=== PATIENT | female | born 1990 | race Caucasian/White ===

== ENCOUNTER → 2017-11-10 10:33 | Outpatient (CLI) | payer OTHER, SELFPAY | PROVIDERS: PCP Family Medicine; Visit Provider Obstetrics & Gynecology | DX: N92.5 Other specified irregular menstruation (principal) | CPT/HCPCS: 36415; 84702 ==

== ENCOUNTER 2017-11-12 09:08 | Emergency (ER) | payer OTHER, SELFPAY ==
[2017-11-12 09:15] VITALS: BP 113/78; PULSE 94; RESP 16; TEMP 36.8; O2SAT 98; BMI 37.9
[2017-11-12 10:15] LABS: Urine Pregnancy, HCG Qual. Positive (Negative)
--- NOTE | 2017-11-12 10:16 | US_ITS ---
US OB transvaginal HISTORY: First trimester bleeding ITS.REASON: cramping, spotting ORDERING PHYSICIAN: Richard Thompson MD PATIENT AGE: 27 years COMPARISON: None FINDINGS: An intrauterine gestational sac is present with a pole with a crown-rump length of 0.51cm correlating to gestational age of 6 weeks 2 days. heart tones are present with an FHR of 139 bpm's. Yolk sac is noted. Adnexa: 2 cm right corpus luteum noted. IMPRESSION: Live intrauterine gestation at 6 weeks 2 days days as described above. Estimated due date by ultrasound is 07/07/2018
--- NOTE | 2017-11-12 10:19 | HMH.EDGENADL ---
ED Disposition Clinical Impression: Threatened miscarriage Disposition: Home, Self-Care Condition on Discharge: Good Instructions: DI for Threatened Additional Instructions: Call your dowel inserting machine operator if bleeding increases or pain worsens. Rest for 2 days, no strenuous physical activity and no sexual intercourse for 2 days. Referrals: Ayesha Mejia APRN [Primary Care Provider] - - Critical Care Critical Care Time: No Attestation: On 11/12/17, the high probability of a clinically significant, sudden or life threatening deterioration of the following system(s) required my full and direct attention, intervention and personal management. The time I documented below is in addition to time spent performing reported procedures but includes the following listed in this critical care notation. Medical Decision Making Vital Signs: 11/12/17 09:15 Temperature 98.2 F Temperature Source Oral Pulse Rate [Left Radial] 94 H Respiratory Rate 16 Blood Pressure [Right Arm] 113/78 Blood Pressure Mean [Right Arm] 89 Blood Pressure Source [Right Arm] Automatic Cuff Blood Pressure Position [Right Arm] Sitting 02 Sat by Pulse Oximetry 98 Oxygen Delivery Method Room Air - Lab Data Lab Results 11/12/17 09:58: Serum HCG, Qual Positive, Urine HCG, Qual Positive 11/12/17 10:43: WBC 11.8 H, RBC 4.59, Hgb 13.6, Hct 41.9, MCV 91.3, MCH 29.6, MCHC 32.4, RDW 14.3, Plt Count 301, MPV 7.7, Neut % (Auto) 62.7, Lymph % (Auto) 31.0, [place] % (Auto) 4.9, Eos % (Auto) 1.0, Baso % (Auto) 0.5, Neut # (Auto) 7.4, Lymph # (Auto) 3.7, [place] # (Auto) 0.6, Eos # (Auto) 0.1, Baso # (Auto) 0.1 Result diagrams: 11/12/17 10:43 Orders (Tests/Meds): ED MEDICATIONS Discontinued Medications Generic Name Dose Route Start Last Admin Trade Name Freq PRN Reason Stop Dose Admin Rho Immune Globulin 50 unit 11/12/17 11:31 Rhogam Ultra-Filtered Plus IM 11/12/17 11:32 ONCE ONE ORDERS Category Date Time Status ABO/RH Type Stat BBK 11/12/17 11:44 Received US OB transvaginal Stat Ultrasound 11/12/17 10:16 Taken - US Data US Images: Pelvis Findings Narrative: As per [facility] procedure, ultrasound report received from termite control technician: 6 week, 1 day fetus, viable, with heart tones. Cervix closed. - Darian Inquiry Pt receiving controlled substance: No Medical Decision Making Narrative: The patient is Rh-. RhoGam ordered. General Adult HPI - General Chief complaint: OB/Uterine Contractions Stated complaint: approx 7 weeks ,spotting Mode of Arrival: Ambulatory Limitations: No Limitations Description of Symptoms (Recalled from ER Triage Doc. by RN): intermittent lower abd/pelvic cramping. Woke up dizzy this morning, brownish-blood noted on toilet tissue. Approx 7 weeks . - History of Present Illness HPI narrative: The patient states that she is and has pelvic cramping and spotting that started yesterday. Her last normal menstrual period is unknown. She thinks maybe 3 months ago. She says that she was on control and stopped it late August or early September 2017 and has not had a regular period since then. She is now 4. She had a quantitative beta hCG done at this facility 2 days ago, ordered by her dowel inserting machine operator in [place]. She says that they called her and told her she was 51 days gestation. - Related Data Home Medications Medication Instructions Recorded Confirmed No Known Home Medications [No 11/12/17 11/12/17 Known Home Medications] Allergies Allergy/AdvReac Type Severity Reaction Status Date / Time penicillin V [PENICILLIN V] Allergy Unknown Unverified 09/28/17 14:56 Penicillins [PENICILLINS] Allergy Unknown Unverified 09/28/17 14:56 sulfamethoxazole Allergy Unknown Unverified 09/28/17 14:56 [SULFAMETHOXAZOLE] trimethoprim [TRIMETHOPRIM] Allergy Unknown Unverified 09/28/17 14:56 [facility] History I have reviewed the p
[2017-11-12 10:26] LABS: HCG Qualitative, Serum Positive (Negative)
[2017-11-12 10:53] LABS: Basophils # 0.1 K/mm3 (0-0.2); Basophils % 0.5 % (0.1-2.0); Eosinophils # 0.1 K/mm3 (0.0-0.4); Hematocrit 41.9 % (37.0-47.0); Hemoglobin 13.6 g/dL (12.2-16.2); Lymphocytes # 3.7 K/mm3 (0.7-4.5); Mean Corpuscular HGB Conc 32.4 g/dL (31.8-35.4); Mean Corpuscular Hemoglobin 29.6 pg (27.0-31.2); Mean Corpuscular Volume 91.3 fl (81-99); Mean Platelet Volume 7.7 fl (7.4-10.4); Monocytes # 0.6 K/mm3 (0.1-1.0); Monocytes % 4.9 % (1.7-9.3); Neutrophils # 7.4 K/mm3 (1.8-7.8); Neutrophils % 62.7 % (37.0-80.0); Platelet Count 301 K/mm3 (142-424); Red Blood Count 4.59 M/mm3 (4.20-5.40); Red Cell Distribution Width 14.3 % (11.5-17.5); White Blood Count 11.8 K/mm3 (4.8-10.8)
[2017-11-12 12:53] VITALS: BP 111/68; PULSE 95; RESP 16; TEMP 37; O2SAT 99
== END 2017-11-12 12:55 | disposition home or self-care (01) ==
PROVIDERS: Emergency Provider Emergency Medicine; Family Provider Family Medicine; PCP Obstetrics & Gynecology
DX: O20.0 Threatened abortion (principal); Z3A.00 Weeks of gestation of pregnancy not specified
CPT/HCPCS: 76830; 81025; 84703; 85025; 96372; 99283; J2790

== ENCOUNTER 2017-11-19 01:42 | Emergency (ER) | payer OTHER, SELFPAY ==
[2017-11-19 02:10] VITALS: BP 131/70; PULSE 89; RESP 20; TEMP 36.7; O2SAT 100; BMI 37.8
--- NOTE | 2017-11-19 02:23 | HMH.EDNVD ---
ED Disposition Clinical Impression: Exposure to communicable disease, Influenza Fever Qualifiers: Fever type: unspecified Qualified Code(s): R50.9 - Fever, unspecified Disposition: Home, Self-Care Condition on Discharge: Good Instructions: DI for Influenza -- Adult Additional Instructions: Please take Tylenol every 4 hours as needed for fever and body aches, increase her fluid intake, follow-up with OB doctor if not better in 3-5 days. Prescriptions: Oseltamivir Phosphate [Tamiflu 75mg Capsule] 75 mg PO BID #10 cap Referrals: Ayesha Mejia APRN [Primary Care Provider] - Time of Disposition: 03:46 - Critical Care Critical Care Time: No Attestation: On 11/19/17, the high probability of a clinically significant, sudden or life threatening deterioration of the following system(s) required my full and direct attention, intervention and personal management. The time I documented below is in addition to time spent performing reported procedures but includes the following listed in this critical care notation. Medical Decision Making - Medical Records Medical records reviewed: Yes: I reviewed the patient's medical records. Vital Signs: 11/19/17 02:10 11/19/17 04:05 Temperature 98.1 F 98 F Temperature Source Oral Oral Pulse Rate 87 Pulse Rate [Right Brachial] 89 Respiratory Rate 20 18 Blood Pressure 94/62 Blood Pressure [Right Arm] 131/70 Blood Pressure Mean [Right Arm] 90 Blood Pressure Source Automatic Cuff Blood Pressure Source [Right Arm] Automatic Cuff Blood Pressure Position Sitting Blood Pressure Position [Right Arm] Sitting 02 Sat by Pulse Oximetry 100 Oxygen Delivery Method Room Air Room Air - Lab Data Lab results reviewed: Yes: I reviewed the patient's lab results. Lab Results 11/19/17 02:25: Influenza Type A Ag Negative, Influenza Type B Ag Negative, Group A Strep Rapid Negative - Darian Inquiry Pt receiving controlled substance: No - Reevaluation(s) Time: 03:30 Reevaluation #1: Patient will be discharged on Tamiflu, given the symptoms and the + exposure. Nausea/Vomiting/Diarrhea HPI - General Chief complaint: Nausea/Vomiting/Diarrhea Stated complaint: fever,nausea,7 wks Mode of Arrival: Family Vehicle Limitations: No Limitations Description of Symptoms (Recalled from ER Triage Doc. by RN): C/O FEELING HOT AND NAUSEOUS - History of Present Illness HPI Narrative: Was exposed to child with influenza, documented by positive test. Patient feeling feverish and nauseated. MD complaint: nausea Onset (ago): day(s) (1) Description of Vomiting: other (no vomiting) Associated Abdominal Pain: No - Related Data Home Medications Medication Instructions Recorded Confirmed Blp362/FA/Omega3/Dha/Fish Oil 1 each PO DAILY 11/19/17 11/19/17 [ Gummies] Previous Rx's Medication Instructions Recorded Oseltamivir Phosphate [Tamiflu 75 mg PO BID #10 cap 11/19/17 75mg Capsule] Allergies Allergy/AdvReac Type Severity Reaction Status Date / Time penicillin V [PENICILLIN V] Allergy Unknown Verified 11/12/17 12:46 Penicillins [PENICILLINS] Allergy Unknown Verified 11/12/17 12:46 sulfamethoxazole Allergy Unknown Verified 11/12/17 12:46 [SULFAMETHOXAZOLE] trimethoprim [TRIMETHOPRIM] Allergy Unknown Verified 11/12/17 12:46 [facility] History I have reviewed the patient's past medical history: Yes Medical History: Denies:: Cancer, Diabetes Mellitus Type 1, Diabetes Mellitus Type 2, MRSA Amputation: No Fractures: No - *Social History Smoking Status: Former smoker Tobacco Type: cigarettes Alcohol Intake: never - Psychiatric History Expresses thoughts of harming self/others: None Suicide Plan Description: No Plan Para: 1 ROS Obtained: Yes All systems reviewed & no additional complaints - Constitutional Constitutional: Reports chills, Reports fatigue, Reports fever(s) (subjective) - Gastrointestinal Gastrointestingal: Repor
[2017-11-19 03:27] LABS: Strep Scrn Group A (Rapid) Negative (Negative)
[2017-11-19 04:05] VITALS: BP 94/62; PULSE 87; RESP 18; TEMP 36.6; O2SAT 96
== END 2017-11-19 04:07 | disposition home or self-care (01) ==
PROVIDERS: Emergency Provider Emergency Medicine; Family Provider Family Medicine; PCP Obstetrics & Gynecology
DX: R50.9 Fever, unspecified (principal); Z20.828 Contact with and (suspected) exposure to other viral communicable diseases; Z33.1 Pregnant state, incidental
CPT/HCPCS: 87275; 87276; 87430; 99282

== ENCOUNTER → 2018-02-03 09:17 | Outpatient (CLI) | payer OTHER, SELFPAY ==
[2018-02-03 11:24] LABS: Glucose,Fasting 84 mg/dL (60-105)
== END ==
PROVIDERS: Visit Provider Obstetrics & Gynecology
DX: E74.8 Other specified disorders of carbohydrate metabolism (principal); Z34.82 Encounter for supervision of other normal pregnancy, second trimester
CPT/HCPCS: 36415; 82947

== ENCOUNTER 2018-03-06 10:16 | Outpatient (CLI) | payer OTHER, SELFPAY ==
[2018-03-06 10:47] VITALS: BP 114/74; PULSE 102; RESP 18; TEMP 36.5; O2SAT 98; BMI 38.0
== END 2018-03-06 11:40 | disposition home or self-care (01) ==
LOC: OBOUT 10:19 → OB 10:19
PROVIDERS: PCP Family Medicine; Visit Provider Obstetrics & Gynecology
DX: O36.8120 Decreased fetal movements, second trimester, not applicable or unspecified (principal); Z3A.22 22 weeks gestation of pregnancy

== ENCOUNTER → 2018-07-28 14:55 | Outpatient (CLI) | payer OTHER, SELFPAY | PROVIDERS: PCP Nurse Practitioner Family; Visit Provider Nurse Practitioner Family | DX: F41.9 Anxiety disorder, unspecified (principal); R53.83 Other fatigue; F32.9 Major depressive disorder, single episode, unspecified; E66.9 Obesity, unspecified ==

== ENCOUNTER → 2021-10-10 11:59 | Outpatient (CLI) | payer OTHER, SELFPAY | PROVIDERS: Visit Provider Nurse Practitioner Family | DX: U07.1 COVID-19 (principal) | CPT/HCPCS: C9803; U0003; U0005 ==

== ENCOUNTER → 2021-11-25 14:05 | Outpatient (CLI) | payer BC, SELFPAY ==
--- NOTE | 2021-11-25 14:05 | CT_ITS ---
FINAL REPORT TECHNIQUE: Axial CT images were performed through the neck. Coronal and sagittal reformats were submitted. This study was performed with techniques to keep radiation doses as low as reasonably achievable (ALARA). Individualized dose reduction techniques using automated exposure control or adjustment of mA and/or kV according to the patient's size were employed. CLINICAL HISTORY: knot lower posterior right neck, bb placed on area of interest FINDINGS: A skin marker was placed at the right lateral neck. The nasopharynx, hypopharynx and oropharynx are unremarkable. The thyroid gland is unremarkable. There are enlarged submandibular lymph nodes measuring 18 mm on the right and 13 mm on the left. Beneath the skin marker is a 7 mm nodule that is likely a lymph node. Limited images of the lung apices are unremarkable. IMPRESSION: 7 mm nodule at the area of interest likely representing a lymph node. Enlarged bilateral submandibular lymph nodes. Reviewed, Interpreted and Dictated by Estiven Gloria III, MD Transcribed by Chon Arechiag Authenticated by Estiven Gloria III, MD on 11/25/2021 03:43:00 PM [facility]
== END ==
PROVIDERS: PCP Physician Assistant; Visit Provider Physician Assistant
DX: R22.1 Localized swelling, mass and lump, neck (principal)
CPT/HCPCS: 70490

== ENCOUNTER → 2021-12-01 13:54 | Outpatient (CLI) | payer BC, SELFPAY ==
[2021-12-01 13:54] VITALS: BMI 37.7
== END ==
PROVIDERS: PCP Physician Assistant; Visit Provider Physician Assistant
DX: Z71.3 Dietary counseling and surveillance (principal); E11.9 Type 2 diabetes mellitus without complications
CPT/HCPCS: 97802

== ENCOUNTER → 2022-02-12 14:14 | Outpatient (CLI) | payer BC, SELFPAY ==
--- NOTE | 2022-02-12 14:15 | US_ITS ---
PROCEDURE INFORMATION: Exam: US Left Breast, Complete US Right Breast, Complete MG Bilateral Diagnostic Breast Tomosynthesis Exam date and time: 02/12/2022 2:10 PM Age: 31 years old Clinical indication: Right breast pain; Left; Additional info: Breast pain RT TECHNIQUE: Imaging protocol: Complete ultrasound of all four quadrants of the Left breast and the retroareolar regions, including ultrasound of the axilla when performed. Complete ultrasound of all four quadrants of the Right breast and the retroareolar regions, including ultrasound of the axilla when performed. Bilateral Diagnostic tomosynthesis and 2D mammography including computer-aided detection (CAD) when performed. Unilateral or bilateral exam. COMPARISON: No relevant prior studies available. FINDINGS: MAMMOGRAPHY: The breast tissue is composed of scattered areas of fibroglandular density. There is no stellate mass, architectural distortion or suspicious microcalcifications in either breast to suggest malignancy. No skin thickening or axillary adenopathy. ULTRASOUND: Sonographic images of both breasts including the retroareolar regions, all 4 quadrants and the axilla do not demonstrate any solid masses. Minimal subcentimeter cystic change is present in the right 2 o'clock axis. No architectural distortion or acoustical shadowing. No skin thickening or axillary adenopathy. IMPRESSION: No mammographic or sonographic evidence of malignancy. Annual bilateral mammographic screening is recommended unless otherwise clinically indicated. ASSESSMENT: BI-RADS Category 2: Benign
== END ==
PROVIDERS: PCP Physician Assistant; Visit Provider Physician Assistant
DX: N64.4 Mastodynia (principal); Z80.3 Family history of malignant neoplasm of breast
CPT/HCPCS: 76641; 77062; 77066; G0279

== ENCOUNTER → 2022-04-02 11:10 | Outpatient (CLI) | payer BC, SELFPAY ==
--- NOTE | 2022-04-02 11:14 | XR_ITS ---
FINAL REPORT CLINICAL HISTORY: back pain FINDINGS: SCOLIOSIS EVALUATION Two views of the thoracolumbar spine were obtained. There is 7 degrees of leftward curvature centered at T6. There is 6 degree of rightward curvature centered at L2. There are no vertebral anomalies. IMPRESSION: Thoracolumbar curvature as above. Reviewed, Interpreted and Dictated by Estiven Gloria III, MD Transcribed by Ambika Glover Authenticated and [facility]
--- NOTE | 2022-04-02 11:14 | XR_ITS ---
FINAL REPORT CLINICAL HISTORY: back pain FINDINGS: LUMBOSACRAL SPINE 5 views of the lumbar spine were obtained. There is no evidence of fracture or dislocation. The vertebral alignment is normal. Disc spaces are preserved. No paraspinous soft tissue abnormalities identified. IMPRESSION: No acute bony abnormality. Reviewed, Interpreted and Dictated by Estiven Gloria III, MD Transcribed by Ambika Glover Authenticated and [facility]
== END ==
PROVIDERS: PCP Physician Assistant; Visit Provider Physician Assistant
DX: M54.9 Dorsalgia, unspecified (principal); M54.50 Low back pain, unspecified
CPT/HCPCS: 72081; 72110

== ENCOUNTER 2022-06-02 16:30 | Outpatient (RCR) | payer BC, SELFPAY ==
--- NOTE | 2022-05-13 18:12 | HMH.RHREAS ---
Rehab Reassessment Rehab OP Re-assessment Start: 05/13/22 18:00 Freq: Status: Active Protocol: Document 05/13/22 18:00 MANOJ (Rec: 05/13/22 18:11 MANOJ [id number]) Electronically Signed By Jc Escobar, PT 05/13/22 18:00 Rehab Re-assessment Subjective Subjective Patient reports 60% improvement since start of care. Objective Objective Notes AROM: WNL MMT: WNL Pain: 0/10 today; 7/10 at worst Special tests negative Neuro: WNL no reports of radicular symptoms. Assessment Progress Assessment Progressing as Expected Assessment Notes Patient has not been seen since initial evaluation secondary to multiple exposures to COVID-19. Improvements noted with introduction of HEP. Objective improvements as noted above. Patient would benefit from continue with skilled PT services in order to address functional limitations with prolonged walking, standing, bending and lifting activities . Patient goals met STG 2, LTG 2 Goals Not Met All others Revised Goals NA Plan Plan Continue with current POC. Frequency of Therapy 2x/week Duration of therapy 4 weeks Time and Billing Re-Eval Time 15 Re-Eval Billing Units 1 PHYSICIAN CERTIFICATION: I certify the specified therapy services for Merle Lyle are required, authorized, and reviewed every 30 days.
== END 2022-06-02 17:30 | disposition home or self-care (01) ==
LOC: PT 16:30
PROVIDERS: PCP Physician Assistant; Visit Provider Family Medicine
DX: M54.50 Low back pain, unspecified (principal); M54.9 Dorsalgia, unspecified
CPT/HCPCS: 97010; 97014; 97110; 97163; 97164; G0283

== ENCOUNTER 2022-07-09 12:10 | Emergency (ER) | payer BC, SELFPAY ==
[2022-07-09 12:44] VITALS: BP 107/63; PULSE 70; RESP 17; TEMP 36.6; O2SAT 98; BMI 37.4
--- NOTE | 2022-07-09 13:09 | EXP.UTC ---
Discharge Plan Disposition Patient Disposition: Home, Self-Care Condition: Good Prescriptions Prescriptions: New ondansetron 4 mg Tablet,Disintegrating 4 mg PO Q8H PRN (Reason: Nausea) Qty: 20 0RF No Action azelastine 137 mcg (0.1 %) aerosol,spray 1 spray INTRANASAL BID Qty: 30 6RF Rx Instructions: administer into each nostril albuterol sulfate [ProAir HFA] 90 mcg/actuation HFA aerosol inhaler 2 puff INHALATION Q4-6H PRN (Reason: shortness of breath or wheezing) Qty: 6.7 3RF Rx Instructions: administer with spacer Advair HFA 115-21 mcg/actuation HFA aerosol inhaler 2 puff INHALATION BID Qty: 12 2RF omeprazole 20 mg capsule,delayed release(DR/EC) 20 mg PO DAILY Qty: 90 0RF vilazodone [Viibryd] 10 mg tablet 10 mg PO DAILY Qty: 30 2RF Rx Instructions: must administer with a meal/food spironolactone [Aldactone] 25 mg tablet 25 mg PO DAILY Qty: 30 2RF ondansetron 4 mg tablet,disintegrating 4 mg PO Q8H PRN (Reason: nausea and vomiting) Qty: 30 0RF Referrals Follow up/Referrals: Ina Gill PA [Primary Care Provider] - See instructions Activity Restrictions/Add. Instructions Additional Instructions/Restrictions: Drink plenty of fluids. Take tylenol or ibuprofen for pain or fever. Take the medications as directed. Follow up with your regular doctor. GO TO THE ER FOR ANY WORSENING SYMPTOMS Clinical Impressions Clinical Impression: Gastroenteritis Stand Alone Forms Stand Alone Forms: Work/School Release Instructions Patient Instructions: DI for Viral Gastroenteritis -- Adult Discharge ED Provider: Andrea Vinson [facility] HPI General Stated complaint: abd pain, diarrhea Mode of Arrival: Ambulatory Source of Information: Patient Limitations: No Limitations Time Seen by Provider: 07/09/22 13:07 Description of Symptoms (Recalled from Triage Doc. by RN): DIARRHEA, STOMACH ACHE HEENT Symptoms (Recalled from RN notes): No Resp Symptoms (Recalled from RN notes): No Skin Symptoms (Recalled from RN notes): No MS Symptoms (Recalled from RN notes): No Functional Status (Recalled from RN notes): NA History of Present Illness Provider Complaint: She states that for the past 2 days she has had an upset stomach, diarrhea and nausea. Related Data Previous Rx's Medication Instructions Recorded albuterol sulfate 90 mcg/actuation 2 puff inhalation Q4-6H PRN 12/19/21 aerosol inhaler (ProAir HFA) shortness of breath or wheezing #6.7 grams fluticasone propionate 115 2 puff inhalation BID #12 grams 12/19/21 mcg-salmeterol 21 mcg/actuation HFA inhaler (Advair HFA) azelastine 137 mcg (0.1 %) nasal 1 spray intranasal BID #30 mL 12/30/21 spray aerosol omeprazole 20 mg capsule,delayed 20 mg PO DAILY #90 caps 03/31/22 release spironolactone 25 mg tablet 25 mg PO DAILY #30 tabs 04/22/22 (Aldactone) vilazodone 10 mg tablet (Viibryd) 10 mg PO DAILY #30 tabs 04/22/22 ondansetron 4 mg disintegrating 4 mg PO Q8H PRN nausea and 05/27/22 tablet vomiting #30 tabs ondansetron 4 mg disintegrating 4 mg PO Q8H PRN Nausea #20 tabs 07/09/22 tablet Allergies Allergy/AdvReac Type Severity Reaction Status Date / Time penicillin V [PENICILLIN V] Allergy Unknown Verified 05/27/22 13:57 Penicillins [PENICILLINS] Allergy Unknown Verified 05/27/22 13:57 sulfamethoxazole Allergy Unknown Verified 05/27/22 13:57 [SULFAMETHOXAZOLE] trimethoprim [TRIMETHOPRIM] Allergy Unknown Verified 05/27/22 13:57 metformin AdvReac Intermediate GI upset Verified 05/27/22 13:57 Worker's Comp Is this a Worker's Comp case?: No PFSH PFSH Medical History Anxiety and depression Depression Gastroesophageal reflux disease Hirsutism PCOS (polycystic ovarian syndrome) Persistent dyspnea after COVID-19 PMDD (premenstrual dysphoric disorder) Pre-diabetes PTSD (post-traumatic stress disorder) Varicose vein of leg
[2022-07-09 13:26] LABS: UTC Strep Screen (Rapid) Negative (Negative)
[2022-07-09 13:31] VITALS: BP 107/63; PULSE 70; RESP 17; TEMP 36.6; O2SAT 98
== END 2022-07-09 13:33 | disposition home or self-care (01) ==
PROVIDERS: Emergency Provider Nurse Practitioner Family; PCP Physician Assistant
DX: K52.9 Noninfective gastroenteritis and colitis, unspecified (principal)
CPT/HCPCS: 87880; 99212; G0463

== ENCOUNTER → 2022-07-15 11:38 | Outpatient (CLI) | payer BC, SELFPAY ==
[2022-07-15 13:55] LABS: Basophils # 0.1 K/mm3 (0-0.2); Basophils % 1.3 % (0.1-2.0); Eosinophils # 0.1 K/mm3 (0.0-0.4); Eosinophils % 1.2 % (0.1-12.0); Hematocrit 43.6 % (37.0-47.0); Hemoglobin 14.1 g/dL (12.2-16.2); Lymphocytes # 3.8 K/mm3 (0.7-4.5); Lymphocytes % 42.3 % (10-50); Mean Corpuscular HGB Conc 32.4 g/dL (31.8-35.4); Mean Corpuscular Hemoglobin 28.8 pg (27.0-31.2); Mean Platelet Volume 8.5 fl (7.4-10.4); Monocytes # 0.4 K/mm3 (0.1-1.0); Monocytes % 4.5 % (1.7-9.3); Neutrophils # 4.5 K/mm3 (1.8-7.8); Neutrophils % 50.6 % (37.0-80.0); Platelet Count 384 K/mm3 (142-424); Red Cell Distribution Width 17.5 % (11.5-17.5)
[2022-07-15 14:12] LABS: Alanine Aminotransferase 34 U/L (12-78); Albumin Level 4.8 g/dl (3.5-5.0); Albumin/Globulin Ratio 1.5 (1.1-1.8); Alkaline Phosphatase 100 U/L (38-126); Anion Gap 16.5 mEq/L (5-15); Aspartate Amino Transferase 34 U/L (14-36); Blood Urea Nitrogen 9 mg/dl (7-17); Calcium 9.9 mg/dl (8.4-10.2); Carbon Dioxide 29 mmol/L (22.0-30.0); Chloride 101 mmol/L (98-107); Chol/HDL Ratio 3.3 (1-3.5); Cholesterol 154 mg/dl (140-200); Estimated Glomerular Filt Rate 98 ml/min (>60); GFR (African American) 119 ML/MIN (>60); Globulin 3.2 g/dL (1.3-3.2); Glucose 77 mg/dl (74-100); HDL Cholesterol 46 mg/dl (40-60); Potassium 4.5 mmoL/L (3.5-5.1); Sodium 142 mmol/L (136-145); Triglycerides 122 mg/dl (30-150); VLDL Cholesterol 24 mg/dL (0-40)
[2022-07-15 14:18] LABS: Bilirubin,Total 0.1 mg/dl (0.2-1.3)
[2022-07-15 14:22] LABS: Direct LDL Cholesterol 83.02 mg/dL (100-129)
[2022-07-15 14:28] LABS: 25-OH Vitamin D, Total 81.4 ng/mL (30-100)
[2022-07-15 14:29] LABS: T4 (Thyroxine) 7.5 ug/dl (5.53-11.0)
[2022-07-15 14:42] LABS: Thyroid Stimulating Hormone 0.69 uIU/mL (0.465-4.68)
[2022-07-15 15:20] LABS: Hemoglobin A1C 5.3 % (4.0-6.0)
[2022-07-17 08:16] LABS: Prolactin 5.2 ng/mL (4.8-23.3)
[2022-07-17 11:20] LABS: C-Peptide 4.2 ng/mL (1.1-4.4)
[2022-07-23 12:20] LABS: Anti Mullerian Hormone (AMH) 8.11 ng/mL (.)
[2022-08-06 12:40] LABS: Hep A Ab, IgM NEGATIVE; Hepatitis B Core Antibody IgM NEGATIVE; Hepatitis B Surface Antigen NEGATIVE; Hepatitis C Antibody <0.1
== END ==
PROVIDERS: PCP Physician Assistant; Visit Provider Physician Assistant
DX: E28.2 Polycystic ovarian syndrome (principal); R53.83 Other fatigue; E80.7 Disorder of bilirubin metabolism, unspecified
CPT/HCPCS: 80053; 80061; 80074; 82306; 82397; 82626; 83036; 84146; 84436; 84443; 84681; 85025

== ENCOUNTER → 2022-07-23 14:47 | Outpatient (CLI) | payer BC, SELFPAY ==
--- NOTE | 2022-07-23 14:48 | US_ITS ---
FINAL REPORT CLINICAL HISTORY: PCOS FINDINGS: Transvaginal sonographic images of the pelvis were obtained. The uterus is retroverted and measures 9.5 x 5.6 x 4.6 cm. 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 The endometrium measures 1.1 cm, which is within normal limits. No uterine mass is identified. The right ovary measures 3.4 cm in length and left ovary measures 3.2 cm in length. Normal blood flow seen to the ovaries. Multiple cysts or follicles are present bilaterally. No dominant mass is seen. There is no evidence of free fluid. 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 Multiple cysts or follicles are present on both ovaries. Reviewed, Interpreted and Dictated by Kimo Marlow MD Transcribed by Ambika Glover Authenticated and [facility]
== END ==
PROVIDERS: PCP Physician Assistant; Visit Provider Physician Assistant
DX: E28.2 Polycystic ovarian syndrome (principal)
CPT/HCPCS: 76830

== ENCOUNTER 2022-07-26 10:22 | Emergency (ER) | payer BC, SELFPAY ==
[2022-07-26 10:35] VITALS: BP 110/72; PULSE 101; RESP 18; TEMP 36.7; O2SAT 97; BMI 36.6
--- NOTE | 2022-07-26 10:49 | EXP.UTC ---
Discharge Plan Disposition Patient Disposition: Home, Self-Care Condition: Good Prescriptions Prescriptions: New azithromycin [Zithromax Z-Hansel] 250 mg tablet See Rx Instructions .ROUTE .COMPLEX 5 Days Qty: 6 0RF Rx Instructions: For 250 mg dose pack: take 500 mg today (day 1), then 250 mg for 4 days (days 2-5) fluticasone propionate [Flonase Allergy Relief] 50 mcg/actuation spray,suspension 1 spray intranasal DAILY Qty: 16 0RF Rx Instructions: administer into each nostril No Action omeprazole 20 mg capsule,delayed release(DR/EC) 20 mg PO DAILY vilazodone [Viibryd] 10 mg tablet 10 mg PO DAILY Rx Instructions: must administer with a meal/food Ozempic 1 mg/dose (4 mg/3 mL) pen injector 0.5 mg SQ WEEKLY Referrals Follow up/Referrals: Ina Gill PA [Primary Care Provider] - See instructions Activity Restrictions/Add. Instructions Additional Instructions/Restrictions: *Monitor Temp, Over the counter Motrin or Tylenol as directed/as needed Tylenol every 4 hours and Motrin every 6 hours (as long as your family doctor has told you that you can take it) for fever or pain. and straight to ER if unable to lower temp less than 101.0 after medication given *Warm salt water gargles may help to soothe the throat *Throat Lozenges? *Warm fluids like tea with honey may help to soothe the throat? *Sleep elevated *Humidifier/Vaporizer *If you did not take Penicillin shot or was unable to, start taking antibiotic immediately and make sure that you take it for the FULL length of time although you should start to feel better in 24-48 hours *change toothbrush and toothpaste 24-48 hours after starting to take antibiotics so you do not reinfect yourself Monitor Temp. Tylenol and/or Ibuprofen as needed. ER if fever is no less than 101 despite alternating Tylenol and Ibuprofen * Encourage fluids, water, Gatorade, powerade, pedialyte if /toddler/or child *Cold fluids, popsicles and ice cream may feel good on his throat Follow up IMMEDIATELY for new or worsening symptoms or no Noticeable improvement over the next 48-72 hours. 911 for difficulty breathing or swallowing Clinical Impressions Clinical Impression: Strep throat Stand Alone Forms Stand Alone Forms: Work/School Release Instructions Patient Instructions: Strep Throat, DI for Strep Throat Discharge ED Provider: Cornelia Darby [facility] General Stated complaint: BA, MCCLAIN, Fever, Nausea, Sore throat Mode of Arrival: Ambulatory Source of Information: Patient Limitations: No Limitations Time Seen by Provider: 07/26/22 10:49 Description of Symptoms (Recalled from Triage Doc. by RN): PATIENT C/O BODY ACHES, BACK PAIN, SORE THROAT, FEVER, DIZZINESS AND HEADACHE SINCE YESTERDAY HEENT Symptoms (Recalled from RN notes): Yes Resp Symptoms (Recalled from RN notes): Yes Skin Symptoms (Recalled from RN notes): No MS Symptoms (Recalled from RN notes): No Functional Status (Recalled from RN notes): WNL History of Present Illness Provider Complaint: Patient states that she started feeling bad yesterday States that she has been having body aches, headache pressure in her ears dizziness on and off and sore throat State that her throat hurts to talk and swallow States that today she wasnt feeling any better so she came in to get checked out Related Data Home Medications Medication Instructions Recorded Confirmed omeprazole 20 mg capsule,delayed 20 mg PO DAILY GERD 07/26/22 07/26/22 release semaglutide 1 mg/dose (4 mg/3 mL) 0.5 mg SQ WEEKLY Diabetes 07/26/22 07/26/22 subcutaneous pen injector (Ozempic) vilazodone 10 mg tablet (Viibryd) 10 mg PO DAILY MOOD STABILIZER 07/26/22 07/26/22 Previous Rx's Medication Instructions Recorded azithromycin 250 mg tablet See Rx Instructions PO .COMPLEX 5 07/26/22 (Zithromax Z-Hansel) days #6 tabs fluticasone propionate 50 1 spray intranasal DAILY #16 grams 07/11
[2022-07-26 10:52] LABS: UTC Influenza A Antigen Negative (Negative); UTC Strep Screen (Rapid) Positive (Negative)
[2022-07-26 10:53] LABS: UTC Influenza B Antigen Negative (Negative)
[2022-07-26 11:00] VITALS: BP 110/72; PULSE 101; RESP 18; TEMP 36.7; O2SAT 97
== END 2022-07-26 11:04 | disposition home or self-care (01) ==
PROVIDERS: Emergency Provider Nurse Practitioner; PCP Physician Assistant
DX: J02.0 Streptococcal pharyngitis (principal); B95.0 Streptococcus, group A, as the cause of diseases classified elsewhere; H93.8X3 Other specified disorders of ear, bilateral; R42 Dizziness and giddiness; R11.0 Nausea; M79.10 Myalgia, unspecified site; I83.90 Asymptomatic varicose veins of unspecified lower extremity; K21.9 Gastro-esophageal reflux disease without esophagitis; E28.2 Polycystic ovarian syndrome; G40.834 Dravet syndrome, intractable, without status epilepticus; L68.0 Hirsutism; F43.10 Post-traumatic stress disorder, unspecified; F41.9 Anxiety disorder, unspecified; Z79.51 Long term (current) use of inhaled steroids; Z79.52 Long term (current) use of systemic steroids; Z79.899 Other long term (current) drug therapy; Z88.0 Allergy status to penicillin; Z88.1 Allergy status to other antibiotic agents; Z88.2 Allergy status to sulfonamides; Z88.8 Allergy status to other drugs, medicaments and biological substances
CPT/HCPCS: 87804; 87880; 99213; G0463

== ENCOUNTER → 2022-09-15 10:52 | Outpatient (CLI) | payer BC, SELFPAY ==
[2022-09-15 12:48] LABS: HCG,Quantitative 3226 mIU/ml (0-5.42)
== END ==
PROVIDERS: PCP Physician Assistant; Visit Provider Nurse Practitioner Obstetrics & Gynecology
DX: N92.6 Irregular menstruation, unspecified (principal); Z32.00 Encounter for pregnancy test, result unknown
CPT/HCPCS: 36415; 84702

== ENCOUNTER 2022-10-07 12:25 | Emergency (ER) | payer BC, SELFPAY ==
[2022-10-07 13:52] VITALS: BP 145/91; PULSE 100; RESP 18; TEMP 36.7; O2SAT 99; BMI 37.4
[2022-10-07 14:01] LABS: Microscopic, Urine URINE MICROSCOPIC (MICROSCOPIC)
[2022-10-07 14:03] LABS: Appearance,Urine CLEAR (Clear); Bilirubin,Urine Negative (Negative); Blood, Urine Negative (Negative); Color,Urine YELLOW (Yellow); Glucose,Urine (UA) 2+ (Negative); Ketones,Urine Negative (Negative); Leukocyte Esterase,Urine Negative (Negative); Nitrate,Urine Negative (Negative); Protein,Urine Negative (Negative); Specific Gravity, Urine 1.015 (1.005-1.030); Urobilinogen,Urine 0.2 EU/dl (0.2)
--- NOTE | 2022-10-07 14:04 | PC.NURSE ---
DR. ARTEAGA AT BEDSIDE
--- NOTE | 2022-10-07 14:18 | US_ITS ---
FINAL REPORT CLINICAL HISTORY: LMP aug 08, abdominal cramping FINDINGS: Sonographic trans vaginal images of the pelvis were obtained. Gestational sac is seen in the uterus. [place]-rump length measures 19 mm corresponding to 8 week 3 day gestation. Heartbeat is detected at 181 beats per minute. The right ovary measures 3.7 x 2.5 x 2.6 cm. The left ovary is not visualized. IMPRESSION: Single intrauterine corresponding to 8 week 3 day gestation. Reviewed, Interpreted and Dictated by Estiven Gloria III, MD Transcribed by Kinjal Hammond Authenticated and . [facility]
[2022-10-07 14:27] LABS: Bacteria,Urine Trace /lpf
[2022-10-07 14:29] VITALS: BP 122/79; PULSE 100; RESP 18; O2SAT 99
--- NOTE | 2022-10-07 14:35 | HMH.EDGENADL ---
Discharge Plan Disposition Patient Disposition: Home, Self-Care Condition: Good Chief Complaint: Abdominal Pain Prescriptions Prescriptions: No Action drospirenone-ethinyl estradiol [MISHA (28)] 3-0.02 mg tablet 1 tab PO DAILY Qty: 28 3RF oseltamivir [Tamiflu] 75 mg capsule 75 mg PO BID 5 Days Qty: 10 0RF zkvajahglfxirhf-iurhxawnh-II [Bromfed DM] 2-30-10 mg/5 mL syrup 5 ml PO Q6H PRN (Reason: cold symptoms) Qty: 180 0RF vilazodone 10 mg tablet See Rx Instructions .ROUTE .COMPLEX Qty: 30 0RF Dose Instruction: Take 1 tablet by mouth once daily with food Rx Instructions: Take 1 tablet by mouth once daily with food azithromycin [Zithromax Z-Hansel] 250 mg tablet See Rx Instructions PO .COMPLEX Qty: 6 0RF Rx Instructions: For 250 mg dose pack: take 500 mg today (day 1), then 250 mg for 4 days (days 2-5) PO prednisone 20 mg tablet 20 mg PO BID Qty: 10 0RF Rx Instructions: administer with food or milk omeprazole 20 mg capsule,delayed release(DR/EC) 20 mg PO DAILY Ozempic 1 mg/dose (4 mg/3 mL) pen injector 0.5 mg SQ WEEKLY fluticasone propionate [Flonase Allergy Relief] 50 mcg/actuation spray,suspension 1 spray intranasal DAILY Qty: 16 0RF Rx Instructions: administer into each nostril Referrals Follow up/Referrals: Ina Gill PA [Primary Care Provider] - See instructions Clinical Impressions Clinical Impression: Abdominal pain affecting Instructions Patient Instructions: DI for Acute Abdominal Pain Discharge ED Provider: Jai Green General Adult HPI General Chief complaint: Abdominal Pain Stated complaint: 8 Wks , back pain, dizzy Time Seen by Provider: 10/07/22 14:00 Mode of Arrival: Ambulatory Limitations: No Limitations Description of Symptoms (Recalled from ER Triage Doc. by RN): PT REPORTS SHE IS 8 WEEKS , REPORTS LOWER ABDOMINAL CRAMPING FOR 3 DAYS AFER INTERCOURSE. DENIES VAGINAL BLEEDING. REPORTS LOW BACK PAIN AND DIZZINESS THAT STARTED YESTERDAY History of Present Illness HPI narrative: This is a 32-year-old female with history of prediabetes, obesity, PCOS presenting with abdominal cramping. Patient states that has been going on approximately 3 days. Her last menstrual period was August 08 and she believes that she is about 8 weeks . Has had intermittent spotting, but denies saturating even a pad per day. Denies fevers, chills, nausea, vomiting, fluid gushing, abnormal vaginal discharge otherwise, dysuria, hematuria, change in bowel movements. Cramping is 8 out of 10 at worst, does not radiate, not associated with nausea or vomiting, or any other concerning symptoms. Related Data Home Medications Medication Instructions Recorded Confirmed omeprazole 20 mg capsule,delayed 20 mg PO DAILY GERD 07/26/22 08/26/22 release semaglutide 1 mg/dose (4 mg/3 mL) 0.5 mg SQ WEEKLY Diabetes 07/26/22 08/26/22 subcutaneous pen injector (Ozempic) Previous Rx's Medication Instructions Recorded fluticasone propionate 50 1 spray intranasal DAILY #16 grams 07/26/22 mcg/actuation nasal spray,suspension (Flonase Allergy Relief) drospirenone 3 mg-ethinyl 1 tab PO DAILY #28 tabs 08/06/22 estradiol 0.02 mg tablet (MISHA (28)) vilazodone 10 mg tablet See Rx Instructions .Route 08/13/22 .COMPLEX #30 tabs kwpwxskmjabbydy-mkoxikqpqvzrdmm-NT 5 ml PO Q6H PRN cold symptoms #180 08/26/22 2 mg-30 mg-10 mg/5 mL oral syrup mL (Bromfed DM) oseltamivir 75 mg capsule (Tamiflu) 75 mg PO BID 5 days #10 caps 08/26/22 azithromycin 250 mg tablet See Rx Instructions PO .COMPLEX #6 09/01/22 (Zithromax Z-Hansel) tabs prednisone 20 mg tablet 20 mg PO BID #10 tabs 09/01/22 Allergies Allergy/AdvReac Type Severity Reaction Status Date / Time penicillin V [PENICILLIN V] Allergy Unknown Verified 08/26/22 10:51 Penicillins [PENICILLINS] Allergy Unknown Verified 08/26/22 10:51 sulfamethoxazole Allergy
[2022-10-07 14:38] LABS: Urine Pregnancy, HCG Qual. Positive (Negative)
--- NOTE | 2022-10-07 14:45 | PC.NURSE ---
1445 PT TO US
--- NOTE | 2022-10-07 15:17 | PC.NURSE ---
PT RETURNED FROM US
--- NOTE | 2022-10-07 15:26 | PC.NURSE ---
LAB AT BEDSIDE
[2022-10-07 15:30] VITALS: BP 121/76; PULSE 95; O2SAT 99
[2022-10-07 15:46] LABS: Chloride 104 mmol/L (98-107); Potassium 3.8 mmoL/L (3.5-5.1); Sodium 138 mmol/L (136-145)
[2022-10-07 15:49] LABS: Alanine Aminotransferase 23 U/L (12-78); Albumin/Globulin Ratio 1.4 (1.1-1.8); Alkaline Phosphatase 58 U/L (38-126); Anion Gap 11.8 mEq/L (5-15); Aspartate Amino Transferase 28 U/L (14-36); Bilirubin,Total 0.4 mg/dl (0.2-1.3); Blood Urea Nitrogen 11 mg/dl (7-17); Calcium 8.5 mg/dl (8.4-10.2); Carbon Dioxide 26 mmol/L (22.0-30.0); Creatinine Clearance Estimated 221 mL/min (50-200); Estimated Glomerular Filt Rate 117 ml/min (>60); GFR (African American) 142 ML/MIN (>60); Globulin 2.9 g/dL (1.3-3.2); Glucose 88 mg/dl (74-100); Lipase 70 U/L (23-300); Total Protein,Serum 6.9 g/dl (6.3-8.2)
[2022-10-07 15:50] LABS: Lactic Acid 0.9 mmol/L (0.7-2.1)
[2022-10-07 15:54] LABS: Basophils # 0.1 K/mm3 (0-0.2); Basophils % 0.7 % (0.1-2.0); Eosinophils # 0.1 K/mm3 (0.0-0.4); Eosinophils % 0.8 % (0.1-12.0); Hematocrit 37.8 % (37.0-47.0); Hemoglobin 12.3 g/dL (12.2-16.2); Lymphocytes % 32.6 % (10-50); Mean Corpuscular HGB Conc 32.5 g/dL (31.8-35.4); Mean Corpuscular Hemoglobin 29.8 pg (27.0-31.2); Mean Corpuscular Volume 91.7 fl (81-99); Mean Platelet Volume 8.3 fl (7.4-10.4); Monocytes # 0.8 K/mm3 (0.1-1.0); Monocytes % 6.5 % (1.7-9.3); Neutrophils # 7.2 K/mm3 (1.8-7.8); Neutrophils % 59.5 % (37.0-80.0); Platelet Count 299 K/mm3 (142-424); Red Blood Count 4.13 M/mm3 (4.20-5.40); Red Cell Distribution Width 17.4 % (11.5-17.5); White Blood Count 12.2 K/mm3 (4.8-10.8)
[2022-10-07 16:01] VITALS: BP 111/60; PULSE 91; O2SAT 98
[2022-10-07 16:30] VITALS: BP 103/50; PULSE 87; O2SAT 99
[2022-10-07 17:00] VITALS: BP 116/69; PULSE 85; PULSE 86; RESP 17; TEMP 36.8; O2SAT 99
== END 2022-10-07 17:00 | disposition home or self-care (01) ==
PROVIDERS: Emergency Provider Emergency Medicine; PCP Physician Assistant
DX: Z3A.08 8 weeks gestation of pregnancy (principal); R42 Dizziness and giddiness; O26.891 Other specified pregnancy related conditions, first trimester; M54.50 Low back pain, unspecified
CPT/HCPCS: 36415; 76817; 80053; 81001; 81025; 83605; 83690; 85025; 86850; 87086; 99285

== ENCOUNTER 2022-11-10 16:08 | Emergency (ER) | payer BC, SELFPAY ==
[2022-11-10 16:09] VITALS: BP 133/95; PULSE 97; RESP 18; TEMP 36.5; O2SAT 98; BMI 39.9
--- NOTE | 2022-11-10 16:52 | PC.NURSE ---
SOTERO GARDNER at
--- NOTE | 2022-11-10 16:56 | HMH.EDGENADL ---
Discharge Plan Disposition Patient Disposition: Home, Self-Care Condition: Good Prescriptions Prescriptions: New metoclopramide HCl [Reglan] 5 mg tablet 5 mg PO TIDP PRN (Reason: nausea and vomiting) Qty: 10 0RF No Action drospirenone-ethinyl estradiol [MISHA (28)] 3-0.02 mg tablet 1 tab PO DAILY Qty: 28 3RF oseltamivir [Tamiflu] 75 mg capsule 75 mg PO BID 5 Days Qty: 10 0RF jbziaarmaxfbjir-qxoysuvvf-PB [Bromfed DM] 2-30-10 mg/5 mL syrup 5 ml PO Q6H PRN (Reason: cold symptoms) Qty: 180 0RF vilazodone 10 mg tablet See Rx Instructions .ROUTE .COMPLEX Qty: 30 0RF Dose Instruction: Take 1 tablet by mouth once daily with food Rx Instructions: Take 1 tablet by mouth once daily with food azithromycin [Zithromax Z-Hansel] 250 mg tablet See Rx Instructions PO .COMPLEX Qty: 6 0RF Rx Instructions: For 250 mg dose pack: take 500 mg today (day 1), then 250 mg for 4 days (days 2-5) PO prednisone 20 mg tablet 20 mg PO BID Qty: 10 0RF Rx Instructions: administer with food or milk omeprazole 20 mg capsule,delayed release(DR/EC) 20 mg PO DAILY Ozempic 1 mg/dose (4 mg/3 mL) pen injector 0.5 mg SQ WEEKLY fluticasone propionate [Flonase Allergy Relief] 50 mcg/actuation spray,suspension 1 spray intranasal DAILY Qty: 16 0RF Rx Instructions: administer into each nostril Referrals Follow up/Referrals: Ina Gill PA [Primary Care Provider] - See instructions Activity Restrictions/Add. Instructions Additional Instructions/Restrictions: Reglan as needed for nausea and vomiting. Follow-up with your [employer], call for appointment. Return emergency department if symptoms worsen. Clinical Impressions Clinical Impression: Gastroenteritis Instructions Patient Instructions: DI for Viral Gastroenteritis -- Adult Discharge ED Provider: Richard Thompson General Adult HPI General Chief complaint: Abdominal Pain Stated complaint: 14 wk preg, V&D weakness Time Seen by Provider: 11/10/22 16:45 History of Present Illness HPI narrative: The patient is a 5, para 2, 14 weeks gestation and complains of a 3 to 4-day history of vomiting, diarrhea, and weakness. No fever documented. No recent exposures or travel. She called her [employer] nurse practitioner who was concerned about dehydration and also wanted her to be tested for flu and COVID. The patient has taken leftover Zofran for her symptoms without improvement. However, states that she has been able to hold fluids down better today than the past 3 days. No vaginal bleeding. Mild diffuse abdominal pain from vomiting. Previous section x2. No other prior surgeries. She is not on any other prescription medications at this time except for taking the leftover Zofran. Related Data Home Medications Medication Instructions Recorded Confirmed omeprazole 20 mg capsule,delayed 20 mg PO DAILY GERD 07/26/22 08/26/22 release semaglutide 1 mg/dose (4 mg/3 mL) 0.5 mg SQ WEEKLY Diabetes 07/26/22 08/26/22 subcutaneous pen injector (Ozempic) Previous Rx's Medication Instructions Recorded fluticasone propionate 50 1 spray intranasal DAILY #16 grams 07/26/22 mcg/actuation nasal spray,suspension (Flonase Allergy Relief) drospirenone 3 mg-ethinyl 1 tab PO DAILY #28 tabs 08/06/22 estradiol 0.02 mg tablet (MISHA (28)) vilazodone 10 mg tablet See Rx Instructions .Route 08/13/22 .COMPLEX #30 tabs gzqrtenidwnaubj-jdwwbkwvhtqgvjr-OZ 5 ml PO Q6H PRN cold symptoms #180 08/26/22 2 mg-30 mg-10 mg/5 mL oral syrup mL (Bromfed DM) oseltamivir 75 mg capsule (Tamiflu) 75 mg PO BID 5 days #10 caps 08/26/22 azithromycin 250 mg tablet See Rx Instructions PO .COMPLEX #6 09/01/22 (Zithromax Z-Hansel) tabs prednisone 20 mg tablet 20 mg PO BID #10 tabs 09/01/22 metoclopramide HCl 5 mg tablet 5 mg PO TIDP PRN nausea and 11/10/22 (Reglan) vomiting #10 tabs Allergies Allergy/AdvReac T
[2022-11-10 17:02] LABS: Basophils # 0.3 K/mm3 (0-0.2); Basophils % 4.2 % (0.1-2.0); Eosinophils # 0.1 K/mm3 (0.0-0.4); Eosinophils % 1.5 % (0.1-12.0); Hemoglobin 13.9 g/dL (12.2-16.2); Lymphocytes # 2.8 K/mm3 (0.7-4.5); Mean Corpuscular HGB Conc 32.3 g/dL (31.8-35.4); Mean Corpuscular Hemoglobin 29.9 pg (27.0-31.2); Mean Corpuscular Volume 92.7 fl (81-99); Mean Platelet Volume 8.3 fl (7.4-10.4); Monocytes # 0.7 K/mm3 (0.1-1.0); Monocytes % 8.3 % (1.7-9.3); Neutrophils # 4.4 K/mm3 (1.8-7.8); Neutrophils % 55.1 % (37.0-80.0); Platelet Count 307 K/mm3 (142-424); Red Blood Count 4.64 M/mm3 (4.20-5.40); Red Cell Distribution Width 16.9 % (11.5-17.5); White Blood Count 7.9 K/mm3 (4.8-10.8)
[2022-11-10 17:04] LABS: Appearance,Urine CLEAR (Clear); Bilirubin,Urine Negative (Negative); Blood, Urine Negative (Negative); Color,Urine YELLOW (Yellow); Glucose,Urine (UA) Negative (Negative); Ketones,Urine Negative (Negative); Leukocyte Esterase,Urine Negative (Negative); Microscopic, Urine URINE MICROSCOPIC (MICROSCOPIC); Nitrate,Urine Negative (Negative); Protein,Urine Negative (Negative); Specific Gravity, Urine <= 1.005 (1.005-1.030); Urobilinogen,Urine 0.2 EU/dl (0.2)
[2022-11-10 17:07] LABS: Alanine Aminotransferase 43 U/L (12-78); Albumin Level 4.2 g/dl (3.5-5.0); Albumin/Globulin Ratio 1.4 (1.1-1.8); Alkaline Phosphatase 64 U/L (38-126); Anion Gap 9.5 mEq/L (5-15); Aspartate Amino Transferase 54 U/L (14-36); Bilirubin,Total 0.2 mg/dl (0.2-1.3); Blood Urea Nitrogen 8 mg/dl (7-17); Calcium 8.6 mg/dl (8.4-10.2); Carbon Dioxide 25 mmol/L (22.0-30.0); Chloride 106 mmol/L (98-107); Creatinine Clearance Estimated 283 mL/min (50-200); Estimated Glomerular Filt Rate 145 ml/min (>60); GFR (African American) 175 ML/MIN (>60); Globulin 3.1 g/dL (1.3-3.2); Glucose 93 mg/dl (74-100); Potassium 3.5 mmoL/L (3.5-5.1); Sodium 137 mmol/L (136-145); Total Protein,Serum 7.3 g/dl (6.3-8.2)
--- NOTE | 2022-11-10 17:18 | PC.NURSE ---
heart tone 162
[2022-11-10 17:29] LABS: RBC,Urine Occasional #/hpf (0-3)
[2022-11-10 17:30] LABS: Bacteria,Urine Trace /lpf; Squamous Epithelial Cell,Urine 50-100 #/hpf (0-5)
[2022-11-10 17:55] LABS: Coronavirus 19, PCR Not Detected (NotDetected); Influenza A, PCR Not Detected (NotDetected); Influenza B, PCR Not Detected (NotDetected)
[2022-11-10 18:50] VITALS: BP 111/80; PULSE 87; RESP 19; TEMP 36.7; O2SAT 100
== END 2022-11-10 18:54 | disposition home or self-care (01) ==
PROVIDERS: Emergency Provider Emergency Medicine; PCP Physician Assistant
DX: O99.891 Other specified diseases and conditions complicating pregnancy (principal); K52.9 Noninfective gastroenteritis and colitis, unspecified; Z3A.14 14 weeks gestation of pregnancy; Z20.822 Contact with and (suspected) exposure to COVID-19
CPT/HCPCS: 80053; 81001; 85025; 96361; 96374; 99285; C9803; U0003; U0005

== ENCOUNTER 2022-12-21 10:13 | Emergency (ER) | payer BC, SELFPAY ==
[2022-12-21 10:45] VITALS: BP 102/73; PULSE 97; RESP 22; TEMP 36.6; O2SAT 100; BMI 40.1
[2022-12-21 11:14] VITALS: BP 102/73; PULSE 97; RESP 22; TEMP 36.6; O2SAT 100
[2022-12-21 11:14] LABS: UTC Strep Screen (Rapid) Negative (Negative)
--- NOTE | 2022-12-21 11:36 | EXP.UTC ---
Discharge Plan Disposition Patient Disposition: Home, Self-Care Condition: Good Prescriptions Prescriptions: New azithromycin [Zithromax Z-Hansel] 250 mg tablet See Rx Instructions .ROUTE .COMPLEX 5 Days Qty: 6 0RF Rx Instructions: For 250 mg dose pack: take 500 mg today (day 1), then 250 mg for 4 days (days 2-5) prednisone [prednisone] 20 mg tablet 20 mg PO BID 5 Days Qty: 10 0RF No Action drospirenone-ethinyl estradiol [MISHA (28)] 3-0.02 mg tablet 1 tab PO DAILY Qty: 28 3RF oseltamivir [Tamiflu] 75 mg capsule 75 mg PO BID 5 Days Qty: 10 0RF jazfdjzfcsnutul-dhteelfba-NB [Bromfed DM] 2-30-10 mg/5 mL syrup 5 ml PO Q6H PRN (Reason: cold symptoms) Qty: 180 0RF vilazodone 10 mg tablet See Rx Instructions .ROUTE .COMPLEX Qty: 30 0RF Dose Instruction: Take 1 tablet by mouth once daily with food Rx Instructions: Take 1 tablet by mouth once daily with food azithromycin [Zithromax Z-Hansel] 250 mg tablet See Rx Instructions PO .COMPLEX Qty: 6 0RF Rx Instructions: For 250 mg dose pack: take 500 mg today (day 1), then 250 mg for 4 days (days 2-5) PO prednisone 20 mg tablet 20 mg PO BID Qty: 10 0RF Rx Instructions: administer with food or milk omeprazole 20 mg capsule,delayed release(DR/EC) 20 mg PO DAILY Ozempic 1 mg/dose (4 mg/3 mL) pen injector 0.5 mg SQ WEEKLY fluticasone propionate [Flonase Allergy Relief] 50 mcg/actuation spray,suspension 1 spray intranasal DAILY Qty: 16 0RF Rx Instructions: administer into each nostril metoclopramide HCl [Reglan] 5 mg tablet 5 mg PO TIDP PRN (Reason: nausea and vomiting) Qty: 10 0RF Referrals Follow up/Referrals: Ina Gill PA [Primary Care Provider] - See instructions Activity Restrictions/Add. Instructions Additional Instructions/Restrictions: *Monitor Temp, Over the counter Motrin or Tylenol as directed/as needed Tylenol every 4 hours and Motrin every 6 hours (as long as your family doctor has told you that you can take it) for fever or pain. and straight to ER if unable to lower temp less than 101.0 after medication given *Warm salt water gargles may help to soothe the throat *Throat Lozenges? *Warm fluids like tea with honey may help to soothe the throat? *Sleep elevated *Humidifier/Vaporizer Your throat swab was sent for culture. Those results are typically sent to your primary care. Be sure to follow up in 2-3 days with your family doctor/primary care physician if no improvement so they can review those result and treat if necessary. If you don?t have a primary care doctor, I recommend you get one but in the mean time, you will have to return to a walk in clinic Follow up IMMEDIATELY for new or worsening symptoms or no Noticeable improvement over the next 48-72 hours. 911 for difficulty breathing or swallowing Clinical Impressions Clinical Impression: Otitis media Instructions Patient Instructions: Sore Throat, Middle Ear Infection Discharge ED Provider: Cornelia Darby [facility] HPI General Stated complaint: Sore throat, bodyaches, chest congestion Mode of Arrival: Ambulatory Source of Information: Patient Limitations: No Limitations Time Seen by Provider: 12/21/22 11:36 Description of Symptoms (Recalled from Triage Doc. by RN): PATIENT C/O SORE THROAT, CHEST TIGHTNESS, COUGH AND CONGESTION X 2-3 DAYS HEENT Symptoms (Recalled from RN notes): Yes Resp Symptoms (Recalled from RN notes): Yes Skin Symptoms (Recalled from RN notes): No MS Symptoms (Recalled from RN notes): No Functional Status (Recalled from RN notes): WNL History of Present Illness Provider Complaint: Patient states that she has been having sore throat, sinus congestion, drainage in back of throat, and feels like it is trying to move into her chest area States that she isnt coughing anything up but feels congested States that today her ear was hurting worse so she came in Relat
== END 2022-12-21 11:59 | disposition home or self-care (01) ==
PROVIDERS: Emergency Provider Nurse Practitioner; PCP Physician Assistant
DX: R07.9 Chest pain, unspecified (principal); H66.91 Otitis media, unspecified, right ear; R05.1 Acute cough; R07.0 Pain in throat
CPT/HCPCS: 87880; 99212; 99214; G0463

== ENCOUNTER → 2023-01-14 18:15 | Outpatient (CLI) | payer BC, SELFPAY ==
[2023-01-14 18:34] LABS: Adenovirus,PCR Not Detected (NotDetected); Bordetella Pertussis Not Detected (NotDetected); Chlamydophila Pneumoniae, PCR Not Detected (NotDetected); Coronavirus 19, PCR Not Detected (NotDetected); Coronavirus 229E Not Detected (NotDetected); Coronavirus NL63 Not Detected (NotDetected); Coronavirus OC43 Not Detected (NotDetected); Coronovirus HKU1,PCR Not Detected (NotDetected); Human Metapneumovirus Not Detected (NotDetected); Influenza A, PCR Not Detected (NotDetected); Influenza AH1, 2009 Not Detected (NotDetected); Influenza AH1, PCR Not Detected (NotDetected); Influenza AH3,PCR Not Detected (NotDetected); Influenza B, PCR Not Detected (NotDetected); Mycoplasma Pneumoniae, PCR Not Detected (NotDetected); Parainfluenza 1, PCR Not Detected (NotDetected); Parainfluenza 2, PCR Not Detected (NotDetected); Parainfluenza 3, PCR Not Detected (NotDetected); Parainfluenza 4, PCR Not Detected (NotDetected); Respiratory Syncytial Virus Not Detected (NotDetected); Rhinovirus/Enterovirus Not Detected (NotDetected)
== END ==
PROVIDERS: PCP Nurse Practitioner Family; Visit Provider Nurse Practitioner Family
DX: Z20.828 Contact with and (suspected) exposure to other viral communicable diseases (principal)
CPT/HCPCS: 87581; 87632; 87798; C9803; U0003; U0005

== ENCOUNTER 2023-02-13 21:03 | Outpatient (CLI) | payer BC, SELFPAY ==
[2023-02-13 21:22] VITALS: BP 120/69; PULSE 113; RESP 19; TEMP 36.5; O2SAT 97; BMI 42.4
[2023-02-13 21:36] LABS: Microscopic, Urine URINE MICROSCOPIC (MICROSCOPIC)
[2023-02-13 21:38] LABS: Appearance,Urine CLEAR (Clear); Bilirubin,Urine Negative (Negative); Blood, Urine Negative (Negative); Color,Urine YELLOW (Yellow); Glucose,Urine (UA) Negative (Negative); Ketones,Urine Negative (Negative); Leukocyte Esterase,Urine Negative (Negative); Nitrate,Urine Negative (Negative); Protein,Urine Negative (Negative); Urobilinogen,Urine 0.2 EU/dl (0.2)
[2023-02-13 21:56] LABS: Amphetamine/Metha Screen,Urine Negative ng/ml (<1000); Bacteria,Urine 1+ /lpf
[2023-02-13 21:57] LABS: Barbiturates Screen,Urine Negative ng/ml (<200); Benzodiazepines Screen,Urine Negative ng/ml (<200)
[2023-02-13 21:58] LABS: Cannabinoid Screen,Urine Negative ng/ml (<50)
[2023-02-13 21:59] LABS: Cocaine Screen,Urine Negative ng/ml (<300); Methadone Screen,Urine Negative ng/ml (<300)
[2023-02-13 22:00] LABS: Opiate Screen,Urine Negative ng/ml (<300); Phencyclidine Screen,Urine Negative ng/ml (<25)
[2023-02-13 23:09] LABS: Basophils % 0.3 % (0.1-2.0); Eosinophils # 0.1 K/mm3 (0.0-0.4); Eosinophils % 0.7 % (0.1-12.0); Hematocrit 35.3 % (37.0-47.0); Hemoglobin 11.4 g/dL (12.2-16.2); Lymphocytes # 3.7 K/mm3 (0.7-4.5); Lymphocytes % 27.7 % (10-50); Mean Corpuscular HGB Conc 32.2 g/dL (31.8-35.4); Mean Corpuscular Hemoglobin 29.3 pg (27.0-31.2); Mean Corpuscular Volume 90.8 fl (81-99); Mean Platelet Volume 8.2 fl (7.4-10.4); Monocytes # 0.7 K/mm3 (0.1-1.0); Monocytes % 5.1 % (1.7-9.3); Neutrophils # 8.8 K/mm3 (1.8-7.8); Neutrophils % 66.2 % (37.0-80.0); Platelet Count 277 K/mm3 (142-424); Red Blood Count 3.88 M/mm3 (4.20-5.40); Red Cell Distribution Width 17.5 % (11.5-17.5); White Blood Count 13.3 K/mm3 (4.8-10.8)
== END 2023-02-14 01:42 | disposition home or self-care (01) ==
LOC: OBOUT 21:05 → OB 21:05
PROVIDERS: PCP Physician Assistant; Visit Provider Obstetrics & Gynecology
DX: O26.892 Other specified pregnancy related conditions, second trimester (principal); Z3A.27 27 weeks gestation of pregnancy; R10.9 Unspecified abdominal pain; W19.XXXA Unspecified fall, initial encounter
CPT/HCPCS: 59025; 80305; 81001; 85025; 96365; 96372; G0463; J2790

== ENCOUNTER → 2023-03-01 08:27 | Outpatient (CLI) | payer BC, SELFPAY ==
[2023-03-01 12:08] LABS: Glucose,Fasting 90 mg/dl (74-100)
== END ==
PROVIDERS: PCP Physician Assistant; Visit Provider Obstetrics & Gynecology
DX: O99.810 Abnormal glucose complicating pregnancy (principal); R23.9 Unspecified skin changes; Z34.82 Encounter for supervision of other normal pregnancy, second trimester
CPT/HCPCS: 36415; 82947

== ENCOUNTER 2023-04-09 02:04 | Outpatient (CLI) | payer BC, SELFPAY ==
[2023-04-09 02:17] VITALS: BMI 42.9
[2023-04-09 02:26] LABS: Microscopic, Urine URINE MICROSCOPIC (MICROSCOPIC)
[2023-04-09 02:28] LABS: Appearance,Urine Slightly Cloudy (Clear); Bilirubin,Urine Negative (Negative); Blood, Urine Negative (Negative); Color,Urine YELLOW (Yellow); Glucose,Urine (UA) TRACE (Negative); Ketones,Urine Negative (Negative); Leukocyte Esterase,Urine Negative (Negative); Nitrate,Urine Negative (Negative); Protein,Urine Negative (Negative); Specific Gravity, Urine 1.015 (1.005-1.030); Urobilinogen,Urine 0.2 EU/dl (0.2)
[2023-04-09 02:37] VITALS: BP 140/91; PULSE 83; RESP 19; TEMP 36.5; O2SAT 98; BMI 42.9
[2023-04-09 02:38] LABS: Barbiturates Screen,Urine Negative ng/ml (<200)
[2023-04-09 02:39] LABS: Benzodiazepines Screen,Urine Negative ng/ml (<200)
[2023-04-09 02:40] LABS: Amphetamine/Metha Screen,Urine Negative ng/ml (<1000); Cannabinoid Screen,Urine Negative ng/ml (<50)
[2023-04-09 02:41] LABS: Cocaine Screen,Urine Negative ng/ml (<300)
[2023-04-09 02:42] LABS: Amorphous Sediment,Urine 1+ /lpf; Bacteria,Urine 1+ /lpf; Methadone Screen,Urine Negative ng/ml (<300); Opiate Screen,Urine Negative ng/ml (<300); WBC,Urine Occasional #/hpf (0-3)
[2023-04-09 02:43] LABS: Phencyclidine Screen,Urine Negative ng/ml (<25)
== END 2023-04-09 04:00 | disposition home or self-care (01) ==
LOC: OBOUT 02:07 → OB 02:07
PROVIDERS: PCP Physician Assistant; Visit Provider Obstetrics & Gynecology
DX: O26.893 Other specified pregnancy related conditions, third trimester (principal); Z3A.35 35 weeks gestation of pregnancy; R51.9 Headache, unspecified; R42 Dizziness and giddiness; I10 Essential (primary) hypertension
CPT/HCPCS: 80305; 81001

== ENCOUNTER 2023-05-01 17:07 | Emergency (ER) | payer BC, SELFPAY ==
[2023-05-01] VITALS (25 sets, daily range): BP systolic 126–169; BP diastolic 65–121; PULSE 82–108; RESP 20; TEMP 36.8; O2SAT 94–100; BMI 28.0
--- NOTE | 2023-05-01 17:47 | ECG_ITS ---
APPROVED REPORT Exam: Resting ECG HR:92 bpm ECG Measurements Heart Rate 92 AXES [place] 145 P 8 QRSd 87 QRS 4 QT 339 T 21 QTc 389 Conclusion SINUS RHYTHM NORMAL ECG UNCONFIRMED REPORT Electronically signed by : Julio Rondon MD 05/02/2023 08:43:13
--- NOTE | 2023-05-01 18:02 | HMH.EDGENADL ---
Discharge Plan Disposition Patient Disposition: Home, Self-Care Condition: Fair Chief Complaint: Recheck/Abnormal Lab/Rx Prescriptions Prescriptions: New labetalol 200 mg tablet 200 mg PO BID Qty: 10 0RF No Action PNV 11-iron fum-folic acid-om3 28 mg iron-1 mg -200 mg capsule 1 cap PO azithromycin 250 mg tablet See Rx Instructions PO .COMPLEX Qty: 6 0RF Rx Instructions: For 250 mg dose pack: take 500 mg today (day 1), then 250 mg for 4 days (days 2-5) PO Referrals Follow up/Referrals: nIa Gill PA [Primary Care Provider] - See instructions Activity Restrictions/Add. Instructions Additional Instructions/Restrictions: At this time was felt you are safe to be discharged home. New or worsening symptoms please do not hesitate to return the emergency department. Please follow-up on Wednesday with obstetrics as discussed. Please take your medications as prescribed. Clinical Impressions Clinical Impression: Pre-eclampsia, Hypomagnesemia Discharge ED Provider: Chano Delgado General Adult HPI General Chief complaint: Recheck/Abnormal Lab/Rx Stated complaint: elavated B/P Time Seen by Provider: 05/01/23 17:15 Mode of Arrival: Ambulatory Source of Information: Patient Limitations: No Limitations Description of Symptoms (Recalled from ER Triage Doc. by RN): pt to ed c/o preeclampsia. pt reports delivering via wednesday and receiving mag post- for hypertension. pt reports being discharged home yesterday. pt states today she was having episodes of dizziness and heart palpitations. History of Present Illness HPI narrative: Patient is a 33-year-old female with past medical history of G3, P3 with recent at 38 weeks, preeclampsia with recent who presents emergency department for evaluation of weakness and palpitations. Patient was discharged yesterday, systolic reportedly in the 120s status post magnesium. At home patient's blood pressure has climbed into the 140s she has had resultant heart palpitations and feet swelling and presents here for continued evaluation. She has had 3 pads with clots without significant increased bleeding over the last 24 hours since discharge. Denies abdominal pain, chest pain, other acute complaints at this time. Related Data Home Medications Medication Instructions Recorded Confirmed [id number] fum 28 mg 1 cap PO 03/26/23 03/26/23 iron-folic acid 1 mg-omg3 200 mg capsule Previous Rx's Medication Instructions Recorded azithromycin 250 mg tablet See Rx Instructions PO .COMPLEX #6 03/26/23 tabs labetalol 200 mg tablet 200 mg PO BID #10 tabs 05/01/23 Allergies Allergy/AdvReac Type Severity Reaction Status Date / Time penicillin V [PENICILLIN V] Allergy Unknown Verified 03/26/23 13:40 Penicillins [PENICILLINS] Allergy Unknown Verified 03/26/23 13:40 sulfamethoxazole Allergy Unknown Verified 03/26/23 13:40 [SULFAMETHOXAZOLE] trimethoprim [TRIMETHOPRIM] Allergy Unknown Verified 03/26/23 13:40 metformin AdvReac Intermediate GI upset Verified 03/26/23 13:40 PFS PFS Disclaimer: The information contained in this section may have been updated after the patient was seen, as this information can be updated by other users. Medical History (Updated 05/01/23 @ 20:47 by Chano Delgado MD) Anxiety and depression Cough Depression Gastroenteritis Gastroesophageal reflux disease Headache Hirsutism PCOS (polycystic ovarian syndrome) Persistent dyspnea after COVID-19 PMDD (premenstrual dysphoric disorder) Pre-diabetes PTSD (post-traumatic stress disorder) Varicose vein of leg Surgical History History of section Social History Smoking Status: Never smoker second hand exposure: Yes alcohol intake: former substance use type: denies use, former substance user and painkil
[2023-05-01 18:05] LABS: Microscopic, Urine URINE MICROSCOPIC (MICROSCOPIC)
--- NOTE | 2023-05-01 18:06 | PC.NURSE ---
placed call to [facility] for discharge summary from recent visit.
[2023-05-01 18:09] LABS: Appearance,Urine CLEAR (Clear); Bilirubin,Urine Negative (Negative); Blood, Urine 3+ (Negative); Color,Urine YELLOW (Yellow); Glucose,Urine (UA) Negative (Negative); Ketones,Urine Negative (Negative); Leukocyte Esterase,Urine TRACE (Negative); Nitrate,Urine Negative (Negative); Protein,Urine Negative (Negative); Specific Gravity, Urine <= 1.005 (1.005-1.030); Urobilinogen,Urine 0.2 EU/dl (0.2)
[2023-05-01 18:29] LABS: Basophils % 0.4 % (0.1-2.0); Eosinophils # 0.3 K/mm3 (0.0-0.4); Eosinophils % 2.8 % (0.1-12.0); Hematocrit 35.4 % (37.0-47.0); Hemoglobin 10.9 g/dL (12.2-16.2); Lymphocytes # 2.3 K/mm3 (0.7-4.5); Lymphocytes % 23.5 % (10-50); Mean Corpuscular HGB Conc 30.8 g/dL (31.8-35.4); Mean Corpuscular Hemoglobin 29.2 pg (27.0-31.2); Mean Corpuscular Volume 94.8 fl (81-99); Mean Platelet Volume 8.7 fl (7.4-10.4); Monocytes # 0.6 K/mm3 (0.1-1.0); Monocytes % 5.9 % (1.7-9.3); Neutrophils # 6.7 K/mm3 (1.8-7.8); Neutrophils % 67.3 % (37.0-80.0); Platelet Count 218 K/mm3 (142-424); Red Blood Count 3.74 M/mm3 (4.20-5.40); Red Cell Distribution Width 18.5 % (11.5-17.5); White Blood Count 9.9 K/mm3 (4.8-10.8)
[2023-05-01 18:31] LABS: WBC,Urine Occasional #/hpf (0-3)
[2023-05-01 18:33] LABS: Chloride 103 mmol/L (98-107); Potassium 3.9 mmoL/L (3.5-5.1); Sodium 139 mmol/L (136-145)
[2023-05-01 18:36] LABS: Alanine Aminotransferase 87 U/L (12-78); Alkaline Phosphatase 128 U/L (38-126); Anion Gap 12.9 mEq/L (5-15); Aspartate Amino Transferase 116 U/L (14-36); Bilirubin,Total 0.4 mg/dl (0.2-1.3); Blood Urea Nitrogen 9 mg/dl (7-17); Calcium 8.9 mg/dl (8.4-10.2); Carbon Dioxide 27 mmol/L (22.0-30.0); Creatinine Clearance Estimated 169 mL/min (50-200); Estimated Glomerular Filt Rate 117 ml/min (>60); GFR (African American) 141 ML/MIN (>60); Glucose 89 mg/dl (74-100)
[2023-05-01 18:37] LABS: Albumin Level 3.4 g/dl (3.5-5.0); Albumin/Globulin Ratio 1.1 (1.1-1.8); Globulin 3.1 g/dL (1.3-3.2); Magnesium 1.4 mg/dl (1.6-2.3); Total Protein,Serum 6.5 g/dl (6.3-8.2)
== END 2023-05-01 20:58 | disposition home or self-care (01) ==
PROVIDERS: Emergency Provider Emergency Medicine; PCP Physician Assistant
DX: O14.95 Unspecified pre-eclampsia, complicating the puerperium (principal); O99.285 Endocrine, nutritional and metabolic diseases complicating the puerperium; E83.42 Hypomagnesemia
CPT/HCPCS: 80053; 81001; 83735; 85025; 93005; 96361; 96374; 96376; 99285; J3475

== ENCOUNTER 2023-05-10 02:32 | Emergency (ER) | payer BC, SELFPAY ==
[2023-05-10 02:44] VITALS: BP 143/92; PULSE 86; RESP 19; TEMP 36.5; O2SAT 98; BMI 41.1
[2023-05-10 03:07] LABS: Basophils # 0.1 K/mm3 (0-0.2); Eosinophils # 0.2 K/mm3 (0.0-0.4); Eosinophils % 2.2 % (0.1-12.0); Hematocrit 39.3 % (37.0-47.0); Hemoglobin 12.5 g/dL (12.2-16.2); Lymphocytes # 4.4 K/mm3 (0.7-4.5); Lymphocytes % 43.6 % (10-50); Mean Corpuscular HGB Conc 31.9 g/dL (31.8-35.4); Mean Corpuscular Hemoglobin 29.8 pg (27.0-31.2); Mean Corpuscular Volume 93.3 fl (81-99); Mean Platelet Volume 7.9 fl (7.4-10.4); Monocytes # 0.5 K/mm3 (0.1-1.0); Monocytes % 4.5 % (1.7-9.3); Neutrophils # 4.9 K/mm3 (1.8-7.8); Neutrophils % 48.7 % (37.0-80.0); Platelet Count 394 K/mm3 (142-424); Red Blood Count 4.21 M/mm3 (4.20-5.40); Red Cell Distribution Width 17.2 % (11.5-17.5); White Blood Count 10.2 K/mm3 (4.8-10.8)
--- NOTE | 2023-05-10 03:08 | HMH.EDGENADL ---
Discharge Plan Disposition Patient Disposition: Home, Self-Care Condition: Good Prescriptions Prescriptions: No Action PNV 11-iron fum-folic acid-om3 28 mg iron-1 mg -200 mg capsule 1 cap PO azithromycin 250 mg tablet See Rx Instructions PO .COMPLEX Qty: 6 0RF Rx Instructions: For 250 mg dose pack: take 500 mg today (day 1), then 250 mg for 4 days (days 2-5) PO labetalol 200 mg tablet 200 mg PO BID Qty: 10 0RF Referrals Follow up/Referrals: Yohan Gill [Primary Care Provider] - See instructions Activity Restrictions/Add. Instructions Additional Instructions/Restrictions: Your blood work looked good. No evidence of significant bleeding or bleeding disorder. Please follow-up with your primary care provider and your [employer]. Please return to the emergency department if you develop any new or worsening symptoms or become concerned for your health. Clinical Impressions Clinical Impression: Vaginal bleeding, bleeding Discharge ED Provider: Skyler Cevallos Adult HPI General Chief complaint: Vaginal Bleeding Stated complaint: 04/28/23 now bleeding alot Time Seen by Provider: 05/10/23 02:45 Mode of Arrival: Family Vehicle Source of Information: Patient Limitations: No Limitations Description of Symptoms (Recalled from ER Triage Doc. by RN): 19 days post 3rd c/s 33 yo female presents with CC of gushing blood and blood clots intermittently and has been since her surgery. According to her, she had her 3rd c/s at [facility]. No syncope. No n/v/d. Reports she did mushroom picker her 5 yr old daughter earlier today and could've strained herself. History of Present Illness HPI narrative: 33-year-old female, G3, P3 presents approximately 19 days after third . Patient reports that she has had persistent vaginal bleeding and clots since that time and presents for evaluation of this. She reports she is on no blood thinners, has no history of coagulopathy. She reports that she is using multiple pads per day, more than her normal menstrual period. She has been seen by her [employer] [employer] approxi-1 week ago for these complaints and reports that she feels she was not taken seriously. She reports no purulent drainage or foul odor. Related Data Home Medications Medication Instructions Recorded Confirmed [id number] fum 28 mg 1 cap PO 03/26/23 03/26/23 iron-folic acid 1 mg-omg3 200 mg capsule Previous Rx's Medication Instructions Recorded azithromycin 250 mg tablet See Rx Instructions PO .COMPLEX #6 03/26/23 tabs labetalol 200 mg tablet 200 mg PO BID #10 tabs 05/01/23 Allergies Allergy/AdvReac Type Severity Reaction Status Date / Time penicillin V [PENICILLIN V] Allergy Unknown Verified 03/26/23 13:40 Penicillins [PENICILLINS] Allergy Unknown Verified 03/26/23 13:40 sulfamethoxazole Allergy Unknown Verified 03/26/23 13:40 [SULFAMETHOXAZOLE] trimethoprim [TRIMETHOPRIM] Allergy Unknown Verified 03/26/23 13:40 metformin AdvReac Intermediate GI upset Verified 03/26/23 13:40 PFSH PFS Disclaimer: The information contained in this section may have been updated after the patient was seen, as this information can be updated by other users. Medical History (Updated 05/10/23 @ 03:27 by Skyler Cevallos MD) Anxiety and depression Cough Depression Gastroenteritis Gastroesophageal reflux disease Headache Hirsutism PCOS (polycystic ovarian syndrome) Persistent dyspnea after COVID-19 PMDD (premenstrual dysphoric disorder) Pre-diabetes PTSD (post-traumatic stress disorder) Varicose vein of leg Surgical History History of section Social History Smoking Status: Unknown if ever smoked second hand exposure: Yes alcohol intake: former substance use type: denies use, former substance user and painkillers current occupational status: unemployed T
[2023-05-10 03:11] LABS: Chloride 106 mmol/L (98-107); Potassium 3.9 mmoL/L (3.5-5.1); Sodium 139 mmol/L (136-145)
[2023-05-10 03:13] VITALS: BP 123/74; PULSE 82; O2SAT 98
[2023-05-10 03:13] LABS: Alanine Aminotransferase 44 U/L (12-78); Blood Urea Nitrogen 21 mg/dl (7-17); Creatinine Clearance Estimated 113 mL/min (50-200); Estimated Glomerular Filt Rate 98 ml/min (>60); GFR (African American) 118 ML/MIN (>60)
[2023-05-10 03:14] LABS: Albumin Level 4.1 g/dl (3.5-5.0); Albumin/Globulin Ratio 1.2 (1.1-1.8); Alkaline Phosphatase 119 U/L (38-126); Anion Gap 10.9 mEq/L (5-15); Aspartate Amino Transferase 48 U/L (14-36); Bilirubin,Total 0.5 mg/dl (0.2-1.3); Calcium 9.8 mg/dl (8.4-10.2); Carbon Dioxide 26 mmol/L (22.0-30.0); Globulin 3.5 g/dL (1.3-3.2); Glucose 100 mg/dl (74-100); Total Protein,Serum 7.6 g/dl (6.3-8.2)
[2023-05-10 03:15] LABS: INR 0.98 (0.9-1.1); Prothrombin Time 10.6 seconds (10.1-12.5)
[2023-05-10 03:23] VITALS: BP 123/74; PULSE 83; RESP 20; TEMP 36.3; O2SAT 97
== END 2023-05-10 03:55 | disposition home or self-care (01) ==
PROVIDERS: Emergency Provider Emergency Medicine; PCP Internal Medicine
DX: O72.2 Delayed and secondary postpartum hemorrhage (principal); O99.345 Other mental disorders complicating the puerperium; O99.285 Endocrine, nutritional and metabolic diseases complicating the puerperium; F41.9 Anxiety disorder, unspecified; F32.A Depression, unspecified; F43.10 Post-traumatic stress disorder, unspecified; E28.2 Polycystic ovarian syndrome
CPT/HCPCS: 80053; 85025; 85610; 99284

== ENCOUNTER → 2023-09-24 23:56 | Outpatient (CLI) | payer BC, SELFPAY | PROVIDERS: PCP Physician Assistant; Visit Provider Student in an Organized Health Care Education/Training Program | DX: J02.9 Acute pharyngitis, unspecified (principal) | CPT/HCPCS: 87070 ==

== ENCOUNTER 2023-11-23 19:48 | Outpatient (CLI) | payer BC, SELFPAY ==
[2023-11-23 18:03] LABS: Basophils # 0.1 K/mm3 (0-0.2); Basophils % 0.6 % (0.1-2.0); Eosinophils # 0.1 K/mm3 (0.0-0.4); Eosinophils % 0.8 % (0.1-12.0); Hematocrit 42.8 % (37.0-47.0); Hemoglobin 14.8 g/dL (12.2-16.2); Lymphocytes # 4.1 K/mm3 (0.7-4.5); Lymphocytes % 36.5 % (10-50); Mean Corpuscular HGB Conc 34.6 g/dL (31.8-35.4); Mean Corpuscular Volume 89.7 fl (81-99); Mean Platelet Volume 9.9 fl (7.4-10.4); Monocytes # 0.4 K/mm3 (0.1-1.0); Monocytes % 3.8 % (1.7-9.3); Neutrophils # 6.6 K/mm3 (1.8-7.8); Neutrophils % 58.4 % (37.0-80.0); Platelet Count 345 K/mm3 (142-424); Red Blood Count 4.77 M/mm3 (4.20-5.40); Red Cell Distribution Width 14.2 % (11.5-17.5); White Blood Count 11.3 K/mm3 (4.8-10.8)
[2023-11-23 18:09] LABS: Alanine Aminotransferase 33 U/L (12-78); Albumin Level 4.7 g/dl (3.5-5.0); Albumin/Globulin Ratio 1.6 (1.1-1.8); Alkaline Phosphatase 107 U/L (38-126); Anion Gap 14.7 mEq/L (5-15); Aspartate Amino Transferase 33 U/L (14-36); Bilirubin,Total 0.6 mg/dl (0.2-1.3); Blood Urea Nitrogen 15 mg/dl (7-17); Calcium 9.8 mg/dl (8.4-10.2); Carbon Dioxide 26 mmol/L (22.0-30.0); Chloride 107 mmol/L (98-107); Chol/HDL Ratio 3.7 (1-3.5); Cholesterol 149 mg/dl (140-200); Estimated Glomerular Filt Rate 98 ml/min (>60); GFR (African American) 118 ML/MIN (>60); Globulin 2.9 g/dL (1.3-3.2); Glucose 87 mg/dl (74-100); HDL Cholesterol 40 mg/dl (40-60); Potassium 4.7 mmoL/L (3.5-5.1); Sodium 143 mmol/L (136-145); Total Protein,Serum 7.6 g/dl (6.3-8.2); Triglycerides 71 mg/dl (30-150); VLDL Cholesterol 14 mg/dL (0-40)
[2023-11-23 18:14] LABS: Hemoglobin A1C 5.7 % (4.0-6.0)
[2023-11-23 19:06] LABS: Direct LDL Cholesterol 78.07 mg/dL (100-129)
[2023-11-23 19:16] LABS: Thyroid Stimulating Hormone 0.69 uIU/mL (0.465-4.68)
[2023-11-23 19:19] LABS: 25-OH Vitamin D, Total 39.5 ng/mL (30-100)
== END 2023-11-23 23:59 ==
LOC: LAB.DROPOF 19:48
PROVIDERS: PCP Student in an Organized Health Care Education/Training Program; Visit Provider Student in an Organized Health Care Education/Training Program
DX: E66.9 Obesity, unspecified (principal); O14.90 Unspecified pre-eclampsia, unspecified trimester; R73.03 Prediabetes; Z79.899 Other long term (current) drug therapy
CPT/HCPCS: 80053; 80061; 82306; 83036; 84443; 85025

== ENCOUNTER 2024-03-01 11:11 | Outpatient (CLI) | payer BC, SELFPAY ==
[2024-03-01 19:10] LABS: Basophils # 0.1 K/mm3 (0-0.2); Basophils % 0.7 % (0.1-2.0); Eosinophils # 0.1 K/mm3 (0.0-0.4); Hematocrit 44.1 % (37.0-47.0); Hemoglobin 14.1 g/dL (12.2-16.2); Lymphocytes # 3.9 K/mm3 (0.7-4.5); Lymphocytes % 39.6 % (10-50); Mean Corpuscular HGB Conc 31.9 g/dL (31.8-35.4); Mean Corpuscular Hemoglobin 30.2 pg (27.0-31.2); Mean Corpuscular Volume 94.8 fl (81-99); Mean Platelet Volume 9.6 fl (7.4-10.4); Monocytes # 0.4 K/mm3 (0.1-1.0); Monocytes % 4.5 % (1.7-9.3); Neutrophils # 5.3 K/mm3 (1.8-7.8); Neutrophils % 54.2 % (37.0-80.0); Platelet Count 309 K/mm3 (142-424); Red Blood Count 4.66 M/mm3 (4.20-5.40); Red Cell Distribution Width 14.8 % (11.5-17.5); White Blood Count 9.9 K/mm3 (4.8-10.8)
[2024-03-01 19:36] LABS: Alanine Aminotransferase 39 U/L (12-78); Albumin Level 4.5 g/dl (3.5-5.0); Albumin/Globulin Ratio 1.6 (1.1-1.8); Alkaline Phosphatase 91 U/L (38-126); Anion Gap 15.6 mEq/L (5-15); Aspartate Amino Transferase 35 U/L (14-36); Bilirubin,Total 0.9 mg/dl (0.2-1.3); Blood Urea Nitrogen 18 mg/dl (7-17); Calcium 9.7 mg/dl (8.4-10.2); Carbon Dioxide 26 mmol/L (22.0-30.0); Chloride 105 mmol/L (98-107); Chol/HDL Ratio 2.8 (1-3.5); Cholesterol 154 mg/dl (140-200); Estimated Glomerular Filt Rate 83 ml/min (>60); GFR (African American) 101 ML/MIN (>60); Globulin 2.8 g/dL (1.3-3.2); Glucose 93 mg/dl (74-100); HDL Cholesterol 56 mg/dl (40-60); Iron 84 ug/dL (37-170); Potassium 4.6 mmoL/L (3.5-5.1); Sodium 142 mmol/L (136-145); Total Protein,Serum 7.3 g/dl (6.3-8.2); Triglycerides 86 mg/dl (30-150); VLDL Cholesterol 17 mg/dL (0-40)
[2024-03-01 19:50] LABS: Direct LDL Cholesterol 83.09 mg/dL (100-129); Total Iron Binding Capacity 323 ug/dL (265-497)
[2024-03-01 19:54] LABS: 25-OH Vitamin D, Total 35.7 ng/mL (30-100)
[2024-03-01 20:23] LABS: Thyroid Stimulating Hormone 1.04 uIU/mL (0.465-4.68)
[2024-03-01 20:27] LABS: Ferritin 15.1 ng/ml (6.24-137)
[2024-03-01 20:59] LABS: Vitamin B12 448 pg/mL (239-931)
[2024-03-01 21:01] LABS: Hemoglobin A1C 5.9 % (4.0-6.0)
[2024-03-01 21:02] LABS: Folate > 20.00 ng/mL
== END 2024-03-01 23:59 | disposition home or self-care (01) ==
LOC: LAB.DROPOF 03-02 11:12
PROVIDERS: PCP Physician Assistant; Visit Provider Physician Assistant
DX: N39.0 Urinary tract infection, site not specified (principal); Z83.3 Family history of diabetes mellitus; R32 Unspecified urinary incontinence; E66.9 Obesity, unspecified; Z68.38 Body mass index [BMI] 38.0-38.9, adult; L29.9 Pruritus, unspecified; L21.0 Seborrhea capitis; Z79.899 Other long term (current) drug therapy
CPT/HCPCS: 80053; 80061; 82306; 82607; 82728; 82746; 83036; 83540; 83550; 84443; 85025; 87086

== ENCOUNTER 2024-04-12 11:05 | Outpatient (CLI) | payer BC, SELFPAY ==
[2024-04-12 19:04] LABS: Basophils # 0.1 K/mm3 (0-0.2); Eosinophils # 0.1 K/mm3 (0.0-0.4); Eosinophils % 0.5 % (0.1-12.0); Hematocrit 41.2 % (37.0-47.0); Hemoglobin 13.8 g/dL (12.2-16.2); Lymphocytes % 37.4 % (10-50); Mean Corpuscular HGB Conc 33.5 g/dL (31.8-35.4); Mean Corpuscular Hemoglobin 30.7 pg (27.0-31.2); Mean Corpuscular Volume 91.7 fl (81-99); Mean Platelet Volume 8.9 fl (7.4-10.4); Monocytes # 0.5 K/mm3 (0.1-1.0); Monocytes % 4.2 % (1.7-9.3); Neutrophils # 6.1 K/mm3 (1.8-7.8); Neutrophils % 56.8 % (37.0-80.0); Platelet Count 290 K/mm3 (142-424); Red Cell Distribution Width 14.4 % (11.5-17.5); White Blood Count 10.7 K/mm3 (4.8-10.8)
[2024-04-12 19:30] LABS: Alanine Aminotransferase 39 U/L (12-78); Albumin Level 4.7 g/dl (3.5-5.0); Albumin/Globulin Ratio 1.7 (1.1-1.8); Alkaline Phosphatase 88 U/L (38-126); Anion Gap 17.2 mEq/L (5-15); Aspartate Amino Transferase 36 U/L (14-36); Bilirubin,Total 0.4 mg/dl (0.2-1.3); Blood Urea Nitrogen 17 mg/dl (7-17); Calcium 9.9 mg/dl (8.4-10.2); Carbon Dioxide 27 mmol/L (22.0-30.0); Chloride 101 mmol/L (98-107); Chol/HDL Ratio 3.1 (1-3.5); Cholesterol 141 mg/dl (140-200); Estimated Glomerular Filt Rate 83 ml/min (>60); GFR (African American) 101 ML/MIN (>60); Globulin 2.7 g/dL (1.3-3.2); Glucose 82 mg/dl (74-100); HDL Cholesterol 46 mg/dl (40-60); Potassium 4.2 mmoL/L (3.5-5.1); Sodium 141 mmol/L (136-145); Total Protein,Serum 7.4 g/dl (6.3-8.2); Triglycerides 125 mg/dl (30-150); VLDL Cholesterol 25 mg/dL (0-40)
[2024-04-12 19:41] LABS: Direct LDL Cholesterol 69.48 mg/dL (100-129)
[2024-04-12 19:42] LABS: 25-OH Vitamin D, Total 55.4 ng/mL (30-100)
[2024-04-12 19:48] LABS: Hemoglobin A1C 5.9 % (4.0-6.0)
[2024-04-12 19:58] LABS: Thyroid Stimulating Hormone 1.06 uIU/mL (0.465-4.68)
== END 2024-04-12 23:59 | disposition home or self-care (01) ==
LOC: LAB.DROPOF 04-13 11:05
PROVIDERS: PCP Physician Assistant; Visit Provider Physician Assistant
DX: R73.03 Prediabetes (principal); E66.9 Obesity, unspecified; N39.0 Urinary tract infection, site not specified
CPT/HCPCS: 80050; 80053; 80061; 82306; 83036; 84443; 85025; 87086

== ENCOUNTER 2024-04-14 13:25 | Outpatient (CLI) | payer BC, SELFPAY ==
--- NOTE | 2024-04-14 13:26 | MR_ITS ---
FINAL REPORT CLINICAL HISTORY: bilateral leg tingling right sided lbp COMPARISON: None FINDINGS: Multiplanar MR imaging of the lumbar spine was performed without contrast. On the sagittal T2-weighted images, no significant disc degeneration is seen. The vertebral alignment is normal. There is no evidence of fracture. No bony mass is identified. The conus has an unremarkable appearance. No significant canal stenosis is identified. L1-2: No significant central canal stenosis or neuroforaminal narrowing. L2-3: No significant central canal stenosis or neuroforaminal narrowing. L3-4: No significant central canal stenosis or neuroforaminal narrowing. L4-5: No significant central canal stenosis or neuroforaminal narrowing. L5-S1: Mild facet arthropathy is present. No significant central canal stenosis or neuroforaminal narrowing. IMPRESSION: Mild facet arthropathy at the L5-S1 level, otherwise unremarkable MRI of the lumbar spine. Reviewed, Interpreted and Dictated by Estiven Gloria III, MD Transcribed by Luz Elena Bartholomew Authenticated and [facility]
== END 2024-04-14 23:59 | disposition home or self-care (01) ==
LOC: RAD 13:26
PROVIDERS: PCP Physician Assistant; Visit Provider Physician Assistant
DX: M47.816 Spondylosis without myelopathy or radiculopathy, lumbar region (principal); R32 Unspecified urinary incontinence
CPT/HCPCS: 72148

== ENCOUNTER 2024-04-19 03:17 | Emergency (ER) | payer BC, SELFPAY ==
[2024-04-19] VITALS (9 sets, daily range): BP systolic 105–149; BP diastolic 56–107; PULSE 65–98; RESP 11–20; TEMP 36.6; O2SAT 95–97; BMI 40.3
--- NOTE | 2024-04-19 03:16 | ECG_ITS ---
APPROVED REPORT Exam: Resting ECG HR:99 bpm ECG Measurements Heart Rate 99 AXES [place] 148 P 11 QRSd 98 QRS 25 QT 358 T 17 QTc 414 Conclusion SINUS RHYTHM NORMAL ECG Electronically signed by : PELON WADDELL, 04/19/2024 07:54:06
--- NOTE | 2024-04-19 03:36 | CT_ITS ---
PROCEDURE INFORMATION: Exam: CTA Neck With Contrast Exam date and time: 04/19/2024 4:31 AM Age: 34 years old Clinical indication: Dizziness and giddiness TECHNIQUE: Imaging protocol: Computed tomographic angiography of the neck with contrast. Exam focused on the cervical segments of the vasculature. 3D rendering (Not supervised by radiologist): MIP and/or 3D reconstructed images were created by the technologist. Radiation optimization: All CT scans at this facility use at least one of these dose optimization techniques: automated exposure control; mA and/or kV adjustment per patient size (includes targeted exams where dose is matched to clinical indication); or iterative reconstruction. Contrast material: ISOVUE; Contrast volume: 90 ml; Contrast route: INTRAVENOUS (IV); COMPARISON: CT ANGIO NECK 04/19/2024 4:31 AM FINDINGS: Right common carotid artery: No stenosis. No dissection or occlusion. Right internal carotid artery: No stenosis of the extracranial segment. No dissection or occlusion. Right external carotid artery: No occlusion or stenosis of the origin. Left common carotid artery: No stenosis. No dissection or occlusion. Left internal carotid artery: No stenosis of the extracranial segment. No dissection or occlusion. Left external carotid artery: No occlusion or stenosis of the origin. Right vertebral artery: No stenosis. No dissection or occlusion. Left vertebral artery: No stenosis. No dissection or occlusion. Soft tissues: Normal. No significant soft tissue swelling. Bones/joints: No acute fracture. IMPRESSION: No stenosis or occlusion. REFERENCES: NASCET CRITERIA. The degree of stenosis in the cervical segment of the internal carotid artery is based on NASCET criteria. Normal is no stenosis. Mild is less than 50% stenosis. Moderate is 50-69% stenosis. Severe is 70% to 99% stenosis. Total occlusion is no detectable patent lumen.
--- NOTE | 2024-04-19 03:36 | CT_ITS ---
PROCEDURE INFORMATION: Exam: CT Head Without Contrast Exam date and time: 04/19/2024 4:29 AM Age: 34 years old Clinical indication: Dizziness TECHNIQUE: Imaging protocol: Computed tomography of the head without contrast. Radiation optimization: All CT scans at this facility use at least one of these dose optimization techniques: automated exposure control; mA and/or kV adjustment per patient size (includes targeted exams where dose is matched to clinical indication); or iterative reconstruction. COMPARISON: CT SOFT TISSUE NECK WO CON 11/25/2021 2:10 PM FINDINGS: Brain: Normal. No hemorrhage. Unremarkable white matter. No mass effect. Cerebral ventricles: No ventriculomegaly. Paranasal sinuses: Visualized sinuses are unremarkable. No fluid levels. Mastoid air cells: Visualized mastoid air cells are well aerated. Bones: Unremarkable. No acute fracture. Soft tissues: Unremarkable. IMPRESSION: No acute intracranial abnormality.
--- NOTE | 2024-04-19 03:36 | CT_ITS ---
PROCEDURE INFORMATION: Exam: CTA Chest With Contrast Exam date and time: 04/19/2024 4:35 AM Age: 34 years old Clinical indication: Pain; Chest pressure; Additional info: Chest pressure SOA TECHNIQUE: Imaging protocol: Computed tomographic angiography of the chest with contrast. Exam focused on the arteries. 3D rendering (Not supervised by radiologist): MIP and/or 3D reconstructed images were created by the technologist. Radiation optimization: All CT scans at this facility use at least one of these dose optimization techniques: automated exposure control; mA and/or kV adjustment per patient size (includes targeted exams where dose is matched to clinical indication); or iterative reconstruction. Contrast material: ISOVUE; Contrast volume: 90 ml; Contrast route: INTRAVENOUS (IV); COMPARISON: CT ANGIO NECK 04/19/2024 4:31 AM FINDINGS: Pulmonary arteries: Normal. No pulmonary emboli. Aorta: Unremarkable. No aortic aneurysm. No aortic dissection. Veins: Incidental note of a left-sided superior vena cava as well as a right-sided superior vena cava. The left SVC continues to the coronary sinus. Lungs: Unremarkable. No consolidation. No masses. Pleural spaces: Unremarkable. No pneumothorax. No pleural effusion. Heart: No coronary calcification is noted. . No cardiomegaly. No pericardial effusion. Lymph nodes: Unremarkable. No enlarged lymph nodes. Liver: The liver is low in density. Bones/joints: Unremarkable. No acute fracture. Soft tissues: Unremarkable. IMPRESSION: 1. No evidence of pulmonary embolus or other acute process. 2. 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
--- NOTE | 2024-04-19 03:36 | CT_ITS ---
PROCEDURE INFORMATION: Exam: CTA Head With Contrast, Arteriography Exam date and time: 04/19/2024 4:31 AM Age: 34 years old Clinical indication: Dizziness and giddiness TECHNIQUE: Imaging protocol: Computed tomographic angiography of the head with contrast. Exam focused on the arteries. 3D rendering (Not supervised by radiologist): MIP and/or 3D reconstructed images were created by the technologist. Radiation optimization: All CT scans at this facility use at least one of these dose optimization techniques: automated exposure control; mA and/or kV adjustment per patient size (includes targeted exams where dose is matched to clinical indication); or iterative reconstruction. Contrast material: ISOVUE; Contrast volume: 90 ml; Contrast route: INTRAVENOUS (IV); COMPARISON: CT ANGIO HEAD 04/19/2024 4:31 AM FINDINGS: ANTERIOR CIRCULATION: Right internal carotid artery: Intracranial segment is patent with no significant stenosis. No aneurysm. Right middle cerebral artery: No occlusion or significant stenosis. No aneurysm. Right anterior cerebral artery: No occlusion or significant stenosis. No aneurysm. Left internal carotid artery: Intracranial segment is patent with no significant stenosis. No aneurysm. Left middle cerebral artery: No occlusion or significant stenosis. No aneurysm. Left anterior cerebral artery: No occlusion or significant stenosis. No aneurysm. POSTERIOR CIRCULATION: Right vertebral artery: No occlusion or significant stenosis. No aneurysm. Left vertebral artery: No occlusion or significant stenosis. No aneurysm. Basilar artery: No occlusion or significant stenosis. No aneurysm. Right posterior cerebral artery: No occlusion or significant stenosis. No aneurysm. Left posterior cerebral artery: No occlusion or significant stenosis. No aneurysm. Veins: There is suboptimal contrast bolus timing resulting in significant venous contamination of the images. Brain: No definite mass, mass effect, or midline shift. Cerebral ventricles: No ventriculomegaly. Bones/joints: Unremarkable. No acute fracture. Soft tissues: Unremarkable. IMPRESSION: Somewhat limited but otherwise unremarkable CT angiogram of the head.
--- NOTE | 2024-04-19 03:45 | HMH.EDCP ---
Discharge Plan Disposition Patient Disposition: Home, Self-Care Condition: Good Prescriptions Prescriptions: New meclizine 25 mg tablet 25 mg PO BID PRN (Reason: dizziness) Qty: 14 0RF No Action nystatin 100,000 unit/gram cream 1 applic topical TID Qty: 30 1RF fluticasone propionate [Flonase Allergy Relief] 50 mcg/actuation spray,suspension 1 spray intranasal BID 30 Days Qty: 9.9 1RF Rx Instructions: administer into each nostril ketoconazole 2 % shampoo 1 applic topical .twice a week Qty: 120 1RF vilazodone [Viibryd] 20 mg tablet 20 mg PO DAILY Qty: 30 2RF Rx Instructions: must administer with a meal/food omeprazole 20 mg capsule,delayed release(DR/EC) See Rx Instructions .ROUTE .COMPLEX Qty: 90 0RF Dose Instruction: TAKE 1 CAPSULE BY MOUTH ONCE DAILY FOR GERD Rx Instructions: TAKE 1 CAPSULE BY MOUTH ONCE DAILY FOR GERD ibuprofen 800 mg tablet 800 mg PO Q8H Qty: 90 2RF metoprolol succinate [Toprol XL] 25 mg tablet extended release 24 hr 25 mg PO DAILY Qty: 30 2RF Nurtec ODT 75 mg tablet,disintegrating 75 mg PO ONCE PRN (Reason: migraine headache) Qty: 10 0RF Referrals Follow up/Referrals: Nery Epstein MD [Staff Physician] - See instructions (dizziness, hx migraines) Provider,Referral, [Referring] - See instructions Activity Restrictions/Add. Instructions Additional Instructions/Restrictions: You were evaluated in the ER. You are appropriate for discharge at this time. Take the prescribed meclizine if needed for dizziness, continue drinking plenty of water. Follow-up with your primary care physician in 2 to 3 days, also make an appointment with Dr. Epstein with neurology for outpatient follow-up and reevaluation. Return to the ER with new, worsening, or otherwise concerning symptoms. Clinical Impressions Clinical Impression: Dizziness Discharge ED Provider: Jaquelin Vidal General Chief Complaint: Chest Pain Stated Complaint: Chest pain Time Seen by Provider: 04/19/24 03:24 Mode of Arrival: Ambulatory Source of Information: Patient Limitations: No Limitations Description of Symptoms (Recalled from ER Triage Doc. by RN): Pt presents with concerns for ongoing headache, dizziness, and unsteady gait for past 2 weeks.Tonight she states she began having heart palpitations and anterior chest pain which radiates down her right arm. Pt is currently , has been seen by PCP for HTN that could be possibly causing headaches, PCP has not put her on any antihypertensives d/t . Pt recently started new medication Viibryd 4 days ago. History of Present Illness HPI narrative: 34-year-old female presents to the ER for concerns at dizziness, chest pressure radiating down the right arm. Patient states in the last 2 to 3 weeks she had severe headache and migraines. She started developing dizziness. She was eventually started on Nurtec which has completely controlled her headaches. She states she has minimal head pain at this time and is really here because of the dizziness. She noted the chest pressure tonight but is not as concerned about that as she has the dizziness. She describes the dizziness as a floating sensation. She states tonight she also had a room spinning sensation when she was lying down trying to sleep at home. Patient does states she started Viibryd 4 days ago and thinks this could be contributing to her chest pressure. Patient is breast-feeding so she is not currently taking hypertensive medications that were previously prescribed by her PCP. She does not have any nausea, vomiting, diarrhea, dysuria, hematuria, numbness, tingling, weakness, or other associated symptoms. Related Data Previous Rx's Medication Instructions Recorded fluticasone propionate 50 1 spray intranasal BID 30 days 12/06/23 mcg/actuation nasal #9.9 grams spray,suspension (Flonase Allergy Relief) nystatin 100,000 unit/gram topical 1 applic topical TID #30 grams 12/06/23 cream omeprazole 20 mg capsule,delayed See Rx Instructions .Route 01/25/24 release .COMPLEX #90 caps ketoconazole 2 % shampoo 1 applic topical .twice a week 03/01/24 #120 mL ibuprofen 800 mg tablet 800 mg PO Q8H #90 tabs 03/22/24 metoprolol succinate 25 mg 25 mg PO DAILY #30 tabs 04/14/24 tablet,extended release 24 hr (Toprol XL) rimegepant 75 mg disintegrating 75 mg PO ONCE PRN migraine 04/14/24 tablet (Nurtec ODT) headache #10 tabs vilazodone 20 mg tablet (Viibryd) 20 mg PO DAILY #30 tabs 04/14/24 meclizine 25 mg tablet 25 mg PO BID PRN dizziness #14 tabs 04/19/24 Allergies Allergy/AdvReac Type Severity Reaction Status Date / Time penicillin V [PENICILLIN V] Allergy Unknown Verified 04/12/24 14:43 Penicillins [PENICILLINS] Allergy Unknown Verified 04/12/24 14:43 sulfamethoxazole Allergy Unknown Verified 04/12/24 14:43 [SULFAMETHOXAZOLE] trimethoprim [TRIMETHOPRIM] Allergy Unknown Verified 04/12/24 14:43 metformin AdvReac Intermediate GI upset Verified 04/12/24 14:43 PFSH [facility] Disclaimer: The information contained in this section may have been updated after the patient was seen, as this information can be updated by other users. Medical History (Updated 04/19/24 @ 07:21 by Jaquelin Vidal MD) Abdominal pain affecting bleeding Vaginal bleeding Hypomagnesemia Pre-eclampsia Cough Headache Gastroenteritis Hirsutism Anxiety and depression PTSD (post-traumatic stress disorder) Depression PMDD (premenstrual dysphoric disorder) PCOS (polycystic ovarian syndrome) Pre-diabetes Gastroesophageal reflux disease Persistent dyspnea after COVID-19 Varicose vein of leg Surgical History History of section Family History Other No significant family history Social History Smoking Status: Never smoker second hand exposure: Yes alcohol intake: former substance use type: denies use, former substance user and painkillers current occupational status: unemployed Travel in the last 8 weeks: None number of children: 2 ROS Obtained: Yes All systems reviewed & no additional complaints except as documented Constitutional Constitutional: Denies chills, Denies fever(s), Reports headache(s) (improved) and Denies weakness Eyes Eyes: Denies change in vision ENT Ears, Nose, Mouth, and Throat: Reports dizziness, Reports headache(s) (improved), Denies nasal congestion and Denies sore throat Cardiovascular Cardiovascular: Reports chest pain (described as pressure), Denies dyspnea and Denies leg edema Respiratory Respiratory: Reports shortness of breath, Denies cough and Denies dyspnea Gastrointestinal Gastrointestingal: Denies abdominal pain, constipation, diarrhea, nausea or vomiting Genitourinary Female Genitourinary: Denies dysuria Musculoskeletal Musculoskeletal: Denies arthralgias, Denies myalgias, Denies numbness and Denies tingling Integumentary/Breasts Skin/Breast: Denies change in pigmentation Neurologic Neurologic: Reports dizziness, Reports headache(s) (improved), Denies numbness, Denies tingling and Denies weakness Physical Exam General General appearance: alert and in no apparent distress Head Head exam: atraumatic and normocephalic Eye Eye exam: Present PERRL and EOMI; Absent nystagmus ENT ENT exam: Present mucous membranes moist and other (Bilateral tympanic membranes demonstrate scarring, patient does not have any findings of infection though she does have a small amount of fluid behind the TM) Neck Neck exam: Present normal inspection and full ROM Chest Chest inspection: Present symmetric chest wall rise Respiratory Respiratory exam: Present normal lung sounds bilaterally; Absent respiratory distress, wheezes or stridor Cardiovascular Cardiovascular exam: Present regular rate and normal rhythm Abdominal Exam Abdominal exam: Present soft; Absent distention, tenderness, guarding or rebound Extremities Exam Extremities exam: Present full ROM; Absent tenderness, edema or calf tenderness Neurological Exam Neurological exam: Present alert, oriented X3, CN II-XII intact, normal gait and other (Normal finger-nose, [id number]); Absent motor sensory deficit Psychiatric Psychiatric exam: Present normal affect and normal mood Skin Skin exam: Present warm and dry HEART Score HEART Score HEART Score assessment performed?: Yes History (anamnesis): Slightly suspicious ECG: Non-specific disturbance Age: <45 years Risk factors: 1-2 risk factors Troponin: </= normal limit HEART Score: 2 Critical Care Critical Care Time Critical Care Time: No Medical Decision Making Darian Inquiry Pt receiving controlled substance: No Vital Signs Vital Signs: 04/19/24 03:18 04/19/24 03:30 04/19/24 04:11 Temperature 97.8 F Temperature Source Oral Pulse Rate 85 78 Pulse Rate [Right] 98 H Respiratory Rate 20 11 L 13 Blood Pressure 138/90 113/76 Blood Pressure [Right Arm] 149/107 H Blood Pressure Mean [Right Arm] 121 Blood Pressure Source [Right Arm] Automatic Cuff 02 Sat by Pulse Oximetry 96 97 96 Oxygen Delivery Method Room Air Room Air Room Air 04/19/24 04:45 04/19/24 05:00 04/19/24 05:30 Temperature Temperature Source Pulse Rate 77 76 81 Pulse Rate [Right] Respiratory Rate 14 14 16 Blood Pressure 120/85 108/76 L 105/56 L Blood Pressure [Right Arm] Blood Pressure Mean [Right Arm] Blood Pressure Source [Right Arm] 02 Sat by Pulse Oximetry 97 96 97 Oxygen Delivery Method Room Air Room Air Room Air 04/19/24 06:00 04/19/24 06:30 Temperature Temperature Source Pulse Rate 69 65 Pulse Rate [Right] Respiratory Rate 15 16 Blood Pressure 118/74 124/85 Blood Pressure [Right Arm] Blood Pressure Mean [Right Arm] Blood Pressure Source [Right Arm] 02 Sat by Pulse Oximetry 97 95 Oxygen Delivery Method Room Air Room Air Lab Data Labs: Lab Results 04/19/24 03:22: WBC 11.7 H, RBC 4.75, Hgb 14.5, Hct 43.9, MCV 92.5, MCH 30.4, MCHC 32.9, RDW 14.4, Plt Count 276, MPV 8.5, Neut % (Auto) 47.1, Lymph % (Auto) 44.3, [place] % (Auto) 6.1, Eos % (Auto) 1.2, Baso % (Auto) 1.4, Neut # (Auto) 5.5, Lymph # (Auto) 5.2 H, [place] # (Auto) 0.7, Eos # (Auto) 0.1, Baso # (Auto) 0.2, PT 10.3, INR 0.91, Sodium 143, Potassium 4.1, Chloride 107, Carbon Dioxide 28, Anion Gap 12.1, BUN 18 H, Creatinine 0.80, Estimated Creat Clear 181, Estimated GFR 83, Est GFR ( Amer) 101, Glucose 100, Calcium 9.5, Total Bilirubin 0.5, AST 40 H, ALT 43, Alkaline Phosphatase 98, Troponin I < 0.01, Total Protein 8.0, Albumin 4.8, Globulin 3.2, Albumin/Globulin Ratio 1.5, TSH 2.04, Free T4 0.92, Serum HCG, Qual Negative 04/19/24 06:20: Troponin I < 0.01 04/19/24 03:22 04/19/24 03:22 Response Orders (Tests/Meds): ED MEDICATIONS Discontinued Medications Generic Name Dose Route Start Last Admin Trade Name Freq PRN Reason Stop Dose Admin Lactated Ringer's 1,000 mls @ 999 mls/hr 04/19/24 03:37 04/19/24 03:47 Lactated Ringer's 1000 Ml Bag IV 04/19/24 04:37 999 mls/hr .Q1H1M ONE Administration Iopamidol 180 ml 04/19/24 04:44 04/19/24 04:45 Iopamidol-370 (76%);100ml Bottle IV 04/19/24 04:45 180 ml ONCE ONE Administration Meclizine HCl 25 mg 04/19/24 03:37 04/19/24 03:47 Meclizine 25mg Tablet PO 04/19/24 03:38 25 mg ONCE ONE Administration Sodium Chloride 50 ml 04/19/24 04:44 04/19/24 04:45 0.9 % Sodium Chloride 50 Ml Vial IV 04/19/24 04:45 50 ml ONCE ONE Administration Sodium Chloride 10 ml 04/19/24 04:44 04/19/24 04:45 Sodium Chloride 0.9% 10ml Syr (Rad Only) IV 04/19/24 04:45 10 ml ONCE ONE Administration ORDERS Category Date Time Status CT angio chest PE protocol Stat Cat Scan 04/19/24 03:[address] angio head Stat Cat Scan 04/19/24 03:[address] angio neck Stat Cat Scan 04/19/24 03:[address] head/brain wo con Stat Cat Scan 04/19/24 03:36 Completed CBC w/Auto Diff [Complete Blood Count Auto Diff] Stat Lab 04/19/24 03:22 Completed CMP [Comprehensive Metabolic Panel] Stat Lab 04/19/24 03:22 Completed Free T4 (Free Thyroxine) Stat Lab 04/19/24 03:22 Completed HCG Qualitative, Serum Stat Lab 04/19/24 03:22 Completed PT INR [Prothrombin Time INR] Stat Lab 04/19/24 03:22 Completed TSH [Thyroid Stimulating Hormone] Stat Lab 04/19/24 03:22 Completed Trop I [Troponin I] Stat Lab 04/19/24 03:22 Completed Troponin I Q3H Lab 04/19/24 06:20 Completed Troponin I Q3H Lab 04/19/24 09:45 Ordered MDM Narrative Medical Decision Narrative: In summary, this 34-year-old female presents to the emergency department today with concerns of chest pressure, shortness of breath, dizziness described as a floating sensation. On initial evaluation patient is hemodynamically stable, afebrile, she is mildly hypertensive but resting comfortably, no nystagmus, GCS 15, benign neuroexam, cardiopulmonary exam reassuring, no calf tenderness, no peripheral edema. Differential diagnosis includes but is not limited to ACS, PE, migraine, atypical migraine, I considered the possibility of stroke but I have very low suspicion for this and patient is well outside of the window for any intervention given onset of symptoms was over 2 weeks ago, also considered electrolyte abnormality, dehydration, thyroid abnormality, . Based on these concerns, I ordered cardiac workup, serum labs, CT imaging of the chest, head, neck. ECG personally interpreted demonstrates normal sinus rhythm, rate 99, normal axis, MA and QTc normal, no STEMI,. Patient received IV fluids, meclizine for treatment. Labs personally reviewed demonstrate mild leukocytosis with WBC 11.7, nonspecific and nonactionable at this time, hemoglobin normal at 14.5, normal platelets at 276, PT/INR normal, CMP nonactionable, test negative. Unremarkable thyroid studies. Patient expressed concern about receiving contrast for CT imaging. We discussed risks and benefits. Current recommendation from [employer] and [employer] and lead recreation assistant is that can be continued without interruption after the use of iodinated contrast due to extremely low amount of the maternal dose of contrast crossing over into breastmilk due to its highly protein bound nature and rapid clearance from internal circulation. This information was discussed with the patient. I also discussed the option of doing a one-time express and discard of breastmilk if mom so desired. Patient's is 3-year-old and eating solids so he can supplement with solid food if needed if patient is still inclined to express and discard. I recommended the contrasted exam to the patient to rule out possibility of stenosis or occlusion that could be causing her symptoms that would otherwise be missed without contrasted exam. Also discussed the PE scan to rule out clot that could be causing her chest pressure. After discussing risk, benefits, and current recommendations from radiology and [employer] societies regarding iodinated contrast, patient agreed to full contrasted exams which were performed. CT head personally interpreted demonstrates no acute intracranial abnormality, see radiology read for final interpretation. CTA chest does not demonstrate any findings of PE, see radiology read for final interpretation. CT angiography of the head, neck are also unremarkable. On reassessment patient continues to be stable, her symptoms are relatively unchanged. She has been ambulatory in the ER and is tolerating oral intake. She is appropriate for discharge at this time with outpatient follow-up with her primary care physician, I have also referred her to neurology for continued management.
--- OUTSIDE RECORDS SUMMARY | 2024-04-19 03:45 | XMS_ITS | Continuity of Care Document ---
Author Name Unknown Address [address] [place] [phone] Organization [facility] Phone Care Team Providers Care Photo Manager Name Role Phone STONE, D D Admitting STONE, D D Unavailable STONE, D D Primary Care STONE, D D Primary Attending MEDICATIONS HOME MEDICATIONS Status RXNORM NDC Medication Dose Route Frequency Dates Comments Reported By Updated By Drug Treatment Unknown DISCHARGE MEDICATIONS Status RXNORM NDC Medication Dose Route Frequency Dates Comments Physician Updated By No Discharge Medication Info rmation Available INPATIENT MEDICATIONS Status RXNORM NDC Medication Dose Route Frequency Rat e Quantity Dates Comments Physician Updated By No Inpatient Medication Info rmation Available SOCIAL HISTORY SOCIAL HISTORY SNOMED-CT Social History Element Description Effective Dates Offered Cessation Comment UpdatedBy [id number] Smoking Status Unknown If Ever Smoked SOCIAL HISTORY - Gender Sex: Female SOCIAL HISTORY - Status : status i nformation is not available Intention in Next Year: intention information is not available SOCIAL HISTORY - Sexual Behavior Sexual Orientation Gender Identity SNOMED-CT Description SNO MED -CT Description Activity Level No of Partners Partner Type UpdatedBy Information is not available HEALTH CONCERNS Problems Concern Status Health Concern problem infor mation not available. Smoking Status Status Years Used Consumed packs p er day Health Concern smoking histo ry information not available. Family History Concern Status Health Concern family histor y information not available. ENCOUNTERS ENCOUNTER INFORMATION Reason for Visit URINARY INCONTINENCE R32 Admission March 14, 2024 1:58:[address] [id number] Discharge April 10, 2024 3:59:00 AM [facility] DISC HARGED TO HOME OR SELF CARE ENCOUNTER DIAGNOSES Notes information is not betty ilable. Code System Diagnosis Onset Date Diagnosis information is not available. ABSTRACT DIAGNOSES Code System Diagnosis Updated By R32 ICD10 UNSPECIFIED URINARY INCONTIN ENCE [id number] on April 13, 2024 3:55:20 PM UTC R32 ICD10 UNSPECIFIED URINARY INCONTIN ENCE [id number] on April 13, 2024 3:55:21 PM UTC CARE TEAM Care Photo Manager Role D STONE Admitting D STONE Referring D STONE Primary Care D STONE Primary Attending CARE TEAM CARE mingler operator Role on Team Status Start Date End Date Update d By STONE D KIERSTEN BUSTILLO PCP normal March 13 9:34:16 PM UTC April 10, 2024 3:59:00 AM UTC [id number] on March 13, 2024 9:34:16 PM UTC STONE D KIERSTEN BUSTILLO Referring normal March 13 9:34:16 PM UTC April 10, 2024 3:59:00 AM UTC [id number] on March 13, 2024 9:34:16 PM UTC STONE D KIERSTEN BUSTILLO Attending normal March 13 9:34:15 PM UTC April 10, 2024 3:59:00 AM UTC [id number] on March 13, 2024 9:34:16 PM UTC STONE D KIERSTEN BUSTILLO Admitting normal March 13 9:34:15 PM UTC April 10, 2024 3:59:00 AM UTC [id number] on March 13, 2024 9:34:16 PM UTC
[2024-04-19] MEDS: MECLIZINE 25MG TABLET 25 MG PO (03:47)
[2024-04-19] MEDS: LACTATED RINGERS 1000ML 1,000 ML 999 ML IV (03:47)
[2024-04-19 03:59] LABS: Basophils # 0.2 K/mm3 (0-0.2); Basophils % 1.4 % (0.1-2.0); Eosinophils # 0.1 K/mm3 (0.0-0.4); Eosinophils % 1.2 % (0.1-12.0); Hematocrit 43.9 % (37.0-47.0); Hemoglobin 14.5 g/dL (12.2-16.2); Lymphocytes # 5.2 K/mm3 (0.7-4.5); Lymphocytes % 44.3 % (10-50); Mean Corpuscular HGB Conc 32.9 g/dL (31.8-35.4); Mean Corpuscular Hemoglobin 30.4 pg (27.0-31.2); Mean Corpuscular Volume 92.5 fl (81-99); Mean Platelet Volume 8.5 fl (7.4-10.4); Monocytes # 0.7 K/mm3 (0.1-1.0); Monocytes % 6.1 % (1.7-9.3); Neutrophils # 5.5 K/mm3 (1.8-7.8); Neutrophils % 47.1 % (37.0-80.0); Platelet Count 276 K/mm3 (142-424); Red Blood Count 4.75 M/mm3 (4.20-5.40); Red Cell Distribution Width 14.4 % (11.5-17.5); White Blood Count 11.7 K/mm3 (4.8-10.8)
[2024-04-19 04:00] LABS: Chloride 107 mmol/L (98-107); Potassium 4.1 mmoL/L (3.5-5.1); Sodium 143 mmol/L (136-145)
[2024-04-19 04:02] LABS: Alanine Aminotransferase 43 U/L (12-78); Alkaline Phosphatase 98 U/L (38-126); Aspartate Amino Transferase 40 U/L (14-36); Bilirubin,Total 0.5 mg/dl (0.2-1.3); Blood Urea Nitrogen 18 mg/dl (7-17); Creatinine Clearance Estimated 181 mL/min (50-200); Estimated Glomerular Filt Rate 83 ml/min (>60); GFR (African American) 101 ML/MIN (>60)
[2024-04-19 04:03] LABS: Albumin Level 4.8 g/dl (3.5-5.0); Albumin/Globulin Ratio 1.5 (1.1-1.8); Anion Gap 12.1 mEq/L (5-15); Calcium 9.5 mg/dl (8.4-10.2); Carbon Dioxide 28 mmol/L (22.0-30.0); Globulin 3.2 g/dL (1.3-3.2); Glucose 100 mg/dl (74-100)
[2024-04-19 04:04] LABS: INR 0.91 (0.9-1.1); Prothrombin Time 10.3 seconds (10.1-12.5)
[2024-04-19 04:06] LABS: HCG Qualitative, Serum Negative (Negative)
[2024-04-19 04:17] LABS: Troponin I < 0.01 ng/ml (0.00-0.034)
[2024-04-19] MEDS: 0.9 % SODIUM CHLORIDE 50 ML VIAL IV (04:45)
[2024-04-19] MEDS: SODIUM CHLORIDE 0.9% 10ML SYR (RAD ONLY) 10 ML IV (04:45)
[2024-04-19] MEDS: IOPAMIDOL-370 (76%);100ML BOTTLE 180 ML IV (04:45)
[2024-04-19 05:15] LABS: Free T4 (Free Thyroxine) 0.92 ng/dl (0.78-2.19)
[2024-04-19 05:29] LABS: Thyroid Stimulating Hormone 2.04 uIU/mL (0.465-4.68)
[2024-04-19 06:56] LABS: Troponin I < 0.01 ng/ml (0.00-0.034)
== END 2024-04-19 07:32 | disposition home or self-care (01) ==
PROVIDERS: Emergency Provider Emergency Medicine; PCP Physician Assistant
DX: R42 Dizziness and giddiness (principal); R51.9 Headache, unspecified
CPT/HCPCS: 70450; 70496; 70498; 71275; 80053; 84439; 84443; 84484; 84703; 85025; 85610; 93005; 96360; 99285; J7120; Q9967

== ENCOUNTER 2024-09-05 22:06 | Emergency (ER) | payer BC, SELFPAY ==
[2024-09-05 22:06] VITALS: BP 116/78; PULSE 84; RESP 16; TEMP 36.9; O2SAT 98; BMI 33.4
--- OUTSIDE RECORDS SUMMARY | 2024-09-05 22:13 | XMS_ITS | Clinical Summary ---
[facility] Address [address] [place] [address] Care Team Providers Care Training And Development Project Leader Name Role Phone Provider, No Known Primary Care Provider Unavail able Allergies Active Allergy Reactions Criticality Noted Date Comments Sulfamethoxazole-Trimethoprim Rash Low 2017 Penicillins Rash Low 03/22/2018 Medications Vit-Fe Fumarate-FA ( VITAMIN 27-0.8) 27-0.8 MG tablet tablet Take 1 tablet by mouth Daily. Active acetaminophen (TYLENOL) 325 MG tablet Take 2 tablets by mouth Every 6 (Six) Hours. 30 tablet 04/30/2023 10:16 AM EDT 04/30/2023 Active docusate sodium 100 MG capsule Take 1 capsule by mouth 2 (Two) Times a Day As Needed for Constipation . 60 capsule 04/30/2023 10:16 AM EDT 04/30/2023 Active ibuprofen (ADVIL,MOTRIN) 600 MG tablet Take 1 tablet by mouth Every 6 (Six) Hours. 60 tablet 04/30/2023 10:16 AM EDT 04/30/2023 Active Active Problems Problem Noted Date Diagnosed Date S/P repeat low transverse 04/30/2023 Severe preeclampsia, third trimester 04/28/2023 delivery, repeat June 19, 2018-fema le 06/23/2018 Glucose tolerance test abnor mal -1 hour 164/ normal follow up randoms in hospital 06/06/2018 Morbid obesity with BMI of 40.0-44.9, adult 05/11 section Aug 2014 FT P/CPD occiput transverse 8 lbs. 8 oz. 39 6/7 weeks 03/22/2018 Depression-on Viibryd prior to 018 Resolved Problems Problem Noted Date Diagnosed Date Resolved Date PROM (premature rupture of membranes) 06/19/2018 07/07/2018 Polyhydramnios in third trimester 06/03/2018 07/07/2018 Cellulitis abd wall May 2018 06/03/2018 04/30/2023 05/23/2018 06/03/2018 care in third trimester 03/22/2018 06/21/2018 Obesity 03/22/2018 07/07/2018 Immunizations Name Administration Dates Next Due Fluzone (or Fluarix & Flulav al for VFC) >6mos 06/23/2018(Deferred: Other - vaccine not available) MMR 06/21/2018 Rho (D) Immune Globulin 04/29/2023,06/20/2018 Social History Tobacco Use Types Packs/Day Years Used Date Smoking Tobacco: Former Cigarettes 1 14.8 2 008 - 08/2022 Smokeless Tobacco: Never Tobacco Cessation:Counseling Given: Not Answered Alcohol Use Standard Drinks/Week Comments No 0 (1 standard drink = 0.6 oz pur e alcohol) AUDIT-C Answer Date Recorded Q1: How often do you have a drink containing alcohol? Never 04/28/2023 Q2: How many drinks containi ng alcohol do you have on a typical day when you are drinking? Patient does not drink Q3: How often do you have si x or more drinks on one occasion? Never 04/28/2023 Overall Financial Resource Strain (CARDIA) Answe r Date Recorded How hard is it for you to pa y for the very basics like food, housing, medical care, and heating? Not very hard 04/28/2023 PHQ-2 Answer Date Recorded Retired PHQ-9: Brief Depression Severity Measure Score 0 04/28/2023 Exercise Vital Sign Answer Date Recorde d On average, how many days pe r week do you engage in moderate to strenuous exercise (like a brisk walk)? 7 days 04/28/2023 On average, how many minutes do you engage in exercise at this level? 120 min 04/28/2023 Hunger Vital Sign Answer Date Recorded Within the past 12 months, y ou worried that your food would run out before you got the money to buy more. Never true 04/28/20 23 Within the past 12 months, t he food you bought just didn't last and you didn't have money to get more. Never true 04/28/2023 PRAPARE - Transportation Answer Date Re corded In the past 12 months, has l ack of transportation kept you from medical appointments or from getting medications? No 04/10 In the past 12 months, has l ack of transportation kept you from meetings, work, or from getting things needed for daily living? No 04/28/2023 [place] Depression Scale Answer Date Recorded Retired [place] Depression Score 7 04/30/2023 Retired EPD Scale: Thought of Harming Self 04/30/2023 Abuse Screen Answer Date Recorded Unsafe at Home or Work/School Not on file Feels Threatened by Someone? Not on file Does Anyone Keep You from Co ntacting Others or Doint Things Outside the Home? Not on file 04/28/2024 Physical Sign of Abuse Present Not on file 0 04/28/2024 Housing Stability Answer Date Recorded Current Living Arrangements Not on file 04/10 Potentially Unsafe Housing Conditions Not on wolf e 04/28/2024 Family and Community Support Answer Juancarlos e Recorded Help with Day-to-Day Activities Not on file 04/28/2024 Lonely or Isolated Not on file 04/28/2024 Employment Answer Date Recorded Do you want help finding or keeping work or a rohit b? Not on file 04/28/2024 Disabilities Answer Date Recorded Concentrating, Remembering, or Making Decisions Difficulty Not on file 04/28/2024 Doing Errands Independently Difficulty Not on fi le 04/28/2024 Education Answer Date Recorded Help with school or training? Not on file Preferred Language Not on file 04/28/2024 PHQ-2 Answer Date Recorded Retired PHQ-9: Brief Depression Severity Measure Score 0 04/28/2023 Comments No Sex and Gender Information Value Date Recorded Sex Assigned at Not on file Legal Sex Female 1:44 PM EDT Gender Identity Not on file Sexual Orientation Not on file Last Filed Vital Signs Vital Sign Reading Time Taken Comments Blood Pressure 145/84 04/30/2023 11:52 AM EDT Pulse 86 04/30/2023 11:52 AM EDT Temperature 36.3 ??C (97.3 ??F) 04/30/2023 11:52 AM E DT Respiratory Rate 18 04/30/2023 11:52 AM EDT Oxygen Saturation 98% 04/30/2023 11:52 AM EDT Inhaled Oxygen Concentration - - Weight 127 kg (281 lb) 04/28/2023 1:47 AM EDT Height 167.6 cm (5' 6 ) 04/28/2023 1:47 AM EDT Body Mass Index 45.35 04/28/2023 1:47 AM EDT Plan of Treatment Health Maintenance Due Date Last Done Comments TDAP/TD VACCINES (1 - Tdap) 02/22/2011 ANNUAL PHYSICAL 03/22/2018 HEPATITIS C SCREENING 03/22/2018 Annual Gynecologic Pelvic an d Breast Exam 03/15/2019 03/14/2018 PAP SMEAR 03/14/2021 03/14/2018 INFLUENZA VACCINE 05/11/2024 COVID-19 Vaccine ( - 2023-2 5 season) 2024 Pneumococcal Vaccine 0-64 Aged Out No longer eligible based on patient's age to complete this topic Procedures Procedure Name Priority Date/Time Associated Diagnosis Comments SCANNED - PAP SMEAR 03/14/2018 from Last 3 Months or Most Recently Relevant to Health Maintenance Results * SCANNED - PAP SMEAR (03/14/2018) Kimo Farrell MD CHART REVIEW TABS Final Resul t from Last 3 Months or Most Recently Relevant to Health Maintenance Insurance MEDICAID Advance Directives * CPR (Attempt to Resuscitate) (Latest Code Status on File) Date Activated Date Inactivated Comments 04/28/2023 2:27 PM 04/30/2023 4:04 PM Question Answer Comments Code Status (Patient has no pulse and is not breathing): CPR (Attempt to Resuscitate) Medical Interventions (Patie nt has pulse or is breathing): Full Release to patient: Routine Release * CPR (Attempt to Resuscitate) Date Activated Date Inactivated Comments 04/28/2023 1:48 AM 04/28/2023 2:27 PM Question Answer Comments Code Status (Patient has no pulse and is not breathing): CPR (Attempt to Resuscitate) Medical Interventions (Patie nt has pulse or is breathing): Full Support Release to patient: Routine Release * CPR (Attempt to Resuscitate) Date Activated Date Inactivated Comments 06/20/2018 12:53 AM 06/23/2018 4:50 PM Question Answer Comments Code Status (Patient has no pulse and is not breathing): CPR (Attempt to Resuscitate) Medical Interventions (Patie nt has pulse or is breathing): Full * CPR (Attempt to Resuscitate) Date Activated Date Inactivated Comments 06/19/2018 9:07 PM 06/20/2018 12:53 AM Question Answer Comments Code Status (Patient has no pulse and is not breathing): CPR (Attempt to Resuscitate) Medical Interventions (Patie nt has pulse or is breathing): Full * CPR (Attempt to Resuscitate) Date Activated Date Inactivated Comments 06/03/2018 8:48 AM 06/04/2018 4:56 PM Question Answer Comments Code Status (Patient has no pulse and is not breathing): CPR (Attempt to Resuscitate) Medical Interventions (Patie nt has pulse or is breathing): Full Level Of Support Discussed With: Patient Care Teams Training And Development Project Leader Relationship Specialty Start Date End Date Provider, [place] [address] PCP - General 03/22/18
--- OUTSIDE RECORDS SUMMARY | 2024-09-05 22:13 | XMS_ITS | Encounter Summary ---
[facility] Address [address] [place] [address] Care Team Providers Care Ditcher Name Role Phone Provider, No Known Primary Care Provider Unavail able Reason for Visit * Auth/Cert (Routine) Specialty Diagnoses / Procedures Referred By Hector rice Referred To Contact Diagnoses Severe preeclampsia, third trimester Procedures SECTION REPEAT Referral ID Status Reason Start Date Expiration Date Visits Re quested Visits Authorized [id number] 1 1 Encounter Details Date Type Department Care Team (Late st Contact Info) Description 04/28/2023 12:07 PM EDT Anesthesia Event [facility] [address] [place] [address] Fransisco Melendez, DO [address] [place] [address] Laurita Singh, APPELLATE COURT CLERK [address] [place] [address] Anesthesia Record Procedure Summary Procedure Name Responsible Anesthesiologist Anesthesia Start Time Anesthesia Stop Time SECTION REPEAT WITH TUBAL (Bilateral: Abdomen) Fransisco Melendez DO 04/28/23 1207 04/28/23 1300 Events Date Time Event Comment 04/28/2023 0913 1050 AN Equip Check 1207 An Start The patient was reevaluated immediately before moderate or deep sedation use and before anesthesia induction. 1210 An Start Data 1218 Spinal Placed 1233 Baby Delivered 1251 an stop data 1300 Handoff to RN The following has been completed: 1. Identification of Patient, lauren family member(s) or patient surrogate 2. Identification of the responsible Practitioner (primary service) 3. Discussion of the pertinent/attainable medical history 4. Discussion of the surgical/procedure course (procedure, reason for surgery, procedure performed) 5. Intraoperative anesthetic management and issue/concerns to include things such as airway, hemodynamics, narcotic, sedation level and paralytic management and intravenous fluids/blood products and urine output during the procedure 6. Expectations/Plans for the early post-procedure period to include things such as anticipated course (anticipatory guidance), complications, need for laboratory or ECG and medication administration 7. Opportunity for questions and acknowledgment of understanding of report from the receiving PACU/ICU team 1300 An Stop Meds Name Total bupivacaine 0.75%-dextrose 8.25% (SENSOR STEPHANIE) intrathecal injection 1.5 mL oxytocin (PITOCIN) in sodium chloride 30 units/500 mL (premix) 500 mL oxytocin (PITOCIN) injection 3 Units phenylephrine 1 MG/10ML 800 mcg fentaNYL (SUBLIMAZE) injection 20 mcg morphine PF injection 0.5 mg/mL 150 mcg famotidine (PEPCID) 10 mg/mL injection 2 0 mg metoclopramide (REGLAN) injection 10 mg ondansetron (ZOFRAN) 2 mg/mL injection 4 mg midazolam (VERSED) 2 mg/2 mL injection 1 mg ePHEDrine Sulfate (Pressors) 5 MG/ML 10 mg lactated ringers infusion 0 mL * Agents Name N2O Air * Blood No blood administrations on file. Lines, Drains, and Airways Type Details Placement Removal Wound 04/28/23; 1229; transverse (lower transverse); abdomen; Incision; N 04/28/23 1229 by Ade Arias, GLENN Peripheral IV Placement Date: 04/28/23; Placement Time: 011; Catheter Size: 18 G; Orientation: Anterior, Proximal, Right; Location: Forearm; Site Prep: Chlorhexidine; Local Anes: None; Technique: Anatomical landmarks; Inserted by: Louise Puga RN; Insertion Attempts: 1; Patient Tolerance: Tolerated well; Removal Date: 04/29/23; Removal Time: 1500 04/28/23 0119 by Harrison Puga RN 04/29/23 1500 by Lashell Leal RN Urethral Catheter Placement Date: 04/28/23; Placement Time: 1222; Inserted by: Ade Arias RN; Type: Silicone; Size: 16 Fr.; Balloon Size: 10 mL; Urine Returned: Yes; Removal Date: 04/29/23; Removal Time: 639; Removal Reason: Per order 04/28/23 1222 by dAe Arias RN 04/29/23 0640 by Angela Lyle RN documented in this encounter Social History Tobacco Use Types Packs/Day Years Used Date Smoking Tobacco: Former Cigarettes 1 14.8 2 008 - 08/2022 Smokeless Tobacco: Never Alcohol Use Standard Drinks/Week Comments No 0 [...] things needed for daily living? No 04/28/2023 [place] Depression Scale Answer Date Recorded Retired [place] Depression Score 7 04/30/2023 Retired EPD Scale: Thought of Harming Self 04/30/2023 Abuse Screen Answer Date Recorded Feels Unsafe at Home or Work/School no 04/28/2023 Feels Threatened by Someone no 04/10 Does Anyone Try to Keep You From Having Contact with Others or Doing Things Outside Your Home? no 04/28/2023 Physical Signs of Abuse Present no 04/28/2023 Housing Stability Answer Date Recorded Current Living Arrangements home 04/10 Potentially Unsafe Housing Conditions none 04/28/2023 Family and Community Support Answer Juancarlos e Recorded If for any reason you need h elp with day-to-day activities such as bathing, preparing meals, shopping, managing finances, etc., do you get the help you need? I don't need any help 04/28/2023 How often do you feel lonely or isolated from those around you? Never 04/28/2023 Employment Answer Date Recorded Do you want help finding or keeping work or a job? I do not need or want help 04/28/2023 Disabilities Answer Date Recorded Difficulty Concentrating, Remembering or Making Decisions no 04/28/2023 Difficulty Managing Errands Independently no 04/28/2023 Education Answer Date Recorded Do you want help with school or training? For example, starting or completing job training or getting a high school diploma, GED or equivalent No 04/28/2023 Preferred Language Malaysian 04/28/2023 PHQ-2 Answer Date Recorded Retired PHQ-9: Brief Depression Severity Measure Score 0 04/28/2023 Comments No Sex and Gender Information Value Date Recorded Sex Assigned at Not on file Legal Sex Female 1:44 PM EDT Gender Identity Not on file Sexual Orientation Not on file documented as of this encounter OR Notes * Anesthesia Postprocedure Evaluation - Cori Bullock DO - 04/29/2023 7:43 AM EDT Patient: Merle Lyle Procedure Summary Date: 04/28/23 Room / Location: [facility] Anesthesia Start: 1207 Anesthesia Stop: 1300 Procedure: SECTION REPEAT WITH TUBAL (Bilateral: Abdomen) Diagnosis: Surgeons: Paulette Sumner MD Provider: Fransisco Melendez DO Anesthesia Type: ITN, spinal ASA Status: 3 Anesthesia Type: ITN, spinal Vitals Vitals Value Taken Time BP 132/78 04/29/23 0742 Temp 98.1 ??F (36.7 ??C) 04/29/23 0422 Pulse 80 04/29/23 0742 Resp 16 04/29/23 0614 SpO2 97 % 04/29/23 0547 Vitals shown include unvalidated device data. Post Anesthesia Care and Evaluation Patient location during evaluation: bedside Patient participation: complete - patient participated Level of consciousness: awake and awake and alert Pain score: 0 Pain management: satisfactory to patient Airway patency: patent Anesthetic complications: No anesthetic complications PONV Status: none Cardiovascular status: acceptable, hemodynamically stable and stable Respiratory status: acceptable Hydration status: stable Post Neuraxial Block status: Motor and sensory function returned to baseline and No signs or symptoms of PDPH Pt states she feels much better. * Anesthesia Postprocedure Evaluation - Laurita Singh CRNA - 04/28/2023 1:03 PM EDT Patient: Merle Lyle Procedure Summary Date: 04/28/23 Room / Location: [facility] Anesthesia Start: 1207 Anesthesia Stop: 1300 Procedure: SECTION REPEAT WITH TUBAL (Bilateral: Abdomen) Diagnosis: Surgeons: Paulette Sumner MD Provider: Fransisco Melendez DO Anesthesia Type: ITN, spinal ASA Status: 3 Anesthesia Type: ITN, spinal Vitals Vitals Value Taken Time BP 83/44 Temp 97.7 Pulse 86 04/28/23 1300 Resp 16 SpO2 96% 04/28/23 1300 Vitals shown include unvalidated device data. Post Anesthesia Care and Evaluation Patient location during evaluation: bedside Patient participation: complete - patient participated Level of consciousness: awake and alert Pain management: adequate Airway patency: patent Anesthetic complications: No anesthetic complications Cardiovascular status: acceptable Respiratory status: acceptable Hydration status: acceptable * Anesthesia Procedure Notes - Laurita Singh CRNA - 04/28/2023 12:30 PM EDTAssociated Order(s): Spinal Block Spinal Block Patient reassessed immediately prior to procedure Patient location during procedure: OR Indication:at surgeon's request Performed By KASANDRA/CAA: Laurita Singh CRNA Preanesthetic Checklist Completed: patient identified, IV checked, site marked, risks and benefits discussed, surgical consent, monitors and equipment checked, pre-op evaluation and timeout performed Spinal Block Prep: Patient Position:sitting Forensic Anthropologist:cap, gloves, mask and sterile barriers Prep:Betadine Patient Monitoring:blood pressure monitoring, continuous pulse oximetry and EKG Spinal Block Procedure Approach:midline Guidance:palpation technique Location:L3-L4 Needle Type:Rachel Needle Gauge:25 G Placement of Spinal needle event:cerebrospinal fluid aspirated Paresthesia: no Fluid Appearance:clear Post Assessment Patient Tolerance:patient tolerated the procedure well with no apparent complications Complications no * Anesthesia Preprocedure Evaluation - Laurita Singh CRNA - 04/28/2023 9:12 AM EDT Anesthesia Evaluation Patient summary reviewed and Nursing notes reviewed NPO Solid Status: > 8 hours NPO Liquid Status: > 2 hours Airway Mallampati: II TM distance: >3 FB Neck ROM: full Dental Pulmonary (+) asthma, Cardiovascular (+) hypertension Neuro/Psych (+) psychiatric history Anxiety and Depression GI/Hepatic/Renal/Endo (+) obesity, morbid obesity Musculoskeletal Abdominal Substance History ALLERGIST (+) , Preeclampsia, induced hypertension Other Anesthesia Plan ASA 3 ITN and spinal Anesthetic plan, risks, benefits, and alternatives have been provided, discussed and informed consent has been obtained with: patient. Use of blood products discussed with patient . Plan discussed with attending. CODE STATUS: Code Status (Patient has no pulse and is not breathing): CPR (Attempt to Resuscitate) Medical Interventions (Patient has pulse or is breathing): Full Support Release to patient: Routine Release documented in this encounter Plan of Treatment Not on file documented as of this encounter Procedures Procedure Name Priority Date/Time Associated Diagnosis Comments SPINAL Routine 04/28/2023 12:30 PM EDT documented in this encounter Results * HC BH AN SPINAL TRAY (04/28/2023 12:30 PM EDT) Narrative Laurita Singh CRNA - 04/28/2023 12:30 PM EDT Laurita Singh CRNA ? 04/28/2023 12:30 PM Spinal Block Patient reassessed immediately prior to procedure Patient location during procedure: OR Indication:at surgeon's request Performed By KASANDRA/CAA: Laurita Singh CRNA Preanesthetic Checklist Completed: patient identified, IV checked, site marked, risks and benefits discussed, surgical consent, monitors and equipment checked, pre-op evaluation and timeout performed Spinal Block Prep: Patient Position:sitting Forensic Anthropologist:cap, gloves, mask and sterile barriers Prep:Betadine Patient Monitoring:blood pressure monitoring, continuous pulse oximetry and EKG Spinal Block Procedure Approach:midline Guidance:palpation technique Location:L3-L4 Needle Type:Rachel Needle Gauge:25 G Placement of Spinal needle event:cerebrospinal fluid aspirated Paresthesia: no Fluid Appearance:clear Post Assessment Patient Tolerance:patient tolerated the procedure well with no apparent complications Complications no Fransisco Melendez DO ANESTHESIA ORDERABLES Final Result documented in this encounter Visit Diagnoses Not on filedocumented in this encounter Administered Medications Inactive Administered Medications - up to 3 most recent administrations Medication Order MAR Action Action Date Dose Rate Site bupivacaine in dextrose (MARCAINE SPINAL) 0.75-8.25 % injection Intrathecal, As Needed, Starting on Wed04/28/23 at 1218 Given 04/28/2023 12:18 PM EDT 1.5 mL ePHEDrine Sulfate (Pressors) 5 MG/ML injection Intravenous, As Needed, Starting on Wed04/28/23 at 1250 Given 04/28/2023 12:50 PM EDT 10 mg famotidine (PEPCID) injection Intravenous, As Needed, Starting on Wed04/28/23 at 1211 Given 04/28/2023 12:11 PM EDT 20 mg fentaNYL citrate (PF) (SUBLIMAZE) injection Intrathecal, As Needed, Starting on Wed04/28/23 at 1218 Given 04/28/2023 12:18 PM EDT 20 mcg lactated ringers infusion 75 mL/hr, Intravenous, Continuous, Starting on Wed04/28/23 at 1130 New Bag 04/28/2023 1:20 PM EDT 75 mL/hr 75 mL/hr Restarted 04/28/2023 12:07 PM EDT Rate/Dose Change 04/28/2023 11:51 AM EDT 999 mL/hr 999 mL /hr metoclopramide (REGLAN) injection Intravenous, As Needed, Starting on Wed04/28/23 at 1211 Given 04/28/2023 12:11 PM EDT 10 mg midazolam (VERSED) injection Intravenous, As Needed, Starting on Wed04/28/23 at 1210 Given 04/28/2023 12:10 PM EDT 1 mg morphine PF (DURAMORPH) injection Intrathecal, As Needed, Starting on Wed04/28/23 at 1218 Given 04/28/2023 12:18 PM EDT 150 mcg ondansetron (ZOFRAN) injection Intravenous, As Needed, Starting on Wed04/28/23 at 1211 Given 04/28/2023 12:11 PM EDT 4 mg oxytocin (PITOCIN) 30 units in 0.9% sodium chloride 500 mL (premix) Intravenous, As Needed, Starting on Wed04/28/23 at 1238 Given 04/28/2023 12:38 PM EDT 500 mL oxytocin (PITOCIN) injection Intravenous, As Needed, Starting on Wed04/28/23 at 1236 Given 04/28/2023 12:36 PM EDT 3 Units phenylephrine (RENAE-SYNEPHRINE) 1 MG/10ML injection Intravenous, As Needed, Starting on Wed04/28/23 at 1226 Given 04/28/2023 12:47 PM EDT 100 mcg Given 04/28/2023 12:45 PM EDT 100 mcg Given 04/28/2023 12:40 PM EDT 100 mcg documented in this encounter Care Teams Ditcher Relationship Specialty Start Date End Date Provider, No Known [facility] [address] PCP - General 03/22/18 documented as of this encounter
--- OUTSIDE RECORDS SUMMARY | 2024-09-05 22:13 | XMS_ITS | Encounter Summary ---
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 Name Role Phone Provider, No Known Primary Care Provider Unavail able Reason for Visit * Reason Comments Problem Complaints of palpit ations Elevated Blood Pressure Shortness of Breath Palpitations * Auth/Cert (Routine) Specialty Diagnoses / Procedures Referred By Contac t Referred To Contact Diagnoses Severe preeclampsia, third trimester Procedures SECTION REPEAT Referral ID Status Reason Start Date Expiration Date Visits Re quested Visits Authorized [id number] 1 1 Encounter Details Date Type Department Care Team (Late st Contact Info) Description 04/28/2023 12:21 AM EDT - 04/30/2023 1:58 PM EDT Hospital Encounter [facility] [address] [address] [phone] Madhuri Lei MD [address] [facility] [address] [place] [address] Henok Ibarra III, MD [address] [facility] [address] [place] [address] S/P repeat low transverse (Primary Dx); Status post repeat low transverse section Discharge Disposition: Home or Self Care Social History Tobacco Use Types Packs/Day Years [...] things needed for daily living? No 04/28/2023 [place] Depression Scale Answer Date Recorded Retired [place] Depression Score 7 04/30/2023 Retired EPD Scale: [...] GED or equivalent No 04/28/2023 Preferred Language [place] 04/28/2023 PHQ-2 Answer Date Recorded Retired PHQ-9: Brief Depression Severity Measure Score 0 04/28/2023 Comments No Sex and Gender Information Value Date Recorded Sex Assigned at Not on file Legal Sex Female 1:44 PM EDT Gender Identity Not on file Sexual Orientation Not on file documented as of this encounter Last Filed Vital Signs Vital Sign Reading [...] Mass Index 45.35 04/28/2023 1:47 AM EDT documented in this encounter Discharge Summaries * Madhuri Lei MD - 04/30/2023 8:55 AM EDT LA Garcia Discharge Summary Patient: Merle Lyle MR#:[id number] Admission Diagnosis: IUP @ 38w1d, severe GHTN, previous x 2, class 3 obesity Problems Addressed this Visit Gravid and S/P repeat low transverse - Primary Relevant Medications oxyCODONE (ROXICODONE) 5 MG immediate release tablet Other Visit Diagnoses Status post repeat low transverse section Relevant Orders Tissue Pathology Exam (Completed) Diagnoses Codes Comments S/P repeat low transverse - Primary ICD-10-CM: Z98.891 ICD-9-CM: V45.89 Status post repeat low transverse section ICD-10-CM: Z98.891 ICD-9-CM: V45.89 Discharge Diagnosis: POD#2 s/p RCS with BS at 38w2d, severe GHTN, class 3 obesity 1. S/P repeat low transverse 2. Status post repeat low transverse section Date of Admission: 04/28/2023 Date of Discharge: 04/30/2023 Procedures: , Low Transverse 04/28/2023 12:33 PM Service: Obstetrics Hospital Course: Patient presented with severe range BPs. She underwent section with bilateral salpingectomy and remained in the hospital for 2 days. Magnesium was given for seizure ppx for ~20h PP (discontinued early due to poor tolerance). BPs were normal to mild range without anti-hypertensive medication. During that time she remained afebrile and hemodynamically stable. On the day of discharge, she was eating, ambulating and voiding without difficulty. Labs Lab Results Component Value Date WBC 10.13 04/29/2023 HGB 11.1 (L) 04/29/2023 HCT 33.9 (L) 04/29/2023 MCV 92.6 04/29/2023 PLT 155 04/29/2023 URICACID 5.7 04/29/2023 AST 40 (H) 04/29/2023 ALT 21 04/29/2023 LDH 442 (H) 04/29/2023 Results from last 7 days Lab Units 04/28/23 1633 04/28/23 0134 ABO TYPING O O RH TYPING Negative Negative ANTIBODY SCREEN -- Negative Discharge Medications Discharge Medications New Medications Instructions Start Date docusate sodium 100 MG capsule 100 mg, Oral, 2 Times Daily PRN ibuprofen 600 MG tablet Commonly known as: ADVIL,MOTRIN 600 mg, Oral, Every 6 Hours oxyCODONE 5 MG immediate release tablet Commonly known as: ROXICODONE 5 mg, Oral, Every 4 Hours PRN Changes to Medications Instructions Start Date acetaminophen 325 MG tablet Commonly known as: TYLENOL What changed: when to take this reasons to take this 650 mg, Oral, Every 6 Hours Continue These Medications Instructions Start Date vitamin 27-0.8 27-0.8 MG tablet tablet 1 tablet, Oral, Daily Stop These Medications gwfluubqih-wfahrxdydbsgg-gticggth 50-325-40 MG per tablet Commonly known as: FIORICET, ESGIC calcium carbonate 500 MG chewable tablet Commonly known as: TUMS ferrous sulfate 325 (65 FE) MG tablet metoclopramide 10 MG tablet Commonly known as: REGLAN omeprazole 20 MG capsule Commonly known as: priLOSEC Discharge Disposition: To Home Discharge Condition: Stable Discharge Diet: regular Activity at Discharge: pelvic rest Follow-up Appointments 2 weeks - BP/incision check Madhuri Lei MD 04/30/23 08:55 EDT documented in this encounter Discharge Instructions * Attachments The following attachments cannot be sent through Care Everywhere. * Care After Delivery ([place]) * Hypertension ([place]) * Acetaminophen Capsules or Tablets ([place]) * Docusate Capsules ([place]) * Ibuprofen Capsules or Tablets ([place]) * Oxycodone Capsules or Tablets ([place]) documented in this encounter Medications at Time of Discharge acetaminophen (TYLENOL) 325 MG tablet Take 2 tablets by mouth Every 6 (Six) Hours. 30 tablet 04/30/2023 10:16 AM EDT 04/30/2023 docusate sodium 100 MG capsule Take 1 capsule by mouth 2 (Two) Times a Day As Needed for Constipation. 60 capsule 04/30/2023 10:16 AM EDT 04/30/2023 ibuprofen (ADVIL,MOTRIN) 600 MG tablet Take 1 tablet by mouth Every 6 (Six) Hours. 60 tablet 04/30/2023 10:16 AM EDT 04/30/2023 Vit-Fe Fumarate-FA ( VITAMIN 27-0.8) 27-0.8 MG tablet tablet Take 1 tablet by mouth Daily. oxyCODONE (ROXICODONE) 5 MG immediate release tabletIndication s:S/P repeat low transverse Take 1 tablet by mouth Every 4 (Four) Hours As Needed for Moderate Pain for up to 5 days. 12 tablet 04/30/2023 10:16 AM EDT 04/30/2023 05/05/2023 documented as of this encounter Progress Notes * Madhuri Lei MD - 04/30/2023 8:52 AM EDT 04/30/2023 Name:Merle Lyle MR#:[id number] PROGRESS NOTE: Post-Op 2 S/P Subjective 33 y.o. yo Female s/p CS at 38w2d doing well. Pain well controlled, lochia appropriate, tolerating diet. She desires discharge home today. Severe preeclampsia, third trimester Objective Vitals Temp: Temp: [97.2 ??F (36.2 ??C)-98.4 ??F (36.9 ??C)] 98.2 ??F (36.8 ??C) Temp src: Oral BP: BP: (129-135)/(66-80) 135/73 Pulse: Heart Rate: [88-101] 92 RR: Resp: [16-20] 18 General Awake, alert, no distress Abdomen Soft, non-distended, fundus firm, below umbilicus, appropriately tender Incision Intact, no erythema or exudate Extremities Calves NT bilaterally I/O last 3 completed shifts: In: 1856.7 [P.O.:1800; I.V.:56.7] Out: 4350 [Urine:4350] LABS: Lab Results Component Value Date WBC 10.13 04/29/2023 HGB 11.1 (L) 04/29/2023 HCT 33.9 (L) 04/29/2023 MCV 92.6 04/29/2023 PLT 155 04/29/2023 : male Assessment 1. POD 2 from Section with BS 2. Severe GHTN - s/p mag x ~20h (stopped early due to poor tolerance), BPs normal to mild range without anti-hypertensives Plan: Doing well. Discharge home Discharge instructions given, precautions reviewed. Madhuri Lei MD 04/30/2023 08:52 EDT * Madhuri Lei MD - 04/29/2023 8:56 AM EDT 04/29/2023 Name:Merle Lyle MR#:[id number] PROGRESS NOTE: Post-Op 1 S/P Subjective 33 y.o. yo Female s/p CS at 38w2d doing okay. Pain moderately controlled, lochia appropriate. She is tearful, requests discontinuation of magnesium as she is feeling poorly. She is currently on the toilet, planning to shower. Severe preeclampsia, third trimester Objective Vitals Temp: Temp: [96.7 ??F (35.9 ??C)-99.1 ??F (37.3 ??C)] 96.7 ??F (35.9 ??C) Temp src: Axillary BP: BP: (83-148)/(44-107) 143/81 Pulse: Heart Rate: [84-113] 92 RR: Resp: [12-20] 18 General Awake, alert, no distress Abdomen Soft, non-distended, fundus firm, below umbilicus, appropriately tender Incision Intact, no erythema or exudate Extremities Calves NT bilaterally I/O last 3 completed shifts: In: 5304 [P.O.:640; I.V.:3864; IV Piggyback:800] Out: 4637 [Urine:3960; Blood:677] LABS: Lab Results Component Value Date WBC 10.13 04/29/2023 HGB 11.1 (L) 04/29/2023 HCT 33.9 (L) 04/29/2023 MCV 92.6 04/29/2023 PLT 155 04/29/2023 : male Assessment 1. POD 1 from Section 2. Severe GHTN Plan: Doing well. Discontinue magnesium - BPs have been normal to mild range since delivery without anti-hypertensives Discontinue IV, advance diet, may shower. Continue routine post-operative/ care. Transfer to [facility] this afternoon if BPs remain stable Madhuri Lei MD 04/29/2023 08:56 EDT * Paulette Hernandez MD - 04/28/2023 10:15 AM EDT Jose Antepartum Progress Note Chief Complaint: Severe HTN Subjective Admitted ON with Severe HTN. Currently on Mag with BP well controlled. 2 prior CD. Objective Vital Signs Range for the last 24 hours Temp: [97.5 ??F (36.4 ??C)-98 ??F (36.7 ??C)] 97.5 ??F (36.4 ??C) BP: (119-187)/(70-116) 119/70 Heart Rate: [81-121] 99 Resp: [16-20] 20 SpO2: [91 %-100 %] 97 % Device (Oxygen Therapy): room air Heart Rate Assessment Method: HR Assessment Method: external Beats/min: HR (beats/min): 130 Baseline: HR Baseline: normal range Varibility: HR Variability: minimal (detectable, amplitude less than or equal to 5 bpm) Accels: HR Accelerations: greater than/equal to 15 bpm, lasting at least 15 seconds Decels: HR Decelerations: variable Tracing Category: Uterine Assessment Method: Method: palpation Frequency (min): Contraction Frequency (Minutes): 2-6 Ctx Count in 10 min: Duration: Intensity: Contraction Intensity: mild by palpation Intensity by IUPC: Resting Tone: Uterine Resting Tone: soft by palpation Resting Tone by IUPC: Intake/Output last 24 hours: Intake/Output Summary (Last 24 hours) at 04/28/2023 1015 Last data filed at 04/28/2023 0935 Gross per 24 hour Intake 904.59 ml Output 350 ml Net 554.59 ml Intake/Output this shift: I/O this shift: In: 389.6 [I.V.:389.6] Out: 100 [Urine:100] Physical Exam: General: Patient is comfortable, well appearing, and in no acute distress Heart CVS exam: normal rate, regular rhythm, normal S1, S2, no murmurs, rubs, clicks or gallops, normal rate and regular rhythm. Lungs Chest: clear to auscultation, no wheezes, rales or rhonchi, symmetric air entry. Abdomen S/G/NT Extremities 2+ edema Laboratory Results WBC Date Value Ref Range Status 04/28/2023 11.19 (H) 3.40 - 10.80 10*3/mm3 Final RBC Date Value Ref Range Status 04/28/2023 4.17 3.77 - 5.28 10*6/mm3 Final Hemoglobin Date Value Ref Range Status 04/28/2023 12.6 12.0 - 15.9 g/dL Final Hematocrit Date Value Ref Range Status 04/28/2023 38.2 34.0 - 46.6 % Final MCV Date Value Ref Range Status 04/28/2023 91.6 79.0 - 97.0 fL Final MCH Date Value Ref Range Status 04/28/2023 30.2 26.6 - 33.0 pg Final MCHC Date Value Ref Range Status 04/28/2023 33.0 31.5 - 35.7 g/dL Final RDW Date Value Ref Range Status 04/28/2023 17.5 (H) 12.3 - 15.4 % Final RDW-SD Date Value Ref Range Status 04/28/2023 58.0 (H) 37.0 - 54.0 fl Final MPV Date Value Ref Range Status 04/28/2023 11.9 6.0 - 12.0 fL Final Platelets Date Value Ref Range Status 04/28/2023 178 140 - 450 10*3/mm3 Final Neutrophils Absolute Date Value Ref Range Status 04/28/2023 6.83 1.70 - 7.00 10*3/mm3 Final Eosinophils Absolute Date Value Ref Range Status 04/28/2023 0.00 0.00 - 0.40 10*3/mm3 Final Basophils Absolute Date Value Ref Range Status 04/28/2023 0.00 0.00 - 0.20 10*3/mm3 Final CMP: Lab 04/28/23 0134 SODIUM 136 POTASSIUM 4.1 CHLORIDE 105 CO2 21.0* ANION GAP 10.0 BUN 10 CREATININE 0.64 EGFR 121.3 GLUCOSE 122* CALCIUM 9.6 TOTAL PROTEIN 6.4 ALBUMIN 3.3* GLOBULIN 3.1 ALT (SGPT) 24 AST (SGOT) 35* BILIRUBIN 0.3 ALK PHOS 170* Uric Acid:4.9 LDH: 231 Assessment/Plan IUP @ 38w2d with Severe HTN and 2 prior CD 1. Plan to proceed with RCD and BS today. 2. SHTN: stable at current. Cont Mag. BP controlled. Anti-HTN meds as needed 3. FWB reassuring. Paulette Hernandez MD 04/28/2023 10:15 EDT documented in this encounter H&P Notes * Henok Ibarra III, MD - 04/28/2023 1:16 AM EDT Images from the original note were not included. [facility] Obstetric History and Physical Chief Complaint Patient presents with Problem Complaints of palpitations Subjective Patient is a 33 y.o. female currently at 38w2d, who presents with complaints of palpitations and shortness of breath beginning yesterday. She denies headache, scotomata or epigastric pain. Onpresentation, she is noted to have severe range hypertension without any prior history of hypertension. The patient was a prior smoker and stopped 1 month prior to . She denies cough, chest pain or dyspnea on exertion. Her care is notable for maternal morbid obesity and a history of 2 prior sections. Her previous obstetric/gynecological history is notable for previous section x2. The following portions of the patients history were reviewed and updated as appropriate: current medications, allergies, past medical history, past surgical history, past family history, past social history, and problem list . Information: Maternal Labs Blood Type No results found for: ABO Rh Status No results found for: RH Antibody Screen No results found for: ABSCRN Gonnorhea No results found for: GCCX Chlamydia No results found for: CLAMYDCU RPR No results found for: RPR Syphilis Antibody No results found for: SYPHILIS Rubella No results found for: RUBELLAIGGIN Hepatitis B Surface Antigen No results found for: HEPBSAG HIV-1 Antibody No results found for: LABHIV1 Hepatitis C Antibody No results found for: HEPCAB Rapid Urin Drug Screen No results found for: AMPMETHU, BARBITSCNUR, LABBENZSCN, LABMETHSCN, LABOPIASCN, THCURSCR, COCAINEUR, AMPHETSCREEN, PROPOXSCN, BUPRENORSCNU, METAMPSCNUR, OXYCODONESCN, TRICYCLICSCN Group B Strep Culture No results found for: GBSANTIGEN External Results Outside Results - Transcribed From Office Records - See Scanned Records For Details Test Value Date Time ABO O 04/09/23 1528 Rh Negative 04/09/23 1528 Antibody Screen Positive 04/09/23 1528 Varicella IgG Rubella Hgb 11.2 g/dL 04/09/23 1528 11.5 g/dL 01/16/23 0642 Hct 34.9 % 04/09/23 1528 35.8 % 01/16/23 0642 Glucose Fasting GTT Glucose Tolerance Test 1 hour Glucose Tolerance Test 3 hour Gonorrhea (discrete) ^ negative 12/22/17 Chlamydia (discrete) ^ negative 12/22/17 RPR VDRL Syphilis Antibody HBsAg Herpes Simplex Virus PCR Herpes Simplex VIrus Culture HIV ^ negative 12/22/17 Hep C RNA Quant PCR Hep C Antibody AFP Group B Strep GBS Susceptibility to Clindamycin GBS Susceptibility to Erythromycin Fibronectin Genetic Testing, Maternal Blood Drug Screening Test Value Date Time Urine Drug Screen Amphetamine Screen Barbiturate Screen Benzodiazepine Screen Methadone Screen Phencyclidine Screen Opiates Screen THC Screen Cocaine Screen Propoxyphene Screen Buprenorphine Screen Methamphetamine Screen Oxycodone Screen Tricyclic Antidepressants Screen Legend ^: Historical Past OB History: OB History Para Term AB Living 3 2 2 0 0 2 SAB IAB Ectopic Molar Multiple Live Births 0 0 0 0 0 2 # Outcome Date GA Lbr Boyd/2nd Weight Sex Delivery Anes PTL Lv 3 Current 2 Term 06/19/18 37w3d 3944 g (8 lb 11.1 oz) F CS-LTranv Spinal N MICHELINE Name: PRAKASH LYLE Apgar1: 7 Apgar5: 9 1 Term 08/22/14 40w0d 3856 g (8 lb 8 oz) M CS-LTranv MICHELINE Complications: Failure to Progress in First Stage Name: DAMIAN IZQUIERDO Obstetric Comments 2013 - Rayumndo 2017 - Past Medical History: Past Medical History: Diagnosis Date Anemia Anxiety and depression 2007 Asthma Cellulitis 2017 Past Surgical History Past Surgical History: Procedure Laterality Date SECTION 08/22/2014 SECTION N/A 06/19/2018 Procedure: SECTION REPEAT; Surgeon: Sheng Santizo MD; Location: [facility]; Service: Obstetrics/Gynecology Family History: History reviewed. No pertinent family history. Social History: reports that she quit smoking about 8 months ago. Her smoking use included cigarettes. She started smoking about 15 years ago. She smoked an average of 1 pack per day. She has never used smokeless tobacco. reports no history of alcohol use. reports no history of drug use. Allergies: Bactrim [sulfamethoxazole-trimethoprim] and Penicillins Current Medications: No current facility-administered medications on file prior to encounter. Current Outpatient Medications on File Prior to Encounter Medication Sig Dispense Refill acetaminophen (TYLENOL) 325 MG tablet Take 2 tablets by mouth Every 6 (Six) Hours As Needed for Mild Pain. eyxpfdpqoa-eenjzqjrjozek-tyuobsdc (FIORICET, ESGIC) 50-325-40 MG per tablet Take 1 tablet by mouth Every 6 (Six) Hours As Needed for Headache for up to 12 doses. 12 tablet 0 ferrous sulfate 325 (65 FE) MG tablet Take 1 tablet by mouth Daily With Breakfast. ibuprofen (ADVIL,MOTRIN) 600 MG tablet Take 1 tablet by mouth Every 6 (Six) Hours As Needed for Moderate Pain . 40 tablet 1 metoclopramide (REGLAN) 10 MG tablet Take 1 tablet by mouth 3 (Three) Times a Day. 30 tablet 0 omeprazole (priLOSEC) 20 MG capsule Take 1 capsule by mouth Daily. Vit-Fe Fumarate-FA ( VITAMIN 27-0.8) 27-0.8 MG tablet tablet Take 1 tablet by mouth Daily. General ROS: Pertinent items are noted in HPI, all other systems reviewed and negative Objective Vital Signs Range for the last 24 hours Temperature: Temp: [97.8 ??F (36.6 ??C)] 97.8 ??F (36.6 ??C) Temp Source: Temp src: Oral BP: BP: (146-158)/(103-116) 158/116 Pulse: Heart Rate: [87-90] 90 Respirations: Resp: [18] 18 SPO2: SpO2: [98 %] 98 % O2 Amount (l/min): O2 Devices Device (Oxygen Therapy): room air Weight: Physical Examination: General appearance -morbidly obese morbidly obese l appearing, and in no distress, oriented to person, place, and time, and morbidly obese. Mental status - alert, oriented to person, place, and time, anxious Eyes - pupils equal and reactive, extraocular eye movements intact, sclera anicteric Neck - supple, no significant adenopathy, thyroid exam: thyroid is normal in size without nodules or tenderness Chest - clear to auscultation, no wheezes, rales or rhonchi, symmetric air entry Heart - normal rate, regular rhythm, normal S1, S2, no murmurs, rubs, clicks or gallops Abdomen-soft, nontender, nondistended, no masses or organomegaly Abdomen, Non-Tender Neurological - alert, oriented, normal speech, no focal findings or movement disorder noted, DTR's normal and symmetric Extremities - pedal edema 1-2+ Heart Rate Assessment Indication: Severe preeclampsia Start Time: 39 End Time: 123 NST Results: Reactive NST. heart rate baseline 130-140 bpm. Minimal to moderate variability with 15 x 15 accelerations noted. There is 1 brief variable deceleration noted during monitoring session. Laboratory Results: Lab Results Component Value Date ALKPHOS 143 (H) 04/09/2023 ALT 17 04/09/2023 AST 21 04/09/2023 CREATININE 0.59 04/09/2023 BILITOT 0.3 04/09/2023 LDH 179 04/09/2023 URICACID 4.8 04/09/2023 No results found for: WBC, RBC, HGB, HCT, MCV, MCH, MCHC, RDW, RDWSD, MPV, PLT, NEUTRORELPCT, LYMPHORELPCT, MONORELPCT, EOSRELPCT, BASORELPCT, AUTOIGPER, NEUTROABS, LYMPHSABS, MONOSABS, EOSABS, BASOSABS, AUTOIGNUM, NRBC Brief Urine Lab Results (Last result in the past 365 days) Color Clarity Blood Leuk Est Nitrite Protein CREAT Urine HCG 01/16/23 0702 Yellow Cloudy Negative Negative Negative Negative Radiology Review: No new studies Other Studies: EKG, CBC with differential, CMP, LDH, uric acid Assessment & Plan * No active hospital problems. * Assessment: Severe preeclampsia at 38 weeks 2 days gestation. History of prior section. Maternal morbid obesity. Plan: Admit. Magnesium sulfate for seizure prophylaxis. We will proceed with repeat section. Patient last ate 2 hours ago. Will need to wait untilmorning to proceed with her delivery. Total time spent today with Merle was 30-39 minutes (level 4). Of this time, > 50% was spent isvc-gs-adob time coordinating care, answering her questions and counseling regarding pathophysiology of her presenting problem along with plans for any diagnostic work-up and treatment. Henok Ibarra III, MD 04/28/2023 01:16 EDT documented in this encounter Nursing Notes * Luba Marrero RN - 04/30/2023 9:50 AM EDT Goal Outcome Evaluation: Plan of Care Reviewed With: patient, significant other Progress: improving Outcome Evaluation: Vitals WNL. Chief complaint has been generalized abdominal pain. Tylenol given as scheduled. Pt reports resolution of pain with this intervention. Skin glue to incision is clean, dry, and intact. Fundus is U/U, firm, and midline. Scant rubra present. Pt to D/C home today. * Saranya Hugo RN - 04/29/2023 11:00 AM EDT Follow-up visit in [facility]; per infant RN, mother having questions about flange size and Medela pump; mother utilizing hospital pump at time of visit; mother using 27mm flange size; switched mother to 24mm flange size; lowered pump settings; went over education on sore nipple concerns; gave tips on how to arouse for nursing; showed parents how to syringe feed with 2ml of EBM that mother pumped; encouraged skin to skin; encouraged mother to nurse every three hours and with any feeding cues shown; to pump for short/missed feeings and feed any EBM; showed parents how to wash pump parts and when to sterilize; encouraged to call PRN or had questions/concerns. * Ade Arias RN - 04/28/2023 6:50 PM EDT Problem: Adult Inpatient Plan of Care Goal: Plan of Care Review Outcome: Ongoing, Progressing Flowsheets (Taken 04/28/2023 1850) Progress: improving Plan of Care Reviewed With: patient spouse Goal: Patient-Specific Goal (Individualized) Outcome: Ongoing, Progressing Goal: Absence of Hospital-Acquired Illness or Injury Outcome: Ongoing, Progressing Intervention: Identify and Manage Fall Risk Description: Perform standard risk assessment on admission using a validated tool or comprehensive approach appropriate to the patient; reassess fall risk frequently, with change in status or transfer to another level of care. Communicate fall injury risk to interprofessional healthcare team. Determine need for increased observation, equipment and environmental modification, such as low bed, signage and supportive, nonskid footwear. Adjust safety measures to individual developmental age, stage and identified risk factors. Reinforce the importance of safety and physical activity with patient and family. Perform regular intentional rounding to assess need for position change, pain assessment and personal needs, including assistance with toileting. Recent Flowsheet Documentation Taken 04/28/2023 1830 by Ade Arias RN Safety Promotion/Fall Prevention: safety round/check completed clutter free environment maintained assistive device/personal items within reach fall prevention program maintained nonskid shoes/slippers when out of bed Taken 04/28/2023 1731 by Ade Arias RN Safety Promotion/Fall Prevention: safety round/check completed clutter free environment maintained assistive device/personal items within reach fall prevention program maintained nonskid shoes/slippers when out of bed Taken 04/28/2023 1532 by Ade Arias RN Safety Promotion/Fall Prevention: safety round/check completed assistive device/personal items within reach clutter free environment maintained fall prevention program maintained nonskid shoes/slippers when out of bed Taken 04/28/2023 1500 by Ade Arias RN Safety Promotion/Fall Prevention: safety round/check completed assistive device/personal items within reach clutter free environment maintained fall prevention program maintained nonskid shoes/slippers when out of bed Taken 04/28/2023 1400 by Ade Arias RN Safety Promotion/Fall Prevention: safety round/check completed assistive device/personal items within reach clutter free environment maintained fall prevention program maintained nonskid shoes/slippers when out of bed Taken 04/28/2023 1300 by Ade Arias RN Safety Promotion/Fall Prevention: safety round/check completed clutter free environment maintained assistive device/personal items within reach fall prevention program maintained nonskid shoes/slippers when out of bed Taken 04/28/2023 1141 by Ade Arias RN Safety Promotion/Fall Prevention: safety round/check completed clutter free environment maintained assistive device/personal items within reach fall prevention program maintained nonskid shoes/slippers when out of bed Taken 04/28/2023 1034 by Ade Arias RN Safety Promotion/Fall Prevention: safety round/check completed assistive device/personal items within reach clutter free environment maintained fall prevention program maintained nonskid shoes/slippers when out of bed Taken 04/28/2023 0935 by Ade Arias RN Safety Promotion/Fall Prevention: safety round/check completed clutter free environment maintained assistive device/personal items within reach fall prevention program maintained nonskid shoes/slippers when out of bed Taken 04/28/2023 0836 by Ade Arias RN Safety Promotion/Fall Prevention: safety round/check completed clutter free environment maintained assistive device/personal items within reach fall prevention program maintained nonskid shoes/slippers when out of bed Taken 04/28/2023 0730 by Ade Arias RN Safety Promotion/Fall Prevention: safety round/check completed assistive device/personal items within reach clutter free environment maintained fall prevention program maintained nonskid shoes/slippers when out of bed Intervention: Prevent Skin Injury Description: Perform a screening for skin injury risk, such as pressure or moisture associated skindamage on admission and at regular intervals throughout hospital stay. Keep all areas of skin (especially folds) clean and dry. Maintain adequate skin hydration. Relieve and redistribute pressure and protect bony prominences; implement measures based on patient-specific risk factors. Match turning and repositioning schedule to clinical condition. Encourage weight shift frequently; assist with reposition if unable to complete independently. Float heels off bed; avoid pressure on the Achilles tendon. Keep skin free from extended contact with medical devices. Encourage functional activity and mobility, as early as tolerated. Use aids (e.g., slide boards, mechanical lift) during transfer. Recent Flowsheet Documentation Taken 04/28/2023 1500 by Ade Arias RN Body Position: sitting up in bed Taken 04/28/2023 1300 by Ade Arias RN Body Position: sitting up in bed Skin Protection: adhesive use limited transparent dressing maintained Taken 04/28/2023 0730 by Ade Arias RN Body Position: side-lying left Skin Protection: adhesive use limited transparent dressing maintained Intervention: Prevent and Manage VTE (Venous Thromboembolism) Risk Description: Assess for VTE (venous thromboembolism) risk. Encourage and assist with early ambulation. Initiate and maintain compression or other therapy, as indicated, based on identified risk in accordance with organizational protocol and provider order. Encourage both active and passive leg exercises while in bed, if unable to ambulate. Recent Flowsheet Documentation Taken 04/28/2023 1500 by Ade Arias RN Activity Management: (spinal admin in OR) bedrest VTE Prevention/Management: bilateral sequential compression devices on Taken 04/28/2023 1300 by Ade Arias RN Activity Management: (spinal admin in OR) bedrest VTE Prevention/Management: bilateral sequential compression devices on Taken 04/28/2023 1028 by Ade Arias RN Activity Management: back to bed Taken 04/28/2023 1020 by Ade Arias RN Activity Management: ambulated to bathroom Taken 04/28/2023 0730 by Ade Arias RN Activity Management: up ad garret activity minimized VTE Prevention/Management: bilateral sequential compression devices on Intervention: Prevent Infection Description: Maintain skin and mucous membrane integrity; promote hand, oral and pulmonary hygiene. Optimize fluid balance, nutrition, sleep and glycemic control to maximize infection resistance. Identify potential sources of infection early to prevent or mitigate progression of infection (e.g., wound, lines, devices). Evaluate ongoing need for invasive devices; remove promptly when no longer indicated. Recent Flowsheet Documentation Taken 04/28/2023 1830 by Ade Arias RN Infection Prevention: personal protective equipment utilized Taken 04/28/2023 1731 by Ade Arias RN Infection Prevention: personal protective equipment utilized Taken 04/28/2023 1532 by Ade Arias RN Infection Prevention: personal protective equipment utilized Taken 04/28/2023 1500 by Ade Arias RN Infection Prevention: personal protective equipment utilized Taken 04/28/2023 1400 by Ade Arias RN Infection Prevention: personal protective equipment utilized Taken 04/28/2023 1300 by Ade Arias RN Infection Prevention: personal protective equipment utilized Taken 04/28/2023 1141 by Ade Arias RN Infection Prevention: personal protective equipment utilized Taken 04/28/2023 1034 by Ade Arias RN Infection Prevention: personal protective equipment utilized Taken 04/28/2023 0935 by Ade Arias RN Infection Prevention: personal protective equipment utilized Taken 04/28/2023 0836 by Ade Arias RN Infection Prevention: personal protective equipment utilized Taken 04/28/2023 0730 by Ade Arias RN Infection Prevention: personal protective equipment utilized Goal: Optimal Comfort and Wellbeing Outcome: Ongoing, Progressing Intervention: Monitor Pain and Promote Comfort Description: Assess pain level, treatment efficacy and patient response at regular intervals using a consistent pain scale. Consider the presence and impact of preexisting chronic pain. Encourage patient and caregiver involvement in pain assessment, interventions and safety measures. Recent Flowsheet Documentation Taken 04/28/2023 1830 by Ade Arias RN Pain Management Interventions: position adjusted pillow support provided see MAR hansia-ixv-ycumb dosing utilized Taken 04/28/2023 1731 by Ade Arias RN Pain Management Interventions: position adjusted pillow support provided see MAR hipogs-cpw-zfesi dosing utilized Taken 04/28/2023 1639 by Ade Arias RN Pain Management Interventions: (tylenol/toradol/aggie) position adjusted pillow support provided ymnznd-jxb-gfubx dosing utilized see MAR Taken 04/28/2023 1532 by Ade Arias RN Pain Management Interventions: position adjusted pillow support provided see MAR ateief-gcb-fwjnb dosing utilized Taken 04/28/2023 1500 by Ade Arias RN Pain Management Interventions: position adjusted pillow support provided see MAR mduumb-vgx-kmvvm dosing utilized Taken 04/28/2023 1445 by Ade Arias RN Pain Management Interventions: position adjusted pillow support provided see MAR kjzlqi-myc-rprbv dosing utilized Taken 04/28/2023 1430 by Ade Arias RN Pain Management Interventions: pillow support provided position adjusted see MAR other (see comments) Taken 04/28/2023 1419 by Ade Arias RN Pain Management Interventions: position adjusted see MAR pillow support provided other (see comments) Taken 04/28/2023 1415 by Ade Arias RN Pain Management Interventions: pillow support provided position adjusted see MAR other (see comments) Taken 04/28/2023 1400 by Ade Arias RN Pain Management Interventions: position adjusted pillow support provided other (see comments) Taken 04/28/2023 1345 by Ade Arias RN Pain Management Interventions: position adjusted pillow support provided other (see comments) Taken 04/28/2023 1330 by Ade Arias RN Pain Management Interventions: position adjusted pillow support provided other (see comments) Taken 04/28/2023 1315 by Ade Arias RN Pain Management Interventions: pillow support provided position adjusted other (see comments) Taken 04/28/2023 1300 by Ade Arias RN Pain Management Interventions: (spinal admin in OR) pain management plan reviewed with patient/caregiver pillow support provided position adjusted other (see comments) Taken 04/28/2023 1141 by Ade Arias RN Pain Management Interventions: pillow support provided position adjusted quiet environment facilitated see MAR Taken 04/28/2023 1034 by Ade Arias RN Pain Management Interventions: position adjusted pillow support provided quiet environment facilitated see MAR Taken 04/28/2023 0935 by Ade Arias RN Pain Management Interventions: position adjusted pillow support provided quiet environment facilitated see MAR Taken 04/28/2023 0836 by Ade Arias RN Pain Management Interventions: pillow support provided position adjusted see MAR quiet environment facilitated Taken 04/28/2023 0755 by Ade Arias RN Pain Management Interventions: see MAR pillow support provided position adjusted quiet environment facilitated Taken 04/28/2023 0729 by Ade Arias RN Pain Management Interventions: pain management plan reviewed with patient/caregiver pillow support provided position adjusted quiet environment facilitated Intervention: Provide Person-Centered Care Description: Use a family-focused approach to care. Develop trust and rapport by proactively providing information, encouraging questions, addressing concerns and offering reassurance. Acknowledge emotional response to hospitalization. Recognize and utilize personal coping strategies. [place] spiritual and cultural preferences. Recent Flowsheet Documentation Taken 04/28/2023 1500 by Ade Arias RN Trust Relationship/Rapport: care explained choices provided emotional support provided empathic listening provided reassurance provided questions encouraged questions answered thoughts/feelings acknowledged Taken 04/28/2023 1300 by Ade Arias RN Trust Relationship/Rapport: choices provided care explained emotional support provided empathic listening provided questions answered questions encouraged thoughts/feelings acknowledged reassurance provided Goal: Readiness for Transition of Care Outcome: Ongoing, Progressing Problem: Hypertensive Disorders in Goal: Maternal- Stabilization Outcome: Ongoing, Progressing Intervention: Monitor and Manage Symptom Progression Description: Note behavioral changes (e.g., restlessness). Monitor for report of headache not relieved by pharmacologic therapy or visual disturbance. Implement seizure precautions. Evaluate any complaint of epigastric or abdominal pain. Anticipate initiation and titration of magnesium sulfate infusion for seizure prevention. Note: Magnesium sulfate has also been identified to provide neuroprotection with gestations of less than 32 weeks. Assess for signs of bleeding (vaginal or other sites, such as intravenous site, gums). Evaluate for presence of respiratory compromise by regularly auscultating breath sounds and monitoring pulse oximetry (continuous if on magnesium sulfate); report presence of chest pain, decreased oxygen saturation, cough and shortness of breath. Provide calm, reassuring presence; offer clear explanation of events. Prepare for delivery, planned or emergent, based on change in maternal- status. Recent Flowsheet Documentation Taken 04/28/2023 1830 by Ade Arias RN Medication Review/Management: medications reviewed high-risk medications identified Taken 04/28/2023 1731 by Ade Arias RN Medication Review/Management: medications reviewed Taken 04/28/2023 1532 by Ade Airas RN Medication Review/Management: medications reviewed Taken 04/28/2023 1500 by Ade Arias RN Medication Review/Management: medications reviewed high-risk medications identified Taken 04/28/2023 1400 by Ade Arias RN Medication Review/Management: medications reviewed high-risk medications identified Taken 04/28/2023 1300 by Ade Arias RN Medication Review/Management: medications reviewed high-risk medications identified Taken 04/28/2023 1141 by Ade Arias RN Medication Review/Management: medications reviewed high-risk medications identified Taken 04/28/2023 1034 by Ade Arias RN Medication Review/Management: medications reviewed high-risk medications identified Taken 04/28/2023 0935 by Ade Arias RN Medication Review/Management: medications reviewed high-risk medications identified Taken 04/28/2023 0836 by Ade Arias RN Medication Review/Management: medications reviewed high-risk medications identified Taken 04/28/2023 0730 by Ade Arias RN Medication Review/Management: medications reviewed high-risk medications identified Problem: Fall Injury Risk Goal: Absence of Fall, Drop and Related Injury Outcome: Ongoing, Progressing Intervention: Identify and Manage Contributors Description: Develop a fall prevention plan with the patient and family. Promote use of personal vision and auditory aids. Assess location, status and maternal assistance level required for safe and effective self and care; provide support for toileting, mobility and placement of infant in crib, as needed. Define behavior and activity limits to patient and family to decrease fall or drop risk. If fall occurs, assess the severity of injury; implement fall injury protocol. Determine the cause and revise fall injury prevention plan. If fall occurs during , assess heart rate and movement, presence of uterine contractions or vaginal bleeding; verify membrane status. Regularly review medication and contribution to fall risk; consider polypharmacy and high-risk medications that may include neuraxial anesthesia, sedation and narcotic analgesia given within the last24 hours. Balance adequate pain management with potential for oversedation. Recent Flowsheet Documentation Taken 04/28/2023 1830 by Ade Arias RN Medication Review/Management: medications reviewed high-risk medications identified Taken 04/28/2023 1731 by Ade Arias RN Medication Review/Management: medications reviewed Taken 04/28/2023 1532 by Ade Arias RN Medication Review/Management: medications reviewed Taken 04/28/2023 1500 by Ade Arias RN Medication Review/Management: medications reviewed high-risk medications identified Taken 04/28/2023 1400 by Ade Arias RN Medication Review/Management: medications reviewed high-risk medications identified Taken 04/28/2023 1300 by Ade Arias RN Medication Review/Management: medications reviewed high-risk medications identified Taken 04/28/2023 1141 by Ade Arias RN Medication Review/Management: medications reviewed high-risk medications identified Taken 04/28/2023 1034 by Ade Arias RN Medication Review/Management: medications reviewed high-risk medications identified Taken 04/28/2023 0935 by Ade Arias RN Medication Review/Management: medications reviewed high-risk medications identified Taken 04/28/2023 0836 by Ade Arias RN Medication Review/Management: medications reviewed high-risk medications identified Taken 04/28/2023 0730 by Ade Arias RN Medication Review/Management: medications reviewed high-risk medications identified Intervention: Promote Injury-Free Environment Description: Provide a safe, barrier-free environment that encourages independent activity. Keep care area uncluttered and well-lighted. Determine the need for increased observation or monitoring. Avoid use of devices that minimize mobility, such as restraints or indwelling urinary catheter. Recent Flowsheet Documentation Taken 04/28/2023 1830 by Ade Arias RN Safety Promotion/Fall Prevention: safety round/check completed clutter free environment maintained assistive device/personal items within reach fall prevention program maintained nonskid shoes/slippers when out of bed Taken 04/28/2023 1731 by Ade Arias RN Safety Promotion/Fall Prevention: safety round/check completed clutter free environment maintained assistive device/personal items within reach fall prevention program maintained nonskid shoes/slippers when out of bed Taken 04/28/2023 1532 by Ade Arias RN Safety Promotion/Fall Prevention: safety round/check completed assistive device/personal items within reach clutter free environment maintained fall prevention program maintained nonskid shoes/slippers when out of bed Taken 04/28/2023 1500 by Ade Arias RN Safety Promotion/Fall Prevention: safety round/check completed assistive device/personal items within reach clutter free environment maintained fall prevention program maintained nonskid shoes/slippers when out of bed Taken 04/28/2023 1400 by Ade Arias RN Safety Promotion/Fall Prevention: safety round/check completed assistive device/personal items within reach clutter free environment maintained fall prevention program maintained nonskid shoes/slippers when out of bed Taken 04/28/2023 1300 by Ade Arias RN Safety Promotion/Fall Prevention: safety round/check completed clutter free environment maintained assistive device/personal items within reach fall prevention program maintained nonskid shoes/slippers when out of bed Taken 04/28/2023 1141 by Ade Arias RN Safety Promotion/Fall Prevention: safety round/check completed clutter free environment maintained assistive device/personal items within reach fall prevention program maintained nonskid shoes/slippers when out of bed Taken 04/28/2023 1034 by Ade Arias RN Safety Promotion/Fall Prevention: safety round/check completed assistive device/personal items within reach clutter free environment maintained fall prevention program maintained nonskid shoes/slippers when out of bed Taken 04/28/2023 0935 by Ade Arias RN Safety Promotion/Fall Prevention: safety round/check completed clutter free environment maintained assistive device/personal items within reach fall prevention program maintained nonskid shoes/slippers when out of bed Taken 04/28/2023 0836 by Ade Arias RN Safety Promotion/Fall Prevention: safety round/check completed clutter free environment maintained assistive device/personal items within reach fall prevention program maintained nonskid shoes/slippers when out of bed Taken 04/28/2023 0730 by Ade Arias RN Safety Promotion/Fall Prevention: safety round/check completed assistive device/personal items within reach clutter free environment maintained fall prevention program maintained nonskid shoes/slippers when out of bed Problem: Adjustment to Role Transition ( Delivery) Goal: Successful Maternal Role Transition Outcome: Ongoing, Progressing Problem: Bleeding ( Delivery) Goal: Hemostasis Outcome: Ongoing, Progressing Problem: Infection ( Delivery) Goal: Absence of Infection Signs and Symptoms Outcome: Ongoing, Progressing Intervention: Prevent or Manage Infection Description: Optimize fluid balance, nutrition, sleep, oxygenation, glycemic control and body temperature to maximize resistance. Maintain dressing and closed drainage system integrity to reduce the risk for infection; inspect incision as visible. Consider splinting techniques to prevent incision dehiscence. Discontinue prophylactic antimicrobial agent within 24 hours after procedure, as directed. Identify potential sources of infection early; evaluate continued need and advocate for early removal (e.g., lines, devices). Implement transmission-based precautions and isolation, as indicated, to prevent spread of infection. Administer ordered antimicrobial therapy promptly; reassess need regularly. Note: If endometritis is suspected, treatment may be initiated without obtaining cultures. Identify and manage signs of early sepsis, such as increased heart rate and decreased blood pressure, as well as changes in mental state, respiratory pattern or peripheral perfusion. Provide fever-reduction and comfort measures. Recent Flowsheet Documentation Taken 04/28/2023 1500 by Ade Arias RN Infection Management: aseptic technique maintained Taken 04/28/2023 1300 by Ade Arias RN Infection Management: aseptic technique maintained Problem: Pain ( Delivery) Goal: Acceptable Pain Control Outcome: Ongoing, Progressing Intervention: Prevent or Manage Pain Description: Determine pain management plan with patient and caregiver/family; review plan regularly. Monitor for the presence of incisional pain; provide timely pain management interventions when present. Use cold application, as culturally-appropriate, to the incisional area for the first 24 to 48 hours to enhance comfort. Encourage early ambulation, when able, to help avoid gas accumulation which can add to discomfort. Verify correct latch when to prevent nipple pain. Consider the presence and impact of preexisting chronic pain. Encourage patient and caregiver involvement in pain assessment, interventions and safety measures. Evaluate risk for opioid use; individualize pharmacologic pain management plan and titrate medication to patient response. Combine multimodal analgesia and nonpharmacologic strategies to help potentiate synergistic effectsand enhance comfort (e.g., complementary therapy, diversional activity). Provide qszgve-kpw-suwfc dosing of pain medication to keep pain levels in control. Manage medication-induced effects, such as constipation, nausea, vomiting. Support and optimize psychosocial response to pain. If engorgement occurs, encourage more frequent or pumping and storing additional milkto ease discomfort. Note: Cold compresses, as culturally- appropriate, may be used if bottle-feeding. If post-dural puncture headache identified, encourage adequate hydration and anticipate the need for epidural blood patch. If hemorrhoids are present and painful, offer topical pain relief and sitz baths for comfort. Recent Flowsheet Documentation Taken 04/28/2023 1830 by Ade Arias RN Pain Management Interventions: position adjusted pillow support provided see RAJ zduktn-xul-pzuao dosing utilized Taken 04/28/2023 1731 by Ade Arias RN Pain Management Interventions: position adjusted pillow support provided see MAR pkukkf-mxm-cbzqq dosing utilized Taken 04/28/2023 1639 by Ade Arias RN Pain Management Interventions: (tylenol/toradol/aggie) position adjusted pillow support provided ggiirw-jag-jhahx dosing utilized see MAR Taken 04/28/2023 1532 by Ade Arias RN Pain Management Interventions: position adjusted pillow support provided see MAR kmyfhd-gck-wneyg dosing utilized Taken 04/28/2023 1500 by Ade Arias RN Pain Management Interventions: position adjusted pillow support provided see MAR djtnao-teh-bjera dosing utilized Taken 04/28/2023 1445 by Ade Arias RN Pain Management Interventions: position adjusted pillow support provided see MAR zgpglg-iae-[id number] dosing utilized Taken 04/28/2023 1430 by Ade Arias RN Pain Management Interventions: pillow support provided position adjusted see MAR other (see comments) Taken 04/28/2023 1419 by Aed Arias RN Pain Management Interventions: position adjusted see MAR pillow support provided other (see comments) Taken 04/28/2023 1415 by Ade Arias RN Pain Management Interventions: pillow support provided position adjusted see MAR other (see comments) Taken 04/28/2023 1400 by Ade Arias RN Pain Management Interventions: position adjusted pillow support provided other (see comments) Taken 04/28/2023 1345 by Ade Arias RN Pain Management Interventions: position adjusted pillow support provided other (see comments) Taken 04/28/2023 1330 by Ade Arias RN Pain Management Interventions: position adjusted pillow support provided other (see comments) Taken 04/28/2023 1315 by Ade Arias RN Pain Management Interventions: pillow support provided position adjusted other (see comments) Taken 04/28/2023 1300 by Ade Arias RN Pain Management Interventions: (spinal admin in OR) pain management plan reviewed with patient/caregiver pillow support provided position adjusted other (see comments) Taken 04/28/2023 1141 by Ade Arias RN Pain Management Interventions: pillow support provided position adjusted quiet environment facilitated see MAR Taken 04/28/2023 1034 by Ade Arias RN Pain Management Interventions: position adjusted pillow support provided quiet environment facilitated see MAR Taken 04/28/2023 0935 by Ade Arias RN Pain Management Interventions: position adjusted pillow support provided quiet environment facilitated see MAR Taken 04/28/2023 0836 by Ade Arias RN Pain Management Interventions: pillow support provided position adjusted see MAR quiet environment facilitated Taken 04/28/2023 0755 by Ade Arias RN Pain Management Interventions: see MAR pillow support provided position adjusted quiet environment facilitated Taken 04/28/2023 0729 by Ade Arias RN Pain Management Interventions: pain management plan reviewed with patient/caregiver pillow support provided position adjusted quiet environment facilitated Problem: Postoperative Nausea and Vomiting ( Delivery) Goal: Nausea and Vomiting Relief Outcome: Ongoing, Progressing Problem: Postoperative Urinary Retention ( Delivery) Goal: Effective Urinary Elimination Outcome: Ongoing, Progressing Problem: Goal: Effective Outcome: Ongoing, Progressing Goal Outcome Evaluation: Plan of Care Reviewed With: patient, spouse Progress: improving * Jeannie Alba APRN - 04/28/2023 4:30 PM EDT 04/28/23 1630 Maternal Information Date of Referral 04/28/23 Person Making Referral statistical consultant (courtesy consult) Maternal Reason for Referral (1s5 baby--attempted to breastfeed; 2nd baby breastfed for 2 1/2 years. The first month was difficult and baby used a nipple shield for 3 months, but after that went well.) Reason for Referral (baby just got to room--and MB nurse going over baby forms to sign) Maternal Assessment Breast Size Issue none Breast Shape Bilateral:;round Breast Density Bilateral:;soft Nipples Bilateral:;graspable;short Left Nipple Symptoms intact;nontender Right Nipple Symptoms intact;nontender Milk Expression/Equipment Breast Pump Type double electric, personal (delivered medela breast pump and sterilized and set up for use; went over how to use with dad and gave QR code for mom to watch instructional video) Breast Pump Flange Type hard Breast Pump Flange Size 24 mm (if nipples rubbing on 24 mm flange,mom to call out for larger size) Breast Pumping Breast Pumping Interventions (encouraged to pump for missed feedings; gave syringes and discussed with dad how to use) Mom distracted by consents to sign, baby in room for first time and she hasn't held baby yet, and by bleeding and changing pads that is being done per RN. To call services, if questions or concerns tomorrow, or if mom wants help with a . Requested a nipple shield. Not able to remember which nipple shield she used with 2nd baby--left both and discussed use. Sterilized pump parts for mom. Gave sterilizer bag and discussed use with dad. documented in this encounter OR Notes * Op Note - Paulette Hernandez MD - 04/28/2023 12:55 PM EDT [facility] Section Operative Note Pre-Operative Dx: 1. IUP at Gestational Age: 38w2d weeks 2. Prior CD x2 3. Desired sterilization 4. Severe Hypertensive disease of / Preeclampsia 5. Obesity with BMI 45 Postoperative dx: 1. Same Procedure: Procedure(s): SECTION REPEAT WITH BILATERAL SALPINGECTOMY, Mod 22 for BMI 45 Surgeon/Community Health Planning Director: Surgeon(s): aPulette Hernandez MD Lewellen, Thomas L, DO Anesthesia: Anesthesiologist: Spinal Anesthesiologist: Fransisco Melendez DO SPEECH THERAPIST: Laurita Singh CRNA QBL: Not calculated at time of note, EBL 600mL IV Fluids: 700 mls. UOP: 575 mls. I/O this shift: In: 648.3 [I.V.:648.3] Out: 575 [Urine:575] Antibiotics: cefazolin (Ancef) Infant: Gender: male infant Weight: 3565 g (7 lb 13.8 oz) Apgars: 3 @ 1 minute / 9 @ 5 minutes Cord gases: Venous: pH, Cord Venous Date Value Ref Range Status 04/28/2023 7.218 (L) 7.310 - 7.370 pH Units Final Arterial: pH, Cord Arterial Date Value Ref Range Status 04/28/2023 7.10 (C) 7.22 - 7.30 pH Units Final Comment: 85 Value below critical limit Indication for C/Section: Preeclampsia Priority for C/Section: routine Procedure Details: The patient was taken to the operating room after risks and benefits have been reviewed. The consent was reviewed and had been signed. Time Out was performed. She was prepped and draped in the normalsterile fashion in the dorsal supine position and a leftward tilt. A Pfannenstiel skin incision made 2 cm above the pubic symphysis and carried down to the underlying layer of fascia with the scalpel. The fascia was nicked in the midline and the incision was extended laterally with Mesa scissors. The anterior aspect of the incision was grasped with Mellisa clamps x2 and elevated and the underlying rectus muscles were dissected off sharply and bluntly. The inferior aspect of the incision was treated similarly. The peritoneum was identified and entered bluntly the incision was extended with lat eral traction. A Murray retractor was inserted. The lower uterine segment was identified and incised in a transverse fashion with the scalpel. The uterine cavity was entered bluntly and the incision was extended with cephalocaudad traction. The fetus was then delivered atraumatically. Cord was clamped and cut after 60 second delay and the infant was handed off to DRT staff for evaluation. Cord blood and cord gases were obtained. The placenta was delivered via uterine massage. The uterus was then exteriorized and cleared of all clot and debris with clean laparotomy sponges. The hysterotomy wasclosed in a single layer with a #1 chromic in a running locking fashion. The posterior cul-de-sac was irrigated and aspirated. The hysterotomy was again inspected and noted to be hemostatic. The leftfallopian tubes was identified and followed out to the fimbria. Tube was removed in its entirety with EnSeal device . Hemostasis noted at the seal line. The same procedure was performed on the right.Tubes handed off for pathologic review.The uterus was returned to the abdomen. The paracolic gutters were irrigated and aspirated. Hysterotomy was inspected for third time and noted to be hemostatic.The peritoneum was closed with 2-0 chromic in a running fashion. The rectus muscles underlying the fascia were made hemostatic with Bovie electrocautery. The fascia was then closed with 1 Vicryl in arunning stitch. The subcutaneous tissues were irrigated aspirated and made hemostatic with Bovie electrocautery. The subcutaneous tissues were reapproximated with 3-0 Vicryl and the skin was closed with 4-0 Monocryl in a subcuticular fashion and sealed with Dermabond. All counts were correct and the patient was taken to the recovery room in stable condition. Complications: None Specimens: bilateral tubal segments Disposition: Mother to Remain in LD in stable condition currently. Baby to NBN in stable condition currently. Dr. Isaiah Carias MD was responsible for performing the following activities: Retraction, Suction, and Irrigation and their skilled assistance was necessary for the success of this case. Paulette Hernandez MD 04/28/2023 12:55 EDT documented in this encounter Plan of Treatment Not on file documented as of this encounter Procedures Procedure Name Priority Date/Time Associated Diagnosis Comments PRE-ECLAMPSIA PANEL Routine 04/29/2023 8 :07 AM EDT CBC WITH AUTO DIFFERENTIAL Routine 04/29/2023 8:07 AM EDT CBC AND DIFFERENTIAL Routine 04/29/2023 8:07 AM EDT [id number] Routine 04/28/2023 4:33 PM EDT RHIG EVALUATION Routine 04/28/2023 4:33 PM EDT HEMOGLOBIN AND HEMATOCRIT, BLOOD Routine 04/28/2023 4:33 PM EDT BLEED SCREEN Routine 04/28/2023 4: 33 PM EDT BLOOD GAS, VENOUS, CORD Routine 04/28/2023 12:48 PM EDT BLOOD GAS, ARTERIAL, CORD Routine 04/28/2023 12:46 PM EDT TISSUE PATHOLOGY EXAM Routine 04/28/2023 12:39 PM EDT Status post repeat low transverse section SECTION REPEAT WITH TUBAL 04/28/2023 11:57 AM EDT URINE DRUG SCREEN Routine 04/28/2023 10: 11 AM EDT FENTANYL, URINE Routine 04/28/2023 10:11 AM EDT ECG 12-LEAD STAT 04/28/2023 1:41 AM EDT CBC WITH AUTO DIFFERENTIAL STAT 04/28/2023 1:34 AM EDT MANUAL DIFFERENTIAL STAT 04/28/2023 1 :34 AM EDT CBC AND DIFFERENTIAL STAT 04/28/2023 1:34 AM EDT TYPE AND SCREEN STAT 04/28/2023 1:34 AM EDT URIC ACID STAT 04/28/2023 1:34 AM EDT LACTATE DEHYDROGENASE STAT 04/28/2023 1:34 AM EDT COMPREHENSIVE METABOLIC PANEL STAT 04/28/2023 1:34 AM EDT SCANNED - LABS 04/28/2023 GROUP B STREPTOCOCCUS CULTURE Routine 04/19/2023 GTT 1 HOUR Routine 01/19/2023 RUBELLA ANTIBODY, IGG Routine 10/27/2022 RPR Routine 10/27/2022 HEPATITIS B SURFACE ANTIGEN Routine 10/27/2022 HIV-1 ANTIBODY, EIA Routine 10/27/2022 documented in this encounter Results * (ABNORMAL) CBC Auto Differential (04/29/2023 8:07 AM EDT) WBC 10.13 3.40 - 10.80 10*3/mm3 04/29/2023 8:25 AM EDT [facility] RBC 3.66(L) 3.77 - 5.28 10*6/mm3 04/29/2023 8:25 AM EDT [facility] Hemoglobin 11.1(L) 12.0 - 15.9 g/dL 04/29/2023 8:25 AM EDT [facility] Hematocrit 33.9(L) 34.0 - 46.6 % 04/29/2023 8:25 AM EDT [facility] MCV 92.6 79.0 - 97.0 fL 04/29/2023 8:25 AM EDT [facility] MCH 30.3 26.6 - 33.0 pg [facility] MCHC 32.7 31.5 - 35.7 g/dL 04/29/2023 8[facility] RDW 17.5(H) 12.3 - 15.4 % 04/29/2023 8:25 AM [facility] RDW-SD 60.0(H) 37.0 - 54.0 fl 04/29/2023 8:[facility] MPV 11.3 6.0 - 12.0 fL 04/29/2023 8:[facility] Platelets 155 140 - 450 10*3/mm3 04/29/2023 8:25 AM EDT [facility] Neutrophil % 69.9 42.7 - 76.0 % 04/29/2023 8:25 AM EDT [facility] Lymphocyte % 22.3 19.6 - 45.3 % 04/29/2023 8:25 AM EDT [facility] Monocyte % 6.4 5.0 - 12.0 % 04/29/2023 8[facility] Eosinophil % 0.4 0.3 - 6.2 % 04/29/2023 8:25 AM EDT [facility] Basophil % 0.5 0.0 - 1.5 % 04/29/2023 8:25 AM EDT [facility] Immature Grans % 0.5 0.0 - 0.5 % 04/29/2023 8:25 AM EDT [facility] Neutrophils, Absolute 7.08(H) 1.70 - 7.00 10*3/mm3 04/29/2023 8:25 AM EDT [facility] Lymphocytes, Absolute 2.26 0.70 - 3.10 10*3/mm3 04/29/2023 8:25 AM EDT [facility] Monocytes, Absolute 0.65 0.10 - 0.90 10*3/mm3 04/29/2023 8:25 AM EDT [facility] Eosinophils, Absolute 0.04 0.00 - 0.40 10*3/mm3 04/29/2023 8:25 AM EDT [facility] Basophils, Absolute 0.05 0.00 - 0.20 10*3/mm3 04/29/2023 8:25 AM EDT [facility] Immature Grans, Absolute 0.05 0.00 - 0.05 10*3/mm3 04/29/2023 8:25 AM EDT [facility] nRBC 0.0 0.0 - 0.2 /100 WBC 04/29/2023 8:25 AM EDT [facility] Blood Venipuncture / Unknown 04/29/2023 8:07 AM EDT 04/29/2023 8:21 AM EDT us Paulette Hernandez MD LAB BLOOD ORDERABLES Final Re sult [facility]
[address] [place] [address], * (ABNORMAL) Preeclampsia Panel (04/29/2023 8:07 AM EDT) Alkaline Phosphatase 141(H) 39 - 117 U/L 04/29/2023 8:43 AM EDT [facility] ALT (SGPT) 21 1 - 33 U/L 04/29/2023 8:43 AM EDT [facility] AST (SGOT) 40(H) 1 - 32 U/L 04/29/2023 8:43 AM EDT [facility] Creatinine 0.62 0.57 - 1.00 mg/dL 04/29/2023 8:43 AM EDT [facility] Total Bilirubin 0.4 0.0 - 1.2 mg/dL 04/29/2023 8:43 AM EDT [facility] LDH 442(H) 135 - 214 U/L 04/29/2023 8:43 AM EDT [facility] Uric Acid 5.7 2.4 - 5.7 mg/dL 04/29/2023 8:43 AM EDT [facility] Blood Venipuncture / Unknown 04/29/2023 8:07 AM EDT 04/29/2023 8:21 AM EDT Paulette Hernandez MD LAB BLOOD ORDERABLES Final Re sult [facility]
[address] [place] [address], * Doses of Rh Immune Globulin (04/28/2023 4:33 PM EDT) Number of Doses Screen Negative ? Recommend 1 vial of RhIg 04/28/2023 6:03 PM EDT [facility] Blood Venipuncture / Unknown 04/28/2023 4:33 PM EDT 04/28/2023 5:12 PM EDT Henok Ibarra III, MD BLOOD BANK TEST ORDERAB LES Final Result [facility]
[address] [place] [address], * (ABNORMAL) Hemoglobin & Hematocrit, Blood (04/28/2023 4:33 PM EDT) Hemoglobin 11.5(L) 12.0 - 15.9 g/dL 04/28/2023 5:15 PM EDT [facility] Hematocrit 35.4 34.0 - 46.6 % 04/28/2023 5:15 PM EDT [facility] Blood Venipuncture / Unknown 04/28/2023 4:33 PM EDT 04/28/2023 5:11 PM EDT Paulette Hernandez MD LAB BLOOD ORDERABLES Final Re sult [facility]
[address] [place] [address], * Bleed Screen (04/28/2023 4:33 PM EDT) Bleed Screen Negative 04/28/2023 6:02 PM EDT [facility] Blood Venipuncture / Unknown 04/28/2023 4:33 PM EDT 04/28/2023 5:12 PM EDT Henok Ibarra III, MD BLOOD BANK TEST ORDERAB LES Final Result [facility]
[address] [place] [address], * RhIg Evaluation (04/28/2023 4:33 PM EDT) ABO Type O 04/28/2023 5:32 PM EDT [facility] RH type Negative 04/28/2023 5:32 PM EDT [facility] Blood Venipuncture / Unknown 04/28/2023 4:33 PM EDT 04/28/2023 5:12 PM EDT Henok Ibarra III, MD BLOOD BANK TEST ORDERAB LES Final Result [facility]
[address] [place] [address], * (ABNORMAL) Blood Gas, Venous, Cord (04/28/2023 12:48 PM EDT) Site Umbilical 04/28/2023 12:53 PM EDT [facility] pH, Cord Venous 7.218(L) 7.310 - 7.370 pH Units 04/28/2023 12:53 PM EDT [facility] pCO2, Cord Venous 62.2(H) 28.0 - 40.0 mm Hg 04/28/2023 12:53 PM EDT [facility] Comment:86 Value above criti cheri limit pO2, Cord Venous 8.4(L) 21.0 - 31.0 mm Hg 04/28/2023 12:53 PM EDT [facility] HCO3, Cord Venous 25.3(H) 18.6 - 21.4 mmol/L 04/28/2023 12:53 PM EDT [facility] Base Excess, Cord Venous -4.1(L) 0.0 - 2.0 mmol/L 04/28/2023 12:53 PM EDT [facility] O2 Sat, Cord Venous 7.0 % 04/28/2023 12:53 PM EDT [facility] Hemoglobin, Blood Gas 17.7 14 - 18 g/dL 04/28/2023 12:53 PM EDT [facility] CO2 Content 27.2 22 - 33 mmol/L 04/28/2023 12:53 PM EDT [facility] Temperature 37.0 C 04/28/2023 12:53 PM EDT [facility] Barometric Pressure for Blood Gas 04/28/2023 12:53 PM EDT [facility] Comment:N/A Modality Room Air 04/[facility] FIO2 21 % 04/28/2023 12:53 PM EDT [facility] Rate 0 Breaths/m inute 04/28/2023 12:53 PM EDT [facility] PIP 0 cmH2O 04/28/2023 12:53 PM EDT [facility] Comment:Meter: [id number] Cracking Machine Operator: [id number] IPAP 0 04/28/2023 12:53 PM EDT [facility] EPAP 0 04/28/2023 12:53 PM EDT [facility] O2 Saturation Calculated 04/28/2023 12:53 PM EDT [facility] Comment:Calculated O2 satura tion result not reported at this site. Note 04/28/2023 12:53 PM EDT [facility] Notified Who Lance HERNANDEZ MD 04/28/2023 12:53 PM EDT [facility] Notified By [id number] 04/28/2023 12:53 PM EDT [facility] Notified Time 04/28/2023 12:53 04/28/2023 12:53 PM EDT [facility] Collection Time 12:53 PM EDT [facility] Cord Blood Venous Umbilical cord structure / Unknown 04/28/2023 12:48 PM EDT 04/28/2023 12:48 PM EDT us Madhuri Lei MD LAB BLOOD ORDERABLES Final Res ult [facility]
[address] [place] [address], * (ABNORMAL) Blood Gas, Arterial, Cord (04/28/2023 12:46 PM EDT) Pathologist [facility] Site Umbilical 04/28/2023 12:51 PM EDT [facility] pH, Cord Arterial 7.10(LL) 7.22 - 7.30 pH Units 04/28/2023 12:51 PM EDT [facility] Comment:85 Value below criti cheri limit pCO2, Cord Arterial 81.6(HH) 43.3 - 54.9 mmHg 04/28/2023 12:51 PM EDT [facility] pO2, Cord Arterial 04/28/2023 12:51 PM EDT [facility] Comment:94 Value below repor table range < 2.0 HCO3, Cord Arterial 25.3(H) 16.9 - 20.5 mmol/L 04/28/2023 12:51 PM EDT [facility] Base Exc, Cord Arterial -7.1(L) 0.0 - 2.0 mmol/L 04/28/2023 12:51 PM EDT [facility] O2 Sat, Cord Arterial 04/28/2023 12:51 PM EDT [facility] Comment:94 Value below repor table range < 3.3 Hemoglobin, Blood Gas 17.9 14 - 18 g/dL 04/28/2023 12:51 PM EDT [facility] CO2 Content 27.8 22 - 33 mmol/L 04/28/2023 12:51 PM EDT [facility] Temperature 37.0 C 04/28/2023 12:51 PM EDT [facility] Barometric Pressure for Blood Gas 04/28/2023 12:51 PM EDT [facility] Comment:N/A Modality Room Air 04/28/2023 12:51 PM EDT [facility] FIO2 21 % 04/28/2023 12:51 PM EDT [facility] Rate 0 Breaths/m inute 04/28/2023 12:51 PM EDT [facility] PIP 0 cmH2O 04/28/2023 12:51 PM EDT [facility] Comment:Meter: [id number] Cracking Machine Operator: [id number] IPAP 0 04/28/2023 12:51 PM EDT [facility] EPAP 0 04/28/2023 12:51 PM EDT [facility] Note 04/28/2023 12:51 PM EDT [facility] Notified Who Lance HERNANDEZ MD 04/28/2023 12:51 PM EDT [facility] THER[facility] Notified By [id number] 04/28/2023 12:51 PM EDT [facility] Notified Time 04/28/2023 12:51 04/28/2023 12:51 PM EDT [facility] Cord Blood Arterial Umbilical cord structure / Unknown 04/28/2023 12:46 PM EDT 04/28/2023 12:47 PM EDT Madhuri Lei MD LAB BLOOD ORDERABLES Final Res ult [facility]
[address] [place] [address], * Tissue Pathology Exam (04/28/2023 12:39 PM EDT) Case Report Surgical Pathology Report ? Case: [id number] ? Authorizing Provider: ??Paulette Hernandez MD ? Collected: ? 04/28/2023 12:39 PM ? Ordering Location: ? [facility] ?? Received: ?04/28/2023 01:14 PM ? LABOR DELIVERY ? Pathologist: ? Estefani Garcia MD ? Specimen: ?Fallopian Tubes, Bilateral ? 04/29/2023 11:39 AM EDT [facility] Clinical Information Status post repeat low transverse section 04/29/2023 11:39 AM EDT [facility] Final Diagnosis BILATERAL FALLOPIAN TUBES, TUBAL LIGATION: Completely transected fallopian tubes 04/29/2023 11:39 AM T [facility] Gross Description 1. Fallopian Tubes, Bilateral. Received in formalin labeled bilateral fallopian tubes are 2 tortuous, fimbriated fallopian tubes which are undesignated as to laterality and average 5 cm in length by 0.7 cm in diameter. Sectioning of both tubes reveals a grossly unremarkable lumen. Stone Rigger sections from both tubes are submitted separately in blocks 1A-1B. LDP 04/29/2023 11:39 AM EDT [facility] Microscopic Description The slides are reviewed and demonstrate histopathologic features supporting the above rendered diagnosis. 04/29/2023 11:39 AM EDT [facility] Tissue Both fallopian tubes / Unknown 04/28/2023 12:39 PM EDT 04/28/2023 1:14 PM EDT us Paulette Hernandez MD PATHOLOGY/CYTOLOGY ORDERABLES Final Result [facility]
[address] [place] [address], * Fentanyl, Urine - Urine, Clean Catch (04/28/2023 10:11 AM EDT) Pathologist [facility] Fentanyl, Urine Negative Negative 04/28/2023 11:25 AM EDT [facility] Urine Urine specimen obtained by clean catch procedure / Unknown Collection / Unknown 04/28/2023 10:11 AM EDT 04/28/2023 10:26 AM EDT [facility] - 04/28/2023 11:25 AM EDT Negative Threshold: ?? Fentanyl 5 ng/mL The normal value for the drug tested is negative. This report includes final unconfirmed screening results to be used for medical treatment purposes only. Unconfirmed results must not be used for non-medical purposes such as employment or legal testing. Clinical consideration should be applied to any drug of abuse test, particularly when unconfirmed results are used. ? Paulette Hernandez MD URINE ORDERABLES Final Result [facility]
[address] [place] [address], * Urine Drug Screen - Urine, Clean Catch (04/28/2023 10:11 AM EDT) Pathologist [facility] THC, Screen, Urine Negative Negative 2022 10:42 AM EDT [facility] Phencyclidine (PCP), Urine Negative Negative 04/28/2023 10:42 AM EDT [facility] Cocaine Screen, Urine Negative Negative 04/28/2023 10:42 AM EDT [facility] Methamphetamine, Ur Negative Negative 04/28 10:42 AM EDT [facility] Opiate Screen Negative Negative 04/28/2023 10:42 AM EDT [facility] Amphetamine Screen, Urine Negative Negative 04/28/2023 10:42 AM EDT [facility] Benzodiazepine Screen, Urine Negative Negative 04/28/2023 10:42 AM EDT [facility] Tricyclic Antidepressants Screen Negative Negative 04/28/2023 10:42 AM EDT [facility] Methadone Screen, Urine Negative Negative 04/28/2023 10:42 AM T [facility] Barbiturates Screen, Urine Negative Negative 04/28/2023 10:42 AM T [facility] Oxycodone Screen, Urine Negative Negative 04/28/2023 10:42 AM T [facility] Propoxyphene Screen Negative Negative 04/28 10:42 AM T [facility] Buprenorphine, Screen, Urine Negative Negative 04/28/2023 10:42 AM [facility] Urine Urine specimen obtained by clean catch procedure / Unknown Collection / Unknown 04/28/2023 10:11 AM EDT 04/28/2023 10:26 AM EDT [facility] - 04/28/2023 10:42 AM EDT Cutoff For Drugs Screened: Amphetamines ? 500 ng/ml Barbiturates ? 200 ng/ml Benzodiazepines ?150 ng/ml Cocaine ?150 ng/ml Methadone ?200 ng/ml Opiates ?100 ng/ml Phencyclidine ? 25 ng/ml THC ? 50 ng/ml Methamphetamine ?500 ng/ml Tricyclic Antidepressants ??300 ng/ml Oxycodone ?100 ng/ml Propoxyphene ? 300 ng/ml Buprenorphine ? 10 ng/ml The normal value for all drugs tested is negative. This report includes unconfirmed screening results, with the cutoff values listed, to be used for medical treatment purposes only. ??Unconfirmed results must not be used for non-medical purposes such as employment or legal testing. ??Clinical consideration should be applied to any drug of abuse test, particularly when unconfirmed results are used. ?? Paulette Hernandez MD URINE ORDERABLES Final Result [facility]
[address] [place] [address], * ECG 12 Lead Dyspnea (04/28/2023 1:41 AM EDT) QT Interval 362 ms ECG QTC Interval 427 ms ECG 04/28/2023 1:41 AM EDT 05/06/2023 7:46 PM EDT Narrative ECG - 05/06/2023 7:46 PM EDT Test Reason : Dyspnea Blood Pressure : ?? */* ?? mmHG Vent. Rate : ??84 BPM ? Atrial Rate : ??84 BPM ?? P-R Int : 138 ms ?QRS Dur : ??84 ms ?QT Int : 362 ms ? P-R-T Axes : ??23 ??13 ??28 degrees ?? QTc Int : 427 ms Normal sinus rhythm with sinus arrhythmia Normal ECG When compared with ECG of 16-JAN-2023 06:50, No significant change was found Confirmed by KAJAL ??ROSIO GARDNER ([id number]) on 05/06/2023 7:46:29 PM Referred By: MYRNA ? Confirmed By: ROSIO RDZ ?? Procedure Note Rosio Rdz MD - 05/06/2023 Test Reason : Dyspnea Blood Pressure : */* mmHG Vent. Rate : 84 BPM Atrial Rate : 84 BPM P-R Int : 138 ms QRS Dur : 84 ms QT Int : 362 ms P-R-T Axes : 23 13 28 degrees QTc Int : 427 ms Normal sinus rhythm with sinus arrhythmia Normal ECG When compared with ECG of 16-JAN-2023 06:50, No significant change was found Confirmed by ROSIO RDZ MD ([id number]) on 05/06/2023 7:46:29 PM Referred By: MYRNA Confirmed By: ROSIO RDZ MD Henok Ibarra III, MD ECG ORDERABLES Final R esult ECG * (ABNORMAL) CBC Auto Differential (04/28/2023 1:34 AM EDT) WBC 11.19(H) 3.40 - 10.80 10*3/mm3 04/28/2023 2:20 AM EDT [facility] RBC 4.17 3.77 - 5.28 10*6/mm3 04/28/2023 2:20 AM EDT [facility] Hemoglobin 12.6 12.0 - 15.9 g/dL 04/28/2023 2:20 AM EDT [facility] Hematocrit 38.2 34.0 - 46.6 % 04/28/2023 2:20 AM EDT [facility] MCV 91.6 79.0 - 97.0 fL 04/28/2023 2:20 AM EDT [facility] MCH 30.2 26.6 - 33.0 pg 04/28/2023 2:20 AM EDT [facility] MCHC 33.0 31.5 - 35.7 g/dL 04/28/2023 2:20 AM EDT [facility] RDW 17.5(H) 12.3 - 15.4 % 04/28/2023 2:20 AM EDT [facility] RDW-SD 58.0(H) 37.0 - 54.0 fl 04/28/2023 2:20 AM EDT [facility] MPV 11.9 6.0 - 12.0 fL 04/28/2023 2:20 AM EDT [facility] Platelets 178 140 - 450 10*3/mm3 04/28/2023 2:20 AM EDT [facility] Blood Venipuncture / Unknown 04/28/2023 1:34 AM EDT 04/28/2023 1:46 AM EDT Henok Ibarra III, MD LAB BLOOD ORDERABLES Fi nal Result [facility]
[address] [place] [address], * (ABNORMAL) Manual Differential (04/28/2023 1:34 AM EDT) Neutrophil % 61.0 42.7 - 76.0 % 04/28/2023 2:20 AM EDT [facility] Lymphocyte % 33.0 19.6 - 45.3 % 04/28/2023 2:20 AM EDT [facility] Monocyte % 4.0(L) 5.0 - 12.0 % 04/28/2023 2:20 AM EDT [facility] Eosinophil % 0.0(L) 0.3 - 6.2 % 04/28/2023 2:20 AM EDT [facility] Basophil % 0.0 0.0 - 1.5 % 04/28/2023 2:20 AM EDT [facility] Atypical Lymphocyte % 2.0 0.0 - 5.0 % 04/28/2023 2:20 AM EDT [facility] Neutrophils Absolute 6.83 1.70 - 7.00 10*3/mm3 04/28/2023 2:20 AM EDT [facility] Lymphocytes Absolute 3.92(H) 0.70 - 3.10 10*3/mm3 04/28/2023 2:20 AM EDT [facility] Monocytes Absolute 0.45 0.10 - 0.90 10*3/mm3 04/28/2023 2:20 AM EDT [facility] Eosinophils Absolute 0.00 0.00 - 0.40 10*3/mm3 04/28/2023 2:20 AM EDT [facility] Basophils Absolute 0.00 0.00 - 0.20 10*3/mm3 04/28/2023 2:20 AM EDT [facility] RBC Morphology Normal Normal 04/28/2023 2:20 AM EDT [facility] WBC Morphology Normal Normal 04/28/2023 2:20 AM EDT [facility] Platelet Morphology Normal Normal 04/28/2023 2:20 AM EDT [facility] Blood Venipuncture / Unknown 04/28/2023 1:34 AM EDT 04/28/2023 1:46 AM EDT us Henok Ibarra III, MD LAB BLOOD ORDERABLES Fi nal Result Performing Organization Address City/[facility] Co de Phone Number [facility]
[address] [place] [address], * (ABNORMAL) Lactate Dehydrogenase (04/28/2023 1:34 AM EDT) LDH 231(H) 135 - 214 U/L 04/28/2023 2:04 AM EDT [facility] Blood Venipuncture / Unknown 04/28/2023 1:34 AM EDT 04/28/2023 1:37 AM EDT Henok Ibarra III, MD LAB BLOOD ORDERABLES Fi nal Result Performing Organization Address City/[facility]/ZIP Co de Phone Number [facility]
[address] [place] [address], [place] [phone] * Uric Acid (04/28/2023 1:34 AM EDT) Uric Acid 4.9 2.4 - 5.7 mg/dL 04/28/2023 2:04 AM EDT [facility] Comment:Falsely depressed re sults may occur on samples drawn from patients receiving N-Acetylcysteine (NAC) or Metamizole. Blood Venipuncture / Unknown 04/28/2023 1:34 AM EDT 04/28/2023 1:37 AM EDT Henok Ibarra III, MD LAB BLOOD ORDERABLES Fi nal Result Performing Organization Address [facility] Co de Phone Number [facility]
[address] [place] [address], * Type & Screen (04/28/2023 1:34 AM EDT) ABO Type O 04/28/2023 2:32 AM EDT [facility] RH type Negative 04/28/2023 2:32 AM EDT [facility] Antibody Screen Negative 04/28/2023 2:32 AM EDT [facility] T&S Expiration Date 05/01/2023 11:59:59 PM 04/28/2023 2:32 AM EDT [facility] Blood Venipuncture / Unknown 04/28/2023 1:34 AM EDT 04/28/2023 1:54 AM EDT us Henok Ibarra III, MD BLOOD BANK TEST ORDERAB LES Edited Result - Final Performing Organization Address [facility] de Phone Number [facility]
[address] [place] [address], * (ABNORMAL) Comprehensive Metabolic Panel (04/28/2023 1:34 AM EDT) Glucose 122(H) 65 - 99 mg/dL 04/28/2023 2:04 AM EDT [facility] BUN 10 6 - 20 mg/dL 04/28/2023 2:04 AM EDT [facility] Creatinine 0.64 0.57 - 1.00 mg/dL 04/28/2023 2:04 AM EDT [facility] Sodium 136 136 - 145 mmol/L 04/28/2023 2:04 AM EDT [facility] Potassium 4.1 3.5 - 5.2 mmol/L 04/28/2023 2:04 AM [facility] Comment:Slight hemolysis det ected by analyzer. Results may be affected. Chloride 105 98 - 107 mmol/L 04/28/2023 2:04 AM [facility] CO2 21.0(L) 22.0 - 29.0 mmol/L 04/28/2023 2:04 AM [facility] Calcium 9.6 8.6 - 10.5 mg/dL 04/28/2023 2:04 AM [facility] Total Protein 6.4 6.0 - 8.5 g/dL 04/28/2023 2:04 AM [facility] Albumin 3.3(L) 3.5 - 5.2 g/dL 04/28/2023 2:04 AM [facility] ALT (SGPT) 24 1 - 33 U/L 04/28/2023 2:04 AM [facility] AST (SGOT) 35(H) 1 - 32 U/L 04/28/2023 2:04 AM [facility] Alkaline Phosphatase 170(H) 39 - 117 U/L 04/28/2023 2:04 AM [facility] Total Bilirubin 0.3 0.0 - 1.2 mg/dL 04/28/2023 2:04 AM [facility] Globulin 3.1 gm/dL 04/28/2023 2:04 AM [facility] Comment:Calculated Result A/G Ratio 1.1 g/dL 04/28/2023 2:04 AM [facility] BUN/Creatinine Ratio 15.6 7.0 - 25.0 04/28/2023 2:04 AM [facility] Anion Gap 10.0 5.0 - 15.0 mmol/L 04/28/2023 2:04 AM [facility] eGFR 121.3 >60.0 mL/min/1.7 3 04/28/2023 2:04 AM [facility] Blood Venipuncture / Unknown 04/28/2023 1:34 AM EDT 04/28/2023 1:37 AM EDT Narrative [facility] - 04/28/2023 2:04 AM EDT GFR Normal >60 Chronic Kidney Disease <60 Kidney Failure <15 Result [facility] Henok Ibarra III, MD LAB BLOOD ORDERABLES Fi nal Result [facility]
[address] [place] [address], * SCANNED - LABS (04/28/2023) Result [facility] LAB BLOOD ORDERABLES Final Re sult * Group B Streptococcus Culture - Swab, Vaginal/Rectum (04/19/2023) External Strep Group B Ag Negative Swab Rectum and vagina, CS / Unknown Narrative Resulting Agency Comment Result [facility] Provider MICROBIOLOGY - GENERAL OR DERABLES Final Result * GTT 1 Hour (01/19/2023) External GTT 1 Hour 159 Blood Narrative Resulting Agency Comment Result [facility] Provider LAB BLOOD ORDERABLES Liana l Result * HIV-1 Antibody, EIA (10/27/2022) External HIV Antibody Non-Reacti ve Blood Narrative Resulting Agency Comment Result [facility] Provider LAB BLOOD ORDERABLES Liana l Result * Rubella Antibody, IgG (10/27/2022) External Rubella Qual Non-Immune Blood Narrative Resulting Agency Comment us Historical Provider LAB BLOOD ORDERABLES Liana l Result * RPR (10/27/2022) External RPR Non-Reacti ve Blood Narrative Resulting Agency Comment [facility] Provider LAB BLOOD ORDERABLES Liana l Result * Hepatitis B Surface Antigen (10/27/2022) External Hepatitis B Surface Ag Negative Blood Narrative Resulting Agency Comment [facility] Provider MD LAB BLOOD ORDERABLES Liana l Result documented in this encounter Visit Diagnoses Diagnosis Severe preeclampsia, third trimester- Primary Status post repeat low transverse section S/P repeat low transverse S/P repeat low transverse documented in this encounter Admitting Diagnoses Diagnosis Severe preeclampsia, third trimester documented in this encounter Administered Medications Inactive Administered Medications - up to 3 most recent administrations Medication Order MAR Action Action Date Dose Rate Site acetaminophen (TYLENOL) tablet 1,000 mg 1,000 mg, Oral, Once, On Wed04/28/23 at 0245, For 1 dose, Do not exceed 4 grams of acetaminophen in a 24 hr period. Max dose of 2gm for AST/ALT greater than 120 units/L If given for fever, use fever parameter: fever greater than 100.4 ??F. If given for pain, use the following pain scale: Mild Pain = Pain Score of 1-3, CPOT 1-2 Moderate Pain = Pain Score of 4-6, CPOT 3-4 Severe Pain = Pain Score of 7-10, CPOT 5-8 Given 04/28/2023 7:55 AM EDT 1,000 mg acetaminophen (TYLENOL) tablet 1,000 mg 1,000 mg, Oral, Every 6 Hours, First dose on Wed04/28/23 at 1500, For 24 hours, Pharmacy to schedule 6 hours from pre-op dose. Do not exceed 4 grams of acetaminophen in a 24 hr period. Max dose of 2gm for AST/ALT greater than 120 units/L If given for fever, use fever parameter: fever greater than 100.4 ??F. If given for pain, use the following pain scale: Mild Pain = Pain Score of 1-3, CPOT 1-2 Moderate Pain = Pain Score of 4-6, CPOT 3-4 Severe Pain = Pain Score of 7-10, CPOT 5-8 Given 04/29/2023 7:47 AM EDT 1,000 mg Given 04/29/2023 3:31 AM EDT 1,000 mg Given 04/28/2023 8:44 PM EDT 1,000 mg acetaminophen (TYLENOL) tablet 650 mg 650 mg, Oral, Every 6 Hours, First dose on [place] 04/29/23 at 1500, Based on patient request - if ordered for moderate or severe pain, provider allows for administration of a medication prescribed for a lower pain scale. Do not exceed 4 grams of acetaminophen in a 24 hr period. Max dose of 2gm for AST/ALT greater than 120 units/L If given for fever, use fever parameter: fever greater than 100.4 ??F. If given for pain, use the following pain scale: Mild Pain = Pain Score of 1-3, CPOT 1-2 Moderate Pain = Pain Score of 4-6, CPOT 3-4 Severe Pain = Pain Score of 7-10, CPOT 5-8 Given 04/30/2023 8:32 AM EDT 650 mg Given 04/30/2023 2:44 AM EDT 650 mg Given 04/29/2023 9:00 PM EDT 650 mg aluminum-magnesium hydroxide-simethicone (MAALOX MAX) 400-400-40 MG/5ML suspension 15 mL 15 mL, Oral, Every 4 Hours PRN, Indigestion, Starting on Wed04/28/23 at 1427, Maximum 60 mL in 24 hours. calcium carbonate (TUMS) chewable tablet 500 mg (200 mg elemental) 1 tablet, Oral, Every 4 Hours PRN, Indigestion, Heartburn, Starting on Wed04/28/23 at 1427, One tablet contains 200 mg elemental calcium. Take with food. carboprost (HEMABATE) injection 250 mcg 250 mcg, Intramuscular, As Needed, hemorrhage, Starting on Wed04/28/23 at 1427, DO NOT administer IV Refrigerate. Use filter needle to withdraw dose. ceFAZolin in Sodium Chloride (ANCEF) IVPB solution 3,000 mg 3,000 mg, Intravenous, at 200 mL/hr, Administer over 30 Minutes, Once, On Wed04/28/23 at 0245, For 1 dose, Caution: Look alike/sound alike drug alert. Refrigerate, Indications: Surgical ProphylaxisIndications:Surgical Prophylaxis New Bag 04/28/2023 11:53 AM EDT 3,000 mg 200 mL/hr docusate sodium (COLACE) capsule 100 mg 100 mg, Oral, 2 Times Daily PRN, Constipation, Starting on Wed04/28/23 at 1427, Swallow whole. Do not open, crush, or chew capsule. Given 04/29/2023 11:33 PM EDT 100 mg Given 04/28/2023 6:31 PM EDT 100 mg Enoxaparin Sodium (LOVENOX) syringe 40 mg 40 mg, Subcutaneous, Every 12 Hours Scheduled, First dose on Marina 04/29/23 at 0100, Give subcutaneous in abdomen only. Do not massage site after injection., Indications: VTE ProphylaxisIndications:VTE Prophylaxis Given 04/30/2023 8:32 AM EDT 40 mg Right Lower Abdomen Given 04/29/2023 9:00 PM EDT 40 mg Le ft Lower Abdomen Given 04/29/2023 7:52 AM EDT 40 mg Ri ght Lower Abdomen ePHEDrine Sulfate (Pressors) 5 MG/ML injection 10 mg 10 mg, Intravenous, Every 10 Minutes PRN, HYPOTENSION, Starting on Wed04/28/23 at 1301, Caution: Look alike/sound alike drug alert Given 04/28/2023 1:03 PM EDT 10 mg fentaNYL citrate (PF) (SUBLIMAZE) injection 50 mcg 50 mcg, Intravenous, Once, On Wed04/28/23 at 0645, For 1 dose, Use filter needle to withdraw dose from ampule. Based on patient request - if ordered for moderate or severe pain, provider allows for administration of a medication prescribed for a lower pain scale. If given for pain, use the following pain scale: Mild Pain = Pain Score of 1-3, CPOT 1-2 Moderate Pain = Pain Score of 4-6, CPOT 3-4 Severe Pain = Pain Score of 7-10, CPOT 5-8 Given 04/28/2023 5:48 AM EDT 50 mcg Hydrocortisone (Perianal) (ANUSOL-HC) 2.5 % rectal cream 1 application 1 application , Rectal, As Needed, Hemorrhoids, Starting on Wed04/28/23 at 1427, May leave at bedside HYDROmorphone (DILAUDID) injection 0.5 mg 0.5 mg, Intravenous, Every 2 Hours PRN, Moderate Pain, Severe Pain, Starting on Wed04/28/23 at 0146, For 7 days, Based on patient request - if ordered for moderate or severe pain, provider allows for administration of a medication prescribed for a lower pain scale. If given for pain, use the following pain scale: Mild Pain = Pain Score of 1-3, CPOT 1-2 Moderate Pain = Pain Score of 4-6, CPOT 3-4 Severe Pain = Pain Score of 7-10, CPOT 5-8 hydrOXYzine (ATARAX) tablet 50 mg 50 mg, Oral, Every 6 Hours PRN, Itching, Starting on Wed04/28/23 at 1427, Caution: Look alike/sound alike drug alert ibuprofen (ADVIL,MOTRIN) tablet 600 mg 600 mg, Oral, Every 6 Hours, First dose on Wed04/29/23 at 1800, Based on patient request - if ordered for moderate or severe pain, provider allows for administration of a medication prescribed for a lower pain scale. If given for pain, use the following pain scale: Mild Pain = Pain Score of 1-3, CPOT 1-2 Moderate Pain = Pain Score of 4-6, CPOT 3-4 Severe Pain = Pain Score of 7-10, CPOT 5-8 Given 04/30/2023 12:18 PM EDT 600 mg Given 04/30/2023 5:27 AM EDT 600 mg Given 04/29/2023 11:33 PM EDT 600 mg ketorolac (TORADOL) injection 15 mg 15 mg, Intravenous, Every 6 Hours, First dose on Wed04/28/23 at 1800, For 24 hours, Pharmacy to stagger first dose 3 hours from the first post- Tylenol dose. {BKC} If given for pain, use the following pain scale: Mild Pain = Pain Score of 1-3, CPOT 1-2 Moderate Pain = Pain Score of 4-6, CPOT 3-4 Severe Pain = Pain Score of 7-10, CPOT 5-8 Given 04/29/2023 12:45 PM EDT 15 mg Given 04/29/2023 6:16 AM EDT 15 mg Given 04/29/2023 12:00 AM EDT 15 mg ketorolac (TORADOL) injection 30 mg 30 mg, Intravenous, Once, On Wed04/28/23 at 0245, For 1 dose, Once in PACU {BK} If given for pain, use the following pain scale: Mild Pain = Pain Score of 1-3, CPOT 1-2 Moderate Pain = Pain Score of 4-6, CPOT 3-4 Severe Pain = Pain Score of 7-10, CPOT 5-8 Given 04/28/2023 2:19 PM EDT 30 mg lactated ringers infusion 125 mL/hr, Intravenous, Continuous, Starting on Wed04/28/23 at 0245 New Bag 04/28/2023 1:30 AM EDT 75 mL/hr 75 mL/hr lactated ringers infusion 75 mL/hr, Intravenous, Continuous, Starting on Wed04/28/23 at 1130 New Bag 04/28/2023 1:20 PM EDT 75 mL/hr 75 mL/hr Restarted 04/28/2023 12:07 PM EDT Rate/Dose Change 04/28/2023 11:51 AM EDT 999 mL/hr 999 mL /hr lanolin topical 1 application 1 application , Topical, Every 1 Hour PRN, Dry Skin, nipple pain, Starting on Wed04/28/23 at 1427, May keep at bedside. Given 04/29/2023 11:00 AM EDT 1 application Given 04/28/2023 6:31 PM EDT 1 application lidocaine PF 1% (XYLOCAINE) injection 5 mL 5 mL, Intradermal, As Needed, IV starts, Starting on Wed04/28/23 at 0142 magnesium sulfate 20 GM/500ML infusion 2 g/hr (50 mL/hr), Intravenous, Continuous, Starting on Wed04/28/23 at 0245, For 72 hours, Indications: PreeclampsiaIndications:Preeclampsi a New Bag 04/28/2023 11:27 PM EDT 2 g/hr 50 mL/hr New Bag 04/28/2023 10:36 AM EDT 2 g/hr 50 mL/hr New Bag 04/28/2023 3:37 AM EDT 2 g/hr 50 mL/hr magnesium sulfate bolus from bag 0.04 g/mL solution 4 g 4 g, Intravenous, at 300 mL/hr, Administer over 20 Minutes, Once, On Wed04/28/23 at 0245, For 1 dose, Bolus magnesium over 20-30 minutes from 20 g/500mL bag. Bolus from Bag 04/28/2023 3:10 AM EDT 4 g 300 mL/hr Right Arm methylergonovine (METHERGINE) injection 200 mcg 200 mcg, Intramuscular, As Needed, hemorrhage, Starting on Wed04/28/23 at 1427, Group 2 ([place]) Hazardous Drug - Reproductive Risk Only - See Handling Guide miSOPROStol (CYTOTEC) tablet 800 mcg 800 mcg, Rectal, As Needed, Hemorrhage, Starting on Wed04/28/23 at 0142, Group 2 ([place]) Hazardous Drug - Reproductive Risk Only - See Handling Guide Given 04/28/2023 1:56 PM EDT 800 mcg miSOPROStol (CYTOTEC) tablet 800 mcg 800 mcg, Rectal, As Needed, hemorrhage, Starting on Wed04/28/23 at 1427, Group 2 ([place]) Hazardous Drug - Reproductive Risk Only - See Handling Guide nalbuphine (NUBAIN) injection 3 mg 3 mg, Intravenous, Every 4 Hours PRN, Moderate Pain, itching, Starting on Wed04/28/23 at 1330, For 24 hours, Based on patient request - if ordered for moderate or severe pain, provider allows for administration of a medication prescribed for a lower pain scale. {YIN} If given for pain, use the following pain scale: Mild Pain = Pain Score of 1-3, CPOT 1-2 Moderate Pain = Pain Score of 4-6, CPOT 3-4 Severe Pain = Pain Score of 7-10, CPOT 5-8 Given 04/28/2023 1:42 PM EDT 3 mg NIFEdipine (PROCARDIA) capsule 10 mg 10 mg, Oral, Once, On Wed04/28/23 at 0215, For 1 dose, Hold for SBP less than 100, DBP less than 60 Caution: Look alike/sound alike drug alert. Avoid grapefruit juice. Given 04/28/2023 1:33 AM EDT 10 mg ondansetron (ZOFRAN) injection 4 mg 4 mg, Intravenous, Every 6 Hours PRN, Nausea, Vomiting, Starting on Wed04/28/23 at 0146, If BOTH ondansetron (ZOFRAN) and promethazine (PHENERGAN) are ordered use ondansetron first and THEN promethazine IF ondansetron is ineffective. Given 04/28/2023 3:09 AM EDT 4 mg Right Arm ondansetron (ZOFRAN) injection 4 mg 4 mg, Intravenous, Every 6 Hours PRN, Nausea, Vomiting, Starting on Wed04/28/23 at 1427, If BOTH ondansetron (ZOFRAN) and promethazine (PHENERGAN) are ordered use ondansetron first and THEN promethazine IF ondansetron is ineffective. ondansetron (ZOFRAN) tablet 4 mg 4 mg, Oral, Every 6 Hours PRN, Nausea, Vomiting, Starting on Wed04/28/23 at 1427, If BOTH ondansetron (ZOFRAN) and promethazine (PHENERGAN) are ordered use ondansetron first and THEN promethazine IF ondansetron is ineffective. oxyCODONE (ROXICODONE) immediate release tablet 10 mg 10 mg, Oral, Every 4 Hours PRN, Severe Pain, Starting on Wed04/28/23 at 1427, For 7 days, Based on patient request - if ordered for moderate or severe pain, provider allows for administration of a medication prescribed for a lower pain scale. If given for pain, use the following pain scale: Mild Pain = Pain Score of 1-3, CPOT 1-2 Moderate Pain = Pain Score of 4-6, CPOT 3-4 Severe Pain = Pain Score of 7-10, CPOT 5-8 Given 04/28/2023 11:59 PM EDT 10 mg Given 04/28/2023 3:42 PM EDT 10 mg oxyCODONE (ROXICODONE) immediate release tablet 5 mg 5 mg, Oral, Every 4 Hours PRN, Moderate Pain, Starting on Wed04/28/23 at 1427, For 7 days, Based on patient request - if ordered for moderate or severe pain, provider allows for administration of a medication prescribed for a lower pain scale. {YIN} If given for pain, use the following pain scale: Mild Pain = Pain Score of 1-3, CPOT 1-2 Moderate Pain = Pain Score of 4-6, CPOT 3-4 Severe Pain = Pain Score of 7-10, CPOT 5-8 Given 04/30/2023 5:27 AM EDT 5 mg Given 04/29/2023 11:33 PM EDT 5 mg Given 04/29/2023 3:44 PM EDT 5 mg oxytocin (PITOCIN) 30 units in 0.9% sodium chloride 500 mL (premix) 999 mL/hr, Intravenous, Once, On Wed04/28/23 at 0245, For 1 dose, Infuse 250 ml at 999 ml/hr. If patient has a previous bag with remaining volume, please use remainder of that bag to avoid waste. Goal is to give no more than one total 500 mL bag to conserve product. Additional bags only to be used if indicated for bleeding. Group 2 ([place]) Hazardous Drug - Reproductive Risk Only - See Handling Guide New Bag 04/28/2023 1:20 PM EDT 999 mL/hr 999 mL/hr oxytocin (PITOCIN) 30 units in 0.9% sodium chloride 500 mL (premix) 85 mL/hr, Intravenous, Once, On Wed04/28/23 at 1515, For 1 dose, Infuse 250 ml at 999 ml/hr. If patient has a previous bag with remaining volume, please use remainder of that bag to avoid waste. Goal is to give no more than one total 500 mL bag to conserve product. Additional bags only to be used if indicated for bleeding. Group 2 ([place]) Hazardous Drug - Reproductive Risk Only - See Handling Guide New Bag 04/28/2023 2:26 PM EDT 85 mL/hr 85 mL/hr vitamin tablet 1 tablet 1 tablet, Oral, Daily, First dose on Wed04/28/23 at 1515 Given 04/30/2023 8:32 AM EDT 1 tablet Given 04/29/2023 7:54 AM EDT 1 tablet Given 04/28/2023 3:44 PM EDT 1 tablet promethazine (PHENERGAN) suppository 12.5 mg 12.5 mg, Rectal, Every 6 Hours PRN, Nausea, Vomiting, Starting on Wed04/28/23 at 1427, If BOTH ondansetron (ZOFRAN) and promethazine (PHENERGAN) are ordered use ondansetron first and THEN promethazine IF ondansetron is ineffective. promethazine (PHENERGAN) tablet 25 mg 25 mg, Oral, Every 6 Hours PRN, Nausea, Vomiting, Starting on Wed04/28/23 at 1427, If BOTH ondansetron (ZOFRAN) and promethazine (PHENERGAN) are ordered use ondansetron first and THEN promethazine IF ondansetron is ineffective. {BKC} simethicone (MYLICON) chewable tablet 80 mg 80 mg, Oral, 4 Times Daily PRN, Flatulence, Starting on Wed04/28/23 at 1427 Given 04/29/2023 3:37 PM EDT 80 mg Sod Citrate-Citric Acid (BICITRA) solution 30 mL 30 mL, Oral, Once, On Wed04/28/23 at 0245, For 1 dose, For all section patients no more than 20 minutes prior to transport to the OR. Given 04/28/2023 11:53 AM EDT 30 mL sodium chloride 0.9 % flush 10 mL 10 mL, Intravenous, As Needed, Line Care, Starting on Wed04/28/23 at 0142 sodium chloride 0.9 % flush 3 mL 3 mL, Intravenous, Every 12 Hours Scheduled, First dose on Wed04/28/23 at 0245 sodium chloride 0.9 % flush 3 mL 3 mL, Intravenous, Every 12 Hours Scheduled, First dose on Wed04/28/23 at 2100 sodium chloride 0.9 % flush 3-10 mL 3-10 mL, Intravenous, As Needed, Line Care, Starting on Wed04/28/23 at 1427 sodium chloride 0.9 % infusion 40 mL 40 mL, Intravenous, As Needed, Line Care, Starting on Wed04/28/23 at 1427, Following administration of an IV intermittent medication, flush line with 40mL NS at 100mL/hr. documented in this encounter Active and Recently Administered Medications Times are shown in EDT. Scheduled Medication Order 04/28/2023 04/29/2023 04/30/2023 acetaminophen (TYLENOL) tablet 1,000 mg (COMPLETED) 1,000 mg, Oral, Once, On Wed04/28/23 at 0245, For 1 dose, Do not exceed 4 grams of acetaminophen in a 24 hr period. Max dose of 2gm for AST/ALT greater than 120 units/L If given for fever, use fever parameter: fever greater than 100.4 ??F. If given for pain, use the following pain scale: Mild Pain = Pain Score of 1-3, CPOT 1-2 Moderate Pain = Pain Score of 4-6, CPOT 3-4 Severe Pain = Pain Score of 7-10, CPOT 5-8 0755 (Given - Provider: Ade Arias RN) acetaminophen (TYLENOL) tablet 1,000 mg (COMPLETED)(Linked Group 1) 1,000 mg, Oral, Every 6 Hours, First dose on Wed04/28/23 at 1500, For 24 hours, Pharmacy to schedule 6 hours from pre-op dose. Do not exceed 4 grams of acetaminophen in a 24 hr period. Max dose of 2gm for AST/ALT greater than 120 units/L If given for fever, use fever parameter: fever greater than 100.4 ??F. If given for pain, use the following pain scale: Mild Pain = Pain Score of 1-3, CPOT 1-2 Moderate Pain = Pain Score of 4-6, CPOT 3-4 Severe Pain = Pain Score of 7-10, CPOT 5-8 1544 (Given - Provider: Ade Arias RN)2044 (Given - Provider: Angela Lyle RN) 0331 (Given - Provider: Angela Lyle RN)0747 (Given - Provider: Angela Collado RN)0900 (Due) acetaminophen (TYLENOL) tablet 650 mg(Linked Group 1) 650 mg, Oral, Every 6 Hours, First dose on Wed04/29/23 at 1500, Based on patient request - if ordered for moderate or severe pain, provider allows for administration of a medication prescribed for a lower pain scale. Do not exceed 4 grams of acetaminophen in a 24 hr period. Max dose of 2gm for AST/ALT greater than 120 units/L If given for fever, use fever parameter: fever greater than 100.4 ??F. If given for pain, use the following pain scale: Mild Pain = Pain Score of 1-3, CPOT 1-2 Moderate Pain = Pain Score of 4-6, CPOT 3-4 Severe Pain = Pain Score of 7-10, CPOT 5-8 1537 (Given - Provider: Lashell Leal RN)2100 (Given - Provider: Cornelia Alarcon RN) 0244 (Given - Provider: Cornelia Alarcon RN)0832 (Given - Provider: Luba Marrero RN) ceFAZolin in Sodium Chloride (ANCEF) IVPB solution 3,000 mg (COMPLETED) 3,000 mg, Intravenous, at 200 mL/hr, Administer over 30 Minutes, Once, On Wed04/28/23 at 0245, For 1 dose, Caution: Look alike/sound alike drug alert. Refrigerate, Indications: Surgical Prophylaxis 1153 (New Bag - Provider: Ade Arias, RN) Enoxaparin Sodium (LOVENOX) syringe 40 mg 40 mg, Subcutaneous, Every 12 Hours Scheduled, First dose on Wed04/29/23 at 0100, Give subcutaneous in abdomen only. Do not massage site after injection., Indications: VTE Prophylaxis 0139 (Given - Provider: Angela Lyel RN)0752 (Given - Provider: Angela Collado, RN)0900 (Due)2100 (Given - Provider: Cornelia Alarcon RN) 0832 (Given - Provider: Luba Marrero RN) fentaNYL citrate (PF) (SUBLIMAZE) injection 50 mcg (COMPLETED) 50 mcg, Intravenous, Once, On Wed04/28/23 at 0645, For 1 dose, Use filter needle to withdraw dose from ampule. Based on patient request - if ordered for moderate or severe pain, provider allows for administration of a medication prescribed for a lower pain scale. If given for pain, use the following pain scale: Mild Pain = Pain Score of 1-3, CPOT 1-2 Moderate Pain = Pain Score of 4-6, CPOT 3-4 Severe Pain = Pain Score of 7-10, CPOT 5-8 0548 (Given - Provider: Kojo Georges RN) ibuprofen (ADVIL,MOTRIN) tablet 600 mg(Linked Group 2) 600 mg, Oral, Every 6 Hours, First dose on Wed04/29/23 at 1800, Based on patient request - if ordered for moderate or severe pain, provider allows for administration of a medication prescribed for a lower pain scale. If given for pain, use the following pain scale: Mild Pain = Pain Score of 1-3, CPOT 1-2 Moderate Pain = Pain Score of 4-6, CPOT 3-4 Severe Pain = Pain Score of 7-10, CPOT 5-8 1830 (Given - Provider: Lashell Leal RN)2333 (Given - Provider: Cornelia Alarcon RN) 0527 (Given - Provider: Cornelia Alarcon RN)1218 (Given - Provider: Luba Marrero RN) ketorolac (TORADOL) injection 15 mg (COMPLETED)(Linked Group 2) 15 mg, Intravenous, Every 6 Hours, First dose on Wed04/28/23 at 1800, For 24 hours, Pharmacy to stagger first dose 3 hours from the first post- Tylenol dose. {BKC} If given for pain, use the following pain scale: Mild Pain = Pain Score of 1-3, CPOT 1-2 Moderate Pain = Pain Score of 4-6, CPOT 3-4 Severe Pain = Pain Score of 7-10, CPOT 5-8 1831 (Given - Provider: Ade Arias RN) 0000 (Given - Provider: Angela Lyle RN)0616 (Given - Provider: Angela Lyle RN)1245 (Given - Provider: Angela Collado RN) ketorolac (TORADOL) injection 30 mg (COMPLETED) 30 mg, Intravenous, Once, On Wed04/28/23 at 0245, For 1 dose, Once in PACU {BKC} If given for pain, use the following pain scale: Mild Pain = Pain Score of 1-3, CPOT 1-2 Moderate Pain = Pain Score of 4-6, CPOT 3-4 Severe Pain = Pain Score of 7-10, CPOT 5-8 1419 (Given - Provider: Ade Arias RN) lactated ringers bolus 1,000 mL 1,000 mL, Intravenous, at 2,000 mL/hr, Administer over 0.5 Hours, Once, On Wed04/28/23 at 0245, For 1 dose, For patients receiving spinal anesthesia 0245 (Due) magnesium sulfate bolus from bag 0.04 g/mL solution 4 g (COMPLETED) 4 g, Intravenous, at 300 mL/hr, Administer over 20 Minutes, Once, On Wed04/28/23 at 0245, For 1 dose, Bolus magnesium over 20-30 minutes from 20 g/500mL bag. 0310 (Bolus from Bag - Provider: Kojo Georges, GLENN) NIFEdipine (PROCARDIA) capsule 10 mg (COMPLETED) 10 mg, Oral, Once, On Wed04/28/23 at 0215, For 1 dose, Hold for SBP less than 100, DBP less than 60 Caution: Look alike/sound alike drug alert. Avoid grapefruit juice. 0133 (Given - Provider: Harrison Puga, GLENN) oxytocin (PITOCIN) 30 units in 0.9% sodium chloride 500 mL (premix) (COMPLETED)(Linked Group 3) 999 mL/hr, Intravenous, Once, On Wed04/28/23 at 0245, For 1 dose, Infuse 250 ml at 999 ml/hr. If patient has a previous bag with remaining volume, please use remainder of that bag to avoid waste. Goal is to give no more than one total 500 mL bag to conserve product. Additional bags only to be used if indicated for bleeding. Group 2 ([place]) Hazardous Drug - Reproductive Risk Only - See Handling Guide 1320 (New Bag - Provider: Ade Arias RN) oxytocin (PITOCIN) 30 units in 0.9% sodium chloride 500 mL (premix) (COMPLETED) 85 mL/hr, Intravenous, Once, On Wed04/28/23 at 1515, For 1 dose, Infuse 250 ml at 999 ml/hr. If patient has a previous bag with remaining volume, please use remainder of that bag to avoid waste. Goal is to give no more than one total 500 mL bag to conserve product. Additional bags only to be used if indicated for bleeding. Group 2 ([place]) Hazardous Drug - Reproductive Risk Only - See Handling Guide 1426 (New Bag - Provider: Ade Arias RN) vitamin tablet 1 tablet 1 tablet, Oral, Daily, First dose on Wed04/28/23 at 1515 1544 (Given - Provider: Ade Arias RN) 0754 (Given - Provider: Angela Collado RN)0900 (Due) 0832 (Given - Provider: Luba Marrero RN) Sod Citrate-Citric Acid (BICITRA) solution 30 mL (COMPLETED) 30 mL, Oral, Once, On Wed04/28/23 at 0245, For 1 dose, For all section patients no more than 20 minutes prior to transport to the OR. 1153 (Given - Provider: Ade Arias RN) sodium chloride 0.9 % flush 3 mL 3 mL, Intravenous, Every 12 Hours Scheduled, First dose on Wed04/28/23 at 0245 0245 (Due)0900 (Due)2100 (Due) 0900 (Due)2100 (Due) 0941 (Not Given - Provider: Luba Marrero, RN - Reason: Loss of IV access) sodium chloride 0.9 % flush 3 mL 3 mL, Intravenous, Every 12 Hours Scheduled, First dose on Wed04/28/23 at 2100 2100 (Due) 0900 (Due)2100 (Due) 0832 (Not Given - Provider: Luba Marrero, RN - Reason: Loss of IV access) Continuous Medication Order 04/28/2023 04/29/2023 04/30/2023 lactated ringers infusion (CANCELED) 125 mL/hr, Intravenous, Continuous, Starting on Wed04/28/23 at 0245 0130 (New Bag - Provider: Kojo Georges RN) lactated ringers infusion 75 mL/hr, Intravenous, Continuous, Starting on Wed04/28/23 at 1130 1037 (New Bag - Provider: Ade Arias RN)1151 (Rate/Dose Change - Provider: Ade Arias RN)1206 (Paused - Provider: Laurita Singh CRNA - Comment: Switch to gravity)1207 (Restarted - Provider: Laurita Singh CRNA)1320 (New Bag - Provider: Ade Arias RN)1424 (Stopped - Provider: Ade Arias RN) 0830 (Stopped - Provider: Angela Collado, RN) magnesium sulfate 20 GM/500ML infusion 2 g/hr (50 mL/hr), Intravenous, Continuous, Starting on Wed04/28/23 at 0245, For 72 hours, Indications: Preeclampsia 0335 (Stopped - Provider: Kojo Georges RN)0337 (New Bag - Provider: Kojo Georges RN)1036 (New Bag - Provider: Ade Arias RN)2028 (Due)2327 (New Bag - Provider: Angela Lyle RN) 0830 (Stopped - Provider: Angela Collado, RN) PRN Medication Order 04/28/2023 04/29/2023 04/30/2023 aluminum-magnesium hydroxide-simethicone (MAALOX MAX) 400-400-40 MG/5ML suspension 15 mL(Linked Group 4) 15 mL, Oral, Every 4 Hours PRN, Indigestion, Starting on Wed04/28/23 at 1427, Maximum 60 mL in 24 hours. calcium carbonate (TUMS) chewable tablet 500 mg (200 mg elemental)(Linked Group 4) 1 tablet, Oral, Every 4 Hours PRN, Indigestion, Heartburn, Starting on Wed04/28/23 at 1427, One tablet contains 200 mg elemental calcium. Take with food. carboprost (HEMABATE) injection 250 mcg 250 mcg, Intramuscular, As Needed, hemorrhage, Starting on Wed04/28/23 at 1427, DO NOT administer IV Refrigerate. Use filter needle to withdraw dose. docusate sodium (COLACE) capsule 100 mg 100 mg, Oral, 2 Times Daily PRN, Constipation, Starting on Wed04/28/23 at 1427, Swallow whole. Do not open, crush, or chew capsule. 1831 (Given - Provider: Ade Arias RN) 2333 (Given - Provider: Cornelia Alarcon RN) ePHEDrine Sulfate (Pressors) 5 MG/ML injection 10 mg 10 mg, Intravenous, Every 10 Minutes PRN, HYPOTENSION, Starting on Wed04/28/23 at 1301, Caution: Look alike/sound alike drug alert 1303 (Given - Provider: Ade Arias RN) Hydrocortisone (Perianal) (ANUSOL-HC) 2.5 % rectal cream 1 application 1 application , Rectal, As Needed, Hemorrhoids, Starting on Wed04/28/23 at 1427, May leave at bedside HYDROmorphone (DILAUDID) injection 0.5 mg 0.5 mg, Intravenous, Every 2 Hours PRN, Moderate Pain, Severe Pain, Starting on Wed04/28/23 at 0146, For 7 days, Based on patient request - if ordered for moderate or severe pain, provider allows for administration of a medication prescribed for a lower pain scale. If given for pain, use the following pain scale: Mild Pain = Pain Score of 1-3, CPOT 1-2 Moderate Pain = Pain Score of 4-6, CPOT 3-4 Severe Pain = Pain Score of 7-10, CPOT 5-8 hydrOXYzine (ATARAX) tablet 50 mg 50 mg, Oral, Every 6 Hours PRN, Itching, Starting on Wed04/28/23 at 1427, Caution: Look alike/sound alike drug alert lanolin topical 1 application 1 application , Topical, Every 1 Hour PRN, Dry Skin, nipple pain, Starting on Wed04/28/23 at 1427, May keep at bedside. 1831 (Given - Provider: Ade Arias RN) 1100 (Given - Provider: Angela Collado RN) lidocaine PF 1% (XYLOCAINE) injection 5 mL 5 mL, Intradermal, As Needed, IV starts, Starting on Wed04/28/23 at 0142 methylergonovine (METHERGINE) injection 200 mcg 200 mcg, Intramuscular, As Needed, hemorrhage, Starting on Wed04/28/23 at 1427, Group 2 ([place]) Hazardous Drug - Reproductive Risk Only - See Handling Guide miSOPROStol (CYTOTEC) tablet 800 mcg (CANCELED) 800 mcg, Rectal, As Needed, Hemorrhage, Starting on Wed04/28/23 at 0142, Group 2 ([place]) Hazardous Drug - Reproductive Risk Only - See Handling Guide 1356 (Given - Provider: Ade Arias RN) miSOPROStol (CYTOTEC) tablet 800 mcg 800 mcg, Rectal, As Needed, hemorrhage, Starting on Wed04/28/23 at 1427, Group 2 ([place]) Hazardous Drug - Reproductive Risk Only - See Handling Guide nalbuphine (NUBAIN) injection 3 mg () 3 mg, Intravenous, Every 4 Hours PRN, Moderate Pain, itching, Starting on Wed04/28/23 at 1330, For 24 hours, Based on patient request - if ordered for moderate or severe pain, provider allows for administration of a medication prescribed for a lower pain scale. {YIN} If given for pain, use the following pain scale: Mild Pain = Pain Score of 1-3, CPOT 1-2 Moderate Pain = Pain Score of 4-6, CPOT 3-4 Severe Pain = Pain Score of 7-10, CPOT 5-8 1342 (Given - Provider: Ade Arias RN) ondansetron (ZOFRAN) injection 4 mg (CANCELED)(Linked Group 5) 4 mg, Intravenous, Every 6 Hours PRN, Nausea, Vomiting, Starting on Wed04/28/23 at 0146, If BOTH ondansetron (ZOFRAN) and promethazine (PHENERGAN) are ordered use ondansetron first and THEN promethazine IF ondansetron is ineffective. 0309 (Given - Provider: Kojo Georges RN) ondansetron (ZOFRAN) injection 4 mg(Linked Group 6) 4 mg, Intravenous, Every 6 Hours PRN, Nausea, Vomiting, Starting on Wed04/28/23 at 1427, If BOTH ondansetron (ZOFRAN) and promethazine (PHENERGAN) are ordered use ondansetron first and THEN promethazine IF ondansetron is ineffective. ondansetron (ZOFRAN) tablet 4 mg(Linked Group 6) 4 mg, Oral, Every 6 Hours PRN, Nausea, Vomiting, Starting on Wed04/28/23 at 1427, If BOTH ondansetron (ZOFRAN) and promethazine (PHENERGAN) are ordered use ondansetron first and THEN promethazine IF ondansetron is ineffective. oxyCODONE (ROXICODONE) immediate release tablet 10 mg(Linked Group 7) 10 mg, Oral, Every 4 Hours PRN, Severe Pain, Starting on Wed04/28/23 at 1427, For 7 days, Based on patient request - if ordered for moderate or severe pain, provider allows for administration of a medication prescribed for a lower pain scale. If given for pain, use the following pain scale: Mild Pain = Pain Score of 1-3, CPOT 1-2 Moderate Pain = Pain Score of 4-6, CPOT 3-4 Severe Pain = Pain Score of 7-10, CPOT 5-8 1542 (Given - Provider: Ade Arias RN)2359 (Given - Provider: Angela Lyle RN) 0830 (Not Given: See Alt - Provider: Angela Collado RN)1544 (Not Given: See Alt - Provider: Lashell Leal RN)2333 (Not Given: See Alt - Provider: Cornelia Alarcon RN) 0527 (Not Given: See Alt - Provider: Cornelia Alarcon RN) oxyCODONE (ROXICODONE) immediate release tablet 5 mg(Linked Group 7) 5 mg, Oral, Every 4 Hours PRN, Moderate Pain, Starting on Wed04/28/23 at 1427, For 7 days, Based on patient request - if ordered for moderate or severe pain, provider allows for administration of a medication prescribed for a lower pain scale. {YIN} If given for pain, use the following pain scale: Mild Pain = Pain Score of 1-3, CPOT 1-2 Moderate Pain = Pain Score of 4-6, CPOT 3-4 Severe Pain = Pain Score of 7-10, CPOT 5-8 1542 (Not Given: See Alt - Provider: Ade Arias RN)2359 (Not Given: See Alt - Provider: Angela Lyle RN) 0830 (Given - Provider: Angela Collado RN)1544 (Given - Provider: Lashell Leal, GLENN)2333 (Given - Provider: Cornelia Alarcon, GLENN) 0527 (Given - Provider: Cornelia Alarcon RN) promethazine (PHENERGAN) suppository 12.5 mg(Linked Group 8) 12.5 mg, Rectal, Every 6 Hours PRN, Nausea, Vomiting, Starting on Wed04/28/23 at 1427, If BOTH ondansetron (ZOFRAN) and promethazine (PHENERGAN) are ordered use ondansetron first and THEN promethazine IF ondansetron is ineffective. promethazine (PHENERGAN) tablet 25 mg(Linked Group 8) 25 mg, Oral, Every 6 Hours PRN, Nausea, Vomiting, Starting on Wed04/28/23 at 1427, If BOTH ondansetron (ZOFRAN) and promethazine (PHENERGAN) are ordered use ondansetron first and THEN promethazine IF ondansetron is ineffective. {BKC} simethicone (MYLICON) chewable tablet 80 mg 80 mg, Oral, 4 Times Daily PRN, Flatulence, Starting on Wed04/28/23 at 1427 1537 (Given - Provider: Lashell Leal RN) sodium chloride 0.9 % flush 10 mL 10 mL, Intravenous, As Needed, Line Care, Starting on Wed04/28/23 at 0142 sodium chloride 0.9 % flush 3-10 mL 3-10 mL, Intravenous, As Needed, Line Care, Starting on Wed04/28/23 at 1427 sodium chloride 0.9 % infusion 40 mL 40 mL, Intravenous, As Needed, Line Care, Starting on Wed04/28/23 at 1427, Following administration of an IV intermittent medication, flush line with 40mL NS at 100mL/hr. Linked Groups Order Group 1: acetaminophen (TYLENOL) tablet 1,000 mg (COMPLETED)Jump to med 1,000 mg, Oral, Every 6 Hours, First dose on Wed04/28/23 at 1500, For 24 hours, Pharmacy to schedule 6 hours from pre-op dose. Do not exceed 4 grams of acetaminophen in a 24 hr period. Max dose of 2gm for AST/ALT greater than 120 units/L If given for fever, use fever parameter: fever greater than 100.4 ??F. If given for pain, use the following pain scale: Mild Pain = Pain Score of 1-3, CPOT 1-2 Moderate Pain = Pain Score of 4-6, CPOT 3-4 Severe Pain = Pain Score of 7-10, CPOT 5-8 Followed by acetaminophen (TYLENOL) tablet 650 mgJump to med 650 mg, Oral, Every 6 Hours, First dose on Wed04/29/23 at 1500, Based on patient request - if ordered for moderate or severe pain, provider allows for administration of a medication prescribed for a lower pain scale. Do not exceed 4 grams of acetaminophen in a 24 hr period. Max dose of 2gm for AST/ALT greater than 120 units/L If given for fever, use fever parameter: fever greater than 100.4 ??F. If given for pain, use the following pain scale: Mild Pain = Pain Score of 1-3, CPOT 1-2 Moderate Pain = Pain Score of 4-6, CPOT 3-4 Severe Pain = Pain Score of 7-10, CPOT 5-8 Group 2: ketorolac (TORADOL) injection 15 mg (COMPLETED)Jump to med 15 mg, Intravenous, Every 6 Hours, First dose on Wed04/28/23 at 1800, For 24 hours, Pharmacy to stagger first dose 3 hours from the first post- Tylenol dose. {BKC} If given for pain, use the following pain scale: Mild Pain = Pain Score of 1-3, CPOT 1-2 Moderate Pain = Pain Score of 4-6, CPOT 3-4 Severe Pain = Pain Score of 7- 10, CPOT 5-8 Followed by ibuprofen (ADVIL,MOTRIN) tablet 600 mgJump to med 600 mg, Oral, Every 6 Hours, First dose on Wed23 at 1800, Based on patient request - if ordered for moderate or severe pain, provider allows for administration of a medication prescribed for a lower pain scale. If given for pain, use the following pain scale: Mild Pain = Pain Score of 1-3, CPOT 1-2 Moderate Pain = Pain Score of 4-6, CPOT 3-4 Severe Pain = Pain Score of 7-10, CPOT 5-8 Group 3: oxytocin (PITOCIN) 30 units in 0.9% sodium chloride 500 mL (premix) (COMPLETED)Jump to med 999 mL/hr, Intravenous, Once, On Wed04/28/23 at 0245, For 1 dose, Infuse 250 ml at 999 ml/hr. If patient has a previous bag with remaining volume, please use remainder of that bag to avoid waste. Goal is to give no more than one total 500 mL bag to conserve product. Additional bags only to be used if indicated for bleeding. Group 2 ([place]) Hazardous Drug - Reproductive Risk Only - See Handling Guide Followed by oxytocin (PITOCIN) 30 units in 0.9% sodium chloride 500 mL (premix) () 250 mL/hr, Intravenous, Continuous, Starting on Wed04/28/23 at 0300, For 1 hour, Infuse at 250 ml/hr for remaining volume in bag. Group 2 ([place]) Hazardous Drug - Reproductive Risk Only - See Handling Guide Group 4: aluminum-magnesium hydroxide-simethicone (MAALOX MAX) 400-400-40 MG/5ML suspension 15 mLJump to med 15 mL, Oral, Every 4 Hours PRN, Indigestion, Starting on Wed04/28/23 at 1427, Maximum 60 mL in 24 hours. Or calcium carbonate (TUMS) chewable tablet 500 mg (200 mg elemental)Jump to med 1 tablet, Oral, Every 4 Hours PRN, Indigestion, Heartburn, Starting on Wed04/28/23 at 1427, One tablet contains 200 mg elemental calcium. Take with food. Group 5: ondansetron (ZOFRAN) tablet 4 mg (CANCELED) 4 mg, Oral, Every 6 Hours PRN, Nausea, Vomiting, Starting on Wed04/28/23 at 0146, If BOTH ondansetron (ZOFRAN) and promethazine (PHENERGAN) are ordered use ondansetron first and THEN promethazine IF ondansetron is ineffective. Or ondansetron (ZOFRAN) injection 4 mg (CANCELED)Jump to med 4 mg, Intravenous, Every 6 Hours PRN, Nausea, Vomiting, Starting on Wed04/28/23 at 0146, If BOTH ondansetron (ZOFRAN) and promethazine (PHENERGAN) are ordered use ondansetron first and THEN promethazine IF ondansetron is ineffective. Group 6: ondansetron (ZOFRAN) tablet 4 mgJump to med 4 mg, Oral, Every 6 Hours PRN, Nausea, Vomiting, Starting on Wed04/28/23 at 1427, If BOTH ondansetron (ZOFRAN) and promethazine (PHENERGAN) are ordered use ondansetron first and THEN promethazine IF ondansetron is ineffective. Or ondansetron (ZOFRAN) injection 4 mgJump to med 4 mg, Intravenous, Every 6 Hours PRN, Nausea, Vomiting, Starting on Wed04/28/23 at 1427, If BOTH ondansetron (ZOFRAN) and promethazine (PHENERGAN) are ordered use ondansetron first and THEN promethazine IF ondansetron is ineffective. Group 7: oxyCODONE (ROXICODONE) immediate release tablet 5 mgJump to med 5 mg, Oral, Every 4 Hours PRN, Moderate Pain, Starting on Wed04/28/23 at 1427, For 7 days, Based on patient request - if ordered for moderate or severe pain, provider allows for administration of a medication prescribed for a lower pain scale. {YIN} If given for pain, use the following pain scale: Mild Pain = Pain Score of 1-3, CPOT 1-2 Moderate Pain = Pain Score of 4-6, CPOT 3-4 Severe Pain = Pain Score of 7-10, CPOT 5-8 Or oxyCODONE (ROXICODONE) immediate release tablet 10 mgJump to med 10 mg, Oral, Every 4 Hours PRN, Severe Pain, Starting on Wed04/28/23 at 1427, For 7 days, Based on patient request - if ordered for moderate or severe pain, provider allows for administration of a medication prescribed for a lower pain scale. If given for pain, use the following pain scale: Mild Pain = Pain Score of 1-3, CPOT 1-2 Moderate Pain = Pain Score of 4-6, CPOT 3-4 Severe Pain = Pain Score of 7-10, CPOT 5-8 Group 8: promethazine (PHENERGAN) tablet 25 mgJump to med 25 mg, Oral, Every 6 Hours PRN, Nausea, Vomiting, Starting on Wed04/28/23 at 1427, If BOTH ondansetron (ZOFRAN) and promethazine (PHENERGAN) are ordered use ondansetron first and THEN promethazine IF ondansetron is ineffective. {BKC} Or promethazine (PHENERGAN) suppository 12.5 mgJump to med 12.5 mg, Rectal, Every 6 Hours PRN, Nausea, Vomiting, Starting on Wed04/28/23 at 1427, If BOTH ondansetron (ZOFRAN) and promethazine (PHENERGAN) are ordered use ondansetron first and THEN promethazine IF ondansetron is ineffective. 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
--- OUTSIDE RECORDS SUMMARY | 2024-09-05 22:14 | XMS_ITS | Encounter Summary ---
Author Organization [facility] Address [address] [place] [address] Care Team Providers Care Sports Medicine Masseur Name Role Phone Provider, No Known Primary [...] Expiration Date Visits Re quested Visits Authorized [id number] 1 Encounter Details Date Type Department Care Team (Late st Contact Info) Description 04/28/2023 12:00 PM EDT - 04/28/2023 1:09 PM EDT Surgery [facility] [address] [place] [address] Paulette Hernandez MD [address] [facility] [address] [place] [address] SECTION REPEAT WITH TUBAL Social History Tobacco Use Types Packs/Day Years [...] things needed for daily living? No 04/28/2023 [employer] Depression Scale Answer Date Recorded Retired [employer] Depression Score 12 06/20/2018 Retired EPD Scale: Thought of Harming Self 06/20/2018 Abuse Screen Answer Date Recorded Feels Unsafe [...] GED or equivalent No 04/28/2023 Preferred Language Fijian 04/28/2023 PHQ-2 Answer Date Recorded Retired PHQ-9: Brief Depression Severity Measure Score 0 04/28/2023 Comments No Sex and Gender Information Value Date Recorded Sex Assigned at Not on file Legal Sex Female 1:44 PM EDT Gender Identity Not on file Sexual Orientation Not on file documented as of this encounter Last Filed Vital Signs Vital Sign Reading Time Taken Comments Blood Pressure 83/60 04/28/2023 1:05 PM EDT Pulse 92 04/28/2023 1:09 PM EDT Temperature 36.5 ??C (97.7 ??F) 04/28/2023 1:00 PM ED T Respiratory Rate 12 04/28/2023 1:05 PM EDT Oxygen Saturation 88% 04/28/2023 1:09 PM EDT Inhaled Oxygen Concentration - - Weight 127 kg (281 lb) 04/28/2023 1:47 AM EDT Height 167.6 cm (5' 6 ) 04/28/2023 1:47 AM EDT Body Mass Index 45.35 04/28/2023 1:47 AM EDT documented in this encounter Discharge Summaries * Madhuri Lei MD - 04/30/2023 8:55 AM EDT Jose Discharge Summary Patient: Merle Lyle MR#:[id number] Admission Diagnosis: IUP @ 38w1d, severe GHTN, [...] 1 tablet, Oral, Daily Stop These Medications czatdriqpw-xdzeecusejkfi-dmhjumos 50-325-40 MG per tablet Commonly known as: [...] through Care Everywhere. * Care After Delivery (Fijian) * Hypertension (Fijian) * Acetaminophen Capsules or Tablets (Fijian) * Docusate Capsules (Fijian) * Ibuprofen Capsules or Tablets (Fijian) * Oxycodone Capsules or Tablets (Fijian) documented in this encounter Medications at Time [...] 04/30/2023 8:52 AM EDT 04/30/2023 Name:Merle Lyle MR#:[id number] PROGRESS NOTE: Post-Op 2 S/P Subjective 31 [...] 04/29/2023 8:56 AM EDT 04/29/2023 Name:Merle Lyle MR#:[id number] PROGRESS NOTE: Post-Op 1 S/P Subjective 31 [...] from the original note were not included. [facility] Obstetric History and Physical Chief [...] oz) F CS-LTranv Spinal N MICHELINE Name: GEE LYLELance Apgar1: 7 Apgar5: 9 1 Term 08/22/14 40w0d 3856 g (8 lb 8 oz) M CS-LTranv MICHELINE Complications: Failure to Progress in First Stage Name: DAMIAN IZQUIERDO Obstetric Comments 2013 - Raymundo 2017 - Past Medical History: Past Medical History: Diagnosis Date Anemia Anxiety and depression 2007 Asthma Cellulitis 2018 Past Surgical History Past Surgical History: Procedure Laterality Date SECTION 08/22/2014 SECTION N/A 06/19/2018 Procedure: SECTION REPEAT; Surgeon: Sheng Santizo MD; Location: [facility]; Service: Obstetrics/Gynecology Family History: History [...] (Six) Hours As Needed for Mild Pain. icwumjustc-zpunrcjscmivk-nqtexytv (FIORICET, ESGIC) 50-325-40 MG per tablet Take [...] Rate Assessment Indication: Severe preeclampsia Start Time: 0040 End Time: 0124 NST Results: Reactive NST. heart rate baseline [...] Of this time, > 50% was spent gzfi-ki-vfjg time coordinating care, answering her questions and [...] AM EDT Follow-up visit in [facility]; per RN, mother having questions about flange size and Medela pump; mother utilizing hospital pump at time of visit; mother using 27mm flange size; switched mother to 24mm flange size; lowered pump settings; went over education on sore nipple concerns; gave tips on how to arouse for nursing; showed parents how to syringe feed infant with 2ml of EBM that mother pumped; encouraged skin to skin; encouraged mother to nurse every three hours and with any feeding cues shown; to pump for short/missed feeings and feed infant any EBM; showed parents how to wash [...] position adjusted pillow support provided see MAR lcdgbl-jxq-jrbgn dosing utilized Taken 04/28/2023 1731 by Ade Arias RN Pain Management Interventions: position adjusted pillow support provided see MAR ebfjah-ckk-znywy dosing utilized Taken 04/28/2023 1639 by Ade Arias RN Pain Management Interventions: (tylenol/toradol/aggie) position adjusted pillow support provided gjijuu-fuh-zdmhl dosing utilized see MAR Taken 04/28/2023 1532 by Ade Arias RN Pain Management Interventions: position adjusted pillow support provided see MAR dcvyij-dsj-rzsnc dosing utilized Taken 04/28/2023 1500 by Ade Arias RN Pain Management Interventions: position adjusted pillow support provided see MAR coocbf-kpz-niwqj dosing utilized Taken 04/28/2023 1445 by Ade Arias RN Pain Management Interventions: position adjusted pillow support provided see MAR tcakqf-iff-exiqa dosing utilized Taken 04/28/2023 1430 by Ade Arias RN Pain Management Interventions: pillow support provided position adjusted see MAR other (see comments) Taken 04/28/2023 1419 by Ade Arias RN Pain Management Interventions: position adjusted see MAR pillow support provided other (see comments) Taken 04/28/2023 1415 by Ade rAias RN Pain Management Interventions: pillow support provided [...] hospitalization. Recognize and utilize personal coping strategies. [place] spiritual and cultural preferences. Recent Flowsheet Documentation [...] of personal vision and auditory aids. Assess infant location, status and maternal assistance level required for safe and effective self and care; provide support for toileting, mobility and placement of in crib, as needed. Define behavior and [...] comfort (e.g., complementary therapy, diversional activity). Provide dyqctt-rde-aqhdp dosing of pain medication to keep pain [...] position adjusted pillow support provided see MAR sxrjrj-chm-cudke dosing utilized Taken 04/28/2023 1731 by Ade Arias RN Pain Management Interventions: position adjusted pillow support provided see MAR zamcpt-lba-zfuvi dosing utilized Taken 04/28/2023 1639 by Ade Arias RN Pain Management Interventions: (tylenol/toradol/aggie) position adjusted pillow support provided fyxvaj-nlk-alxpg dosing utilized see MAR Taken 04/28/2023 1532 by Ade Arias RN Pain Management Interventions: position adjusted pillow support provided see MAR otmild-aze-duxkf dosing utilized Taken 04/28/2023 1500 by Ade Arias RN Pain Management Interventions: position adjusted pillow support provided see MAR nygtyo-fgz-poqsb dosing utilized Taken 04/28/2023 1445 by Ade Arias RN Pain Management Interventions: position adjusted pillow support provided see MAR cpsgcr-zau-descy dosing utilized Taken 04/28/2023 1430 by Ade [...] Date of Referral 04/28/23 Person Making Referral wound care center consultant (courtesy consult) Maternal Reason for Referral (1s5 baby--attempted to breastfeed; 2nd baby breastfed for 2 1/2 years. The first month was difficult and baby used a nipple shield for 3 months, but after that went well.) Infant Reason for Referral (baby just got to [...] Hernandez MD - 04/28/2023 12:55 PM EDT [facility] Section Operative Note Pre-Operative Dx: 1. IUP at Gestational Age: 38w2d weeks 2. Prior CD x2 3. Desired sterilization 4. Severe Hypertensive disease of / Preeclampsia 5. Obesity with BMI 45 Postoperative dx: 1. Same Procedure: Procedure(s): SECTION REPEAT WITH BILATERAL SALPINGECTOMY, Mod 22 for BMI 45 Surgeon/Manager Editorial: Surgeon(s): Paulette Hernandez MD Lewellen, Thomas L, DO Anesthesia: Anesthesiologist: Spinal Anesthesiologist: Fransisco Melendez DO JIG MAKER: Laurita Singh CRNA QBL: Not calculated at time of note, EBL 600mL IV Fluids: 700 mls. UOP: 575 mls. I/O this shift: In: 648.3 [I.V.:648.3] Out: 575 [Urine:575] Antibiotics: cefazolin (Ancef) : Gender: male Weight: 3565 g (7 lb 13.8 oz) [...] cut after 60 second delay and the was handed off to DRT staff for [...] AND DIFFERENTIAL Routine 04/29/2023 8:07 AM EDT [id number] Routine 04/28/2023 4:33 PM EDT RHIG EVALUATION [...] - 10.80 10*3/mm3 04/29/2023 8:25 AM EDT [facility] RBC 3.66(L) 3.77 - 5.28 10*6/mm3 04/29/2023 8:25 AM EDT [facility] Hemoglobin 11.1(L) 12.0 - 15.9 g/dL 04/29/2023 8:25 AM EDT [facility] Hematocrit 33.9(L) 34.0 - 46.6 % 04/29/2023 8:25 AM EDT [facility] MCV 92.6 79.0 - 97.0 fL 04/29/2023 8:25 AM EDT [facility] MCH 30.3 26.6 - 33.0 pg 04/29/2023 8:25 AM EDT [facility] MCHC 32.7 31.5 - 35.7 g/dL 04/29/2023 8:25 AM EDT [facility] RDW 17.5(H) 12.3 - 15.4 % 04/[facility]23 [facility] RDW-SD 60.0(H) 37.0 - 54.0 fl 04/29/2023 8:25 AM EDT [facility] MPV 11.3 6.0 - 12.0 fL 04/29/2023 8:[facility] Platelets 155 140 - 450 10*3/mm3 04/29/2023 8:25 AM EDT [facility] Neutrophil % 69.9 42.7 - 76.0 % 04/29/2023 8:[facility] Lymphocyte % 22.3 19.6 - 45.3 % 04/29/2023 8:25 AM EDT [facility] Monocyte % 6.4 5.0 - 12.0 % 04/29/2023 8:25 AM EDT [facility] Eosinophil % 0.4 0.3 - 6.2 % 04/29/2023 8:25 AM EDT [facility] Basophil % 0.5 0.0 - 1.5 % 04/29/2023 8:25 AM EDT [facility] Immature Grans % 0.5 0.0 - 0.5 % 04/29/2023 8:25 AM EDT [facility] Neutrophils, Absolute 7.08(H) 1.70 - 7.00 10*3/mm3 04/29/2023 8:25 AM EDT [facility] Lymphocytes, Absolute 2.26 0.70 - 3.10 10*3/mm3 04/29/2023 8:25 AM EDT [facility] Monocytes, Absolute 0.65 0.10 - 0.90 10*3/mm3 04/29/2023 8:25 AM EDT [facility] Eosinophils, Absolute 0.04 0.00 - 0.40 10*3/mm3 04/29/2023 8:25 AM EDT [facility] Basophils, Absolute 0.05 0.00 - 0.20 10*3/mm3 04/29/2023 8:25 AM EDT [facility] Immature Grans, Absolute 0.05 0.00 - 0.05 10*3/mm3 04/29/2023 8:25 AM EDT [facility] nRBC 0.0 0.0 - 0.2 /100 WBC 04/29/2023 8:25 AM EDT [facility] Blood Venipuncture / Unknown 04/29/2023 8:07 AM EDT 04/29/2023 8:21 AM EDT Paulette Hernandez MD LAB BLOOD ORDERABLES Final Re sult [facility]
[address] [place] [address], * (ABNORMAL) Preeclampsia Panel (04/29/2023 8:07 AM EDT) Alkaline Phosphatase 141(H) 39 - 117 U/L 04/29/2023 8:43 AM EDT [facility] ALT (SGPT) 21 1 - 33 U/L 04/29/2023 8:43 AM EDT [facility] AST (SGOT) 40(H) 1 - 32 U/L 04/29/2023 8:43 AM EDT [facility] Creatinine 0.62 0.57 - 1.00 mg/dL 04/29/2023 8:43 AM EDT [facility] Total Bilirubin 0.4 0.0 - 1.2 mg/dL 04/29/2023 8:43 AM EDT [facility] LDH 442(H) 135 - 214 U/L 04/29/2023 8:43 AM EDT [facility] Uric Acid 5.7 2.4 - 5.7 mg/dL 04/29/2023 8:43 AM EDT [facility] Blood Venipuncture / Unknown 04/29/2023 8:07 AM EDT 04/29/2023 8:21 AM EDT Paulette Hernandez MD LAB BLOOD ORDERABLES Final Re sult Performing Organization Address City/[facility]/ZIP Co de Phone Number [facility]
[address] [place] [address], * Doses of Rh Immune Globulin (04/28/2023 4:33 PM EDT) Number of Doses Screen Negative ? Recommend 1 vial of RhIg 04/28/2023 6:03 PM EDT [facility] Blood Venipuncture / Unknown 04/28/2023 4:33 PM EDT 04/28/2023 5:12 PM EDT Henok Ibarra III, MD BLOOD BANK TEST ORDERAB LES Final Result Performing Organization Address City/[facility]/ZIP Co de Phone Number [facility]
[address] [place] [address], * (ABNORMAL) Hemoglobin & Hematocrit, Blood (04/28/2023 4:33 PM EDT) Hemoglobin 11.5(L) 12.0 - 15.9 g/dL 04/28/2023 5:15 PM EDT [facility] Hematocrit 35.4 34.0 - 46.6 % 04/28/2023 5:15 PM EDT [facility] Blood Venipuncture / Unknown 04/28/2023 4:33 PM EDT 04/28/2023 5:11 PM EDT Paulette Hernandez MD LAB BLOOD ORDERABLES Final Re sult Performing Organization Address City/[facility]/ZIP Co de Phone Number [facility]
[address] [place] [address], * Bleed Screen (04/28/2023 4:33 PM EDT) Bleed Screen Negative 04/28/2023 6:02 PM EDT [facility] Blood Venipuncture / Unknown 04/28/2023 4:33 PM EDT 04/28/2023 5:12 PM EDT Henok Ibarra III, MD BLOOD BANK TEST ORDERAB LES Final Result Performing Organization Address [facility] Co de Phone Number [facility]
[address] [place] [address], * RhIg Evaluation (04/28/2023 4:33 PM EDT) ABO Type O 04/28/2023 5:32 PM EDT [facility] RH type Negative 04/28/2023 5:32 PM EDT [facility] Blood Venipuncture / Unknown 04/28/2023 4:33 PM EDT 04/28/2023 5:12 PM EDT us Henok Ibarra III, MD BLOOD BANK TEST ORDERAB LES Final Result Performing Organization Address City/[facility]/ZIP Co de Phone Number [facility]
[address] [place] [address], * (ABNORMAL) Blood Gas, Venous, Cord (04/28/2023 12:48 PM EDT) Site Umbilical 04/28/2023 12:53 PM EDT [facility] THERAPY pH, Cord Venous 7.218(L) 7.310 - 7.370 pH Units 04/28/2023 12:53 PM EDT [facility] THERAPY pCO2, Cord Venous 62.2(H) 28.0 - 40.0 mm Hg 04/28/2023 12:53 PM EDT [facility] THERAP[facility] Comment:86 Value above criti cheri limit pO2, Cord Venous 8.4(L) 21.0 - 31.0 mm Hg 04/28/2023 12:53 PM EDT [facility] THER[facility] HCO3, Cord Venous 25.3(H) 18.6 - 21.4 mmol/L 04/28/2023 12:53 PM EDT [facility] THERAPY Base Excess, Cord Venous -4.1(L) 0.0 - 2.0 mmol/L 04/28/2023 12:53 PM EDT [facility] THERAP[facility] O2 Sat, Cord Venous 7.0 % 04/28/2023 12:53 PM EDT [facility] TH[facility] Hemoglobin, Blood Gas 17.7 14 - 18 g/dL 04/28/2023 12:53 PM EDT [facility] TH[facility] CO2 Content 27.2 22 - 33 mmol/L 04/28/2023 12:53 PM EDT [facility] TH[facility] Temperature 37.0 C 04/28/2023 12:53 PM EDT [facility] THERAP[facility] Barometric Pressure for Blood Gas 04/28/2023 12:53 PM EDT [facility] Comment:N/A Modality Room Air 04/28/2023 12:53 PM EDT [facility] THERAPY FIO2 21 % 04/28/2023 12:53 PM EDT [facility] THERAP[facility] Rate 0 Breaths/m inute 04/28/2023 12:53 PM EDT [facility] THERAPY PIP 0 cmH2O 04/28/2023 12:53 PM EDT [facility] Comment:Meter: [id number] Manufacturing Process Technician: [id number] IPAP 0 04/28/2023 12:53 PM EDT [facility] TH[facility] EPAP 0 04/28/2023 12:53 PM EDT [facility] O2 Saturation Calculated 04/28/2023 12:53 PM EDT [facility] Comment:Calculated O2 satura tion result not reported at this site. Note 04/28/2023 12:53 PM EDT [facility] Notified Who Lance HERNANDEZ MD 04/28/2023 12:53 PM EDT [facility] THERAPY Notified By [id number] 04/28/2023 12:53 PM EDT [facility] THER[facility] Notified Time 04/28/2023 12:53 04/28/2023 12:53 PM EDT [facility] THERAPY Collection Time 12:53 PM EDT [facility] Cord Blood Venous Umbilical cord structure / Unknown 04/28/2023 12:48 PM EDT 04/28/2023 12:48 PM EDT us Madhuri Lei MD LAB BLOOD ORDERABLES Final Res ult [facility] TH[facility]AP[facility]
[address] * (ABNORMAL) Blood Gas, Arterial, Cord (04/28/2023 12:46 PM EDT) Site Umbilical 04/28/2023 12:51 PM EDT [facility] TH[facility] pH, Cord Arterial 7.10(LL) 7.22 - 7.30 pH Units 04/28/2023 12:51 PM EDT [facility] Comment:85 Value below criti cheri limit pCO2, Cord Arterial 81.6(HH) 43.3 - 54.9 mmHg 04/28/2023 12:51 PM EDT [facility] TH[facility] pO2, Cord Arterial 04/28/2023 12:51 PM EDT [facility] Comment:94 Value below repor table range < 2.0 HCO3, Cord Arterial 25.3(H) 16.9 - 20.5 mmol/L 04/28/2023 12:51 PM EDT [facility] TH[facility] Base Exc, Cord Arterial -7.1(L) 0.0 - 2.0 mmol/L 04/28/2023 12:51 PM EDT [facility] THERAPY O2 Sat, Cord Arterial 04/28/2023 12:51 PM EDT [facility] Comment:94 Value below repor table range < 3.3 Hemoglobin, Blood Gas 17.9 14 - 18 g/dL 04/28/2023 12:51 PM EDT [facility] TH[facility] CO2 Content 27.8 22 - 33 mmol/L 04/28/2023 12:51 PM EDT [facility] TH[facility] Temperature 37.0 C 04/28/2023 12:51 PM EDT [facility] THER[facility] Barometric Pressure for Blood Gas 04/28/2023 12:51 PM EDT [facility] Comment:N/A Modality Room Air 04/28/2023 12:51 PM EDT [facility] TH[facility] FIO2 21 % 04/28/2023 12:51 PM EDT [facility] TH[facility] Rate 0 Breaths/m inute 04/28/2023 12:51 PM EDT [facility] TH[facility] PIP 0 cmH2O 04/28/2023 12:51 PM EDT [facility] TH[facility] Comment:Meter: [id number] Manufacturing Process Technician: [id number] IPAP 0 04/28/2023 12:51 PM EDT [facility] THERAPY EPAP 0 04/28/2023 12:51 PM EDT [facility] THER[facility] Note 04/28/2023 12:51 PM EDT [facility] Notified Who Lance HERNANDEZ MD 04/28/2023 12:51 PM EDT [facility] THERAPY Notified By [id number] 04/28/2023 12:51 PM EDT [facility] THER[facility] Notified Time 04/28/2023 12:51 04/28/2023 12:51 PM EDT [facility] Cord Blood Arterial Umbilical cord structure / Unknown 04/28/2023 12:46 PM EDT 04/28/2023 12:47 PM EDT us Madhuri Lei MD LAB BLOOD ORDERABLES Final Res ult [facility] THERAPY
[address] [place] [address], * Tissue Pathology Exam (04/28/2023 12:39 PM EDT) Case Report Surgical Pathology Report ? Case: [id number] ? Authorizing Provider: ??Paulette Hernandez MD ? Collected: ? 04/28/2023 12:39 PM ? Ordering Location: ? [facility] ?? Received: ?04/28/2023 01:14 PM ? LABOR DELIVERY ? Pathologist: ? Estefani Garcia MD ? Specimen: ?Fallopian Tubes, Bilateral ? 04/29/2023 11:39 AM EDT [facility] Clinical Information Status post repeat low transverse section 04/29/2023 11:39 AM EDT [facility] Final Diagnosis BILATERAL FALLOPIAN TUBES, TUBAL LIGATION: Completely transected fallopian tubes 04/29/2023 11:39 AM T [facility] Gross Description 1. Fallopian Tubes, Bilateral. Received in formalin labeled bilateral fallopian tubes are 2 tortuous, fimbriated fallopian tubes which are undesignated as to laterality and average 5 cm in length by 0.7 cm in diameter. Sectioning of both tubes reveals a grossly unremarkable lumen. Counter Supervisor sections from both tubes are submitted separately in blocks 1A-1B. LDP 04/29/2023 11:39 AM T [facility] Microscopic Description The slides are reviewed and demonstrate histopathologic features supporting the above rendered diagnosis. 04/29/2023 11:39 AM EDT [facility] Tissue Both fallopian tubes / Unknown 04/28/2023 12:39 PM EDT 04/28/2023 1:14 PM EDT Paulette Hernandez MD PATHOLOGY/CYTOLOGY ORDERABLES Final Result [facility]
[address] [place] [address], * Fentanyl, Urine - Urine, Clean Catch (04/28/2023 10:11 AM EDT) Fentanyl, Urine Negative Negative 04/28/2023 11:25 AM EDT [facility] Urine Urine specimen obtained by clean catch procedure / Unknown Collection / Unknown 04/28/2023 10:11 AM EDT 04/28/2023 10:26 AM EDT [facility] - 04/28/2023 11:25 AM EDT Negative [...] Paulette Hernandez MD URINE ORDERABLES Final Result [facility]
[address] [place] [address], * Urine Drug Screen - Urine, Clean Catch (04/28/2023 10:11 AM EDT) THC, Screen, Urine Negative Negative 2022 10:42 AM EDT [facility] Phencyclidine (PCP), Urine Negative Negative 04/28/2023 10:42 AM EDT [facility] Cocaine Screen, Urine Negative Negative 04/28/2023 10:42 AM EDT [facility] Methamphetamine, Ur Negative Negative 04/28 10:42 AM EDT [facility] Opiate Screen Negative Negative 04/28/2023 10:42 AM EDT [facility] Amphetamine Screen, Urine Negative Negative 04/28/2023 10:42 AM EDT [facility] Benzodiazepine Screen, Urine Negative Negative 04/28/2023 10:42 AM EDT [facility] Tricyclic Antidepressants Screen Negative Negative 04/28/2023 10:42 AM EDT [facility] Methadone Screen, Urine Negative Negative 04/28/2023 10:42 AM EDT [facility] Barbiturates Screen, Urine Negative Negative 04/28/2023 10:42 AM EDT [facility] Oxycodone Screen, Urine Negative Negative 04/28/2023 10:42 AM EDT [facility] Propoxyphene Screen Negative Negative 04/28 10:42 AM T [facility] Buprenorphine, Screen, Urine Negative Negative 04/28/2023 10:42 AM T [facility] Urine Urine specimen obtained by clean catch procedure / Unknown Collection / Unknown 04/28/2023 10:11 AM EDT 04/28/2023 10:26 AM EDT [facility] - 04/28/2023 10:42 AM EDT Cutoff [...] particularly when unconfirmed results are used. ?? us Paulette Hernandez MD URINE ORDERABLES Final Result [facility]
[address] [id number], * ECG 12 Lead Dyspnea (04/28/2023 1:41 [...] was found Confirmed by KAJAL ??ROSIO GARDNER () on 05/06/2023 7:46:29 PM Referred By: MYRNA ? Confirmed By: ROSIO RDZ ??MD Procedure Note Rosio Rdz MD - 05/06/2023 [...] was found Confirmed by ROSIO RDZ MD () on 05/06/2023 7:46:29 PM Referred By: MYRNA Confirmed By: ROSIO DRZ MD Henok Ibarra III, MD ECG ORDERABLES Final R esult [facility] ECG * (ABNORMAL) CBC Auto Differential (04/28/2023 1:34 AM EDT) WBC 11.19(H) 3.40 - 10.80 10*3/mm3 04/28/2023 2:20 AM EDT [facility] RBC 4.17 3.77 - 5.28 10*6/mm3 04/28/2023 2:20 AM EDT [facility] Hemoglobin 12.6 12.0 - 15.9 g/dL 04/28/2023 2:20 AM EDT [facility] Hematocrit 38.2 34.0 - 46.6 % 04/28/2023 2:20 AM EDT [facility] MCV 91.6 79.0 - 97.0 fL 04/28/2023 2:20 AM EDT [facility] MCH 30.2 26.6 - 33.0 pg 04/28/2023 2:20 AM EDT [facility] MCHC 33.0 31.5 - 35.7 g/dL 04/28/2023 2:20 AM EDT [facility] RDW 17.5(H) 12.3 - 15.4 % 04/28/2023 2:20 AM EDT [facility] RDW-SD 58.0(H) 37.0 - 54.0 fl 04/28/2023 2:20 AM EDT [facility] MPV 11.9 6.0 - 12.0 fL 04/28/2023 2:20 AM EDT [facility] Platelets 178 140 - 450 10*3/mm3 04/28/2023 2:20 AM EDT [facility] Blood Venipuncture / Unknown 04/28/2023 1:34 AM EDT 04/28/2023 1:46 AM EDT Henok Ibarra III, MD LAB BLOOD ORDERABLES Fi nal Result [facility]
[address] [place] [address], * (ABNORMAL) Manual Differential (04/28/2023 1:34 AM EDT) Neutrophil % 61.0 42.7 - 76.0 % 04/28/2023 2:20 AM EDT [facility] Lymphocyte % 33.0 19.6 - 45.3 % 04/28/2023 2:20 AM EDT [facility] Monocyte % 4.0(L) 5.0 - 12.0 % 04/28/2023 2:20 AM EDT [facility] Eosinophil % 0.0(L) 0.3 - 6.2 % 04/28/2023 2:20 AM EDT [facility] Basophil % 0.0 0.0 - 1.5 % 04/28/2023 2:20 AM EDT [facility] Atypical Lymphocyte % 2.0 0.0 - 5.0 % 04/28/2023 2:20 AM EDT [facility] Neutrophils Absolute 6.83 1.70 - 7.00 10*3/mm3 04/28/2023 2:20 AM EDT [facility] Lymphocytes Absolute 3.92(H) 0.70 - 3.10 10*3/mm3 04/28/2023 2:20 AM EDT [facility] Monocytes Absolute 0.45 0.10 - 0.90 10*3/mm3 04/28/2023 2:20 AM EDT [facility] Eosinophils Absolute 0.00 0.00 - 0.40 10*3/mm3 04/28/2023 2:20 AM EDT [facility] Basophils Absolute 0.00 0.00 - 0.20 10*3/mm3 04/28/2023 2:20 AM EDT [facility] RBC Morphology Normal Normal 04/28/2023 2:20 AM EDT [facility] WBC Morphology Normal Normal 04/28/2023 2:20 AM EDT [facility] Platelet Morphology Normal Normal 04/28/2023 2:20 AM EDT [facility] Blood Venipuncture / Unknown 04/28/2023 1:34 AM EDT 04/28/2023 1:46 AM EDT Henok Ibarra III, MD LAB BLOOD ORDERABLES Fi nal Result Performing Organization Address [facility] Co de Phone Number [facility]
[address] [place] [address], * (ABNORMAL) Lactate Dehydrogenase (04/28/2023 1:34 AM EDT) LDH 231(H) 135 - 214 U/L 04/28/2023 2:04 AM EDT [facility] Blood Venipuncture / Unknown 04/28/2023 1:34 AM EDT 04/28/2023 1:37 AM EDT Henok Ibarra III, MD LAB BLOOD ORDERABLES Fi nal Result Performing Organization Address [facility] de Phone Number [facility]
[address] [place] [address], * Uric Acid (04/28/2023 1:34 AM EDT) Uric Acid 4.9 2.4 - 5.7 mg/dL 04/28/2023 2:04 AM EDT [facility] Comment:Falsely depressed re sults may occur on samples drawn from patients receiving N-Acetylcysteine (NAC) or Metamizole. Blood Venipuncture / Unknown 04/28/2023 1:34 AM EDT 04/28/2023 1:37 AM EDT us Henok Ibarra III, MD LAB BLOOD ORDERABLES Fi nal Result Performing Organization Address [facility] Co de Phone Number [facility]
[address] [place] [address], * Type & Screen (04/28/2023 1:34 AM EDT) ABO Type O 04/28/2023 2:32 AM EDT [facility] RH type Negative 04/28/2023 2:32 AM EDT [facility] Antibody Screen Negative 04/28/2023 2:32 AM EDT [facility] T&S Expiration Date 05/01/2023 11:59:59 PM 04/28/2023 2:32 AM EDT [facility] Blood Venipuncture / Unknown 04/28/2023 1:34 AM EDT 04/28/2023 1:54 AM EDT Henok Ibarra III, MD BLOOD BANK TEST ORDERAB LES Edited Result - Final [facility]
[address] [place] [address], * (ABNORMAL) Comprehensive Metabolic Panel (04/28/2023 1:34 AM EDT) Glucose 122(H) 65 - 99 mg/dL 04/28/2023 2:04 AM EDT [facility] BUN 10 6 - 20 mg/dL 04/28/2023 2:04 AM EDT [facility] Creatinine 0.64 0.57 - 1.00 mg/dL 04/28/2023 2:04 AM EDT [facility] Sodium 136 136 - 145 mmol/L 04/28/2023 2:04 AM EDT [facility] Potassium 4.1 3.5 - 5.2 mmol/L 04/28/2023 2:04 AM EDT [facility] Comment:Slight hemolysis det ected by analyzer. Results may be affected. Chloride 105 98 - 107 mmol/L 04/28/2023 2:04 AM [facility] CO2 21.0(L) 22.0 - 29.0 mmol/L 04/28/2023 2:04 AM [facility] Calcium 9.6 8.6 - 10.5 mg/dL 04/28/2023 2:04 AM [facility] Total Protein 6.4 6.0 - 8.5 g/dL 04/28/2023 2:04 AM [facility] Albumin 3.3(L) 3.5 - 5.2 g/dL 04/28/2023 2:04 AM [facility] ALT (SGPT) 24 1 - 33 U/L 04/28/2023 2:04 AM [facility] AST (SGOT) 35(H) 1 - 32 U/L 04/28/2023 2:04 AM [facility] Alkaline Phosphatase 170(H) 39 - 117 U/L 04/28/2023 2:04 AM [facility] Total Bilirubin 0.3 0.0 - 1.2 mg/dL 04/28/2023 2:04 AM [facility] Globulin 3.1 gm/dL 04/28/2023 2:04 AM [facility] Comment:Calculated Result A/G Ratio 1.1 g/dL 04/28/2023 2:04 AM [facility] BUN/Creatinine Ratio 15.6 7.0 - 25.0 04/28/2023 2:04 AM [facility] Anion Gap 10.0 5.0 - 15.0 mmol/L 04/28/2023 2:04 AM [facility] eGFR 121.3 >60.0 mL/min/1.7 3 04/28/2023 2:04 AM [facility] Blood Venipuncture / Unknown 04/28/2023 1:34 AM EDT 04/28/2023 1:37 AM T [facility] - 04/28/2023 2:04 AM EDT GFR Normal >60 Chronic Kidney Disease <60 Kidney Failure <15 Result [facility] Henok Ibarra III, MD LAB BLOOD ORDERABLES Fi nal Result [facility]
[address] [id number], * SCANNED - LABS (04/28/2023) Result [facility] LAB BLOOD ORDERABLES Final Re sult * Group B Streptococcus Culture - Swab, Vaginal/Rectum (04/19/2023) External Strep Group B Ag Negative Swab Rectum and vagina, CS / Unknown Narrative Resulting Agency Comment Result [facility] Provider MICROBIOLOGY - GENERAL OR DERABLES Final Result * GTT 1 Hour (01/19/2023) External GTT 1 Hour 159 Blood Narrative Resulting Agency Comment Result [facility] Provider LAB BLOOD ORDERABLES Liana l Result * HIV-1 Antibody, EIA (10/27/2022) External HIV Antibody Non-Reacti ve Blood Narrative Resulting Agency Comment Result [facility] Provider LAB BLOOD ORDERABLES Liana l Result * Rubella Antibody, IgG (10/27/2022) External Rubella Qual Non-Immune Blood Narrative Resulting Agency Comment Result [facility] Provider LAB BLOOD ORDERABLES Liana l Result * RPR (10/27/2022) External RPR Non-Reacti ve Blood Narrative Resulting Agency Comment Result [facility] Provider LAB BLOOD ORDERABLES Liana l Result * Hepatitis B Surface Antigen (10/27/2022) External Hepatitis B Surface Ag Negative Blood Narrative Resulting Agency Comment [facility] Provider LAB BLOOD ORDERABLES Liana l Result documented in this encounter Visit Diagnoses Not on filedocumented in this encounter Admitting Diagnoses Diagnosis Severe preeclampsia, third trimester documented in this encounter Administered Medications Inactive Administered Medications - up to 3 most recent administrations Medication Order MAR Action Action Date Dose Rate Site acetaminophen (TYLENOL) tablet 650 mg 650 mg, [...] Given 04/28/2023 1:03 PM EDT 10 mg Hydrocortisone (Perianal) (ANUSOL-HC) 2.5 % rectal cream [...] Hours, First dose on Marina 04/29/23 at 1800, Based on patient request - [...] Given 04/29/2023 11:33 PM EDT 600 mg lactated ringers infusion 75 mL/hr, Intravenous, Continuous, [...] 3:37 AM EDT 2 g/hr 50 mL/hr methylergonovine (METHERGINE) injection 200 mcg 200 mcg, Intramuscular, As Needed, hemorrhage, Starting on Wed04/28/23 at 1427, Group 2 ([place]) Hazardous Drug - Reproductive Risk Only - See Handling Guide miSOPROStol (CYTOTEC) tablet 800 mcg 800 mcg, Rectal, As Needed, hemorrhage, Starting on Wed04/28/23 at 1427, Group 2 ([place]) Hazardous Drug - Reproductive Risk Only - See Handling Guide ondansetron (ZOFRAN) injection 4 mg 4 mg, [...] Given 04/29/2023 3:44 PM EDT 5 mg vitamin tablet 1 tablet 1 tablet, Oral, [...] Given 04/29/2023 3:37 PM EDT 80 mg sodium chloride 0.9 % flush 10 mL [...] Lashell Leal RN)2100 (Given - Provider: Cornelia Alarcon, GLENN) 0244 (Given - Provider: Cornelia Alarcon, RN)0832 (Given - Provider: Luba Marrero, RN) ceFAZolin in Sodium Chloride (ANCEF) IVPB solution 3,000 mg (COMPLETED) 3,000 mg, Intravenous, at 200 mL/hr, Administer over 30 Minutes, Once, On Wed04/28/23 at 0245, For 1 dose, Caution: Look alike/sound alike drug alert. Refrigerate, Indications: Surgical Prophylaxis 1153 (New Bag - Provider: Ade Arias RN) Enoxaparin Sodium (LOVENOX) syringe 40 mg 40 mg, Subcutaneous, Every 12 Hours Scheduled, First dose on Marina 04/29/23 at 0100, Give subcutaneous in abdomen only. Do not massage site after injection., Indications: VTE Prophylaxis 0139 (Given - Provider: Angela Lyle RN)0752 (Given - Provider: Angela Collado, RN)0900 (Due)2100 (Given - Provider: Cornelia Alarcon RN) 0832 (Given - Provider: Luba Marrero, RN) fentaNYL citrate (PF) (SUBLIMAZE) injection 50 [...] Lashell Leal RN)2333 (Given - Provider: Cornelia Alarcon, GLENN) 0527 (Given - Provider: Cornelia Alarcon RN)1218 [...] grapefruit juice. 0133 (Given - Provider: Harrison Puga RN) oxytocin (PITOCIN) 30 units in 0.9% [...] used if indicated for bleeding. Group 2 ([place]) Hazardous Drug - Reproductive Risk Only - [...] used if indicated for bleeding. Group 2 ([place]) Hazardous Drug - Reproductive Risk Only - See Handling Guide 1426 (New Bag - Provider: Ade Arias RN) vitamin tablet 1 tablet 1 tablet, Oral, Daily, First dose on Wed04/28/23 at 1515 1544 (Given - Provider: Ade Arias RN) 0754 (Given - Provider: Angela Collado, RN)0900 (Due) 0832 (Given - Provider: Luba Marrero, RN) Sod Citrate-Citric Acid (BICITRA) solution 30 [...] Arias RN) 0830 (Stopped - Provider: Angela Collado RN) magnesium sulfate 20 GM/500ML infusion 2 g/hr (50 mL/hr), Intravenous, Continuous, Starting on Wed04/28/23 at 0245, For 72 hours, Indications: Preeclampsia 0335 (Stopped - Provider: Kojo Georges RN)0337 (New Bag - Provider: Kojo Georges RN)1036 (New Bag - Provider: Ade Arias RN)2027 (Due)2326 (New Bag - Provider: Angela Lyle RN) 0830 (Stopped - Provider: Angela Collado RN) PRN Medication Order 04/28/2023 04/29/2023 04/30/2023 [...] Do not open, crush, or chew capsule. 183 (Given - Provider: Ade Arias RN) 2333 [...] Starting on Wed04/28/23 at 1427, Group 2 ([place]) Hazardous Drug - Reproductive Risk Only - See Handling Guide miSOPROStol (CYTOTEC) tablet 800 mcg (CANCELED) 800 mcg, Rectal, As Needed, Hemorrhage, Starting on Wed04/28/23 at 0142, Group 2 ([place]) Hazardous Drug - Reproductive Risk Only - See Handling Guide 1356 (Given - Provider: Ade Arias RN) miSOPROStol (CYTOTEC) tablet 800 mcg 800 mcg, Rectal, As Needed, hemorrhage, Starting on Wed04/28/23 at 1427, Group 2 ([place]) Hazardous Drug - Reproductive Risk Only - [...] (Not Given: See Alt - Provider: Lashell Leal, GLENN)2333 (Not Given: See Alt - Provider: Cornelia [...] Lashell Leal, GLENN)2333 (Given - Provider: Cornelia Alarcon RN) 0527 (Given - Provider: Cornelia Alarcon RN) [...] used if indicated for bleeding. Group 2 ([place]) Hazardous Drug - Reproductive Risk Only - See Handling Guide Followed by oxytocin (PITOCIN) 30 units in 0.9% sodium chloride 500 mL (premix) () 250 mL/hr, Intravenous, Continuous, Starting on Wed04/28/23 at 0300, For 1 hour, Infuse at 250 ml/hr for remaining volume in bag. Group 2 ([place]) Hazardous Drug - Reproductive Risk Only - [...] ineffective. documented in this encounter Care Teams Sports Medicine Masseur Relationship Specialty Start Date End Date Provider, [place] [address] PCP - General 03/22/18 documented as of this encounter
--- OUTSIDE RECORDS SUMMARY | 2024-09-05 22:14 | XMS_ITS | Encounter Summary ---
Author Organization [facility] Address [address] [place] [address] Care Team Providers Care Barrel Rifler Operator Name Role Phone Provider, No Known Primary Care Provider Unavail able Reason for Visit * Reason Comments Med Refill Encounter Details Date Type Department Care Team (Late st Contact Info) Description 12/22/2018 Refill [facility] [address] [address] Kimo Farrell MD [address] [place] [id number] Social History Tobacco Use Types Packs/Day Years Used Date Smoking Tobacco: Former Cigarettes 2 12/2017 Smokeless Tobacco: Never Alcohol Use Standard Drinks/Week Comments No 0 (1 standard drink = 0.6 oz pur e alcohol) [place] Depression Scale Answer Date Recorded Retired [place] Depression Score 12 06/20/2018 Retired EPD Scale: Thought of Harming Self 06/20/2018 Comments No Sex and Gender Information Value Date Recorded Sex Assigned at Not on file Legal Sex Female 1:44 PM EDT Gender Identity Not on file Sexual Orientation Not on file documented as of this encounter Plan of Treatment Not on file documented as of this encounter Visit Diagnoses Not on filedocumented in this encounter Care Teams Barrel Rifler Operator Relationship Specialty Start Date End Date Provider, [place] [address] PCP - General 03/22/18 documented as of this encounter
--- OUTSIDE RECORDS SUMMARY | 2024-09-05 22:14 | XMS_ITS | Encounter Summary ---
Author Organization [facility] Address [address] [place] [address] Care Team Providers Care Sport Shoe Spike Assembler Name Role Phone Provider, No Known Primary Care Provider Unavail able Encounter Details Date Type Department Care Team (Late st Contact Info) Description 06/24/2018 Telephone [facility] OBGYN [address] [facility] [address] [place] [address] Kimo Farrell MD [address] [facility] [address] [place], [place] [id number] Social History Tobacco Use Types Packs/Day Years Used Date Smoking Tobacco: Former Cigarettes 2 12/2017 Smokeless Tobacco: Never Alcohol Use Standard Drinks/Week Comments No 0 (1 standard drink = 0.6 oz pur e alcohol) [place] Depression Scale Answer Date Recorded Retired [place] Depression Score 12 06/20/2018 Retired EPD Scale: Thought of Harming Self 06/20/2018 Comments No Sex and Gender Information Value Date Recorded Sex Assigned at Not on file Legal Sex Female 1:44 PM EDT Gender Identity Not on file Sexual Orientation Not on file documented as of this encounter Miscellaneous Notes * Telephone Encounter - Kimo Farrell MD - 06/24/2018 12:47 PM EDT She may try taking it at night right before she goes to sleep. * Telephone Encounter - Loli Manjarrez MA - 06/24/2018 11:03 AM EDT Taking celexa 20 mg for 4 days, causing nausea and racy heart beat. Advised patient to break it in half and try 10 mg for 2 weeks til she gets adjusted to it, increase the dose back to 20 mg after that. If no better to call back. * Telephone Encounter - Loli Manjarrez MA - 06/24/2018 10:46 AM EDT Called patient, message left to call back. * Telephone Encounter - Puja Melgoza - 06/24/2018 10:41 AM EDT Pt returning call. * Telephone Encounter - Loli Manjarrez MA - 06/24/2018 9:05 AM EDT Called patient, left message to call back. * Telephone Encounter - Nicole Parks RegSched Rep - 06/24/2018 8:39 AM EDT Jami pt called stating she started taking the Celexa that was given to her in the hospital and c/o making her heart race. Please advise pt on what she needs to do at [phone] documented in this encounter Plan of Treatment Not on file documented as of this encounter Visit Diagnoses Not on filedocumented in this encounter Care Teams Sport Shoe Spike Assembler Relationship Specialty Start Date End Date Provider, [place] [address] PCP - General 03/22/18 documented as of this encounter
--- OUTSIDE RECORDS SUMMARY | 2024-09-05 22:14 | XMS_ITS | Encounter Summary ---
Author Organization [facility] Address [address] [place] [address] Care Team Providers Care Oil Well Driller Name Role Phone Provider, No Known Primary Care Provider Unavail able Reason for Visit * Reason Comments Post-op c/s 06/19/18 Encounter Details Date Type Department Care Team (Late st Contact Info) Description 07/07/2018 11:10 AM EDT Office Visit [facility] OBGYN [address] [facility] [address] [place] [address] Kimo Farrell MD [address] [facility] [address] [place] [id number] Surgery follow-up (Primary Dx); delivery, repeat June 19, 2018-female; depression Social History Tobacco Use Types Packs/Day Years Used Date Smoking Tobacco: Former Cigarettes 2 12/2017 Smokeless Tobacco: Never Alcohol Use Standard Drinks/Week Comments No 0 (1 standard drink = 0.6 oz pur e alcohol) [place] Depression Scale Answer Date Recorded Retired [place] Depression Score 12 06/20/2018 Retired EPD Scale: Thought of Harming Self 06/20/2018 Comments No Sex and Gender Information Value Date Recorded Sex Assigned at Not on file Legal Sex Female 1:44 PM EDT Gender Identity Not on file Sexual Orientation Not on file documented as of this encounter Last Filed Vital Signs Vital Sign Reading Time Taken Comments Blood Pressure 122/70 07/07/2018 11:49 AM EDT Pulse - - Temperature - - Respiratory Rate 16 07/07/2018 11:49 AM EDT Oxygen Saturation - - Inhaled Oxygen Concentration - - Weight 104 kg (230 lb) 07/07/2018 11:49 AM EDT Height - - Body Mass Index 37.12 06/19/2018 9:01 PM EDT documented in this encounter Progress Notes * Kimo Farrell MD - 07/07/2018 11:10 AM EDT Subjective Chief Complaint Patient presents with ??? Post-op c/s 06/19/18 Merle Lyle is a 28 y.o. year old presenting to be seen for her post- operative visit. She had a . Currently she reports no problems with eating, bowel movements, voiding, or wounddrainage and pain is well controlled. Her appetite is normal. Baby is not sleeping at night partiesall night long. However she is feeling better smiling. She did have some tachycardia on the 20 mg of Celexa so cut that in half and is doing well without any tachycardia and in good spirits. She's here today with her son and believe mother. Activity levels normal. The following portions of the patient's history were reviewed and updated as appropriate:problem list, current medications and allergies Review of Systems no fever abnormal discharge Objective BP 122/70 Resp 16 Wt 104 kg (230 lb) ? Yes BMI 37.12 kg/m?? General: well developed; well nourished no acute distress appears stated age obese - Body mass index is 37.12 kg/m??. Abdomen: soft, non-tender; no masses no umbilical or inginual hernias are present no hepato-splenomegaly incision is healing, clean, dry and intact Pelvis: Not performed. Assessment 1. Doing well postoperatively. 2. Doing well with depression on Celexa 10 mg daily so we'll continue that she has enough to last until she'll see Ayesha Mejia for checkup Plan 1. As above for follow-up as needed. Medications Rx this encounter: No orders of the defined types were placed in this encounter. This note was electronically signed. Kimo Farrell MD July 07, 2018 documented in this encounter Plan of Treatment Not on file documented as of this encounter Visit Diagnoses Diagnosis Surgery follow-up- Primary delivery, repeat June 19, 2018-female depression Mental disorders of mother, complicating , childbirth, or the puerperium, unspecified as to episode of care documented in this encounter Care Teams Oil Well Driller Relationship Specialty Start Date End Date Provider, [place] [address] PCP - General 03/22/18 documented as of this encounter
--- OUTSIDE RECORDS SUMMARY | 2024-09-05 22:14 | XMS_ITS | Encounter Summary ---
[facility] Address [address] [place] [address] Care Team Providers Care Banquet Manager Name Role Phone Provider, No Known Primary Care Provider Unavail able Reason for Visit * Auth/Cert Specialty Diagnoses / Procedures Referred By Contac t Referred To Contact Diagnoses delivery delivered PROM (premature rupture of membranes) delivery delivered [O82] Procedures SECTION REPEAT*39 WKS* Referral ID Status Reason Start Date Expiration Date Visits Re quested Visits Authorized [id number] 1 1 Encounter Details Date Type Department Care Team (Late st Contact Info) Description 06/19/2018 10:29 PM EDT Anesthesia Event [facility] [address] [place] [id number] Cori Bullock DO [address] [place] [address] Anesthesia Record Procedure Summary Procedure Name Responsible Anesthesiologist Anesthesia Start Time Anesthesia Stop Time SECTION REPEAT (Abdomen) Cori Bullock DO 06/19/18222806/19/18 2336 Events Date Time Event Comment 06/19/2018 2114 AN Equip Check 2140 2229 An Start 2229 An Start Data 2236 Spinal Placed 2242 Quick Note Abdominal collin s taped up 2244 Anesthesia Ready 2256 Baby Delivered 2322 an stop data 2335 Handoff to RN The following has been [...] of report from the receiving PACU/ICU team 2670 An Stop Meds Name Total midazolam (VERSED) injection 2 mg metoclopramide (REGLAN) injection 10 mg famotidine (PEPCID) injection 20 mg ondansetron (ZOFRAN) injection 4 mg ePHEDrine injection 10 mg fentaNYL (SUBLIMAZE) injection 15 mcg morphine PF injection 0.5 mg/mL 0.1 mg oxytocin (PITOCIN) injection 60 Units bupivacaine PF (MARCAINE) injection 0.5% 2.5 mL lactated ringers infusion 2,100 mL * Agents No agents on file. * Blood No blood administrations on file. Lines, Drains, and Airways Type Details Placement Removal Peripheral IV Placement Date: 06/19/18; Catheter Size: 18 G; Orientation: Right, Lower; Location: Forearm; Removal Date: 06/21/18; Removal Time: 1345 06/19/18 0000 by Griselda Graham RN 06/21/18 1345 by Griselda Graham RN Urethral Catheter Placement Date: 06/19/18; Placement Time: 2240; Inserted by: Erica; Balloon Size: 10 mL; Urine Returned: Yes; Removal Date: 06/20/18; Removal Time: 1545 06/19/18 2240 by Jemima Bernard RN 06/20/18 1545 by Griselda Graham RN Wound 06/19/18; 2250; abdomen; incision; 01/16/23; 0853 06/19/18 2250 by Jemima Bernard RN 01/16/23 0853 by Cori Sales RN documented in this encounter Social History Tobacco Use Types Packs/Day Years Used Date Smoking Tobacco: Former Cigarettes 2 008 - 12/2017 Smokeless Tobacco: Never Alcohol Use Standard Drinks/Week Comments No 0 (1 standard drink = 0.6 oz pur e alcohol) [place] Depression Scale Answer Date Recorded Retired [place] Depression Score 12 06/20/2018 Retired EPD Scale: Thought of Harming Self 06/20/2018 Comments No Sex and Gender Information Value Date Recorded Sex Assigned at Not on file Legal Sex Female 1:44 PM EDT Gender Identity Not on file Sexual Orientation Not on file documented as of this encounter OR Notes * Anesthesia Postprocedure Evaluation - Deborah Pederson CRNA - 06/20/2018 8:52 AM EDT Patient: Merle Lyle Procedure Summary Date: 06/19/18 Room / Location: [facility] Anesthesia Start: 2228 Anesthesia Stop: 2335 Procedure: SECTION REPEAT (N/A Abdomen) Diagnosis: Surgeon: Sheng Santizo MD Provider: Cori Crawley DO Anesthesia Type: spinal, ITN ASA Status: 3 - Emergent Anesthesia Type: spinal, ITN Last vitals BP 129/62 (06/20/18714) Temp 98.4 ??F (36.9 ??C) (06/20/18714) Pulse 118 (06/20/18714) Resp 18 (06/20/18714) SpO2 93 % (06/20/18 0030) Post Anesthesia Care and Evaluation Patient location during evaluation: bedside Patient participation: complete - patient participated Level of consciousness: awake and alert Pain management: adequate Airway patency: patent Anesthetic complications: No anesthetic complications Cardiovascular status: acceptable Respiratory status: acceptable Hydration status: acceptable Post Neuraxial Block status: Motor and sensory function returned to baseline and No signs or symptoms of PDPH * Anesthesia Postprocedure Evaluation - Cori Crawley DO - 06/19/2018 11:35 PM EDT Patient: Merle Lyle Procedure Summary Date: 06/19/18 Room / Location: [facility] Anesthesia Start: 2228 Anesthesia Stop: Procedure: SECTION REPEAT (N/A Abdomen) Diagnosis: Surgeon: Shegn Santizo MD Provider: Cori Crawley DO Anesthesia Type: spinal, ITN ASA Status: 3 - Emergent Anesthesia Type: spinal, ITN Last vitals BP 111/52 Temp 97.9 Pulse 108 Resp 18 SpO2 100 Post Anesthesia Care and Evaluation Patient location during evaluation: bedside Patient participation: complete - patient participated Level of consciousness: awake and awake and alert Pain score: 0 Pain management: satisfactory to patient Airway patency: patent Anesthetic complications: No anesthetic complications PONV Status: none Cardiovascular status: acceptable Respiratory status: acceptable Hydration status: acceptable Post Neuraxial Block status: No signs or symptoms of PDPH * Anesthesia Procedure Notes - Cori Crawley DO - 06/19/2018 10:46 PM EDTAssociated Order(s): SPINAL Spinal Block Patient location during procedure: OB Indication:procedure for pain Performed By Anesthesiologist: CORI CRAWLEY Preanesthetic Checklist Completed: patient identified, surgical consent, pre-op evaluation, timeout performed, IV checked, risks and benefits discussed and monitors and equipment checked Spinal Block Prep: Patient Position:sitting Business Database Analyst:cap, gloves, mask and sterile barriers Prep:DuraPrep Patient Monitoring:blood pressure monitoring and EKG Spinal Block Procedure Approach:midline Guidance:palpation technique Location:L3-L4 Needle Type:Rachel Needle Gauge:25 G Placement of Spinal needle event:cerebrospinal fluid aspirated Paresthesia: no Fluid Appearance:clear Post Assessment Patient Tolerance:patient tolerated the procedure well with no apparent complications Complications no * Anesthesia Preprocedure Evaluation - Cori Crawley DO - 06/19/2018 9:39 PM EDT Anesthesia Evaluation Patient summary reviewed and Nursing notes reviewed NPO Solid Status: < 2 hours NPO Liquid Status: < 2 hours Airway Mallampati: III TM distance: <3 FB Neck ROM: full Difficult intubation highly probable and Small opening Dental Pulmonary - negative pulmonary ROS Cardiovascular - negative cardio ROS Neuro/Psych (+) psychiatric history Depression, GI/Hepatic/Renal/Endo (+) morbid obesity, Musculoskeletal (-) negative ROS Abdominal (+) obese, 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 documented in this encounter Plan of Treatment Not on file documented as of this encounter Procedures Procedure Name Priority Date/Time Associated Diagnosis Comments [facility] AN SPINAL TRAY Routine 06/19/2018 10:46 PM EDT NC AN SPINAL BLOCK PROCEDURE FOR PAIN Routine 06/19/2018 10:46 PM EDT documented in this encounter Results * NC AN SPINAL BLOCK PROCEDURE FOR PAIN, [facility] AN SPINAL TRAY (06/19/2018 10:46 PM EDT) Narrative Cori Crawley DO - 06/19/2018 10:46 PM EDT Cori Crawley DO ? 06/19/2018 10:46 PM Spinal Block Patient location during procedure: OB Indication:procedure for pain Performed By Anesthesiologist: CORI CRAWLEY Preanesthetic Checklist Completed: patient identified, surgical consent, pre-op evaluation, timeout performed, IV checked, risks and benefits discussed and monitors and equipment checked Spinal Block Prep: Patient Position:sitting Business Database Analyst:cap, gloves, mask and sterile barriers Prep:DuraPrep Patient Monitoring:blood pressure monitoring and EKG Spinal Block Procedure Approach:midline Guidance:palpation technique Location:L3-L4 Needle Type:Rachel Needle Gauge:25 G Placement of Spinal needle event:cerebrospinal fluid aspirated Paresthesia: no Fluid Appearance:clear Post Assessment Patient Tolerance:patient tolerated the procedure well with no apparent complications Complications no Procedure Note Cori Crawley DO - 06/19/2018 10:46 PM EDT Spinal Block Patient location during procedure: OB Indication:procedure for pain Performed By Anesthesiologist: CORI CRAWLEY Preanesthetic Checklist Completed: patient identified, surgical consent, pre-op evaluation,timeout performed, IV checked, risks and benefits discussed and monitorsand equipment checked Spinal Block Prep: Patient Position:sitting Business Database Analyst:cap, gloves, mask and sterile barriers Prep:DuraPrep Patient Monitoring:blood pressure monitoring and EKG Spinal Block Procedure Approach:midline Guidance:palpation technique Location:L3-L4 Needle Type:Rachel Needle Gauge:25 G Placement of Spinal needle event:cerebrospinal fluid aspirated Paresthesia: no Fluid Appearance:clear Post Assessment Patient Tolerance:patient tolerated the procedure well with no apparentcomplications Complications no Cori Crawley Dena DO ANESTHESIA ORDERAB LES Final Result documented in this encounter Visit Diagnoses Not on filedocumented in this encounter Administered Medications Inactive Administered Medications - up to 3 most recent administrations Medication Order MAR Action Action Date Dose Rate Site bupivacaine (PF) (MARCAINE) 0.5 % injection As Needed, Starting on 06/19/18 at 2236 Given 06/19/2018 10:36 PM EDT 2.5 mL ePHEDrine injection Intravenous, As Needed, Starting on 06/19/18 at 2248 Given 06/19/2018 10:48 PM EDT 10 mg famotidine (PEPCID) injection Intravenous, As Needed, Starting on 06/19/18 at 2130 Given 06/19/2018 9:30 PM EDT 20 mg fentaNYL citrate (PF) (SUBLIMAZE) injection As Needed, Severe Pain, Starting on 06/19/18 at 2236 Given 06/19/2018 10:36 PM EDT 15 mcg lactated ringers infusion 125 mL/hr, Intravenous, Continuous, Starting on 06/19/18 at 2200Indications: delivery delivered New Bag 06/20/2018 8:11 AM EDT 125 mL/hr 125 mL/hr New Bag 06/19/2018 11:18 PM EDT New Bag 06/19/2018 10:45 PM EDT metoclopramide (REGLAN) injection Intravenous, As Needed, Heartburn, Starting on 06/19/18 at 2128 Given 06/19/2018 9:28 PM EDT 10 mg midazolam (VERSED) injection Intravenous, As Needed, Starting on 06/19/18 at 2230 Given 06/19/2018 10:59 PM EDT 1 mg Given 06/19/2018 10:30 PM EDT 1 mg morphine PF (DURAMORPH) injection As Needed, Severe Pain, Starting on 06/19/18 at 2236 Given 06/19/2018 10:36 PM EDT 0.1 mg ondansetron (ZOFRAN) injection Intravenous, As Needed, Nausea, Vomiting, Starting on 06/19/18 at 2248 Given 06/19/2018 10:48 PM EDT 4 mg oxytocin (PITOCIN) injection Intravenous, As Needed, Starting on 06/19/18 at 2259 Given 06/19/2018 11:17 PM EDT 30 Units Given 06/19/2018 10:59 PM EDT 30 Units documented in this encounter Care Teams Banquet Manager Relationship Specialty Start Date End Date Provider, [place] [address] PCP - General 03/22/18 documented as of this encounter
--- OUTSIDE RECORDS SUMMARY | 2024-09-05 22:14 | XMS_ITS | Encounter Summary ---
[facility] Address [address] [place] [address] Care Team Providers Care Mobility Architect Name Role Phone Provider, No Known Primary Care Provider Unavail able Encounter Details Date Type Department Care Team (Late st Contact Info) Description 06/15/2018 Telephone [facility] [address] [address] [place] [address] Kimo Farrell MD [address] [place] [address] Social History Tobacco Use Types Packs/Day Years Used Date Smoking Tobacco: Former Cigarettes 2 - 12/2017 Smokeless Tobacco: Never Alcohol Use Standard Drinks/Week Comments No 0 (1 standard drink = 0.6 oz pur e alcohol) [place] Depression Scale Answer Date Recorded Retired [place] Depression Score 12 06/20/2018 Retired EPD Scale: Thought of Harming Self 06/20/2018 Comments Yes Sex and Gender Information Value Date Recorded Sex Assigned at Not on file Legal Sex Female 1:44 PM EDT Gender Identity Not on file Sexual Orientation Not on file documented as of this encounter Miscellaneous Notes * Telephone Encounter - Nicole Parks, Kin Rep - 06/15/2018 9:03 AM EDT Jami pt-mother of pt called requesting to speak to a nurse regarding patients visit with Dr. Farrell-has questions regarding a knot that was found. Please contact back at [phone] documented in this encounter Plan of Treatment Not on file documented as of this encounter Visit Diagnoses Not on filedocumented in this encounter Care Teams Mobility Architect Relationship Specialty Start Date End Date Provider, [place] [address] PCP - General 03/22/18 documented as of this encounter
--- OUTSIDE RECORDS SUMMARY | 2024-09-05 22:14 | XMS_ITS | Encounter Summary ---
[facility] [address] [place] [address] Care Team Providers Care Fitness Trainer Name Role Phone Provider, No Known Primary Care Provider Unavail able Encounter Details Date Type Department Care Team (Late st Contact Info) Description 12/23/2018 Telephone [facility] G[facility]OLOGY [address] [address] Kimo Farrell MD [address] [place] [address] Social History Tobacco Use Types Packs/Day Years Used Date Smoking Tobacco: Former Cigarettes 2 12/2017 Smokeless Tobacco: Never Alcohol Use Standard Drinks/Week Comments No 0 (1 standard drink = 0.6 oz pur e alcohol) [place] Depression Scale Answer Date Recorded Retired [place] Depression Score 12 06/20/2018 Retired EPD Scale: Thought of Harming Self 06/20/2018 Comments No Sex and Gender Information Value Date Recorded Sex Assigned at Not on file Legal Sex Female 1:44 PM EDT Gender Identity Not on file Sexual Orientation Not on file documented as of this encounter Miscellaneous Notes * Telephone Encounter - Loli Manjarrez MA - 12/23/2018 2:47 PM EDT Resent in wellbutrin refill documented in this encounter Plan of Treatment Not on file documented as of this encounter Visit Diagnoses Not on filedocumented in this encounter Care Teams Fitness Trainer Relationship Specialty Start Date End Date Provider, [place] [address] PCP - General 03/22/18 documented as of this encounter
--- OUTSIDE RECORDS SUMMARY | 2024-09-05 22:14 | XMS_ITS | Encounter Summary ---
[facility] Address [address] [place] [address] Care Team Providers Care Cryptographic Vulnerability Analyst Name Role Phone Provider, No Known Primary Care Provider Unavail able Reason for Visit * Reason Comments Headache Encounter Details Date Type Department Care Team (Late st Contact Info) Description 01/16/2023 6:13 AM EDT - 01/16/2023 10:27 AM EDT Emergency [facility] [address] [place] [id number] Suzanne Richey MD [address] [facility] [address] Frequent headaches (Primary Dx); 23 weeks gestation of ; Elevated glucose; Hypomagnesemia; Hypokalemia; CRP elevated; Numbness and tingling of both upper extremities Discharge Disposition: Home or Self Care Social History Tobacco Use Types Packs/Day Years Used Date Smoking Tobacco: Former Cigarettes 2 - 12/2017 Smokeless Tobacco: Never Alcohol Use Standard Drinks/Week Comments No 0 (1 standard drink = 0.6 oz pur e alcohol) [place] Depression Scale Answer Date Recorded Retired [place] Depression Score 12 06/20/2018 Retired EPD Scale: Thought of Harming Self 06/20/2018 Comments Yes Sex and Gender Information Value Date Recorded Sex Assigned at Not on file Legal Sex Female 1:44 PM EDT Gender Identity Not on file Sexual Orientation Not on file documented as of this encounter Last Filed Vital Signs Vital Sign Reading Time Taken Comments Blood Pressure 119/85 01/16/2023 9:00 AM EDT Pulse 102 01/16/2023 6:30 AM EDT Temperature 36.4 ??C (97.5 ??F) 01/16/2023 6:12 AM ED T Respiratory Rate 16 01/16/2023 6:12 AM EDT Oxygen Saturation 98% 01/16/2023 6:30 AM EDT Inhaled Oxygen Concentration - - Weight 111 kg (245 lb) 01/16/2023 6:28 AM EDT Height 167.6 cm (5' 6 ) 01/16/2023 6:28 AM EDT Body Mass Index 39.54 01/16/2023 6:28 AM EDT documented in this encounter Discharge Instructions * Discharge Instructions* Suzanne Richey MD - 01/16/2023 10:00 AM EDT Acetaminophen first and if that does not work for your headache try the Fioricet. * Attachments The following attachments cannot be sent through Care Everywhere. * Paresthesia Yqeb-kd-Ibip (Macanese) * Hyperglycemia Vdxq-yc-Nhui (Macanese) * General Headache Without Cause Mspy-sg-Dbsz (Macanese) * Hypomagnesemia (Macanese) * Second Trimester of (Macanese) * Acetaminophen Capsules or Tablets (Macanese) documented in this encounter Medications at Time of Discharge Vit-Fe Fumarate-FA ( VITAMIN 27-0.8) 27-0.8 MG tablet tablet Take 1 tablet by mouth Daily. magnesium 30 MG tablet Take 1 tablet by mouth Daily for 5 days. 5 tablet 01/16/2023 01/21/2023 potassium chloride 10 MEQ CR tablet Take 1 tablet by mouth Daily for 5 days. 5 tablet 01/16/2023 01/21/2023 acetaminophen (TYLENOL) 325 MG tablet Take 2 tablets by mouth Every 6 (Six) Hours As Needed for Mild Pain. 04/30/2023 butalbital-aceta minophen-caffein e (FIORICET, ESGIC) 50-325-40 MG per tabletIndication s:Frequent headaches Take 1 tablet by mouth Every 6 (Six) Hours As Needed for Headache for up to 12 doses. 12 tablet 01/16/2023 04/30/2023 ibuprofen (ADVIL,MOTRIN) 600 MG tabletIndication s: delivery delivered Take 1 tablet by mouth Every 6 (Six) Hours As Needed for Moderate Pain . 40 tablet 1 06/23/2018 04/28/2023 metoclopramide (REGLAN) 10 MG tablet Take 1 tablet by mouth 3 (Three) Times a Day. 30 tablet 06/23/2018 04/30/2023 omeprazole (priLOSEC) 20 MG capsule Take 1 capsule by mouth Daily. 04/30/2023 documented as of this encounter ED Notes * Suzanne Richey MD - 01/16/2023 6:38 AM EDT Subjective History of Present Illness This is a pleasant 32-year-old female who is right-handed. 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 That is because she just does not have the hours to work. She is accompanied by her sister. She is from [place]. Her PCP is in [place] and she sees Ayesha Avery is her nurse practitioner for OB but she is going to meet with a physician here next week for her delivery. She is currently 23 weeks and 4 days gestation. She has had 2 previous pregnancies. She had borderline diabetes with these but no high blood pressure or preeclampsia or eclampsia. She does not have high blood pressure at her baseline but has had some nausea with the when she had a GI bug a month ago and was on Reglan at that point. With her other pregnancies she really has not had much in the way of nausea. Her other was complicated by cellulitis. She is on a proton pump inhibitor that she takes as needed was okayed by her OB. She also has been treated for depression in the past. She has no history of migraine headaches. The only previous imaging she had of her brain waswhen she was in high school had blurry vision associated with headaches but had visual correction and that helped. She has had no recent change in glasses. She presents emergency room today with complaints of headache insidious in onset 7 days ago. Was fairly gradual but has been present every day and its worse at night. Does not seem to be positional. The headache is global. She does get a little blurring of her vision with it. She is taken Tylenol without relief of her headache. She talked to her Ayesha Avery and was referred to her primary care provider who did a viral panelon her as she had exposure to rhinovirus but this was apparently negative. The patient patient's continued to have headaches then developed swelling in her upper extremities but not her lower extremities. This has been on and off. She has had no chest pain. No pleurisy. No history of clotting. With this headache she has had numbness and tingling in her right hand that comes and goes. Initially she thought it was carpal tunnel syndrome and but an vkvk-pee-leyppgc brace but has not helped and then subsequently over the past 3 days she has developed numbness and some weakness in what she describes as her arms and shoulder muscles. This seems to come and go and again is not associated withposition. Her bowel movements been normal and her urination has been normal. She has had no rashes. She has had no trauma. She had no runny nose, sore throat, or cough. She tells me she is plagued by headaches really any in the past except as noted above. She is gained about 20 pounds so far in this in her previous pregnancies she grained 40 and 60 pounds respectively. Other systems reviewed and are negative except as noted above. Her sister did have preeclampsia and they were worried about this and sought an opinion here at our emergency department. Review of Systems All other systems reviewed and are negative. Past Medical History: Diagnosis Date ??? Anxiety and depression 2007 ??? Cellulitis 2017 Allergies Allergen Reactions ??? Bactrim [Sulfamethoxazole-Trimethoprim] Rash ??? Penicillins Rash Past Surgical History: Procedure Laterality Date ??? SECTION 08/22/2014 ??? SECTION N/A 06/19/2018 Procedure: SECTION REPEAT; Surgeon: Sheng Santizo MD; Location: [facility]; Service: Obstetrics/Gynecology History reviewed. No pertinent family history. Social History Socioeconomic History ??? Marital status: Single Tobacco Use ??? Smoking status: Former Types: Cigarettes Start date: 2007 Quit date: 12/2017 Years since quittin.1 ??? Smokeless tobacco: Never Substance and Sexual Activity ??? Alcohol use: No ??? Drug use: No ??? Sexual activity: Yes Partners: Male Objective Physical Exam Vitals and nursing note reviewed. Constitutional: Comments: This is a pleasant 32-year-old female who is alert and oriented GCS is 15. HENT: Head: Normocephalic and atraumatic. Right Ear: External ear normal. Left Ear: External ear normal. Nose: Nose normal. Mouth/Throat: Mouth: Mucous membranes are moist. Pharynx: Oropharynx is clear. Eyes: Extraocular Movements: Extraocular movements intact. Conjunctiva/sclera: Conjunctivae normal. Pupils: Pupils are equal, round, and reactive to light. Neck: Vascular: No carotid bruit. Comments: Neck is nontender she flexes and extends without difficulty. Thoracic spine is nontender lumbosacral spine is nontender. No mass or rash. Cardiovascular: Rate and Rhythm: Normal rate and regular rhythm. Pulses: Normal pulses. Heart sounds: Normal heart sounds. Pulmonary: Effort: Pulmonary effort is normal. Breath sounds: Normal breath sounds. Abdominal: Comments: BMI 39 soft and nontender I really think I can feel her uterus below the umbilicus but her size makes a accurate estimation difficult. Musculoskeletal: Cervical back: Normal range of motion and neck supple. No rigidity or tenderness. Comments: Equal pulses in her upper extremities and really no objective edema that she said her hands feel tight. Axilla without masses. She has no venous cords. Lower extremities equal pulses without edema, synovitis, or rash. Lymphadenopathy: Cervical: No cervical adenopathy. Skin: General: Skin is warm and dry. Capillary Refill: Capillary refill takes less than 2 seconds. Neurological: Mental Status: She is alert. Comments: Face is symmetric, voice is strong, tongue is midline. Vision, hearing, and speech are preserved. She has no focal weakness. She has no dysdiadochokinesis. She has some subjective numbness and tingling in her right hand but Tinel's and Phalen sign are negative. Her knee jerk reflexes are 2+ bilaterally. Her gait is normal. Procedures ED Course Recent Results (from the past 24 hour(s)) Comprehensive Metabolic Panel Collection Time: 01/16/23 6:42 AM Specimen: Blood Result Value Ref Range Glucose 205 (H) 65 - 99 mg/dL BUN 7 6 - 20 mg/dL Creatinine 0.52 (L) 0.57 - 1.00 mg/dL Sodium 137 136 - 145 mmol/L Potassium 3.4 (L) 3.5 - 5.2 mmol/L Chloride 103 98 - 107 mmol/L CO2 23.0 22.0 - 29.0 mmol/L Calcium 9.4 8.6 - 10.5 mg/dL Total Protein 6.3 6.0 - 8.5 g/dL Albumin 3.5 3.5 - 5.2 g/dL ALT (SGPT) 13 1 - 33 U/L AST (SGOT) 14 1 - 32 U/L Alkaline Phosphatase 74 39 - 117 U/L Total Bilirubin 0.2 0.0 - 1.2 mg/dL Globulin 2.8 gm/dL A/G Ratio 1.3 g/dL BUN/Creatinine Ratio 13.5 7.0 - 25.0 Anion Gap 11.0 5.0 - 15.0 mmol/L eGFR 128.4 >60.0 mL/min/1.73 Uric Acid Collection Time: 01/16/23 6:42 AM Specimen: Blood Result Value Ref Range Uric Acid 3.7 2.4 - 5.7 mg/dL TSH Collection Time: 01/16/23 6:42 AM Specimen: Blood Result Value Ref Range TSH 1.130 0.270 - 4.200 uIU/mL Magnesium Collection Time: 01/16/23 6:42 AM Specimen: Blood Result Value Ref Range Magnesium 1.4 (L) 1.6 - 2.6 mg/dL Procalcitonin Collection Time: 01/16/23 6:42 AM Specimen: Blood Result Value Ref Range Procalcitonin 0.07 0.00 - 0.25 ng/mL C-reactive Protein Collection Time: 01/16/23 6:42 AM Specimen: Blood Result Value Ref Range C-Reactive Protein 1.76 (H) 0.00 - 0.50 mg/dL CBC Auto Differential Collection Time: 01/16/23 6:42 AM Specimen: Blood Result Value Ref Range WBC 12.55 (H) 3.40 - 10.80 10*3/mm3 RBC 3.92 3.77 - 5.28 10*6/mm3 Hemoglobin 11.5 (L) 12.0 - 15.9 g/dL Hematocrit 35.8 34.0 - 46.6 % MCV 91.3 79.0 - 97.0 fL MCH 29.3 26.6 - 33.0 pg MCHC 32.1 31.5 - 35.7 g/dL RDW 16.6 (H) 12.3 - 15.4 % RDW-SD 55.0 (H) 37.0 - 54.0 fl MPV 10.5 6.0 - 12.0 fL Platelets 260 140 - 450 10*3/mm3 Neutrophil % 62.2 42.7 - 76.0 % Lymphocyte % 29.2 19.6 - 45.3 % Monocyte % 5.6 5.0 - 12.0 % Eosinophil % 1.3 0.3 - 6.2 % Basophil % 0.5 0.0 - 1.5 % Immature Grans % 1.2 (H) 0.0 - 0.5 % Neutrophils, Absolute 7.81 (H) 1.70 - 7.00 10*3/mm3 Lymphocytes, Absolute 3.67 (H) 0.70 - 3.10 10*3/mm3 Monocytes, Absolute 0.70 0.10 - 0.90 10*3/mm3 Eosinophils, Absolute 0.16 0.00 - 0.40 10*3/mm3 Basophils, Absolute 0.06 0.00 - 0.20 10*3/mm3 Immature Grans, Absolute 0.15 (H) 0.00 - 0.05 10*3/mm3 nRBC 0.0 0.0 - 0.2 /100 WBC BNP Collection Time: 01/16/23 6:42 AM Specimen: Blood Result Value Ref Range proBNP 30.7 0.0 - 450.0 pg/mL ECG 12 Lead Dyspnea Collection Time: 01/16/23 6:50 AM Result Value Ref Range QT Interval 336 ms QTC Interval 456 ms Urinalysis With Microscopic If Indicated (No Culture) - Urine, Clean Catch Collection Time: 01/16/23 7:02 AM Specimen: Urine, Clean Catch Result Value Ref Range Color, UA Yellow Yellow, Straw Appearance, UA Cloudy (A) Clear pH, UA 6.5 5.0 - 8.0 Specific [place], UA 1.013 1.001 - 1.030 Glucose, UA Negative Negative Ketones, UA Negative Negative Bilirubin, UA Negative Negative Blood, UA Negative Negative Protein, UA Negative Negative Leuk Esterase, UA Negative Negative Nitrite, UA Negative Negative Urobilinogen, UA 0.2 E.U./dL 0.2 - 1.0 E.U./dL Urinalysis, Microscopic Only - Urine, Clean Catch Collection Time: 01/16/23 7:02 AM Specimen: Urine, Clean Catch Result Value Ref Range RBC, UA 0-2 None Seen, 0-2 /HPF WBC, UA 0-2 None Seen, 0-2 /HPF Bacteria, UA None Seen None Seen, Trace /HPF Squamous Epithelial Cells, UA 3-6 (A) None Seen, 0-2 /HPF Hyaline Casts, UA 0-6 0 - 6 /LPF Methodology Automated Microscopy Note: In addition to lab results from this visit, the labs listed above may include labs taken at another facility or during a different encounter within the last 24 hours. Please correlate lab timeswith ED admission and discharge times for further clarification of the services performed during this visit. MRI Cervical Spine Without Contrast Final Result Impression: 1. Mild disc bulge and tiny central protrusion at C5-6 contributing to mild central canal stenosis.No high-grade foraminal stenosis. 2. No acute osseous abnormality. Electronically Signed: [employer] 01/16/2023 8:20 AM EDT Workstation ID: [id number] MRI Brain Without Contrast Final Result Impression: No acute intracranial abnormality, specifically negative for acute ischemia. Electronically Signed: [employer] 01/16/2023 8:12 AM EDT Workstation ID: [id number] Vitals: 01/16/23 0803 01/16/23 0820 01/16/23 0840 01/16/23 0900 BP: 134/92 130/85 132/93 119/85 BP Location: Patient Position: Pulse: Resp: Temp: TempSrc: SpO2: Weight: Height: Medications magnesium sulfate 2g/50 mL (PREMIX) infusion (0 g Intravenous Stopped 01/16/23 1015) potassium chloride (KLOR-CON) packet 20 mEq (20 mEq Oral Given 01/16/23 0858) ECG/EMG Results (last 24 hours) No results found for the last 24 hours. ECG 12 Lead Dyspnea Final Result Test Reason : Dyspnea Blood Pressure : */* mmHG Vent. Rate : 111 BPM Atrial Rate : 111 BPM P-R Int : 132 ms QRS Dur : 86 ms QT Int : 336 ms P-R-T Axes : 13 4 16 degrees QTc Int : 456 ms Sinus tachycardia Otherwise normal ECG No previous ECGs available Confirmed by SUZANNE RICHEY MD ([id number]) on 01/16/2023 6:55:01 AM Referred By: EDMD Confirmed By: SUZANNE SIMS reviewed by Suzanne Richey MD Medical Decision Making I have reviewed all available studies at the bedside with the patient. Her MRI of the brain and cervical spine are fairly bland. She has some degenerative disc changes but her brain shows nothing acute. Her labs are also bland. She has no proteinuria. Her magnesium and potassium levels a little bit low and they were repleted here. Her CRP is elevated but given the planus of her other labs likely this does not represent any sort of preeclamptic issue. Her glucose is elevated. She tells me she had a Sprite into biscuits and gravy prior to coming to the ED. She has had borderline diabetes associate with in the past I have asked her to follow-up with her OB to keep a close eye on this. I spoke with Dr. Munoz, on-call the patient's MATHEMATICS DEPARTMENT CHAIR. Her blood pressure has improved here with magnesium. He agrees this does not fit any particular pattern and does not seem like preeclampsia inthe patient's still early in her . However she will need careful outpatient monitoring. She is improved here after treatment of electrolyte deficiencies. On recheck she is resting comfortably. Neurologically she remains nonfocal. I have written her Fioricet as well as magnesium and potassium to use at home. He Darian reviewed. I asked her to keep her follow-up this week with her MATHEMATICS DEPARTMENT CHAIR and also to perhaps see her referring MATHEMATICS DEPARTMENT CHAIR for recheck. Also her primary care to help coordinate her care. She will need recheck of her electrolytes. She will return to the emergency department if worse in any way. All are agreeable with the plan 23 weeks gestation of : chronic illness or injury CRP elevated: undiagnosed new problem with uncertain prognosis Elevated glucose: undiagnosed new problem with uncertain prognosis Frequent headaches: complicated acute illness or injury with systemic symptoms Hypokalemia: acute illness or injury Hypomagnesemia: complicated acute illness or injury with systemic symptoms Numbness and tingling of both upper extremities: complicated acute illness or injury with systemic symptoms Amount and/or Complexity of Data Reviewed Labs: ordered. Decision-making details documented in ED Course. Radiology: ordered and independent interpretation performed. Decision-making details documented in ED Course. ECG/medicine tests: ordered and independent interpretation performed. Decision- making details documented in ED Course. Risk OTC drugs. Prescription drug management. Drug therapy requiring intensive monitoring for toxicity. Final diagnoses: Frequent headaches 23 weeks gestation of Elevated glucose Hypomagnesemia Hypokalemia CRP elevated Numbness and tingling of both upper extremities ED Disposition ED Disposition ED Disposition Discharge Condition Stable Comment -- Asia Valdes MD [address] [facility] [address] [place] [phone] Keep your appointment Wednesday. Ayesha Mejia, HIV PREVENTION SPECIALIST [address] [facility] [address] [facility] [address] Schedule an appointment as soon as possible for a visit Medication List New Prescriptions xzmkgnbwnk-dwwvojhdrqyjo-jufkulqc 50-325-40 MG per tablet Commonly known as: FIORICET, ESGIC Take 1 tablet by mouth Every 6 (Six) Hours As Needed for Headache for up to 12 doses. magnesium 30 MG tablet Take 1 tablet by mouth Daily for 5 days. potassium chloride 10 MEQ CR tablet Take 1 tablet by mouth Daily for 5 days. Where to Get Your Medications These medications were sent to [facility] [address] [place] [address] [phone] [place] [phone] [place] [id number] ?? gplmuueixq-jtubucpemgrgq-gxebdsck 50-325-40 MG per tablet ?? magnesium 30 MG tablet ?? potassium chloride 10 MEQ CR tablet Suzanne Richey MD 01/16/23 5230 documented in this encounter Plan of Treatment Not on file documented as of this encounter Procedures Procedure Name Priority Date/Time Associated Diagnosis Comments MRI CERVICAL SPINE WO CONTRAST STAT 01/16/2023 8:02 AM EDT MRI BRAIN WO CONTRAST STAT 01/16/2023 8:00 AM EDT URINALYSIS, MICROSCOPIC ONLY STAT 01/16/2023 7:02 AM EDT URINALYSIS W/ MICROSCOPIC IF INDICATED (NO CULTURE) STAT 01/16/2023 7:02 AM EDT ECG 12-LEAD STAT 01/16/2023 6:50 AM EDT PROCALCITONIN STAT 01/16/2023 6:42 AM EDT CBC WITH AUTO DIFFERENTIAL STAT 01/16/2023 6:42 AM EDT CBC AND DIFFERENTIAL STAT 01/16/2023 6:42 AM EDT C-REACTIVE PROTEIN STAT 01/16/2023 6: 42 AM EDT URIC ACID STAT 01/16/2023 6:42 AM EDT TSH STAT 01/16/2023 6:42 AM EDT B-TYPE NATRIURETIC PEPTIDE STAT 01/16/2023 6:42 AM EDT MAGNESIUM STAT 01/16/2023 6:42 AM EDT COMPREHENSIVE METABOLIC PANEL STAT 01/16/2023 6:42 AM EDT documented in this encounter Results * MRI Cervical Spine Without Contrast (01/16/2023 8:02 AM EDT) Anatomical Region Laterality Modality Spine, C-spine N/A Magnetic Resonan ce 01/16/2023 8:12 AM EDT Impressions 01/16/2023 8:20 AM EDT Impression: 1. Mild disc bulge and tiny central protrusion at C5-6 contributing to mild central canal stenosis. No high-grade foraminal stenosis. 2. No acute osseous abnormality. Electronically Signed: Sujit Hill 01/16/2023 8:20 AM EDT Workstation ID: [id number] Mario 01/16/2023 8:20 AM EDT MRI CERVICAL SPINE WO CONTRAST Date of Exam: 01/16/2023 7:10 AM EDT Indication: , arm numbness Comparison: None available. Technique: ??Routine multiplanar/multisequence sequence images of the cervical spine were obtained without contrast administration. ?? Findings: There is mild straightening of the cervical lordosis. Vertebral bodies are maintained in height. Mild disc desiccation at C5-6. No cervical cord signal abnormality. Cerebellar tonsils slightly low-lying. Visualized portions of intracranial structures without acute abnormality, better assessed on separately performed brain MRI. No paraspinal fluid collection. Noncontrast soft tissues of the neck are without acute abnormality. No cervical cord signal abnormality. C2-3: Negative for disc osteophyte complex. No canal stenosis or foraminal stenosis. C3-4: Negative for disc osteophyte complex. No canal stenosis or foraminal stenosis. C4-5: Negative for disc osteophyte complex. No canal stenosis or foraminal stenosis. C5-6: There is a mild posterior central disc bulge with tiny central protrusion partially effacing the ventral thecal sac. Mild central canal stenosis. Mild bilateral uncovertebral spurring. No significant foraminal stenosis. C6-7: Negative for disc osteophyte complex. No canal stenosis or foraminal stenosis. C7-T1: Negative for disc osteophyte complex. No canal stenosis or foraminal stenosis. Procedure Note Mouser, Sujit Mujica MD - 01/16/2023 MRI CERVICAL SPINE WO CONTRAST Date of Exam: 01/16/2023 7:10 AM EDT Indication: , arm numbness Comparison: None available. Technique: Routine multiplanar/multisequence sequence images of thecervical spine were obtained without contrast administration. Findings: There is mild straightening of the cervical lordosis. Vertebral bodies aremaintained in height. Mild disc desiccation at C5-6. No cervical cordsignal abnormality. Cerebellar tonsils slightly low-lying. Visualizedportions of intracranial structures without acute abnormality, better assessed on separately performed brainMRI. No paraspinal fluid collection. Noncontrast soft tissues of the neckare without acute abnormality. No cervical cord signal abnormality. C2-3: Negative for disc osteophyte complex. No canal stenosis or foraminalstenosis. C3-4: Negative for disc osteophyte complex. No canal stenosis or foraminalstenosis. C4-5: Negative for disc osteophyte complex. No canal stenosis or foraminalstenosis. C5-6: There is a mild posterior central disc bulge with tiny centralprotrusion partially effacing the ventral thecal sac. Mild central canalstenosis. Mild bilateral uncovertebral spurring. No significant foraminalstenosis. C6-7: Negative for disc osteophyte complex. No canal stenosis or foraminalstenosis. C7-T1: Negative for disc osteophyte complex. No canal stenosis orforaminal stenosis. IMPRESSION: Impression: 1. Mild disc bulge and tiny central protrusion at C5-6 contributing tomild central canal stenosis. No high-grade foraminal stenosis. 2. No acute osseous abnormality. Electronically Signed: Sujit Marianomarivel 01/16/2023 8:20 AM EDT Workstation ID: [id number] Suzanne Richey MD IMG MRI ORDERABLES Final Resu lt * MRI Brain Without Contrast (01/16/2023 8:00 AM EDT) Anatomical Region Laterality Modality Head, Neck N/A Magnetic Resonan ce 01/16/2023 8:03 AM EDT Impressions 01/16/2023 8:12 AM EDT Impression: No acute intracranial abnormality, specifically negative for acute ischemia. Electronically Signed: Sujit Hill 01/16/2023 8:12 AM EDT Workstation ID: [id number] Narrative 01/16/2023 8:12 AM EDT MRI BRAIN WO CONTRAST Date of Exam: 01/16/2023 7:10 AM EDT Indication: , headache, right hand numbness and tingling, bilateral upper extremity swelling Comparison: None available. Technique: ??Routine multiplanar/multisequence sequence images of the brain were obtained without contrast administration. Findings: There is no diffusion restriction to indicate acute ischemia. Negative for mass effect or midline shift. The ventricles and cortical sulci are normally configured. No intracranial hemorrhage. No abnormal extra axial fluid collection. No midline shift or mass effect. The major T2-weighted intracranial flow voids are patent. Paranasal sinuses are well-aerated. There is mild leftward deviation of the nasal septum. The mastoid air cells are well-aerated. Pituitary gland is normal in size. No suprasellar mass. Visualized portions of the upper cervical spine and cervical cord are without acute abnormality. Globes are intact. No retro-orbital abnormality. Procedure Note Mouser, Sujit Mujica MD - 01/16/2023 MRI BRAIN WO CONTRAST Date of Exam: 01/16/2023 7:10 AM EDT Indication: , headache, right hand numbness and tingling,bilateral upper extremity swelling Comparison: None available. Technique: Routine multiplanar/multisequence sequence images of the brainwere obtained without contrast administration. Findings: There is no diffusion restriction to indicate acute ischemia. Negative formass effect or midline shift. The ventricles and cortical sulci arenormally configured. No intracranial hemorrhage. No abnormal extra axialfluid collection. No midline shift or mass effect. The major T2-weighted intracranial flow voids are patent. Paranasal sinuses are well-aerated. There is mild leftward deviation ofthe nasal septum. The mastoid air cells are well-aerated. Pituitary glandis normal in size. No suprasellar mass. Visualized portions of the uppercervical spine and cervical cord are without acute abnormality. Globes are intact. No retro-orbitalabnormality. IMPRESSION: Impression: No acute intracranial abnormality, specifically negative for acuteischemia. Electronically Signed: Sujit Hill 01/16/2023 8:12 AM EDT Workstation ID: [id number] Suzanne Richey MD [facility] [place] MRI ORDERABLES Final Resu lt * (ABNORMAL) Urinalysis, Microscopic Only - Urine, Clean Catch (01/16/2023 7:02 AM EDT) RBC, UA 0-2 None Seen, 0-2 /HPF 01/16/2023 7:15 AM EDT [facility] WBC, UA 0-2 None Seen, 0-2 /HPF 01/16/2023 7:15 AM EDT [facility] Bacteria, UA None Seen None Seen, Trace /HPF 01/16/2023 7:15 AM EDT [facility] Squamous Epithelial Cells, UA 3-6(A) None Seen, 0-2 /HPF 01/16/2023 7:15 AM EDT [facility] Hyaline Casts, UA 0-6 0 - 6 /LPF 01/16/2023 7:15 AM EDT [facility] Methodology Automated Microscopy 01/16/2023 7:15 AM EDT [facility] Urine Urine specimen obtained by clean catch procedure / Unknown Collection / Unknown 01/16/2023 7:02 AM EDT 01/16/2023 7:10 AM EDT Suzanne Richey MD URINE ORDERABLES Final Result [facility]
[address] [place] [address], * (ABNORMAL) Urinalysis With Microscopic If Indicated (No Culture) - Urine, Clean Catch (01/16/2023 7:02 AM EDT) Color, UA Yellow Yellow, Straw 01/16/2023 7:14 AM EDT [facility] Appearance, UA Cloudy(A) Clear 01/16/2023 7:14 AM EDT [facility] pH, UA 6.5 5.0 - 8.0 01/16/2023 7:14 AM EDT [facility] Specific [place], UA 1.013 1.001 - 1.030 01/16/2023 7:14 AM EDT [facility] Glucose, UA Negative Negative 01/16/2023 7:14 AM EDT [facility] Ketones, UA Negative Negative 01/16/2023 7:14 AM EDT [facility] Bilirubin, UA Negative Negative 01/16/2023 7:14 AM EDT [facility] Blood, UA Negative Negative 01/16/2023 7:14 AM EDT [facility] Protein, UA Negative Negative 01/16/2023 7:14 AM EDT [facility] Leuk Esterase, UA Negative Negative 01/16/2023 7:14 AM EDT [facility] Nitrite, UA Negative Negative 01/16/2023 7:14 AM EDT [facility] Urobilinogen, UA 0.2 E.U./dL 0.2 - 1.0 E.U./dL 01/16/2023 7:14 AM EDT [facility] Urine Urine specimen obtained by clean catch procedure / Unknown Collection / Unknown 01/16/2023 7:02 AM EDT 01/16/2023 7:10 AM EDT Suzanne Richey MD URINE ORDERABLES Final Result [facility]
[address] [place] [address], * ECG 12 Lead Dyspnea (01/16/2023 6:50 AM EDT) QT Interval 336 ms ECG QTC Interval 456 ms ECG 01/16/2023 6:50 AM EDT 01/16/2023 6:55 AM EDT Narrative ECG - 01/16/2023 6:55 AM EDT Test Reason : Dyspnea Blood Pressure : ?? */* ?? mmHG Vent. Rate : 111 BPM ? Atrial Rate : 111 BPM ?? P-R Int : 132 ms ?QRS Dur : ??86 ms ?QT Int : 336 ms ? P-R-T Axes : ??13 ?? 4 ??16 degrees ?? QTc Int : 456 ms Sinus tachycardia Otherwise normal ECG No previous ECGs available Confirmed by OFELIA ??SUZANNE GARDNER ([id number]) on 01/16/2023 6:55:01 AM Referred By: EDMD ? Confirmed By: SUZANNE RICHEY ?? Procedure Note Suzanne Richey MD - 01/16/2023 Test Reason : Dyspnea Blood Pressure : */* mmHG Vent. Rate : 111 BPM Atrial Rate : 111 BPM P-R Int : 132 ms QRS Dur : 86 ms QT Int : 336 ms P-R-T Axes : 13 4 16 degrees QTc Int : 456 ms Sinus tachycardia Otherwise normal ECG No previous ECGs available Confirmed by SUZANNE RICHEY MD ([id number]) on 01/16/2023 6:55:01 AM Referred By: EDMD Confirmed By: SUZANNE RICHEY MD Suzanne Richey MD ECG ORDERABLES Final Result Performing Organization Address [facility] de Phone Number ECG * BNP (01/16/2023 6:42 AM EDT) proBNP 30.7 0.0 - 450.0 pg/mL 01/16/2023 7:26 AM EDT [facility] Blood Venipuncture / Unknown 01/16/2023 6:42 AM EDT 01/16/2023 7:02 AM EDT [facility] - 01/16/2023 7:26 AM EDT Among patients with dyspnea, NT-proBNP is highly sensitive for the detection of acute congestive heart failure. In addition NT-proBNP of <300 pg/ml effectively rules out acute congestive heart failure with 99% negative predictive value. Results may be falsely decreased if patient taking Biotin. Suzanne Richey MD LAB BLOOD ORDERABLES Final Re sult Performing Organization Address [facility] de Phone Number [facility]
[address] [place] [address], * (ABNORMAL) CBC Auto Differential (01/16/2023 6:42 AM EDT) WBC 12.55(H) 3.40 - 10.80 10*3/mm3 01/16/2023 6:56 AM EDT [facility] RBC 3.92 3.77 - 5.28 10*6/mm3 01/16/2023 6:56 AM EDT [facility] Hemoglobin 11.5(L) 12.0 - 15.9 g/dL 01/16/2023 6:56 AM EDT [facility] Hematocrit 35.8 34.0 - 46.6 % 01/16/2023 6:56 AM EDT [facility] MCV 91.3 79.0 - 97.0 fL 01/16/2023 6:56 AM EDT [facility] MCH 29.3 26.6 - 33.0 pg 01/16/2023 6:56 AM EDT [facility] MCHC 32.1 31.5 - 35.7 g/dL 01/16/2023 6:56 AM EDT [facility] RDW 16.6(H) 12.3 - 15.4 % 01/16/2023 6:56 AM EDT [facility] RDW-SD 55.0(H) 37.0 - 54.0 fl 01/16/2023 6:56 AM [facility] MPV 10.5 6.0 - 12.0 fL 01/16/2023 6:56 [facility] Platelets 260 140 - 450 10*3/mm3 01/16/2023 6:56 AM [facility] Neutrophil % 62.2 42.7 - 76.0 % 01/16/2023 6:56 AM [facility] Lymphocyte % 29.2 19.6 - 45.3 % 01/16/2023 6:56 AM [facility] Monocyte % 5.6 5.0 - 12.0 % 01/16/2023 6:56 AM [facility] Eosinophil % 1.3 0.3 - 6.2 % 01/16/2023 6:56 AM EDT [facility] Basophil % 0.5 0.0 - 1.5 % 01/16/2023 6:56 AM EDT [facility] Immature Grans % 1.2(H) 0.0 - 0.5 % 01/16/2023 6:56 AM [facility] Neutrophils, Absolute 7.81(H) 1.70 - 7.00 10*3/mm3 01/16/2023 6:56 AM EDT [facility] Lymphocytes, Absolute 3.67(H) 0.70 - 3.10 10*3/mm3 01/16/2023 6:56 AM EDT [facility] Monocytes, Absolute 0.70 0.10 - 0.90 10*3/mm3 01/16/2023 6:56 AM EDT [facility] Eosinophils, Absolute 0.16 0.00 - 0.40 10*3/mm3 01/16/2023 6:56 AM EDT [facility] Basophils, Absolute 0.06 0.00 - 0.20 10*3/mm3 01/16/2023 6:56 AM EDT [facility] Immature Grans, Absolute 0.15(H) 0.00 - 0.05 10*3/mm3 01/16/2023 6:56 AM EDT [facility] nRBC 0.0 0.0 - 0.2 /100 WBC 01/16/2023 6:56 AM EDT [facility] Blood Venipuncture / Unknown 01/16/2023 6:42 AM EDT 01/16/2023 6:47 AM EDT Suzanne Richey MD LAB BLOOD ORDERABLES Final Re sult Performing Organization Address [facility]/ZIP Co de Phone Number [facility]
[address] [place] [address], [place] [phone] * (ABNORMAL) C-reactive Protein (01/16/2023 6:42 AM EDT) [facility] C-Reactive Protein 1.76(H) 0.00 - 0.50 mg/dL 01/16/2023 8:12 AM EDT [facility] Blood Venipuncture / Unknown 01/16/2023 6:42 AM EDT 01/16/2023 7:02 AM EDT Suzanne Richey MD LAB BLOOD ORDERABLES Final Re sult [facility]
[address] [place] [address], * Procalcitonin (01/16/2023 6:42 AM EDT) Procalcitonin 0.07 0.00 - 0.25 ng/mL 01/16/2023 7:26 AM EDT [facility] Blood Venipuncture / Unknown 01/16/2023 6:42 AM EDT 01/16/2023 7:02 AM EDT Narrative [facility] - 01/16/2023 7:26 AM EDT As a Marker for Sepsis (Non-Neonates): 1. <0.5 ng/mL represents a low risk of severe sepsis and/or septic shock. 2. >2 ng/mL represents a high risk of severe sepsis and/or septic shock. As a Marker for Lower Respiratory Tract Infections that require antibiotic therapy: PCT on Admission ?Antibiotic Therapy ? 6-12 Hrs later >0.5 ?Strongly Recommended >0.25 - <0.5 ?Recommended 0.1 - 0.25 ?Discouraged ?Remeasure/reassess PCT <0.1 ?Strongly Discouraged ? Remeasure/reassess PCT As 28 day mortality risk marker: Change in Procalcitonin Result (>80% or <=80%) if Day 0 (or Day 1) and Day 4 values are available. Refer to http://www.cogycb-qih-[email or web address] Change in PCT <=80% A decrease of PCT levels below or equal to 80% defines a positive change in PCT test result representing a higher risk for 28-day all-cause mortality of patients diagnosed with severe sepsis for septic shock. Change in PCT >80% A decrease of PCT levels of more than 80% defines a negative change in PCT result representing a lower risk for 28-day all-cause mortality of patients diagnosed with severe sepsis or septic shock. us Suzanne Richey MD LAB BLOOD ORDERABLES Final Re sult Performing Organization Address City/[facility]/ZIP Co de Phone Number [facility]
[address] [place] [address], * (ABNORMAL) Magnesium (01/16/2023 6:42 AM EDT) Magnesium 1.4(L) 1.6 - 2.6 mg/dL 01/16/2023 7:20 AM EDT [facility] Blood Venipuncture / Unknown 01/16/2023 6:42 AM EDT 01/16/2023 7:02 AM EDT us Suzanne Richey MD LAB BLOOD ORDERABLES Final Re sult Performing Organization Address [facility] Co de Phone Number [facility]
[address] [place] [address], * TSH (01/16/2023 6:42 AM EDT) TSH 1.130 0.270 - 4.200 uIU/mL 01/16/2023 7:26 AM EDT [facility] Blood Venipuncture / Unknown 01/16/2023 6:42 AM EDT 01/16/2023 7:02 AM EDT us Suzanne Richey MD LAB BLOOD ORDERABLES Final Re sult Performing Organization Address [facility] Co de Phone Number [facility]
[address] [place] [address], [place] [phone] * Uric Acid (01/16/2023 6:42 AM EDT) Uric Acid 3.7 2.4 - 5.7 mg/dL 01/16/2023 7:20 AM EDT [facility] Comment:Falsely depressed re sults may occur on samples drawn from patients receiving N-Acetylcysteine (NAC) or Metamizole. Blood Venipuncture / Unknown 01/16/2023 6:42 AM EDT 01/16/2023 7:02 AM EDT Suzanne Richey MD LAB BLOOD ORDERABLES Final Re sult [facility]
[address] [place] [address], * (ABNORMAL) Comprehensive Metabolic Panel (01/16/2023 6:42 AM EDT) Glucose 205(H) 65 - 99 mg/dL 01/16/2023 7:20 AM EDT [facility] BUN 7 6 - 20 mg/dL 01/16/2023 7:20 AM EDT [facility] Creatinine 0.52(L) 0.57 - 1.00 mg/dL 01/16/2023 7:20 AM EDT [facility] Sodium 137 136 - 145 mmol/L 01/16/2023 7:20 AM EDT [facility] Potassium 3.4(L) 3.5 - 5.2 mmol/L 01/16/2023 7:20 AM EDT [facility] Comment:Slight hemolysis det ected by analyzer. Results may be affected. Chloride 103 98 - 107 mmol/L 01/16/2023 7:20 AM EDT [facility] CO2 23.0 22.0 - 29.0 mmol/L 01/16/2023 7:20 AM EDT [facility] Calcium 9.4 8.6 - 10.5 mg/dL 01/16/2023 7:20 AM EDT [facility] Total Protein 6.3 6.0 - 8.5 g/dL 01/16/2023 7:20 AM EDT [facility] Albumin 3.5 3.5 - 5.2 g/dL 01/16/2023 7:20 AM EDT [facility] ALT (SGPT) 13 1 - 33 U/L 01/16/2023 7:20 AM EDT [facility] AST (SGOT) 14 1 - 32 U/L 01/16/2023 7:20 AM EDT [facility] Alkaline Phosphatase 74 39 - 117 U/L 01/16/2023 7:20 AM EDT [facility] Total Bilirubin 0.2 0.0 - 1.2 mg/dL 01/16/2023 7:20 AM EDT [facility] Globulin 2.8 gm/dL 01/16/2023 7:20 AM [facility] Comment:Calculated Result A/G Ratio 1.3 g/dL 01/16/2023 7:20 AM T [facility] BUN/Creatinine Ratio 13.5 7.0 - 25.0 01/16/2023 7:20 AM EDT [facility] Anion Gap 11.0 5.0 - 15.0 mmol/L 01/16/2023 7:20 AM [facility] eGFR 128.4 >60.0 mL/min/1.7 3 01/16/2023 7:20 AM [facility] Blood Venipuncture / Unknown 01/16/2023 6:42 AM EDT 01/16/2023 7:02 AM EDT Narrative [facility] - 01/16/2023 7:20 AM EDT GFR Normal >60 Chronic Kidney Disease <60 Kidney Failure <15 us Suzanne Richey MD LAB BLOOD ORDERABLES Final Re sult [facility]
[address] [place] [address], documented in this encounter Visit Diagnoses Diagnosis Frequent headaches- Primary 23 weeks gestation of Elevated glucose Other abnormal glucose Hypomagnesemia Disorders of magnesium metabolism Hypokalemia Hypopotassemia CRP elevated Elevated C-reactive protein (CRP) Numbness and tingling of both upper extremities documented in this encounter Administered Medications Inactive Administered Medications - up to 3 most recent administrations Medication Order MAR Action Action Date Dose Rate Site magnesium sulfate 2g/50 mL (PREMIX) infusion 2 g, Intravenous, Administer over 1 Hours, Once, On 01/16/23 at 0846, For 1 dose New Bag 01/16/2023 8:55 AM EDT 2 g potassium chloride (KLOR-CON) packet 20 mEq 20 mEq, Oral, Once, On 01/16/23 at 0846, For 1 dose, For use with a feeding tube. Mix in at least 4 oz. of liquid. Given 01/16/2023 8:58 AM EDT 20 mEq documented in this encounter Active and Recently Administered Medications Times are shown in EDT. Scheduled Medication Order 01/14/2023 01/15/2023 01/16/2023 magnesium sulfate 2g/50 mL (PREMIX) infusion (COMPLETED) 2 g, Intravenous, Administer over 1 Hours, Once, On 01/16/23 at 0846, For 1 dose 0855 (New Bag - Prov ider: Cori Sales RN)1015 (Stopped - Provider: Cori Sales RN) potassium chloride (KLOR-CON) packet 20 mEq (COMPLETED) 20 mEq, Oral, Once, On 01/16/23 at 0846, For 1 dose, For use with a feeding tube. Mix in at least 4 oz. of liquid. 0858 (Given - Provid er: Cori Sales RN) documented in this encounter Care Teams Cryptographic Vulnerability Analyst Relationship Specialty Start Date End Date Provider, [place] [address] PCP - General 03/22/18 documented as of this encounter
--- OUTSIDE RECORDS SUMMARY | 2024-09-05 22:14 | XMS_ITS | Encounter Summary ---
Author Organization [facility] Address [address] [place] [address] Care Team Providers Care Building Surveyor Name Role Phone Provider, No Known Primary Care Provider Unavail able Encounter Details Date Type Department Care Team (Late st Contact Info) Description 07/29/2018 Telephone [facility] [address] [address] Kimo Oglesby MD [address] [place] [address] Social History Tobacco Use Types Packs/Day Years Used Date Smoking Tobacco: Former Cigarettes 2 12/2017 Smokeless Tobacco: Never Alcohol Use Standard Drinks/Week Comments No 0 (1 standard drink = 0.6 oz pur e alcohol) [place] Depression Scale Answer Date Recorded Retired [place] Depression Score 12 06/20/2018 Retired EPD Scale: Thought of Harming Self 06/20/2018 Comments No Sex and Gender Information Value Date Recorded Sex Assigned at Not on file Legal Sex Female 1:44 PM EDT Gender Identity Not on file Sexual Orientation Not on file documented as of this encounter Miscellaneous Notes * Telephone Encounter - Loli Manjarrez MA - 07/29/2018 1:06 PM EDT Called patient, advised that medication sent in. * Telephone Encounter - Niurka Quinteros - 07/29/2018 12:03 PM EDT RENY COUGHLIN IS CALLING AND WANTED TO KNOW IF DR OGLESBY WAS CALLING HER SOMETHING IN - SAID SHE SPOKE TO SOMEONE YESTERDAY THEY HAD CALLED AND ASKED HER IF SHE HAD EVER TRIED WELLBUTRIN -- AND SHE DIDN'T HEAR BACK FROM THEM- SHE IS BEGGING FOR SOMETHING FOR THE POST DEPRESSION SHE SATES ITS REALLY BAD - I TOLD HER I WOULD PASS ALONG THIS MESSAGE LEANDRO documented in this encounter Plan of Treatment Not on file documented as of this encounter Visit Diagnoses Not on filedocumented in this encounter Care Teams Building Surveyor Relationship Specialty Start Date End Date Provider, [place] [address] PCP - General 03/22/18 documented as of this encounter
--- OUTSIDE RECORDS SUMMARY | 2024-09-05 22:14 | XMS_ITS | Encounter Summary ---
Author Organization [facility] Address [address] [place] [address] Care Team Providers Care C Python Developer Name Role Phone Provider, No Known Primary Care Provider Unavail able Reason for Referral * Surgical (Routine) - Canceled Specialty Diagnoses / Procedures Referred By Hector rice Referred To Contact Diagnoses delivery delivered Procedures Case Request Kimo Farrell MD Phone: tel: fax: [facility] [address] [place] [address] Referral ID Status Reason Start Date Expiration Date V isits Requested Visits Authorized [id number] Canceled 06/06/2018 06/06/2019 1 1 Reason for Visit * Reason Comments Routine Visit irreg ctx's/ need s to schedule C/S Encounter Details Date Type Department Care Team (Late st Contact Info) Description 06/06/2018 11:30 AM EDT Office Visit [facility] [address] [facility] [address] [place] [address] Kimo Farrell MD [address] [facility] [address] [place] [id number] Morbid obesity with BMI of 40.0-44.9, adult; 35 weeks gestation of ; delivery delivered Social History Tobacco Use Types Packs/Day Years Used Date Smoking Tobacco: Former Cigarettes 2 - 12/2017 Smokeless Tobacco: Never Alcohol Use Standard Drinks/Week Comments No 0 (1 standard drink = 0.6 oz pur e alcohol) Comments Yes Sex and Gender Information Value Date Recorded Sex Assigned at Not on file Legal Sex Female 1:44 PM EDT Gender Identity Not on file Sexual Orientation Not on file documented as of this encounter Last Filed Vital Signs Vital Sign Reading Time Taken Comments Blood Pressure 118/70 06/06/2018 12:05 PM EDT Pulse - - Temperature - - Respiratory Rate 16 06/06/2018 12:05 PM EDT Oxygen Saturation - - Inhaled Oxygen Concentration - - Weight 120 kg (265 lb) 06/06/2018 12:05 PM EDT Height - - Body Mass Index 42.77 06/02/2018 6:35 PM EDT documented in this encounter Progress Notes * Kimo Farrell MD - 06/06/2018 11:30 AM EDT Chief Complaint Patient presents with ??? Routine Visit irreg ctx's/ needs to schedule C/S HPI: Merle is a currently at 35w5d who today reports the following: She was discharged Wednesday by Dr. Munoz. I've discussed this case with him Wednesday afternoon. She was admitted by Dr. Carias for presumed cellulitis and her panniculus. Was very red and tender to his examination and 9. White count was minimally elevated she was afebrile. She was discharged home on Wednesday as mentioned and presented to the emergency room at [facility] on Wednesday. I explained to her that it's highly unusual to have a infection in the panniculus that Dr. Munoz at that this was very tender simply from right being and being inflamed. He mentioned that he didn't plan to do any imaging and I would agree with fat. He did send her home on 10 day course of Keflex which I think is helping this continue to resolve. Discussed with her difficult diagnostic situation has we don't know exactly the best course of action. Important thing is she is feeling better. Discussed that she plans another repeat section even know baby is not breech. She had along 2 day induction and then a section doesn't want to do that again. The option of checking her cervix neck suite the group B strep and making decision at that time. However she would rather have this scheduled around 39 weeks. I discussed that I can probably do it on Wednesday the easier than the and she is agreeable. is with her today. Contractions - YES - but less than 4/hour AND no associated change in vaginal discharge; Leaking - No; Vaginal bleeding - No; Swelling of extremities - YES. ROS: GI: Nausea - No; Constipation - No; Diarrhea - No Neuro: Headache - No; Visual change - No EXAM: Vitals: See flowsheet Abdomen: See flowsheet Urine glucose/protein: See flowsheet Pelvic: See flowsheet MDM: Impression: 1. Supervision of high risk 2. Previous C/S with planned repeat C/S 3. Probable abdominal cellulitis of unknown etiology which is improving 4. Polyhydramnios with elevated 1 hour Glucola but normal follow-up sugars in the hospital recently. Tests done today: 1. none Topics discussed: 1. Continue with PNV's 2. labs reviewed 3. labor signs and symptoms 4. no shaving in advanced of scheduled Tests scheduled today for her next visit: She was see Ayesha Justinyazan is scheduled in 2 days and then I'll see her next week and we'll finalizeplanning for repeat section documented in this encounter Plan of Treatment Not on file documented as of this encounter Visit Diagnoses Diagnosis Morbid obesity with BMI of 40.0-44.9, adult 35 weeks gestation of delivery delivered delivery, without mention of indication, delivered, with or without mention of antepartum condition documented in this encounter Care Teams C Python Developer Relationship Specialty Start Date End Date Provider, [place] [address] PCP - General 03/22/18 documented as of this encounter
--- OUTSIDE RECORDS SUMMARY | 2024-09-05 22:14 | XMS_ITS | Encounter Summary ---
[facility] Address [address] [place] [address] Care Team Providers Care Room Service Food Server Name Role Phone Provider, No Known Primary Care Provider Unavail able Reason for Visit * Reason Comments Elevated Blood Pressure * Auth/Cert (Routine) Specialty Diagnoses / Procedures Referred By Contac t Referred To Contact Procedures SECTION REPEAT Referral ID Status Reason Start Date Expiration Date Visits Re quested Visits Authorized [id number] 1 1 Encounter Details Date Type Department Care Team (Late st Contact Info) Description 04/09/2023 2:02 PM EDT - 04/09/2023 6:34 PM EDT Hospital Encounter [facility] [id number] Madhuri Lei MD [address] [place] [address] Sheng Santizo MD [address] [facility] [address] [place] [address] Discharge Disposition: Home or Self Care Social History Tobacco Use Types Packs/Day Years Used Date Smoking Tobacco: Former Cigarettes 1 14.8 2 008 - 08/2022 Smokeless Tobacco: Never Tobacco Cessation:Counseling Given: Not Answered Alcohol Use Standard Drinks/Week Comments No 0 (1 standard drink = 0.6 oz pur e alcohol) [place] Depression Scale Answer Date Recorded Retired [place] Depression Score 12 06/20/2018 Retired EPD Scale: Thought of Harming Self 06/20/2018 Comments Yes Sex and Gender Information Value Date Recorded Sex Assigned at Not on file Legal Sex Female 1:44 PM EDT Gender Identity Not on file Sexual Orientation Not on file documented as of this encounter Last Filed Vital Signs Vital Sign Reading Time Taken Comments Blood Pressure 109/65 04/09/2023 4:12 PM EDT Pulse 78 04/09/2023 4:12 PM EDT Temperature 36.4 ??C (97.6 ??F) 04/09/2023 2:37 PM ED T Respiratory Rate 16 04/09/2023 2:37 PM EDT Oxygen Saturation - - Inhaled Oxygen Concentration - - Weight - - Height - - Body Mass Index - - documented in this encounter Discharge Instructions * Attachments The following attachments cannot be sent through Care Everywhere. * Hypertension During [id number] (Nauruan) documented in this encounter Medications at Time [...] tablet 04/30/2023 10:16 AM EDT 04/30/2023 05/05/2023 acetaminophen (TYLENOL) 325 MG tablet Take 2 tablets by mouth Every 6 (Six) Hours As Needed for Mild Pain. 04/30/2023 butalbital-aceta minophen-caffein e (FIORICET, ESGIC) 50-325-40 MG per tabletIndication s:Frequent headaches Take 1 tablet by mouth Every 6 (Six) Hours As Needed for Headache for up to 12 doses. 12 tablet 01/16/2023 04/30/2023 calcium carbonate (TUMS) 500 MG chewable tablet Chew 2 tablets Daily. 04/30/2023 ferrous sulfate 325 (65 FE) MG tablet Take 1 tablet by mouth Daily With Breakfast. 04/30/2023 ibuprofen (ADVIL,MOTRIN) 600 MG tabletIndication s: [...] Daily. 04/30/2023 documented as of this encounter H&P Notes * Sheng Santizo MD - 04/09/2023 6:26 PM EDT Images from the original note were not included. [facility] Obstetric History and Physical Chief Complaint Patient presents with Elevated Blood Pressure HPI: Patient is a 33 y.o. female currently at 35w4d, who presents with an elevated blood pressure at home and at a chiropractor's office. She denies headache, vision changes, and RUQ. She denies contractions, vaginal bleeding and leaking. +FM. The following portions of the patients history were reviewed and updated as appropriate: current medications, allergies, past medical history, past surgical history, past family history, past social history and problem list . Information: Maternal Labs Blood Type ABO Type Date Value Ref Range Status 04/09/2023 O Final Rh Status RH type Date Value Ref Range Status 04/09/2023 Negative Final Antibody Screen Antibody Screen Date Value Ref Range Status 04/09/2023 Positive Final Gonnorhea No results found for: GCCX Chlamydia [...] First Stage Name: DAMIAN IZQUIERDO Obstetric Comments 2014 - Raymundo 2018 - Past Medical History: Past Medical History: Diagnosis Date Anemia Anxiety and depression 2007 Asthma Cellulitis 2018 Past Surgical History Past Surgical History: Procedure Laterality Date SECTION 08/22/2014 SECTION N/A 06/19/2018 Procedure: SECTION REPEAT; Surgeon: Sheng Santizo MD; Location: [facility]; Service: Obstetrics/Gynecology Family History: No family history on file. Social History: reports that she quit smoking about 7 months ago. Her smoking use included cigarettes. She started smoking about 15 years ago. She smoked an average of 1 pack per day. She has never used smokeless tobacco. reports no history of alcohol use. reports no history of drug use. Review of Systems Denies fever, CP, Shortness of air, muscle weakness, and rashes Objective Vital Signs Range for the last 24 hours Temperature: Temp: [97.6 ??F (36.4 ??C)] 97.6 ??F (36.4 ??C) Temp Source: Temp src: Oral BP: BP: (109-132)/(65-80) 109/65 Pulse: Heart Rate: [78-94] 78 Respirations: Resp: [16] 16 SPO2: O2 Amount (l/min): O2 Devices Weight: Physical Examination: General appearance - alert, well appearing, and in no distress and oriented to person, place, and time Chest - clear to auscultation, no wheezes, rales or rhonchi, symmetric air entry Heart - S1 and S2 normal, no murmurs noted Abdomen - soft, nontender, nondistended, no masses or organomegaly no rebound tenderness noted bowel sounds normal No guarding, No RUQ pain Extremities - pedal edema +2 Heart Rate Assessment Method: HR Assessment Method: external Beats/min: HR (beats/min): 145 Baseline: HR Baseline: indeterminate Varibility: HR Variability: moderate (amplitude range 6 to 25 bpm) Accels: HR Accelerations: absent Decels: HR Decelerations: absent Tracing Category: Uterine Assessment Method: Method: external tocotransducer Frequency (min): Contraction Frequency (Minutes): x1 Ctx Count in 10 min: Duration: Intensity: Contraction Intensity: no contractions Intensity by IUPC: Resting Tone: Resting Tone by IUPC: Arrey Units: NST Indication: Elevated blood pressure Start time : 1430 End time: 1530 15 x 15 accels x 2 Yes No decels Baseline 140s Reactive NST - Yes Laboratory Results: Lab Results Component Value Date PLT 184 04/09/2023 HGB 11.2 (L) 04/09/2023 HCT 34.9 04/09/2023 WBC 11.81 (H) 04/09/2023 Lab Results Component Value Date HGB 11.2 (L) 04/09/2023 PLT 184 04/09/2023 AST 21 04/09/2023 ALT 17 04/09/2023 LDH 179 04/09/2023 URICACID 4.8 04/09/2023 BUN 7 01/16/2023 CREATININE 0.59 04/09/2023 GLUCOSE 205 (H) 01/16/2023 Assessment/Plan 1. Intrauterine at 35w4d weeks gestation with reactive status 2. Elevated blood pressure - normotensive here, No evidence of pre-eclampsia 3. Given education and reassurance 4. Questions answered 5. D/C home. Sheng Santizo MD 04/09/2023 18:26 EDT documented in this encounter Plan of Treatment Not on file documented as of this encounter Procedures Procedure Name Priority Date/Time Associated Diagnosis Comments PRE-ECLAMPSIA PANEL Routine 04/09/2023 3 :28 PM EDT ANTIBODY IDENTIFICATION STAT 04/09/20 3:28 PM EDT CBC (NO DIFF) Routine 04/09/2023 3:28 PM EDT TYPE AND SCREEN STAT 04/09/2023 3:28 PM EDT documented in this encounter Results * Antibody Identification (04/09/2023 3:28 PM EDT) Residual RhIG Detected RESIDUAL RHIG DETECTED 04/14/2023 10:28 AM EDT [facility] Blood Venipuncture / Unknown 04/09/2023 3:28 PM EDT 04/09/2023 4:13 PM EDT Sheng Santizo MD BLOOD BANK TEST ORDERABLES Fin al Result Performing Organization Address [facility]/ZIP Co de Phone Number [facility]
[address] [place] [address], * Type & Screen (04/09/2023 3:28 PM EDT) ABO Type O 04/09/2023 5:06 PM EDT [facility] RH type Negative 04/09/2023 5:06 PM EDT [facility] Antibody Screen Positive 04/09/2023 5:06 PM EDT [facility] T&S Expiration Date 04/12/2023 11:59:59 PM 04/09/2023 5:06 PM EDT [facility] Blood Venipuncture / Unknown 04/09/2023 3:28 PM EDT 04/09/2023 4:13 PM EDT Sheng Santizo MD BLOOD BANK TEST ORDERABLES Margarito jalyn Result - Final Performing Organization Address [facility] de Phone Number [facility]
[address] [place] [address], * (ABNORMAL) Preeclampsia Panel (04/09/2023 3:28 PM EDT) Alkaline Phosphatase 143(H) 39 - 117 U/L 04/09/2023 4:36 PM EDT [facility] ALT (SGPT) 17 1 - 33 U/L 04/09/2023 4:36 PM EDT [facility] AST (SGOT) 21 1 - 32 U/L 04/09/2023 4:36 PM EDT [facility] Creatinine 0.59 0.57 - 1.00 mg/dL 04/09/2023 4:36 PM EDT [facility] Total Bilirubin 0.3 0.0 - 1.2 mg/dL 04/09/2023 4:36 PM EDT [facility] LDH 179 135 - 214 U/L 04/09/2023 4:36 PM EDT [facility] Uric Acid 4.8 2.4 - 5.7 mg/dL 04/09/2023 4:36 PM EDT [facility] Blood Venipuncture / Unknown 04/09/2023 3:28 PM EDT 04/09/2023 4:10 PM EDT us Sheng Santizo MD LAB BLOOD ORDERABLES Final Res ult [facility]
[address] [place] [address], * (ABNORMAL) CBC (No Diff) (04/09/2023 3:28 PM EDT) WBC 11.81(H) 3.40 - 10.80 10*3/mm3 04/09/2023 4:14 PM EDT [facility] RBC 3.80 3.77 - 5.28 10*6/mm3 04/09/2023 4:14 PM EDT [facility] Hemoglobin 11.2(L) 12.0 - 15.9 g/dL 04/09/2023 4:14 PM EDT [facility] Hematocrit 34.9 34.0 - 46.6 % 04/09/2023 4:14 PM EDT [facility] MCV 91.8 79.0 - 97.0 fL 04/09/2023 4:14 PM EDT [facility] MCH 29.5 26.6 - 33.0 pg 04/09/2023 4:14 PM EDT [facility] MCHC 32.1 31.5 - 35.7 g/dL 04/09/2023 4:14 PM EDT [facility] RDW 17.4(H) 12.3 - 15.4 % 04/09/2023 4:14 PM EDT [facility] RDW-SD 58.5(H) 37.0 - 54.0 fl 04/09/2023 4:14 PM EDT [facility] MPV 11.6 6.0 - 12.0 fL 04/09/2023 4:14 PM EDT [facility] Platelets 184 140 - 450 10*3/mm3 04/09/2023 4:14 PM EDT [facility] Blood Venipuncture / Unknown 04/09/2023 3:28 PM EDT 04/09/2023 4:10 PM EDT us Sheng Santizo MD LAB BLOOD ORDERABLES Final Res ult [facility]
[address] [place] [address], documented in this encounter Visit Diagnoses Not on filedocumented in this encounter Administered Medications Inactive Administered Medications - up to 3 most recent administrations Medication Order MAR Action Action Date Dose Rate Site acetaminophen (TYLENOL) tablet 1,000 mg 1,000 mg, Oral, Once, On Wed04/09/23 at 1600, For 1 dose, Based on patient request - if ordered [...] Pain Score of 7-10, CPOT 5-8 Given 04/09/2023 3:11 PM EDT 1,000 mg documented in this encounter Active and Recently Administered Medications Times are shown in EDT. Scheduled Medication Order 04/07/2023 04/08/2023 04/09/2023 acetaminophen (TYLENOL) tablet 1,000 mg (COMPLETED) 1,000 mg, Oral, Once, On 6/30/23 at 1600, For 1 dose, Based on patient request - if ordered [...] = Pain Score of 7-10, CPOT 5-8 1511 (Given - Provid er: Joan Ortiz RN) documented in this encounter Care Teams Room Service Food Server Relationship Specialty Start Date End Date Provider, [place] [address] PCP - General 03/22/18 documented as of this encounter
--- OUTSIDE RECORDS SUMMARY | 2024-09-05 22:14 | XMS_ITS | Encounter Summary ---
[facility] Address [address] [place] [address] Care Team Providers Care Electrician Control Equipment Name Role Phone Provider, No Known Primary Care Provider Unavail able Reason for Visit * Reason Comments Routine Visit Encounter Details Date Type Department Care Team (Late st Contact Info) Description 06/14/2018 2:40 PM EDT Routine [facility] [address] [facility] [address] [place] [address] Kimo Farrell MD [address] [facility] [address] [place] [address] GA: 36w5d Social History Tobacco Use Types Packs/Day Years [...] Reading Time Taken Comments Blood Pressure 118/70 06/14/2018 2:30 PM EDT Pulse - - Temperature - - Respiratory Rate - - Oxygen Saturation - - Inhaled Oxygen Concentration - - Weight 120 kg (265 lb) 06/14/2018 2:30 PM EDT Height - - Body Mass Index 42.77 06/02/2018 6:35 PM EDT documented in this encounter Progress Notes * Kimo Farrell MD - 06/14/2018 2:40 PM EDT Chief Complaint Patient presents with ??? Routine Visit HPI: Merle is a currently at 36w5d who today reports the following: her abdomen is much less tender but still thickened not red Contractions - No; Leaking - No; Vaginal bleeding - No; Swelling of extremities - YES. ROS: GI: Nausea - improved as compared to the prior visit; Constipation - No; Diarrhea - No Neuro: Headache - No; Visual change - No EXAM: Vitals: See flowsheet Abdomen: Some induration no erythema still the orange peel skin in the midline-nontender Urine glucose/protein: See flowsheet Pelvic: See flowsheet MDM: Impression: 1. IUP at almost 37 weeks 2. Repeat section-scheduled July 01 3. Morbid obesity 4. Resolving or resolved cellulitis of panniculus Tests done today: 1. none Topics discussed: 1. Continue with PNV's 2. labs reviewed 3. labor signs and symptoms 4. no shaving in advanced of scheduled Tests scheduled today for her next visit: none documented in this encounter Plan of Treatment Not on file documented as of this encounter Visit Diagnoses Diagnosis care in third trimester- Primary Polyhydramnios in third trimester complication, single or unspecified fetus documented in this encounter Care Teams Electrician Control Equipment Relationship Specialty Start Date End Date Provider, [place] [address] PCP - General 03/22/18 documented as of this encounter
--- OUTSIDE RECORDS SUMMARY | 2024-09-05 22:14 | XMS_ITS | Encounter Summary ---
[facility] [address] [place] [address] Care Team Providers Care Contracts Law Professor Name Role Phone Provider, No Known Primary Care Provider Unavail able Reason for Visit * Reason Onset Date Comments Post-op 06/29/2018 Encounter Details Date Type Department Care Team (Late st Contact Info) Description 06/29/2018 Telephone [facility]YN [address] [facility] [address] [place] [address] Kimo Farrell MD [address] [facility] [address] [place] [address] Post-op Social History Tobacco Use Types Packs/Day Years Used Date Smoking Tobacco: Former Cigarettes 2 12/2017 Smokeless Tobacco: Never Alcohol Use Standard Drinks/Week Comments No 0 (1 standard drink = 0.6 oz pur e alcohol) [place] Depression Scale Answer Date Recorded Retired [place] Depression Score 12 06/20/2018 Retired EPD Scale: Thought of Harming Self 06/20/2018 Comments No Sex and Gender Information Value Date Recorded Sex Assigned at Not on file Legal Sex Female 1:44 PM EDT Gender Identity Not on file Sexual Orientation Not on file documented as of this encounter Miscellaneous Notes * Telephone Encounter - Loli Manjarrez MA - 06/29/2018 2:47 PM EDT Advised patient to keep C/S incision dry and clean. * Telephone Encounter - Nanette Serrano - 06/29/2018 2:39 PM EDT Provider Name Dr Farrell Reason for Call Patient has question about her incision, please call her Pharmacy Name [facility] [place], [place] Call Back Number [phone] documented in this encounter Plan of Treatment Not on file documented as of this encounter Visit Diagnoses Not on filedocumented in this encounter Care Teams Contracts Law Professor Relationship Specialty Start Date End Date Provider, [place] [address] PCP - General 03/22/18 documented as of this encounter
--- OUTSIDE RECORDS SUMMARY | 2024-09-05 22:14 | XMS_ITS | Encounter Summary ---
Author Organization [facility] Address [address] [place] [address] Care Team Providers Care Video Library Assistant Name Role Phone Provider, No Known Primary Care Provider Unavail able Reason for Visit * Reason Comments Rupture of Membranes * Auth/Cert Specialty Diagnoses / Procedures Referred By Contac t Referred To Contact Diagnoses delivery delivered PROM (premature rupture of membranes) delivery delivered [O82] Procedures SECTION REPEAT*39 WKS* Referral ID Status Reason Start Date Expiration Date Visits Re quested Visits Authorized [id number] 1 1 Encounter Details Date Type Department Care Team (Late st Contact Info) Description 06/19/2018 8:45 PM EDT - 06/23/2018 2:50 PM EDT Hospital Encounter [facility] [address] [place] [address] Kimo Farerll MD [address] [facility] [address] [place] [address] Sheng Santizo MD [address] [facility] [address] [place] [address] Full-term premature rupture of membranes, unspecified duration to onset of labor (Primary Dx); section Aug 2014 FTP/CPD occiput transverse 8 lbs. 8 oz. 39 6/7 weeks Discharge Disposition: Home or Self Care Social History Tobacco Use Types Packs/Day Years Used Date Smoking Tobacco: Former Cigarettes 2 - 12/2017 Smokeless Tobacco: Never Alcohol Use Standard Drinks/Week Comments No 0 (1 standard drink = 0.6 oz pur e alcohol) Fillmore Depression Scale Answer Date Recorded Retired Fillmore Depression Score 12 06/20/2018 Retired EPD Scale: Thought of Harming Self 06/20/2018 Comments No Sex and Gender Information Value Date Recorded Sex Assigned at Not on file Legal Sex Female 1:44 PM EDT Gender Identity Not on file Sexual Orientation Not on file documented as of this encounter Last Filed Vital Signs Vital Sign Reading Time Taken Comments Blood Pressure 132/82 06/23/2018 7:00 AM EDT Pulse 84 06/23/2018 1:59 PM EDT Temperature 36.7 ??C (98.1 ??F) 06/23/2018 7:00 AM ED T Respiratory Rate 16 06/23/2018 7:00 AM EDT Oxygen Saturation 98% 06/23/2018 1:59 PM EDT Inhaled Oxygen Concentration - - Weight 120 kg (265 lb) 06/19/2018 9:01 PM EDT Height 167.6 cm (5' 6 ) 06/19/2018 9:01 PM EDT Body Mass Index 42.77 06/19/2018 9:01 PM EDT documented in this encounter Discharge Summaries * Kimo Farrell MD - 06/23/2018 8:22 AM EDT Discharge Summary Date of Admission: 06/19/2018 Date of Discharge: 06/23/2018 Patient: Merle Lyle MR#:[id number] Primary Surgeon/OB: Sheng Santizo MD Discharge Surgeon/OB: Jami Presenting Problem/History of Present Illness delivery delivered [O82] PROM (premature rupture of membranes) [O42.90] Patient Active Problem List Diagnosis ??? section Aug 2014 FTP/CPD occiput transverse 8 lbs. 8 oz. 39 6/7 weeks ??? Obesity ??? Depression-on Viibryd prior to ??? Morbid obesity with BMI of 40.0-44.9, adult (CMS/HCC) ??? Polyhydramnios in third trimester ??? Cellulitis abd wall May 2018 ??? Glucose tolerance test abnormal -1 hour 164/ normal follow up randoms in hospital ??? PROM (premature rupture of membranes) ??? delivery, repeat June 19, 2018-female Discharge Diagnosis: section at 37w3d; repeat Same as above depression Procedures: , Low Transverse 06/19/2018 10:56 PM Discharge Date: 06/23/2018; Discharge Time: 8:24 AM Early Discharge: YES-I AUTHORIZE ONE MATERNAL- HOME VISIT Hospital Course Patient is a 28 y.o. female at 37w3d status post section with uneventful postoperative recovery. Patient was advanced to regular diet on postoperative day#1. She did have some depression postoperatively and was noted be crying in her room. She had a history of depression and was onViibryd in the past. We elected to start her on Celexa. I discussed this may take 2-3 weeks for full effect and that she would need to remain on this for 4-6 months to avoid relapse. Incision was healing well although yesterday when I examined the incision by lifting up the panniculus some of the glue that had been applied at surgery peeled loose. I think this was a specialized dressing. Surgical glue was applied to the skin edge. She is having difficulty with milk letdown on postop day #3. I discussed starting Reglan. Also willavoid combined estrogen progesterone and control pills. She appears to been on the Ortho Evrapatch will will start her on the just remotely minipill/Micronor next weekend. Discussed pain medication issues. She is receiving 2 Percocet every 6 hours. I told her she would need to wean down on this. We agreed that #24 should be sufficient On discharge, ambulating, tolerating a regular diet without any difficulties and her incision is dry, clean and intact. : female fetus 3944 g (8 lb 11.1 oz) with scores of 7 , 9 at five minutes. Condition on Discharge: Stable Vital Signs Temp: [97.7 ??F (36.5 ??C)-98.1 ??F (36.7 ??C)] 98.1 ??F (36.7 ??C) Heart Rate: [61-89] 79 Resp: [16] 16 BP: (132-142)/(78-82) 132/82 Lab Results Component Value Date WBC 16.86 (H) 06/21/2018 HGB 9.2 (L) 06/21/2018 HCT 29.3 (L) 06/21/2018 MCV 91.8 06/21/2018 PLT 211 06/21/2018 Discharge Disposition Home or Self Care Discharge Medications Discharge Medications New Medications Instructions Start Date citalopram 20 MG tablet Commonly known as: CeleXA 20 mg, Oral, Daily ibuprofen 600 MG tablet Commonly known as: ADVIL,MOTRIN 600 mg, Oral, Every 6 Hours PRN metoclopramide 10 MG tablet Commonly known as: REGLAN 10 mg, Oral, 3 Times Daily norethindrone 0.35 MG tablet Commonly known as: MICRONOR 1 tablet, Oral, Daily, Start July 03 oxyCODONE-acetaminophen 5-325 MG per tablet Commonly known as: PERCOCET 1 tablet, Oral, Every 4 Hours PRN Continue These Medications Instructions Start Date acetaminophen 325 MG tablet Commonly known as: TYLENOL 650 mg, Oral, Every 6 Hours PRN omeprazole 20 MG capsule Commonly known as: priLOSEC 20 mg, Oral, Daily vitamin 27-0.8 27-0.8 MG tablet tablet 1 tablet, Oral, Daily Discharge Diet: regular Activity at Discharge: Activity Instructions Pelvic Rest No heavy lifting , driving for 2 weeks. Leave steri-strips on for 10-14 days. Follow-up Appointments No future appointments. Additional Instructions for the Follow-ups that You Need to Schedule Discharge Follow-up with Specialty: Dr. Farrell [phone]; 2 Weeks As directed Specialty: Dr. Farrell [phone] Follow Up: 2 Weeks Follow Up Details: Postop check Kimo Farrell MD 06/23/18 8:22 AM Csd documented in this encounter Discharge Instructions * Appointments* Sheila Wilson RN - 06/23/2018 10:43 AM EDT Please keep your [address] Farrell on 07/07/18 at 11:10 a.m. * Attachments The following attachments cannot be sent through Care Everywhere. * Citalopram tablets (Martiniquais) * Ibuprofen tablets and capsules (Martiniquais) * Acetaminophen; Oxycodone tablets (Martiniquais) * Norethindrone tablets (contraception) (Martiniquais) * Metoclopramide tablets (Martiniquais) documented in this encounter Medications at Time of Discharge Vit-Fe Fumarate-FA ( VITAMIN 27-0.8) 27-0.8 MG tablet tablet Take 1 tablet by mouth Daily. norethindrone (MICRONOR) 0.35 MG tablet Take 1 tablet by mouth Daily. Start July 03 tablet 5 06/23/2018 9 oxyCODONE-acetam inophen (PERCOCET) 5-325 MG per tabletIndication s: delivery delivered Take 1 tablet by mouth Every 4 (Four) Hours As Needed for Severe Pain for up to 7 days. 24 tablet 06/23/2018 8 acetaminophen (TYLENOL) 325 MG tablet Take 2 tablets by mouth Every 6 (Six) Hours As Needed for Mild Pain. 3 citalopram (CeleXA) 20 MG tablet Take 1 tablet by mouth Daily. 30 tablet 4 06/23/2018 8 ibuprofen (ADVIL,MOTRIN) 600 MG tabletIndication s: delivery delivered Take 1 tablet by mouth Every 6 (Six) Hours As Needed for Moderate Pain . 40 tablet 1 06/23/2018 3 metoclopramide (REGLAN) 10 MG tablet Take 1 tablet by mouth 3 (Three) Times a Day. 30 tablet 06/23/2018 3 omeprazole (priLOSEC) 20 MG capsule Take 1 capsule by mouth Daily. 3 documented as of this encounter Progress Notes * Delma Khoury MSW - 06/22/2018 11:25 AM EDT Continued Stay Note [facility] Patient Name: Merle yLle Today's Date: 06/22/2018 Admit Date: 06/19/2018 Discharge Plan Row Name 06/22/18 1124 Plan Plan Provided resources Plan Comments Spoke with pt. Gave list of counseling servies in [place]. Discharge Codes No documentation. Expected Discharge Date and Time Expected Discharge Date Expected Discharge Time Jul 03, 2018 JERRY Colmenares * Kimo Farrell MD - 06/22/2018 7:46 AM EDT 06/22/2018 Name:Merle Lyle MR#:[id number] PROGRESS NOTE: Post-Op 3 S/P Subjective 28 y.o. yo Female s/p CS at 37w3d doing well with the exception of post depression -she is still sad and was crying . Pain well controlled. Tolerating regular diet and having flatus. Lochia normal. Patient Active Problem List Diagnosis ??? section Aug 2014 FTP/CPD occiput transverse 8 lbs. 8 oz. 39 6/7 weeks ??? Obesity ??? Depression-on Viibryd prior to ??? Morbid obesity with BMI of 40.0-44.9, adult (CMS/HCC) ??? Polyhydramnios in third trimester ??? Cellulitis abd wall May 2018 ??? Glucose tolerance test abnormal -1 hour 164/ normal follow up randoms in hospital ??? PROM (premature rupture of membranes) Objective Vitals Temp: Temp: [97.8 ??F (36.6 ??C)-98.8 ??F (37.1 ??C)] 98.2 ??F (36.8 ??C) Temp src: Oral BP: BP: (125-142)/(64-85) 129/84 Pulse: Heart Rate: [82-112] 92 RR: Resp: [16-20] 16 General Awake, alert, no distress Abdomen Soft, non-distended, fundus firm, below umbilicus, appropriately tender Incision Intact, no erythema or exudate, there is a slight separation on the right where the dressing stuck under her panniculus and came loose. Extremities Calves NT bilaterally I/O last 3 completed shifts: In: - Out: 2700 [Urine:2700] LABS: Lab Results Component Value Date WBC 16.86 (H) 06/21/2018 HGB 9.2 (L) 06/21/2018 HCT 29.3 (L) 06/21/2018 MCV 91.8 06/21/2018 PLT 211 06/21/2018 Infant: female Assessment 1. POD 3 from c/s Plan: Doing well except depression - I think it would be best to stay one more day to address this and she had a late night ~11 pm delivery anyway. Possible discharge Tomorrow Will need to glue right side of incision together superficially Kimo Farrell MD 06/22/2018 7:46 AM * Kimo Farrell MD - 06/21/2018 7:53 AM EDT 06/21/2018 Name:Merle Lyle MR#:[id number] PROGRESS NOTE: Post-Op 2 S/P Subjective 28 y.o. yo Female s/p CS at 37w3d doing well. Pain well controlled. Normal GI function, passing flatus. Lochia normal. Ambulating and voiding. Patient Active Problem List Diagnosis ??? care in third trimester ??? section Aug 2014 FTP/CPD occiput transverse 8 lbs. 8 oz. 39 6/7 weeks ??? Obesity ??? Depression-on Viibryd prior to ??? Morbid obesity with BMI of 40.0-44.9, adult (CMS/HCC) ??? Polyhydramnios in third trimester ??? Cellulitis abd wall May 2018 ??? Glucose tolerance test abnormal -1 hour 164/ normal follow up randoms in hospital ??? PROM (premature rupture of membranes) Objective Vitals Temp: Temp: [97.7 ??F (36.5 ??C)-98.3 ??F (36.8 ??C)] 97.9 ??F (36.6 ??C) Temp src: Oral BP: BP: (118-126)/(56-77) 123/66 Pulse: Heart Rate: [92-107] 107 RR: Resp: [18-20] 20 General Awake, alert, no distress Abdomen Soft, non-distended, fundus firm, below umbilicus, appropriately tender Incision Intact, no erythema or exudate, the glue was causing the upper and lower aspects to stick together somewhat. Extremities Calves NT bilaterally I/O last 3 completed shifts: In: 2100 [I.V.:2100] Out: 6100 [Urine:5100; Blood:1000] LABS: Lab Results Component Value Date WBC 14.57 (H) 06/19/2018 HGB 11.3 (L) 06/19/2018 HCT 34.2 (L) 06/19/2018 MCV 90.7 06/19/2018 PLT 253 06/19/2018 : female Assessment 1. POD 2 Doing well 2. Tolerating diet / ambulation As an addendum the nurses mention that last evening she was her crying in her room at the nurses station. Will get aids social worker to see her today. Plan: Probable discharge tomorrow. Social service consult DC Hep-Lock Kimo Farrell MD 06/21/2018 7:53 AM * Kimo Farrell MD - 06/20/2018 8:47 AM EDT 06/20/2018 Name:Merle Lyle MR#:[id number] PROGRESS NOTE: Post-Op 1 S/P Subjective 28 y.o. yo Female s/p CS at 37w3d doing well. Pain well controlled. Normal GI function. Lochia normal. She delivered late last night approximately 11 PM after rupture of membranes. Her daughter is doingwell. Patient Active Problem List Diagnosis ??? care in third trimester ??? section Aug 2014 FTP/CPD occiput transverse 8 lbs. 8 oz. 39 6/7 weeks ??? Obesity ??? Depression-on Viibryd prior to ??? Morbid obesity with BMI of 40.0-44.9, adult (CMS/HCC) ??? Polyhydramnios in third trimester ??? Cellulitis abd wall May 2018 ??? Glucose tolerance test abnormal -1 hour 164/ normal follow up randoms in hospital ??? PROM (premature rupture of membranes) Objective Vitals Temp: Temp: [97.6 ??F (36.4 ??C)-98.4 ??F (36.9 ??C)] 98.4 ??F (36.9 ??C) Temp src: Oral BP: BP: (94-181)/(52-157) 129/62 Pulse: Heart Rate: [101-124] 118 RR: Resp: [16-24] 18 General Awake, alert, no distress Abdomen Soft, non-distended, fundus firm, below umbilicus, appropriately tender Incision Dressing dry Extremities Calves NT bilaterally I/O last 3 completed shifts: In: 2100 [I.V.:2100] Out: 1450 [Urine:450; Blood:1000] LABS: Lab Results Component Value Date WBC 14.57 (H) 06/19/2018 HGB 11.3 (L) 06/19/2018 HCT 34.2 (L) 06/19/2018 MCV 90.7 06/19/2018 PLT 253 06/19/2018 Infant: female Assessment 1. POD 1 from c/s Plan: Advance diet and activity, saline lock. We will keep antibiotic school for 24 hours given herhistory of abdominal cellulitis in the recent past. Kimo Farrell MD 06/20/2018 8:47 AM documented in this encounter H&P Notes * Sheng Santizo MD - 06/19/2018 10:22 PM EDT [facility] Obstetric History and Physical Chief Complaint Patient presents with ??? Rupture of Membranes Subjective Patient is a 28 y.o. female currently at 37w3d, who presents with SROM at around 20:00. Shesays it was clear fluid. She is starting to have contractions and is uncomfortable with them. She is only 1 cm dilated. +FM. RTLCS due to previous C/S with failure to progress. She is reported to be b reech. She recently has been treated for an abdominal cellulitis. She continues to be on antibiotics for that. No current sign of infection although the area is hard. She denies fever and chills. Declines a tubal Information: Results Initial Labs Test Value Reference Range Date Time Hemoglobin Hematocrit Platelets 253 10*3/mm3 150 - 450 10*3/mm3 06/19/182123 Rubella IgG Hepatitis B SAg Hepatitis C Ab RPR ABO O 06/02/181955 Rh Negative 06/02/181955 Antibody Screen Normal Normal 12/22/17 HIV negative 12/22/17 Urine Culture 50,000-60,000 CFU/mL Normal Urogenital Lucy 05/23/18 1320 Gonorrhea negative 12/22/17 Chlamydia negative 12/22/17 TSH 2nd and 3rd Trimester Test Value Reference Range Date Time Hemoglobin (repeated) 11.3 g/dL (L) 11.5 - 15.5 g/dL 06/19/182123 Hematocrit (repeated) 34.2 % (L) 34.5 - 44.0 % 06/19/182123 GCT Antibody Screen (repeated) Negative 06/02/181955 GTT Fasting GTT 1 Hr GTT 2 Hr GTT 3 Hr Group B Strep Drug Screening Test Value Reference Range Date Time Amphetamine Screen Barbiturate Screen Benzodiazepine Screen Methadone Screen Phencyclidine Screen Opiates Screen THC Screen Cocaine Screen Propoxyphene Screen Buprenorphine Screen Methamphetamine Screen Oxycodone Screen Tryicyclic Antidepressants Screen Other (Risk screening) Test Value Reference Range Date Time Varicella IgG Parvovirus IgG CMV IgG Cystic Fibrosis Hemoglobin electrophoresis NIPT MSAFP-4 AFP (for NTD only) External Results Outside Results - Transcribed From Office Records - See Scanned Records For Details Test Value Date Time Hgb 11.3 g/dL (L) 06/19/182123 Hct 34.2 % (L) 06/19/182123 ABO O 06/02/181955 Rh Negative 06/02/181955 Antibody Screen Negative 06/02/181955 Glucose Fasting GTT Glucose Tolerance Test 1 hour Glucose Tolerance Test 3 hour Gonorrhea (discrete) negative 12/22/17 Chlamydia (discrete) negative 12/22/17 RPR VDRL Syphilis Antibody Rubella HBsAg Herpes Simplex Virus PCR Herpes Simplex VIrus Culture HIV negative 12/22/17 Hep C RNA Quant PCR Hep C Antibody AFP Group B Strep GBS Susceptibility to Clindamycin GBS Susceptibility to Erythromycin Fibronectin Genetic Testing, Maternal Blood Drug Screening Test Value Date Time Urine Drug Screen Amphetamine Screen Barbiturate Screen Benzodiazepine Screen Methadone Screen Phencyclidine Screen Opiates Screen THC Screen Cocaine Screen Propoxyphene Screen Buprenorphine Screen Methamphetamine Screen Oxycodone Screen Tricyclic Antidepressants Screen Past OB History: Obstetric History T1 L1 SAB0 TAB0 Ectopic0 Molar0 Multiple0 Live Births1 # Outcome Date GA Lbr Boyd/2nd Weight Sex Delivery Anes PTL Lv 2 Current 1 Term 08/22/14 40w0d 3856 g (8 lb 8 oz) M CS-LTranv MICHELINE Name: DAMIAN IZQUIERDO Complications: Failure to Progress in First Stage Obstetric Comments 2014 - Raymundo Past Medical History: Past Medical History: Diagnosis Date ??? Abnormal Pap smear of cervix ??? Anxiety and depression 2008 ??? Cellulitis 2018 Past Surgical History Past Surgical History: Procedure Laterality Date ??? SECTION 08/22/2014 Family History: History reviewed. No pertinent family history. Social History: reports that she quit smoking about 6 months ago. She started smoking about 10 years ago. She has never used smokeless tobacco. reports that she does not drink alcohol. reports that she does not use drugs. Review of Systems: Denies shortness of breath, chest pain, RUQ pain, and MCCLAIN Objective Vital Signs Range for the last 24 hours Temperature: Temp: [98.1 ??F (36.7 ??C)] 98.1 ??F (36.7 ??C) Temp Source: Temp src: Oral BP: BP: (166)/(107) 166/107 Pulse: Heart Rate: [111] 111 Respirations: Resp: [24] 24 SPO2: O2 Amount (l/min): O2 Devices Weight: Weight: [120 kg (265 lb)] 120 kg (265 lb) Physical Examination: General appearance - oriented to person, place, and time, overweight and anxious Heart - normal rate and regular rhythm, S1 and S2 normal Abdomen - soft, nontender, nondistended, no masses or organomegaly no rebound tenderness noted bowel sounds normal scars from previous incisions Extremities - pedal edema 2 + Presentation: Cephalic Cervix: Exam by: R.N. Dilation: 1 Effacement: Station: Heart Rate Assessment Method: Beats/min: Baseline: 120s Variability: Accels: Decels: Tracing Category: Uterine Assessment Method: Frequency (min): irregular Ctx Count in 10 min: Duration: Intensity: moderate Intensity by IUPC: Resting Tone: Resting Tone by IUPC: [place] Units: Assessment/Plan Principal Problem: section Aug 2014 FTP/CPD occiput transverse 8 lbs. 8 oz. 39 6/7 weeks Active Problems: PROM (premature rupture of membranes) Assessment & Plan Assessment: 1. Intrauterine at 37w3d gestation with reactive status. 2. PROM 3. RLTCS Plan: 1. Admit 2. IV, CBC, T&S 3. ABX 4 To O.R. For RLTCS Sheng Santizo MD 06/19/2018 10:22 PM documented in this encounter Consult Notes * Delma Khoury MSW - 06/21/2018 4:14 PM EDTAssociated Order(s): IP CONSULT TO CASE MANAGEMENT FA[employer]W MEMBER; IP CONSULT TO CASE MANAGEMENT FA[employer]W MEMBER Continued Stay Note [facility] Patient Name: Merle Lyle Today's Date: 06/21/2018 Admit Date: 06/19/2018 Discharge Plan Row Name 06/21/18 1613 Plan Plan Comments Spoke with pt states she is worried and crying a lot. Reports PPD with last delivery.Notified RN who states pt has been started on celexa. Provided info on PPD. Final Discharge Disposition Code 01 - home or self-care Discharge Codes No documentation. Expected Discharge Date and Time Expected Discharge Date Expected Discharge Time Jul 03, 2018 JERRY Colmenares documented in this encounter Nursing Notes * Sheila Wilson RN - 06/23/2018 10:21 AM EDT Problem: Patient Care Overview Goal: Discharge Needs Assessment Outcome: Outcome(s) achieved Date Met: 06/23/18 * Sheila Wilson RN - 06/23/2018 10:17 AM EDT Problem: ( Delivery) (Adult,Obstetrics,Pediatric) Goal: Signs and Symptoms of Listed Potential Problems Will be Absent, Minimized or Managed () Outcome: Outcome(s) achieved Date Met: 06/23/18 Goal: Anesthesia/Sedation Recovery Outcome: Outcome(s) achieved Date Met: 06/23/18 * Sheila Wilson RN - 06/23/2018 10:17 AM EDT Problem: Patient Care Overview Goal: Plan of Care Review Outcome: Outcome(s) achieved Date Met: 06/23/18 06/23/18 1016 Coping/Psychosocial Plan of Care Reviewed With patient Plan of Care Review Progress improving OTHER Outcome Summary VSS; labs stable; fundus firm, bleeding light; incision well- approximted; pain controlled; ready for d/c Goal: Individualization and Mutuality Outcome: Outcome(s) achieved Date Met: 06/23/18 Goal: Discharge Needs Assessment Outcome: Outcome(s) achieved Date Met: 06/23/18 Goal: Interprofessional Rounds/Family Conf Outcome: Outcome(s) achieved Date Met: 06/23/18 Problem: (Adult,Obstetrics,Pediatric) Goal: Signs and Symptoms of Listed Potential Problems Will be Absent, Minimized or Managed () Outcome: Outcome(s) achieved Date Met: 06/23/18 * Cori Christian RN - 06/23/2018 1:49 AM EDT Problem: Patient Care Overview Goal: Plan of Care Review Outcome: Ongoing (interventions implemented as appropriate) 06/23/18 0053 Coping/Psychosocial Plan of Care Reviewed With patient;spouse Plan of Care Review Progress improving Goal: Individualization and Mutuality Outcome: Ongoing (interventions implemented as appropriate) 06/23/18 0053 Individualization Patient Specific Preferences and supplemental feeding Patient Specific Goals (Include Timeframe) none verbalized Problem: (Adult,Obstetrics,Pediatric) Goal: Signs and Symptoms of Listed Potential Problems Will be Absent, Minimized or Managed () Outcome: Ongoing (interventions implemented as appropriate) 06/23/18 0053 Goal/Outcome Evaluation Problems Assessed () all Problems Present () none * Jeannie Alba APRN - 06/22/2018 9:32 PM EDT 06/22/18 1400 Maternal Information Date of Referral 06/22/18 Person Making Referral (fu consult) Reason for Referral (baby has lost 9.38% from weight) Equipment Type Breast Pump Type double electric, personal Reproductive Interventions Assistance support offered Support diary/feeding log utilized;encouragement provided;- mother separation minimized; counseling provided Breast Pumping Breast Pumping Interventions post-feed pumping encouraged Mom has personal breast pump. Encouraged to feed every 3 hours--breastfeed/supplement/pump. Reviewed pump use. Answered questions about pumping, pump care and cleaning, milk supply, breast and nipplecare. Teaching done, as documented under education. To call for services, if there are questions or concerns. * Paulette Rordíguez RN - 06/21/2018 10:25 AM EDT Mom reports baby is latching and nursing well during the day but was very sleepy during the night. Encouraged mom to call for breast pump today and pump for skipped feeds. * Paulette Rodríguez RN - 06/20/2018 3:00 PM EDT Problem: Patient Care Overview Goal: Plan of Care Review Outcome: Ongoing (interventions implemented as appropriate) Problem: (Adult,Obstetrics,Pediatric) Goal: Signs and Symptoms of Listed Potential Problems Will be Absent, Minimized or Managed () Outcome: Ongoing (interventions implemented as appropriate) * Paulette Rodríguez RN - 06/20/2018 9:25 AM EDT 06/20/18 09 Maternal Information Date of Referral 06/20/18 Person Making Referral other (see comments) (courtesy) Maternal Reason for Referral currently Maternal Assessment Breast Size Issue none Breast Shape Bilateral:;round Breast Density Bilateral:;soft Nipples Bilateral:;graspable Maternal Feeding Maternal Emotional State anxious;assist needed Infant Positioning clutch/football Signs of Milk Transfer audible swallow Pain with Feeding no Comfort Measures Before/During Feeding maternal position adjusted;infant position adjusted;latch adjusted Nipple Shape After Feeding, Left Breast round;symmetrical;appropriately projected Latch Assistance yes Equipment Type Breast Pump Type other (see comments) (Rx given) Reproductive Interventions Breast Care: frequency of feeding adjusted Assistance assisted with positioning;feeding cue recognition promoted;feeding on demand promoted;feeding session observed; latch-on verified; stimulated to wakeful state;nipple shield utilized;support offered Support encouragement provided;infant-mother separation minimized * Paulette Rodríguez RN - 06/20/2018 9:25 AM EDT This note was copied from a baby's chart. 06/20/18 0925 Nutrition Feeding Method Feeding Tolerance/Success arousal required;coordinated suck;coordinated swallow Feeding Interventions latch assistance provided;arousal required Additional Documentation LATCH Score (Group) Session , left side only Effective Latch During Feeding yes Suck/Swallow Coordination present Signs of Milk Transfer audible swallow LATCH Score Latch 2-->grasps breast, tongue down, lips flanged, rhythmic sucking Audible Swallowing 1-->a few with stimulation Type of Nipple 2-->everted (after stimulation) Comfort (Breast/Nipple) 2-->soft/nontender Hold (Positioning) 1-->minimal assist, teach one side, mother does other, staff holds Score 8 documented in this encounter OR Notes * Op Note - Sheng Santizo MD - 06/19/2018 11:49 PM EDT Jose Merle Lyle : 1990 CSN: [id number] Section Operative Note Pre-Operative Dx: 1. Intrauterine at 37w3d weeks 2. Previous section - declines Postoperative dx: 1. Intrauterine at 37w3d weeks 2. Previous section - declines Procedure: Repeat (LTCS) - 2 layer closure Surgeon: Sheng Santizo MD Water Attendant: Sarah Chirag Anesthesia: Spinal EBL: 1000 mls. IV Fluids: 2100 mls. UOP: 200 mls. Clear Antibiotics: cefazolin 3 gms and Azithro Infant: Name: Gender: female Weight: 3944 g (8 lb 11.1 oz) Apgars: 7 @ 1 minute / 9 @ 5 minutes Procedure Details: After the patient was adequately anesthetized, she was sterilely prepped and draped in the dorsal supine left lateral tilt position. A Pfannenstiel incision was created sharply with the knife. It wascarried down to the fascia with the Bovie. The fascia was cut transversely with the knife and extended in a curvilinear fashion with scissors. The fascia was freed from its midline insertion superiorly and inferiorly. Rectus muscles were in the midline. The peritoneum was sharply entered and a bladder flap was not sharply created. The lower uterine segment was scored transversely with the knife. Clear amniotic fluid was seen. The 's head was delivered atraumatically. The mouth and nose were bulb suctioned. The was handed to the delivery team which was in attendance. A true knot ws noted in the cord, but was lose. She also had a nuchal cord the was reduced on the abdomen.The placenta was spontaneously extracted. The uterus was exteriorized and wiped free of debris and clot. The uterine incision was closed with #1 Vicryl in a continuous running locking fashion. A second #1 Vicryl was used to imbricate across the first. The uterus was returned to the abdomen. The paracolic gutters were cleared of debris and clot. The fascia was closed with 0 PDS. The subcutaneous tissue was copiously irrigated. Subcutaneous tissue was reapproximated with 3-0 Plain Gut and the skin was closed with 4-0 Monocryl subcuticularly. Perineo was applied as a final bandage. All counts were correct. Complications: None Disposition: Mother to Mother Baby/ in stable condition currently. Baby to NBN in stable condition currently. Sheng Santizo MD 06/19/2018 11:49 PM documented in this encounter Plan of Treatment Not on file documented as of this encounter Procedures Procedure Name Priority Date/Time Associated Diagnosis Comments CBC WITH AUTO DIFFERENTIAL Timed 06/21/2018 7:43 AM EDT CBC AND DIFFERENTIAL Timed 06/21/2018 7:43 AM EDT [id number] Routine 06/20/2018 7:05 AM EDT RHIG EVALUATION Routine 06/20/2018 7:05 AM EDT BLEED SCREEN Routine 06/20/2018 7: 05 AM EDT SECTION REPEAT 06/19/2018 10:19 PM EDT PRE-ECLAMPSIA PANEL Routine 06/19/2018 9 :24 PM EDT CBC (NO DIFF) STAT 06/19/2018 9:24 PM EDT TYPE AND SCREEN STAT 06/19/2018 9:24 PM EDT documented in this encounter Results * (ABNORMAL) CBC Auto Differential (06/21/2018 7:43 AM EDT) WBC 16.86(H) 3.50 - 10.80 10*3/mm3 06/21/2018 8:31 AM EDT [facility] RBC 3.19(L) 3.89 - 5.14 10*6/mm3 06/21/2018 8:31 AM EDT [facility] Hemoglobin 9.2(L) 11.5 - 15.5 g/dL 06/21/2018 8:31 AM EDT [facility] Hematocrit 29.3(L) 34.5 - 44.0 % 06/21/2018 8:31 AM EDT [facility] MCV 91.8 80.0 - 99.0 fL 06/21/2018 8:31 AM EDT [facility] MCH 28.8 27.0 - 31.0 pg 06/21/2018 8:31 AM EDT [facility] MCHC 31.4(L) 32.0 - 36.0 g/dL 06/21/2018 8:31 AM EDT [facility] RDW 16.3(H) 11.3 - 14.5 % 06/21/2018 8:31 AM [facility] RDW-SD 54.5(H) 37.0 - 54.0 fl 06/21/2018 8:31 AM [facility] MPV 10.7 6.0 - 12.0 fL 06/21/2018 8:31 AM [facility] Platelets 211 150 - 450 10*3/mm3 06/21/2018 8:31 AM [facility] Neutrophil % 72.6(H) 41.0 - 71.0 % 06/21/2018 8:31 AM [facility] Lymphocyte % 20.5(L) 24.0 - 44.0 % 06/21/2018 8:31 AM [facility] Monocyte % 5.9 0.0 - 12.0 % 06/21/2018 8:31 AM [facility] Eosinophil % 0.7 0.0 - 3.0 % 06/21/2018 8:31 AM [facility] Basophil % 0.3 0.0 - 1.0 % 06/21/2018 8:31 AM [facility] Immature Grans % 0.7(H) 0.0 - 0.6 % 06/21/2018 8:31 AM [facility] Neutrophils, Absolute 12.25(H) 1.50 - 8.30 10*3/mm3 06/21/2018 8:31 AM [facility] Lymphocytes, Absolute 3.45 0.60 - 4.80 10*3/mm3 06/21/2018 8:31 AM [facility] Monocytes, Absolute 0.99 0.00 - 1.00 10*3/mm3 06/21/2018 8:31 AM [facility] Eosinophils, Absolute 0.12 0.00 - 0.30 10*3/mm3 06/21/2018 8:31 AM [facility] Basophils, Absolute 0.05 0.00 - 0.20 10*3/mm3 06/21/2018 8:31 AM EDT [facility] Immature Grans, Absolute 0.11(H) 0.00 - 0.03 10*3/mm3 06/21/2018 8:31 AM EDT [facility] Blood 06/21/2018 7:43 AM EDT 06/21/2018 8:19 AM EDT Sheng Santizo MD LAB BLOOD ORDERABLES Final Res ult [facility]
[address] [place] [address], * Doses of Rh Immune Globulin (06/20/2018 7:05 AM EDT) Number of Doses Screen Negative ? Recommend 1 vial of RhIg 06/20/2018 8:50 AM EDT [facility] Blood Venipuncture / Unknown 06/20/2018 7:05 AM EDT 06/20/2018 8:46 AM EDT Kimo Farrell MD BLOOD BANK TEST ORDERABLES Final Result Performing Organization Address [facility] Co de Phone Number [facility]
[address] [place] [address], * Bleed Screen (06/20/2018 7:05 AM EDT) Bleed Screen Negative 06/20/2018 8:49 AM EDT [facility] Blood Venipuncture / Unknown 06/20/2018 7:05 AM EDT 06/20/2018 8:46 AM EDT Kimo Farrell MD BLOOD BANK TEST ORDERABLES Final Result Performing Organization Address [facility] Co de Phone Number [facility]
[address] [place] [address], [place] [phone] * RhIg Evaluation (06/20/2018 7:05 AM EDT) ABO Type O 06/20/2018 8:48 AM EDT [facility] RH type Negative 06/20/2018 8:48 AM EDT [facility] Blood Venipuncture / Unknown 06/20/2018 7:05 AM EDT 06/20/2018 8:46 AM EDT us Kimo Farrell MD BLOOD BANK TEST ORDERABLES Final Result [facility]
[address] [place] [address], * (ABNORMAL) Preeclampsia Panel (06/19/2018 9:24 PM EDT) Alkaline Phosphatase 120(H) 25 - 100 U/L 06/19/2018 9:46 PM EDT [facility] ALT (SGPT) 20 7 - 40 U/L 06/19/2018 9:46 PM EDT [facility] AST (SGOT) 32 0 - 33 U/L 06/19/2018 9:46 PM EDT [facility] Creatinine 0.72 0.60 - 1.30 mg/dL 06/19/2018 9:46 PM EDT [facility] Total Bilirubin 0.3 0.3 - 1.2 mg/dL 06/19/2018 9:46 PM EDT [facility] LDH 176 120 - 246 U/L 06/19/2018 9:46 PM EDT [facility] Uric Acid 5.9 3.1 - 7.8 mg/dL 06/19/2018 9:46 PM EDT [facility] Blood Line / Unknown 06/19/2018 9: 24 PM EDT 06/19/2018 9:28 PM EDT us Sheng Santizo MD LAB BLOOD ORDERABLES Final Res ult [facility]
[address] [place] [address], * Type & Screen (06/19/2018 9:24 PM EDT) ABO Type O 06/19/2018 10:56 PM EDT [facility] RH type Negative 06/19/2018 10:56 PM EDT [facility] Antibody Screen Negative 06/19/2018 10:56 PM EDT [facility] T&S Expiration Date 06/22/2018 11:59:59 PM 06/19/2018 10:56 PM EDT [facility] Blood Line / Unknown 06/19/2018 9: 24 PM EDT 06/19/2018 9:29 PM EDT Sheng Santizo MD BLOOD BANK TEST ORDERABLES Margarito jalyn Result - Final [facility]
[address] [place] [address], * (ABNORMAL) CBC (No Diff) (06/19/2018 9:24 PM EDT) Pathologist [facility] WBC 14.57(H) 3.50 - 10.80 10*3/mm3 06/19/2018 9:36 PM EDT [facility] RBC 3.77(L) 3.89 - 5.14 10*6/mm3 06/19/2018 9:36 PM EDT [facility] Hemoglobin 11.3(L) 11.5 - 15.5 g/dL 06/19/2018 9:36 PM EDT [facility] Hematocrit 34.2(L) 34.5 - 44.0 % 06/19/2018 9:36 PM EDT [facility] MCV 90.7 80.0 - 99.0 fL 06/19/2018 9:36 PM EDT [facility] MCH 30.0 27.0 - 31.0 pg 06/19/2018 9:36 PM EDT [facility] MCHC 33.0 32.0 - 36.0 g/dL 06/19/2018 9:36 PM EDT [facility] RDW 15.5(H) 11.3 - 14.5 % 06/19/2018 9:36 PM EDT [facility] RDW-SD 51.2 37.0 - 54.0 fl 06/19/2018 9:36 PM EDT [facility] MPV 11.0 6.0 - 12.0 fL 06/19/2018 9:36 PM EDT [facility] Platelets 253 150 - 450 10*3/mm3 06/19/2018 9:36 PM EDT [facility] Blood Line / Unknown 06/19/2018 9: 24 PM EDT 06/19/2018 9:28 PM EDT us Sheng Santizo MD LAB BLOOD ORDERABLES Final Res ult [facility]
[address] [place] [address], documented in this encounter Visit Diagnoses Diagnosis section Aug 2014 FTP/CPD occiput transverse 8 lbs. 8 oz. 39 6/7 weeks- Primary delivery, without mention of indication, delivered, with or without mention of antepartum condition Full-term premature rupture of membranes, unspecified duration to onset of labor section Aug 2014 FTP/CPD occiput transverse 8 lbs. 8 oz. 39 6/7 weeks delivery, without mention of indication, delivered, with or without mention of antepartum condition PROM (premature rupture of membranes) Premature rupture of membranes in , unspecified as to episode of care delivery, repeat June 19, 2018-female documented in this encounter Admitting Diagnoses Diagnosis delivery delivered delivery, without mention of indication, delivered, with or without mention of antepartum condition PROM (premature rupture of membranes) Premature rupture of membranes in , unspecified as to episode of care documented in this encounter Administered Medications Inactive Administered Medications - up to 3 most recent administrations Medication Order MAR Action Action Date Dose Rate Site AZITHROMYCIN 500 MG/250 ML 0.9% NS IVPB (MBP) 500 mg, Intravenous, Administer over 60 Minutes, Once, On Wed06/19/18 at 2200, For 1 dose, Indications: Surgical ProphylaxisIndications:Surgical Prophylaxis New Bag 06/19/2018 10:40 PM EDT 500 mg bisacodyl (DULCOLAX) EC tablet 10 mg 10 mg, Oral, Daily PRN, Constipation, Starting on Wed06/20/18 at 0052, Swallow whole. Do not crush, split, or chew tablet.Indications: delivery delivered ceFAZolin in dextrose (ANCEF) IVPB solution 2 g 2 g, Intravenous, Administer over 30 Minutes, Every 8 Hours, First dose (after last reorder) on Wed06/20/18 at 0600, For 24 hours, Caution: Look alike/sound alike drug alert, Indications: Surgical ProphylaxisIndications:Surgical Prophylaxis New Bag 06/20/2018 10:00 PM EDT 2 g New Bag 06/20/2018 3:03 PM EDT 2 g New Bag 06/20/2018 6:32 AM EDT 2 g CeFAZolin in Sodium Chloride (ANCEF) IVPB solution 3 g 3 g, Intravenous, at 200 mL/hr, Administer over 30 Minutes, Once, On Wed06/19/18 at 2200, For 1 dose, Caution: Look alike/sound alike drug alert. Refrigerate, Indications: Surgical ProphylaxisIndications:Surgical Prophylaxis New 06/19/2018 10:23 PM EDT 3 g 200 mL/hr citalopram (CeleXA) tablet 20 mg 20 mg, Oral, Daily, First dose on Wed06/21/18 at 1600, Caution: Look alike/sound alike drug alert. Given 06/23/2018 8:38 AM EDT 20 mg Given 06/22/2018 3:00 PM EDT 20 mg Given 06/21/2018 3:40 PM EDT 20 mg diphenhydrAMINE (BENADRYL) capsule 25 mg 25 mg, Oral, Every 4 Hours PRN, Itching, Starting on Wed06/20/18 at 0222, This med may be ordered in other forms and routes. Before giving verify the last time the drug was given by any route/form. docusate sodium (COLACE) capsule 100 mg 100 mg, Oral, 2 Times Daily PRN, Constipation, Starting on Wed06/20/18 at 0052, Swallow whole. Do not open, crush, or chew capsule.Indications: delivery delivered Given 06/23/2018 8:36 AM EDT 100 mg Given 06/22/2018 7:47 AM EDT 100 mg Given 06/21/2018 8:12 PM EDT 100 mg famotidine (PEPCID) tablet 20 mg 20 mg, Oral, 2 Times Daily PRN, Indigestion, Heartburn, Starting on Wed06/22/18 at 0042 Given 06/22/2018 1:32 AM EDT 2 0 mg ibuprofen (ADVIL,MOTRIN) tablet 600 mg 600 mg, Oral, Every 6 Hours PRN, Mild Pain, Starting on Wed06/20/18 at 0052, If given for pain, use the following pain scale: Mild Pain = Pain Score of 1-3, CPOT 1-2 Moderate Pain = Pain Score of 4-6, CPOT 3-4 Severe Pain = Pain Score of 7-10, CPOT 5-8Indications: delivery delivered Given 06/23/2018 1:59 PM EDT 6 00 mg Given 06/23/2018 5:36 AM EDT 600 mg Given 06/22/2018 10:39 PM EDT 600 mg ketorolac (TORADOL) injection 30 mg 30 mg, Intravenous, Every 6 Hours PRN, Moderate Pain, Starting on Wed06/20/18 at 0052, For 4 doses, Max 4 doses {BKC} If given for pain, use the following pain scale: Mild Pain = Pain Score of 1-3, CPOT 1-2 Moderate Pain = Pain Score of 4-6, CPOT 3-4 Severe Pain = Pain Score of 7-10, CPOT 5-8Indications: delivery delivered Given 06/21/2018 8:12 AM EDT 3 0 mg Given 06/20/2018 3:02 PM EDT 30 mg Given 06/20/2018 8:09 AM EDT 30 mg lactated ringers bolus 1,000 mL 1,000 mL, Intravenous, at 4,000 mL/hr, Administer over 0.25 Hours, Once, On 06/19/18 at 2200, For 1 dose, For patients receiving spinal anesthesiaIndications: delivery delivered New Bag 06/19/2018 9:25 PM EDT 1,000 mL 4000 mL/hr lactated ringers infusion 125 mL/hr, Intravenous, Continuous, Starting on Wed06/19/18 at 2200Indications: delivery delivered New Bag 06/20/2018 8:11 AM EDT 125 mL/hr 125 mL/hr New Bag 06/19/2018 11:18 PM EDT New Bag 06/19/2018 10:45 PM EDT lanolin ointment Topical, Every 1 Hour PRN, Dry Skin, nipple pain, Starting on Wed06/20/18 at 0052, May keep at bedside.Indications: delivery delivered Given 06/21/2018 9:01 PM EDT 5 application measles, mumps and rubella vaccine (MMR) injection 0.5 mL 0.5 mL, Subcutaneous, During Hospitalization, Immunization, Starting on Wed06/21/18 at 1723, For 1 dose, Give at discharge. Given 06/21/2018 6:33 PM EDT 0.5 mL Right Arm ondansetron (ZOFRAN) tablet 4 mg 4 mg, Oral, Every 8 Hours PRN, Nausea, Vomiting, Starting on Wed06/20/18 at 0052, If BOTH ondansetron (ZOFRAN) and promethazine (PHENERGAN) are ordered use ondansetron first and THEN promethazine IF ondansetron is ineffective.Indications: delivery delivered oxyCODONE-acetaminophen (PERCOCET) 5-325 MG per tablet 1 tablet 1 tablet, Oral, Every 4 Hours PRN, Moderate Pain, Starting on Wed06/20/18 at 0052, For 10 days, {YIN} Do not exceed 4 grams of acetaminophen in a 24 hr period. If given for pain, use the following pain scale: Mild Pain = Pain Score of 1-3, CPOT 1-2 Moderate Pain = Pain Score of 4-6, CPOT 3-4 Severe Pain = Pain Score of 7-10, CPOT 5-8Indications: delivery delivered Given 06/23/2018 1:59 PM EDT 1 tablet Given 06/22/2018 11:22 PM EDT 1 tablet Given 06/22/2018 10:39 PM EDT 1 tablet oxyCODONE-acetaminophen (PERCOCET) 5-325 MG per tablet 2 tablet 2 tablet, Oral, Every 4 Hours PRN, Severe Pain, Starting on Wed06/20/18 at 0052, For 10 days, {YIN} Do not exceed 4 grams of acetaminophen in a 24 hr period. If given for pain, use the following pain scale: Mild Pain = Pain Score of 1-3, CPOT 1-2 Moderate Pain = Pain Score of 4-6, CPOT 3-4 Severe Pain = Pain Score of 7-10, CPOT 5-8Indications: delivery delivered Given 06/23/2018 5:36 A M EDT 2 tablets Given 06/22/2018 3:00 PM EDT 2 tablets Given 06/22/2018 7:47 AM EDT 2 tablets oxytocin in sodium chloride (PITOCIN) 30 UNIT/500ML infusion solution - ADS Override Pull Starting on Wed06/20/18 at 0122, For 1 dose, Created by cabinet override oxytocin in sodium chloride (PITOCIN) 30 UNIT/500ML infusion solution 85 mL/hr, Intravenous, Once, On Wed06/20/18 at 0100, For 1 dose, Give 85 ml/hr over 4 hours.Indications: delivery delivered New Bag 06/20/2018 1:46 AM EDT 30 Units 85 mL/hr promethazine (PHENERGAN) injection 12.5 mg 12.5 mg, Intramuscular, Every 6 Hours PRN, Nausea, Vomiting, Starting on Wed06/20/18 at 0052, If giving IV, dilute dose in 20 mL NS and slow IV push over 3-5 minutes. Administer through large bore vein (not hand or wrist) through running IV line at port furthest from patient's vein.Indications: delivery delivered promethazine (PHENERGAN) suppository 12.5 mg 12.5 mg, Rectal, Every 6 Hours PRN, Nausea, Vomiting, Starting on Wed06/20/18 at 0052, If BOTH ondansetron (ZOFRAN) and promethazine (PHENERGAN) are ordered use ondansetron first and THEN promethazine IF ondansetron is ineffective.Indications: delivery delivered promethazine (PHENERGAN) tablet 25 mg 25 mg, Oral, Every 6 Hours PRN, Nausea, Vomiting, Starting on Wed06/20/18 at 0052, If BOTH ondansetron (ZOFRAN) and promethazine (PHENERGAN) are ordered use ondansetron first and THEN promethazine IF ondansetron is ineffective. {BKC}Indications: delivery delivered Sod Citrate-Citric Acid (BICITRA) solution 30 mL 30 mL, Oral, Once, On Wed06/19/18 at 2200, For 1 dose, For all section patients no more than 20 minutes prior to transport to the OR.Indications: delivery delivered Given 06/19/2018 10:24 PM EDT 30 mL sodium chloride 0.9 % flush 1-10 mL 1-10 mL, Intravenous, As Needed, Line Care, Starting on Wed06/20/18 at 0052Indications: delivery delivered Given 06/20/2018 4:00 PM EDT 10 mL documented in this encounter Active and Recently Administered Medications Times are shown in EDT. Scheduled Medication Order 06/21/2018 06/22/2018 06/23/2018 citalopram (CeleXA) tablet 20 mg 20 mg, Oral, Daily, First dose on Wed06/21/18 at 1600, Caution: Look alike/sound alike drug alert. 1540 (Given - Provider: Griselda Vaz RN) 1500 (Given - Provider: Cori Hewitt RN - Comment: last dose was given at 1500 on 06/21) 0838 (Given - Provider: Sheila Wilson RN) sodium chloride 0.9 % bolus 1,000 mL 1,000 mL, Intravenous, at 4,000 mL/hr, Administer over 0.25 Hours, Once, On Wed06/20/18 at 0145, For 1 dose 1947 (Not Given - Provider: Paloma Sims RN - Reason: Unreviewed Transfer Orders) Continuous Medication Order 06/21/2018 06/22/2018 06/23/2018 lactated ringers infusion 125 mL/hr, Intravenous, Continuous, Starting on Wed06/19/18 at 2200 PRN Medication Order 06/21/2018 06/22/2018 06/23/2018 bisacodyl (DULCOLAX) EC tablet 10 mg 10 mg, Oral, Daily PRN, Constipation, Starting on Wed06/20/18 at 0052, Swallow whole. Do not crush, split, or chew tablet. diphenhydrAMINE (BENADRYL) capsule 25 mg 25 mg, Oral, Every 4 Hours PRN, Itching, Starting on Wed06/20/18 at 0222, This med may be ordered in other forms and routes. Before giving verify the last time the drug was given by any route/form. docusate sodium (COLACE) capsule 100 mg 100 mg, Oral, 2 Times Daily PRN, Constipation, Starting on Wed06/20/18 at 0052, Swallow whole. Do not open, crush, or chew capsule. 0812 (Given - Provider: Griselda Vaz RN)2011 (Given - Provider: Paloma Sims RN) 0747 (Given - Provider: Cori Hewitt RN) 0836 (Given - Provider: Sheila Wilson, GLENN) famotidine (PEPCID) tablet 20 mg 20 mg, Oral, 2 Times Daily PRN, Indigestion, Heartburn, Starting on Wed06/22/18 at 0042 0132 (Given - Provider: Paloma Sims RN) ibuprofen (ADVIL,MOTRIN) tablet 600 mg 600 mg, Oral, Every 6 Hours PRN, Mild Pain, Starting on Wed06/20/18 at 0052, If given for pain, use the following pain scale: Mild Pain = Pain Score of 1-3, CPOT 1-2 Moderate Pain = Pain Score of 4-6, CPOT 3-4 Severe Pain = Pain Score of 7-10, CPOT 5-8 2011 (Given - Provider: Paloma Sims RN) 0132 (Given - Provider: Paloma Sims RN)0747 (Given - Provider: Cori Hewitt RN)1459 (Given - Provider: Cori Hewitt RN)2239 (Given - Provider: Cori Christian RN) 0536 (Given - Provider: Cori Christian RN)1359 (Given - Provider: Sheila Wilson RN) ketorolac (TORADOL) injection 30 mg (COMPLETED) 30 mg, Intravenous, Every 6 Hours PRN, Moderate Pain, Starting on Wed06/20/18 at 0052, For 4 doses, Max 4 doses {BKC} If given for pain, use the following pain scale: Mild Pain = Pain Score of 1-3, CPOT 1-2 Moderate Pain = Pain Score of 4-6, CPOT 3-4 Severe Pain = Pain Score of 7-10, CPOT 5-8 0812 (Given - Provider: Griselda Vaz RN) lanolin ointment Topical, Every 1 Hour PRN, Dry Skin, nipple pain, Starting on Wed06/20/18 at 0052, May keep at bedside. 2100 (Given - Provider: Paloma Sims, GLENN) measles, mumps and rubella vaccine (MMR) injection 0.5 mL (COMPLETED) 0.5 mL, Subcutaneous, During Hospitalization, Immunization, Starting on Wed06/21/18 at 1723, For 1 dose, Give at discharge. 183 (Given - Provider: Mariaelena Hilton RN, Customer Consultant) ondansetron (ZOFRAN) tablet 4 mg 4 mg, Oral, Every 8 Hours PRN, Nausea, Vomiting, Starting on Wed06/20/18 at 0052, If BOTH ondansetron (ZOFRAN) and promethazine (PHENERGAN) are ordered use ondansetron first and THEN promethazine IF ondansetron is ineffective. oxyCODONE-acetaminophen (PERCOCET) 5-325 MG per tablet 1 tablet 1 tablet, Oral, Every 4 Hours PRN, Moderate Pain, Starting on Wed06/20/18 at 0052, For 10 days, {YIN} Do not exceed 4 grams of acetaminophen in a 24 hr period. If given for pain, use the following pain scale: Mild Pain = Pain Score of 1-3, CPOT 1-2 Moderate Pain = Pain Score of 4-6, CPOT 3-4 Severe Pain = Pain Score of 7-10, CPOT 5-8 2239 (Given - Provider: Cori Christian RN)2322 (Given - Provider: Cori Christian RN) 1359 (Given - Provider: Sheila Wilson RN) oxyCODONE-acetaminophen (PERCOCET) 5-325 MG per tablet 2 tablet 2 tablet, Oral, Every 4 Hours PRN, Severe Pain, Starting on Wed06/20/18 at 0052, For 10 days, {YIN} Do not exceed 4 grams of acetaminophen in a 24 hr period. If given for pain, use the following pain scale: Mild Pain = Pain Score of 1-3, CPOT 1-2 Moderate Pain = Pain Score of 4-6, CPOT 3-4 Severe Pain = Pain Score of 7-10, CPOT 5-8 0551 (Given - Provider: Laquita Valadez LPN)1341 (Given - Provider: Griselda Vaz RN)2010 (Given - Provider: Paloma Sims, GLENN) 0132 (Given - Provider: Paloma Sims RN)0747 (Given - Provider: Cori Hewitt RN)1500 (Given - Provider: Cori Hewitt RN) 0536 (Given - Provider: Cori Christian RN) promethazine (PHENERGAN) injection 12.5 mg(Linked Group 1) 12.5 mg, Intramuscular, Every 6 Hours PRN, Nausea, Vomiting, Starting on Wed06/20/18 at 0052, If giving IV, dilute dose in 20 mL NS and slow IV push over 3-5 minutes. Administer through large bore vein (not hand or wrist) through running IV line at port furthest from patient's vein. promethazine (PHENERGAN) suppository 12.5 mg(Linked Group 1) 12.5 mg, Rectal, Every 6 Hours PRN, Nausea, Vomiting, Starting on Wed06/20/18 at 0052, If BOTH ondansetron (ZOFRAN) and promethazine (PHENERGAN) are ordered use ondansetron first and THEN promethazine IF ondansetron is ineffective. promethazine (PHENERGAN) tablet 25 mg(Linked Group 1) 25 mg, Oral, Every 6 Hours PRN, Nausea, Vomiting, Starting on Wed06/20/18 at 0052, If BOTH ondansetron (ZOFRAN) and promethazine (PHENERGAN) are ordered use ondansetron first and THEN promethazine IF ondansetron is ineffective. {BKC} sodium chloride 0.9 % flush 1-10 mL 1-10 mL, Intravenous, As Needed, Line Care, Starting on Wed06/20/18 at 0052 Linked Groups Order Group 1: promethazine (PHENERGAN) tablet 25 mgJump to med 25 mg, Oral, Every 6 Hours PRN, Nausea, Vomiting, Starting on Wed06/20/18 at 0052, If BOTH ondansetron (ZOFRAN) and promethazine (PHENERGAN) are ordered use ondansetron first and THEN promethazine IF ondansetron is ineffective. {BKC} Or promethazine (PHENERGAN) injection 12.5 mgJump to med 12.5 mg, Intramuscular, Every 6 Hours PRN, Nausea, Vomiting, Starting on Wed06/20/18 at 0052, If giving IV, dilute dose in 20 mL NS and slow IV push over 3-5 minutes. Administer through large bore vein (not hand or wrist) through running IV line at port furthest from patient's vein. Or promethazine (PHENERGAN) suppository 12.5 mgJump to med 12.5 mg, Rectal, Every 6 Hours PRN, Nausea, Vomiting, Starting on Wed06/20/18 at 0052, If BOTH ondansetron (ZOFRAN) and promethazine (PHENERGAN) are ordered use ondansetron first and THEN promethazine IF ondansetron is ineffective. documented in this encounter Care Teams Video Library Assistant Relationship Specialty Start Date End Date Provider, [place] [address] PCP - General 03/22/18 documented as of this encounter
--- OUTSIDE RECORDS SUMMARY | 2024-09-05 22:14 | XMS_ITS | Encounter Summary ---
Author Organization [facility] Address [address] [place] [address] Care Team Providers Care Protozoology Teacher Name Role Phone Provider, No Known Primary Care Provider Unavail able Reason for Visit * Reason Comments Rupture of Membranes * Auth/Cert Specialty Diagnoses / Procedures Referred By Contac t Referred To Contact Diagnoses delivery delivered PROM (premature rupture of membranes) delivery delivered [O82] Procedures SECTION REPEAT*39 WKS* Referral ID Status Reason Start Date Expiration Date Visits Re quested Visits Authorized [id number] 1 1 Encounter Details Date Type Department Care Team (Late st Contact Info) Description 06/19/2018 9:30 PM EDT - 06/19/2018 11:02 PM EDT Surgery [facility] [address] [place] [id number] Sheng Santizo MD [address] [facility] [address] [place] [address] SECTION REPEAT Social History Tobacco Use Types Packs/Day Years Used Date Smoking Tobacco: Former Cigarettes 2 - 12/2017 Smokeless Tobacco: Never Alcohol Use Standard Drinks/Week Comments No 0 (1 standard drink = 0.6 oz pur e alcohol) Wakefield Depression Scale Answer Date Recorded Retired [place]field Depression Score 12 06/20/2018 Retired EPD Scale: Thought of Harming Self 06/20/2018 Comments No Sex and Gender Information Value Date Recorded Sex Assigned at Not on file Legal Sex Female 1:44 PM EDT Gender Identity Not on file Sexual Orientation Not on file documented as of this encounter Last Filed Vital Signs Vital Sign Reading Time Taken Comments Blood Pressure 166/107 06/19/2018 9:01 PM EDT Pulse 111 06/19/2018 9:01 PM EDT Temperature 36.7 ??C (98.1 ??F) 06/19/2018 9:01 PM ED T Respiratory Rate 24 06/19/2018 9:01 PM EDT Oxygen Saturation - - Inhaled [...] Date of Discharge: 06/23/2018 Patient: Merle Lyle MR#:[id number] Primary Surgeon/OB: Sheng Santizo MD Discharge Surgeon/OB: [...] her incision is dry, clean and intact. Infant: female fetus 3944 g (8 lb 11.1 [...] sent through Care Everywhere. * Citalopram tablets (Peruvian) * Ibuprofen tablets and capsules (Peruvian) * Acetaminophen; Oxycodone tablets (Peruvian) * Norethindrone tablets (contraception) (Peruvian) * Metoclopramide tablets (Peruvian) documented in this encounter Medications at Time [...] 06/22/2018 11:25 AM EDT Continued Stay Note [facility] Patient Name: Merle Lyle Today's Date: 06/22/2018 Admit Date: 06/19/2018 Discharge Plan Row Name 06/22/18 1124 Plan Plan Provided resources Plan Comments Spoke with pt. Gave list of counseling servies in [place]. Discharge Codes No documentation. Expected Discharge Date and Time Expected Discharge Date Expected Discharge Time Jul 03, 2018 JERRY Colmenares * Kimo Farrell MD - 06/22/2018 7:46 AM EDT 06/22/2018 Name:Merle Lyle MR#:[id number] PROGRESS NOTE: Post-Op 3 S/P Subjective 26 [...] 06/21/2018 MCV 91.8 06/21/2018 PLT 211 06/21/2018 : female Assessment 1. POD 3 from c/s [...] 06/21/2018 7:53 AM EDT 06/21/2018 Name:Merle Lyle MR#:[id number] PROGRESS NOTE: Post-Op 2 S/P Subjective 26 [...] 253 06/19/2018 Infant: female Assessment 1. POD 2 Doing well 2. Tolerating diet / ambulation As an addendum the nurses mention that last evening she was her crying in her room at the nurses station. Will get director of social services to see her today. Plan: Probable discharge tomorrow. Social service consult [place] Hep-Lock Kimo Farrell MD 06/21/2018 7:53 AM * Kimo Farrell MD - 06/20/2018 8:47 AM EDT 06/20/2018 Name:Merle Lyle MR#:[id number] PROGRESS NOTE: Post-Op 1 S/P Subjective 26 [...] Santizo MD - 06/19/2018 10:22 PM EDT [facility] Obstetric History and Physical Chief Complaint [...] to Progress in First Stage Obstetric Comments 2013 - [place] Past Medical History: Past Medical History: Diagnosis [...] 2 + Presentation: Cephalic Cervix: Exam by: RAnnmarie Dilation: 1 Effacement: Station: Heart Rate Assessment Method: Beats/min: Baseline: 120s Variability: Accels: Decels: Tracing Category: Uterine Assessment Method: Frequency (min): irregular Ctx Count in 10 min: Duration: Intensity: moderate Intensity by IUPC: Resting Tone: Resting Tone by IUPC: Ivana Units: Assessment/Plan Principal Problem: section Aug 2014 FTP/CPD occiput transverse 8 lbs. 8 oz. 39 6/7 weeks Active Problems: PROM (premature rupture of membranes) Assessment & Plan Assessment: 1. Intrauterine at 37w3d gestation with reactive status. 2. PROM 3. RLTCS Plan: 1. Admit 2. IV, CBC, T&S 3. ABX 4 To O.R. For RLTCS Sheng Sanitzo MD 06/19/2018 10:22 PM documented in this encounter Consult Notes * Delma Khoury, HELP DESK ADMINISTRATOR - 06/21/2018 4:14 PM EDTAssociated Order(s): IP CONSULT TO CASE MANAGEMENT CUSHION GUM APPLICATOR; IP CONSULT TO CASE MANAGEMENT CUSHION GUM APPLICATOR Continued Stay Note [facility] Patient Name: Merle Lyle Today's Date: [...] Assistance support offered Support diary/feeding log utilized;encouragement provided;infant- mother separation minimized; counseling provided Breast Pumping Breast Pumping Interventions post-feed pumping encouraged Mom has personal breast pump. Encouraged to feed every 3 hours--breastfeed/supplement/pump. Reviewed pump use. Answered questions about pumping, pump care and cleaning, milk supply, breast and nipplecare. Teaching done, as documented under education. To call for services, if there are questions or concerns. * Paulette Rodríguez RN - 06/21/2018 10:25 AM EDT Mom [...] RN - 06/20/2018 9:25 AM EDT 06/20/18 0925 Maternal Information Date of Referral 06/20/18 Person [...] cue recognition promoted;feeding on demand promoted;feeding session observed;infant latch-on verified; stimulated to wakeful state;nipple shield [...] Santizo MD - 06/19/2018 11:49 PM EDT Grainger Merle Lucas Lyle : 1990 CSN: [id number] Section Operative Note Pre-Operative Dx: 1. Intrauterine at 37w3d weeks 2. Previous section - declines Postoperative dx: 1. Intrauterine at 37w3d weeks 2. Previous section - declines Procedure: Repeat (LTCS) - 2 layer closure Surgeon: Sheng Santizo MD Electric Meter Tester Helper: Sarah Beard Anesthesia: Spinal EBL: 1000 mls. IV Fluids: [...] AND DIFFERENTIAL Timed 06/21/2018 7:43 AM EDT [id number] Routine 06/20/2018 7:05 AM EDT RHIG EVALUATION [...] - 10.80 10*3/mm3 06/21/2018 8:31 AM EDT [facility] RBC 3.19(L) 3.89 - 5.14 10*6/mm3 06/21/2018 8:31 AM EDT [facility] Hemoglobin 9.2(L) 11.5 - 15.5 g/dL 06/21/2018 8:31 AM EDT [facility] Hematocrit 29.3(L) 34.5 - 44.0 % 06/21/2018 8:31 AM EDT [facility] MCV 91.8 80.0 - 99.0 fL 06/21/2018 8:31 AM EDT [facility] MCH 28.8 27.0 - 31.0 pg 06/21/2018 8:31 AM EDT [facility] MCHC 31.4(L) 32.0 - 36.0 g/dL 06/21/2018 8:31 AM EDT [facility] RDW 16.3(H) 11.3 - 14.5 % 06/21/2018 8:31 AM EDT [facility] RDW-SD 54.5(H) 37.0 - 54.0 fl 06/21/2018 8:31 AM EDT [facility] MPV 10.7 6.0 - 12.0 fL 06/21/2018 8:31 AM EDT [facility] Platelets 211 150 - 450 10*3/mm3 06/21/2018 8:31 AM EDT [facility] Neutrophil % 72.6(H) 41.0 - 71.0 % 06/21/2018 8:31 AM [facility] Lymphocyte % 20.5(L) 24.0 - 44.0 % 06/21/2018 8:31 AM [facility] Monocyte % 5.9 0.0 - 12.0 % [facility]2018 [facility] Eosinophil % 0.7 0.0 - 3.0 % 06/21/2018 8:31 AM [facility] Basophil % 0.3 0.0 - 1.0 % 06/21/2018 8:31 AM [facility] Immature Grans % 0.7(H) 0.0 - 0.6 % 06/21/2018 8:31 AM [facility] Neutrophils, Absolute 12.25(H) 1.50 - 8.30 10*3/mm3 06/21/2018 8:31 AM [facility] Lymphocytes, Absolute 3.45 0.60 - 4.80 10*3/mm3 06/21/2018 8:31 AM [facility] Monocytes, Absolute 0.99 0.00 - 1.00 10*3/mm3 06/21/2018 8:31 AM [facility] Eosinophils, Absolute 0.12 0.00 - 0.30 10*3/mm3 06/21/2018 8:31 AM [facility] Basophils, Absolute 0.05 0.00 - 0.20 10*3/mm3 06/21/2018 8:31 AM [facility] Immature Grans, Absolute 0.11(H) 0.00 - 0.03 10*3/mm3 06/21/2018 8:31 AM [facility] Blood 06/21/2018 7:43 AM EDT 06/21/2018 8:19 AM EDT Sheng Santizo MD LAB BLOOD ORDERABLES Final Res ult Performing Organization Address [facility]/ZIP Co de Phone Number [facility]
[address] [place] [address], * Doses of Rh Immune Globulin (06/20/2018 7:05 AM EDT) Number of Doses Screen Negative ? Recommend 1 vial of RhIg 06/20/2018 8:50 AM EDT [facility] Blood Venipuncture / Unknown 06/20/2018 7:05 AM EDT 06/20/2018 8:46 AM EDT Kimo Farrell MD BLOOD BANK TEST ORDERABLES Final Result Performing Organization Address [facility] Co de Phone Number [facility]
[address] [place] [address], * Bleed Screen (06/20/2018 7:05 AM EDT) Bleed Screen Negative 06/20/2018 8:49 AM EDT [facility] Blood Venipuncture / Unknown 06/20/2018 7:05 AM EDT 06/20/2018 8:46 AM EDT us Kimo Farrell MD BLOOD BANK TEST ORDERABLES Final Result Performing Organization Address [facility] Co de Phone Number [facility]
[address] [place] [address], * RhIg Evaluation (06/20/2018 7:05 AM EDT) ABO Type O 06/20/2018 8:48 AM EDT [facility] RH type Negative 06/20/2018 8:48 AM EDT [facility] Blood Venipuncture / Unknown 06/20/2018 7:05 AM EDT 06/20/2018 8:46 AM EDT Kimo Farrell MD BLOOD BANK TEST ORDERABLES Final Result Performing Organization Address [facility]/ZIP Co de Phone Number [facility]
[address] [place] [address], * (ABNORMAL) Preeclampsia Panel (06/19/2018 9:24 PM EDT) Alkaline Phosphatase 120(H) 25 - 100 U/L 06/19/2018 9:46 PM EDT [facility] ALT (SGPT) 20 7 - 40 U/L 06/19/2018 9:46 PM EDT [facility] AST (SGOT) 32 0 - 33 U/L 06/19/2018 9:46 PM EDT [facility] Creatinine 0.72 0.60 - 1.30 mg/dL 06/19/2018 9:46 PM EDT [facility] Total Bilirubin 0.3 0.3 - 1.2 mg/dL 06/19/2018 9:46 PM EDT [facility] LDH 176 120 - 246 U/L 06/19/2018 9:46 PM EDT [facility] Uric Acid 5.9 3.1 - 7.8 mg/dL 06/19/2018 9:46 PM EDT [facility] Blood Line / Unknown 06/19/2018 9: 24 PM EDT 06/19/2018 9:28 PM EDT Sheng Santizo MD LAB BLOOD ORDERABLES Final Res ult [facility]
[address] [place] [address], * Type & Screen (06/19/2018 9:24 PM EDT) ABO Type O 06/19/2018 10:56 PM EDT [facility] RH type Negative 06/19/2018 10:56 PM EDT [facility] Antibody Screen Negative 06/19/2018 10:56 PM EDT [facility] T&S Expiration Date 06/22/2018 11:59:59 PM 06/19/2018 10:56 PM EDT [facility] Blood Line / Unknown 06/19/2018 9: 24 PM EDT 06/19/2018 9:29 PM EDT Sheng Santizo MD BLOOD BANK TEST ORDERABLES Margarito jalyn Result - Final [facility]
[address] [place] [address], * (ABNORMAL) CBC (No Diff) (06/19/2018 9:24 PM EDT) WBC 14.57(H) 3.50 - 10.80 10*3/mm3 06/19/2018 9:36 PM EDT [facility] RBC 3.77(L) 3.89 - 5.14 10*6/mm3 06/19/2018 9:36 PM EDT [facility] Hemoglobin 11.3(L) 11.5 - 15.5 g/dL 06/19/2018 9:36 PM EDT [facility] Hematocrit 34.2(L) 34.5 - 44.0 % 06/19/2018 9:36 PM EDT [facility] MCV 90.7 80.0 - 99.0 fL 06/19/2018 9:36 PM EDT [facility] MCH 30.0 27.0 - 31.0 pg 06/19/2018 9:36 PM EDT [facility] MCHC 33.0 32.0 - 36.0 g/dL 06/19/2018 9:36 PM EDT [facility] RDW 15.5(H) 11.3 - 14.5 % 06/19/2018 9:36 PM EDT [facility] RDW-SD 51.2 37.0 - 54.0 fl 06/19/2018 9:36 PM EDT [facility] MPV 11.0 6.0 - 12.0 fL 06/19/2018 9:36 PM EDT [facility] Platelets 253 150 - 450 10*3/mm3 06/19/2018 9:36 PM EDT [facility] Blood Line / Unknown 06/19/2018 9: 24 PM EDT 06/19/2018 9:28 PM EDT us Sheng Santizo MD LAB BLOOD ORDERABLES Final Res ult [facility]
[address] [place] [address], documented in this encounter Visit Diagnoses Not on filedocumented in this encounter Admitting Diagnoses Diagnosis delivery delivered delivery, without mention of indication, delivered, with or without mention of antepartum condition PROM (premature rupture of membranes) Premature rupture of membranes in , unspecified as to episode of care documented in this encounter Administered Medications Inactive Administered Medications - up to 3 most recent administrations Medication Order MAR Action Action Date Dose Rate Site bisacodyl (DULCOLAX) EC tablet 10 mg 10 mg, Oral, Daily PRN, Constipation, Starting on Wed06/20/18 at 0052, Swallow whole. Do not crush, split, or chew tablet.Indications: delivery delivered citalopram (CeleXA) tablet 20 mg 20 mg, [...] Given 06/22/2018 10:39 PM EDT 600 mg lactated ringers infusion 125 mL/hr, Intravenous, [...] Given 06/21/2018 9:01 PM EDT 5 application ondansetron (ZOFRAN) tablet 4 mg 4 mg, [...] Given 06/22/2018 7:47 AM EDT 2 tablets promethazine (PHENERGAN) injection 12.5 mg 12.5 mg, [...] IF ondansetron is ineffective. {BKC}Indications: delivery delivered sodium chloride 0.9 % flush 1-10 mL [...] 1723, For 1 dose, Give at discharge. 1832 (Given - Provider: Mariaelena Hilton RN, Tailor Helper) ondansetron (ZOFRAN) tablet 4 mg 4 mg, [...] Sims, GLENN) 0132 (Given - Provider: Paloma Sims, GLENN)0747 (Given - Provider: Cori Hewitt, GLENN)1500 (Given - Provider: Cori Hewitt RN) 0536 [...] ineffective. documented in this encounter Care Teams Protozoology Teacher Relationship Specialty Start Date End Date Provider, [place] [address] PCP - General 03/22/18 documented as of this encounter
--- OUTSIDE RECORDS SUMMARY | 2024-09-05 22:14 | XMS_ITS | Encounter Summary ---
Author Organization [facility] Address [address] [place] [address] Care Team Providers Care Feedmobile Driver Name Role Phone Provider, No Known Primary Care Provider Unavail able Encounter Details Date Type Department Care Team (Late st Contact Info) Description 07/28/2018 Telephone [facility] [address] [id number] Kimo Oglesby MD [address] [place] [address] Social History Tobacco Use Types Packs/Day Years Used Date Smoking Tobacco: Former Cigarettes 2 12/2017 Smokeless Tobacco: Never Alcohol Use Standard Drinks/Week Comments No 0 (1 standard drink = 0.6 oz pur e alcohol) Marcus Depression Scale Answer Date Recorded Retired Marcus Depression Score 12 06/20/2018 Retired EPD Scale: Thought of Harming Self 06/20/2018 Comments No Sex and Gender Information Value Date Recorded Sex Assigned at Not on file Legal Sex Female 1:44 PM EDT Gender Identity Not on file Sexual Orientation Not on file documented as of this encounter Miscellaneous Notes * Telephone Encounter - Loli Manjarrez MA - 07/29/2018 1:05 PM EDT Patient advised. * Telephone Encounter - Kimo Oglesby MD - 07/29/2018 8:14 AM EDT I sent it in; other was effexor not effects or * Telephone Encounter - Loli Manjarrez MA - 07/28/2018 4:53 PM EDT No, she hasn't tried wellbutrin. * Telephone Encounter - Kimo Oglesby MD - 07/28/2018 4:39 PM EDT Please call her and see if she has ever taken effects or or Wellbutrin? * Telephone Encounter - Niurka Quinteros - 07/28/2018 3:23 PM EDT RENY COUGHLIN IS CALLING DR OGLESBY STARTED HER ON CELEXA - IT WAS MAKING HER HEART POUND - WAS TOLD TO CUT IN HALF AND NOW NOTHING - SHE WENT TO HER PRIMARY CARE AND ASKED ABOUT SOMETHING THAT MIGHT WORK - THEY ADVISED HER TO CALL US DUE TO THE FACT SHE IS BREAST FEEDING-- SHE STATES THE CELEXA IS NOT WORKING AND SHE STATES SHE NEEDS SOMETHING TO PLEASE CALL HER documented in this encounter Plan of Treatment Not on file documented as of this encounter Visit Diagnoses Not on filedocumented in this encounter Care Teams Feedmobile Driver Relationship Specialty Start Date End Date Provider, [place] [address] PCP - General 03/22/18 documented as of this encounter
--- NOTE | 2024-09-05 22:15 | HMH.EDGENADL ---
Discharge Plan Disposition Patient Disposition: Home, Self-Care Prescriptions Prescriptions: New ondansetron HCl 4 mg tablet 4 mg PO Q8H PRN (Reason: nausea and vomiting) 5 Days Qty: 30 0RF Referrals Follow up/Referrals: Provider,Referral, [Referring] - See instructions Activity Restrictions/Add. Instructions Additional Instructions/Restrictions: Please follow-up with your primary care provider. Please return to the emergency department if you develop any new or worsening symptoms or become concerned for your health. Clinical Impressions Clinical Impression: Nausea and vomiting, Heavy menstrual bleeding Instructions Patient Instructions: DI for Diarrhea and Traveler's Diarrhea -- Adult, DI for Diarrhea and Traveler's Diarrhea -- Child, DI for Nausea -- Adult, DI for Nausea -- Child Print Language Print Language: Slovenian Discharge ED Provider: Skyler Cevallos General Adult HPI <Gilbert Salgado MD - Last Filed: 09/05/24 22:59> General Chief complaint: Nausea/Vomiting/Diarrhea Stated complaint: abdominal pain Time Seen by Provider: 09/05/24 22:15 Mode of Arrival: EMS Source of Information: Patient and EMS Limitations: No Limitations Description of Symptoms (Recalled from ER Triage Doc. by RN): 34 F presents from home via EMS with c/o abdominal pain, n/v/d, and reports having started her period today. Patient denies blood in stool or emesis, fever, chest pain, or shortness of air. Patient reports having chills that recently started. EMS started 20g to LAC with 4mg IVP Zofran with 1L LR bolus infusing. History of Present Illness HPI narrative: Patient presents with acute onset abdominal pain described as cramping with associated nausea. She was in her normal state of health prior to onset of symptoms shortly prior to arrival. Associated symptoms include frequent nonbloody diarrhea, nausea, vomiting. Symptoms have subsequently improved slightly since administration at home of Zofran. She does report several sick contacts of her children who tested positive for RSV and strep. A third child of hers had a 1 day stomach bug that resolved after 1 episode of emesis. She denies any preceding nausea or vomiting or pain. She does report history of PCOS and recent return of her menstrual period after approximately 50 pound weight loss. She denies history of heavy periods in the past. She reports she has soaked approximately 8 pads in the past 24 hours. Please note that above description of symptoms, in this electronic medical record under categorization of recalled from ER triage doctor by RN are reflective of an initial nursing assessment, however, is not reflective of my full history and physical exam that was personally taken and clarified. Consequentially, this preceding description of symptoms, which may include the patient's categorized chief complaint in the EMR, do not reflect my personal clinical impression, and the ultimate description of history of present illness and patient stated complaints should be deferred to this section of the note. Unless stated otherwise or congruent with this section of the note, additional signs, symptoms, or incongruence should be interpreted as inaccurate with my clinical impression. Related Data Previous Rx's ?Medication ?Instructions ?Recorded ondansetron HCl 4 mg tablet 4 mg PO Q8H PRN nausea and 09/06/24 vomiting 5 days #30 tabs Allergies Allergy/AdvReac Type Severity Reaction Status Date / Time penicillin V (PENICILLIN V) Allergy Intermediate Rash Verified 09/05/24 22:19 Penicillins (PENICILLINS) Allergy Intermediate Rash Verified 09/05/24 22:19 sulfamethoxazole Allergy Intermediate Rash Verified 09/05/24 22:19 (SULFAMETHOXAZOLE) trimethoprim (TRIMETHOPRIM) Allergy Intermediate Rash Verified 09/05/24 22:19 metformin AdvReac Intermediate GI upset Verified 04/12/24 14:43 [facility] <Gilbert Salgado MD - Last Filed: 09/05/24 22:59> [facility] Disclaimer: The information contained in this section may have been updated after the patient was seen, as this information can be updated by other users. Medical History (Updated 09/06/24 @ 00:11 by Skyler Cevallos MD) Abdominal pain affecting bleeding Vaginal bleeding Hypomagnesemia Pre-eclampsia Cough Headache Gastroenteritis Hirsutism Anxiety and depression PTSD (post-traumatic stress disorder) Depression PMDD (premenstrual dysphoric disorder) PCOS (polycystic ovarian syndrome) Pre-diabetes Gastroesophageal reflux disease Persistent dyspnea after COVID-19 Varicose vein of leg Surgical History History of section Family History Other No significant family history Social History Smoking Status: Never smoker second hand exposure: Yes alcohol intake: former substance use type: denies use, former substance user and painkillers current occupational status: unemployed number of children: 2 Other Medical History Have you received the Flu Vaccine for this season: No Have you received the Pneumonia Vaccine: No <Gilbert Salgado MD - Last Filed: 09/05/24 22:59> ROS Obtained: Yes other As per HPI Physical Exam <Gilbert Salgado MD - Last Filed: 09/05/24 22:59> General General appearance: alert and in no apparent distress Head Head exam: atraumatic and normocephalic Eye Eye exam: Present normal appearance Neck Neck exam: Present normal inspection Chest Chest inspection: Present normal inspection and symmetric chest wall rise Respiratory Respiratory exam: Present normal lung sounds bilaterally; Absent respiratory distress Cardiovascular Cardiovascular exam: Present regular rate and normal rhythm Abdominal Exam Abdominal exam: Present soft Neurological Exam Neurological exam: Present alert and oriented X3 Psychiatric Psychiatric exam: Present normal affect and normal mood Skin Skin exam: Present warm and dry Medical Decision Making <Gilbert Salgado MD - Last Filed: 09/05/24 22:59> Medical Records Medical records reviewed: Yes I reviewed the patient's medical records. Screening: Per USPSTF and CDC recommendations, given the prevalence of disease in our region, it is our hospital?s policy to screen for HIV and viral Hepatitis for all patients aged 18 and over and those with ongoing risk factors. Darian Inquiry Pt receiving controlled substance: No Vital Signs: 09/05/24 22:06 09/05/24 22:31 09/05/24 23:30 Temperature 98.4 F Temperature Source Oral Pulse Rate 95 H 73 Pulse Rate [Left] 84 Respiratory Rate 16 Blood Pressure 114/77 110/40 L Blood Pressure [Right Arm] 116/78 Blood Pressure Mean [Right Arm] 90 Blood Pressure Source [Right Arm] Automatic Cuff Blood Pressure Position [Right Arm] Sitting 02 Sat by Pulse Oximetry 98 97 98 Oxygen Delivery Method Room Air 09/06/24 00:27 Temperature 98.4 F Temperature Source Oral Pulse Rate 76 Pulse Rate [Left] Respiratory Rate 18 Blood Pressure 93/52 L Blood Pressure [Right Arm] Blood Pressure Mean [Right Arm] Blood Pressure Source [Right Arm] Blood Pressure Position [Right Arm] 02 Sat by Pulse Oximetry Oxygen Delivery Method Room Air Lab Data Lab Results 09/05/24 22:07: WBC 12.6 H, RBC 4.93, Hgb 15.2, Hct 44.5, MCV 90.2, MCH 30.9, MCHC 34.2, RDW 14.0, Plt Count 256, MPV 8.7, Neut % (Auto) 78.0, Lymph % (Auto) 15.3, Berks % (Auto) 5.0, Eos % (Auto) 0.3, Baso % (Auto) 1.4, Neut # (Auto) 9.8 H, Lymph # (Auto) 1.9, Berks # (Auto) 0.6, Eos # (Auto) 0.0, Baso # (Auto) 0.2, Sodium 142, Potassium 3.5, Chloride 105, Carbon Dioxide 25, Anion Gap 15.5 H, BUN 15, Creatinine 0.90, Estimated Creat Clear 129, Estimated GFR 73, Est GFR ( Amer) 88, Glucose 112 H, Calcium 9.6, Total Bilirubin 1.1, AST 27, ALT 24, Alkaline Phosphatase 91, Total Protein 8.0, Albumin 4.9, Globulin 3.1, Albumin/Globulin Ratio 1.6, TSH 0.87, Free T4 0.91, Serum HCG, Qual Negative 09/05/24 22:19: HIV 1&2 Antibody Rapid Nonreactive 09/06/24 00:00: Lipase 61 09/05/24 22:07 09/05/24 22:07 Orders (Tests/Meds): ED MEDICATIONS Discontinued Medications Generic Name Dose Route Start Last Admin Trade Name Freq PRN Reason Stop Dose Admin Belladonna Alkaloids 60 ml 09/05/24 22:31 09/05/24 22:38 Belladonna Alkaloids 60 Ml Ml PO 09/05/24 22:32 60 ml ONCE ONE Administration Ketorolac Tromethamine 15 mg 09/05/24 22:31 09/05/24 22:38 Ketorolac 30mg/Ml Vial IV 09/05/24 22:32 15 mg ONCE ONE Administration ORDERS Category Date Time Status US transvaginal Stat Exams 09/05/24 22:31 Completed CBC w/Auto Diff [Complete Blood Count Auto Diff] Stat Lab 09/05/24 22:07 Completed CMP [Comprehensive Metabolic Panel] Stat Lab 09/05/24 22:07 Completed Free T4 (Free Thyroxine) Stat Lab 09/05/24 22:07 Completed HCG Qualitative, Serum Stat Lab 09/05/24 22:07 Completed HIV (1&2) Antibody Rapid Stat Lab 09/05/24 22:19 Completed Hep C Ab with Reflex to RNA Stat Lab 09/05/24 22:19 Received Lipase Stat Lab 09/06/24 00:00 Completed TSH [Thyroid Stimulating Hormone] Stat Lab 09/05/24 22:07 Completed Medical Decision Narrative: Patient with history and exam per above presenting for evaluation of vaginal bleeding, nausea, vomiting, diarrhea Diagnoses considered include , breakthrough bleeding in the setting of PCOS, ovarian torsion, viral gastroenteritis, among others ED workup and treatment included: ED MEDICATIONS Discontinued Medications Generic Name Dose Route Start Last Admin Trade Name Freq PRN Reason Stop Dose Admin Belladonna Alkaloids 60 ml 09/05/24 22:31 09/05/24 22:38 Belladonna Alkaloids 60 Ml Ml PO 09/05/24 22:32 60 ml ONCE ONE Administration Ketorolac Tromethamine 15 mg 09/05/24 22:31 09/05/24 22:38 Ketorolac 30mg/Ml Vial IV 09/05/24 22:32 15 mg ONCE ONE Administration ORDERS Category Date Time Status US transvaginal Stat Exams 09/05/24 22:31 Ordered CBC w/Auto Diff [Complete Blood Count Auto Diff] Stat Lab 09/05/24 22:07 Completed CMP [Comprehensive Metabolic Panel] Stat Lab 09/05/24 22:07 Received Free T4 (Free Thyroxine) Stat Lab 09/05/24 22:07 Received HCG Qualitative, Serum Stat Lab 09/05/24 22:07 Completed HIV (1&2) Antibody Rapid Stat Lab 09/05/24 22:19 Received Hep C Ab with Reflex to RNA Stat Lab 09/05/24 22:19 Received TSH [Thyroid Stimulating Hormone] Stat Lab 09/05/24 22:07 Received Labs and imaging pending at this time. Care was transferred to incoming physician <Skyler Cevallos MD - Last Filed: 09/06/24 01:11> Vital Signs: 09/05/24 22:06 09/05/24 22:31 09/05/24 23:30 Temperature 98.4 F Temperature Source Oral Pulse Rate 95 H 73 Pulse Rate [Left] 84 Respiratory Rate 16 Blood Pressure 114/77 110/40 L Blood Pressure [Right Arm] 116/78 Blood Pressure Mean [Right Arm] 90 Blood Pressure Source [Right Arm] Automatic Cuff Blood Pressure Position [Right Arm] Sitting 02 Sat by Pulse Oximetry 98 97 98 Oxygen Delivery Method Room Air 09/06/24 00:27 Temperature 98.4 F Temperature Source Oral Pulse Rate 76 Pulse Rate [Left] Respiratory Rate 18 Blood Pressure 93/52 L Blood Pressure [Right Arm] Blood Pressure Mean [Right Arm] Blood Pressure Source [Right Arm] Blood Pressure Position [Right Arm] 02 Sat by Pulse Oximetry Oxygen Delivery Method Room Air Lab Data Lab Results 09/05/24 22:07: WBC 12.6 H, RBC 4.93, Hgb 15.2, Hct 44.5, MCV 90.2, MCH 30.9, MCHC 34.2, RDW 14.0, Plt Count 256, MPV 8.7, Neut % (Auto) 78.0, Lymph % (Auto) 15.3, Berks % (Auto) 5.0, Eos % (Auto) 0.3, Baso % (Auto) 1.4, Neut # (Auto) 9.8 H, Lymph # (Auto) 1.9, [place]ks # (Auto) 0.6, Eos # (Auto) 0.0, Baso # (Auto) 0.2, Sodium 142, Potassium 3.5, Chloride 105, Carbon Dioxide 25, Anion Gap 15.5 H, BUN 15, Creatinine 0.90, Estimated Creat Clear 129, Estimated GFR 73, Est GFR ( Amer) 88, Glucose 112 H, Calcium 9.6, Total Bilirubin 1.1, AST 27, ALT 24, Alkaline Phosphatase 91, Total Protein 8.0, Albumin 4.9, Globulin 3.1, Albumin/Globulin Ratio 1.6, TSH 0.87, Free T4 0.91, Serum HCG, Qual Negative 09/05/24 22:19: HIV 1&2 Antibody Rapid Nonreactive 09/06/24 00:00: Lipase 61 Orders (Tests/Meds): ED MEDICATIONS Discontinued Medications Generic Name Dose Route Start Last Admin Trade Name Freq PRN Reason Stop Dose Admin Belladonna Alkaloids 60 ml 09/05/24 22:31 09/05/24 22:38 Belladonna Alkaloids 60 Ml Ml PO 09/05/24 22:32 60 ml ONCE ONE Administration Ketorolac Tromethamine 15 mg 09/05/24 22:31 09/05/24 22:38 Ketorolac 30mg/Ml Vial IV 09/05/24 22:32 15 mg ONCE ONE Administration ORDERS Category Date Time Status US transvaginal Stat Exams 09/05/24 22:31 Completed CBC w/Auto Diff [Complete Blood Count Auto Diff] Stat Lab 09/05/24 22:07 Completed CMP [Comprehensive Metabolic Panel] Stat Lab 09/05/24 22:07 Completed Free T4 (Free Thyroxine) Stat Lab 09/05/24 22:07 Completed HCG Qualitative, Serum Stat Lab 09/05/24 22:07 Completed HIV (1&2) Antibody Rapid Stat Lab 09/05/24 22:19 Completed Hep C Ab with Reflex to RNA Stat Lab 09/05/24 22:19 Received Lipase Stat Lab 09/06/24 00:00 Completed TSH [Thyroid Stimulating Hormone] Stat Lab 09/05/24 22:07 Completed Medical Decision Narrative: Patient with history and exam per above presenting for evaluation of vaginal bleeding, nausea, vomiting, diarrhea Diagnoses considered include , breakthrough bleeding in the setting of PCOS, ovarian torsion, viral gastroenteritis, among others ED workup and treatment included: ED MEDICATIONS Discontinued Medications Generic Name Dose Route Start Last Admin Trade Name Freq PRN Reason Stop Dose Admin Belladonna Alkaloids 60 ml 09/05/24 22:31 09/05/24 22:38 Belladonna Alkaloids 60 Ml Ml PO 09/05/24 22:32 60 ml ONCE ONE Administration Ketorolac Tromethamine 15 mg 09/05/24 22:31 09/05/24 22:38 Ketorolac 30mg/Ml Vial IV 09/05/24 22:32 15 mg ONCE ONE Administration ORDERS Category Date Time Status US transvaginal Stat Exams 09/05/24 22:31 Ordered CBC w/Auto Diff [Complete Blood Count Auto Diff] Stat Lab 09/05/24 22:07 Completed CMP [Comprehensive Metabolic Panel] Stat Lab 09/05/24 22:07 Received Free T4 (Free Thyroxine) Stat Lab 09/05/24 22:07 Received HCG Qualitative, Serum Stat Lab 09/05/24 22:07 Completed HIV (1&2) Antibody Rapid Stat Lab 09/05/24 22:19 Received Hep C Ab with Reflex to RNA Stat Lab 09/05/24 22:19 Received TSH [Thyroid Stimulating Hormone] Stat Lab 09/05/24 22:07 Received Labs and imaging pending at this time. Care was transferred to incoming physician Ban GARDNER: I assumed care of the patient at the time of handoff from the prior provider. On reassessment patient reports symptomatic improvement, still feels a little bit of nausea. Labs results interpreted by me show mild leukocytosis, unremarkable chemistry. Transv, negative lipaseaginal ultrasound was interpreted by me and radiology and shows findings consistent with menstrual period and PCOS. No evidence of torsion. They do recommend repeat transvaginal ultrasound after finishing her menstrual cycle to document normalization of the endometrium. I discussed these findings and recommendations with the patient and she was discharged in stable condition with prescription for Zofran. and return precautions Critical Care <Gilbert Salgado MD - Last Filed: 09/05/24 22:59> Critical Care Time Critical Care Time: No
--- OUTSIDE RECORDS SUMMARY | 2024-09-05 22:15 | XMS_ITS | Clinical Summary ---
Author Organization [facility] Address [address] [place] [address] Care Team Providers Care Acquisition Specialist Name Role Phone Ina Gill Primary Care Provider [phone] Allergies Active Allergy Reactions Criticality Noted Date Comments Penicillins Rash Low 03/22/2018 Sulfamethoxazole-Trimethoprim Rash Low 2017 Medications acetaminophen (Tylenol) 325 MG tablet Take 650 mg by mouth. Active ProAir HFA 108 (90 Base) MCG/ACT inhaler INHALE 2 PUFFS BY MOUTH EVERY 4 TO 6 HOURS NEEDED FOR SHORTNESS OF BREATH OR WHEEZING 2 Active buPROPion XL (Wellbutrin XL) 150 MG 24 hr tablet TAKE 1 TABLET BY MOUTH ONCE DAILY IN THE MORNING 2 Active Vraylar 1.5 MG capsule Take 1.5 mg by mouth 1 (one) time each day. 2 Active cefdinir (Omnicef) 300 MG capsule Take 300 mg by mouth 2 (two) times a day. 2 Active doxycycline (Vibra-Tabs) 100 MG tablet Take 100 mg by mouth 2 (two) times a day. 1 Active fluticasone (Flonase) 50 MCG/ACT nasal spray USE 1 SPRAY(S) IN EACH NOSTRIL ONCE DAILY 2 Active Advair HFA 115-21 MCG/ACT inhaler Inhale 2 puffs 2 (two) times a day. 2 Active Victoza 18 MG/3ML inj. pen inject 0.6 milligram subcutaneously daily for 7 days then inject 1.2 milligram subcutaneously daily 1 Active metFORMIN XR (Glucophage-XR ) 500 MG 24 hr tablet Take 500 mg by mouth 1 (one) time each day. 2 Active ofloxacin (Ocuflox) 0.3 % ophthalmic solution INSTILL 10 DROPS INTO AFFECTED EAR ONCE DAILY FOR 7 DAYS 2 Active omeprazole (PriLOSEC) [address] capsule Take 20 mg by mouth 1 (one) time each day. Active predniSONE (Deltasone) 20 MG tablet TAKE 1 TABLET BY MOUTH TWICE DAILY ADMINISTER WITH FOOD OR MILK 2 Active multivitamin () 27-0.8 MG tablet Take 1 tablet by mouth 1 (one) time each day. 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 03/13/2022 Lipoma of left lower extremity 03/13/2022 Glucose tolerance test abnormal 06/06/2018 Cellulitis 06/03/2018 delivery delivered 03/22/2018 Depression 03/22/2018 Social History Tobacco Use Types Packs/Day Years Used Date Smoking Tobacco: Every Day Cigarettes 1 15 Smokeless Tobacco: Never Tobacco Cessation:Ready to Q uit: No; Counseling Given: No Comments Unknown Sex and Gender Information Value Date Recorded Sex Assigned at Not on file Legal Sex Female 6:56 PM EDT Gender Identity Not on file Sexual Orientation Not on file Last Filed Vital Signs Vital Sign Reading Time Taken Comments Blood Pressure 151/99 03/13/2022 8:40 AM EDT Pulse 98 03/13/2022 8:40 AM EDT Temperature - - Respiratory Rate 18 03/13/2022 8:40 AM EDT Oxygen Saturation - - Inhaled Oxygen Concentration - - Weight 106 kg (234 lb) 03/13/2022 8:40 AM EDT Height 165.1 cm (5' 5 ) 03/13/2022 8:40 AM EDT Body Mass Index 38.94 03/13/2022 8:40 AM EDT Plan of Treatment Health Maintenance Due Date Last Done Comments [facility]-Depression Screening 1990 [facility]-/Child/Adol SDOH Screenings 1990 [facility]-Varicella Vaccines (1 of 2 - 13+ 2-dose series) 02/22/2005 [facility]- SDOH Screenings 02/22/2010 [facility]-Adult SDOH Screenings 02/22/2010 [facility]-HPV Vaccines (2 - 3-dose series) 06/10/2010 05/13/2010 [facility]-Hepatitis B Vaccines (1 of 3 - 19+ 3-dose series) 02/22/2011 [facility]-Pap Smear 02/22/2013 [facility]-Cervical Cancer Screening 02/22/2022 [facility]-HPV/Cotest 02/22/2022 [id number]-[id number]-08 Vaccine (1 - 2023- season) 2024 [facility]-Influenza Vaccine (#1) 2024 [facility]-DTaP,Tdap,and Td Vaccines (3 - Td or Tdap) 03/31/2033 03/31/2023, 02/24/1996 [facility]-Zoster Vaccines (1 of 2) 02/22/2042 [facility]-RSV Vaccine: 60+ Years or (1 - 1-dose 75+ series) 02/22/2067 [facility]-HIB Vaccines Aged Out No longer e ligible based on patient's age to complete this topic [facility]-Hepatitis A Vaccines Aged Out No longer eligible based on patient's age to complete this topic [facility]-IPV Vaccines Aged Out No longer e ligible based on patient's age to complete this topic [facility]-Pneumococcal Vaccine: Pediatrics (0 to 5 Years) and At-Risk Patients (6 to 64 Years) Aged Out No longer eligible b ased on patient's age to complete this topic [facility]-Rotavirus Vaccines Aged Out No lo nger eligible based on patient's age to complete this topic Insurance [employer]ICA[employer] Care Teams Acquisition Specialist Relationship Specialty Start Date End Date Ina Gill PA [address] [place] [address] PCP - General 01/16/22
--- OUTSIDE RECORDS SUMMARY | 2024-09-05 22:15 | XMS_ITS | Encounter Summary ---
[facility] Address [address] [place] [address] Care Team Providers Care Harnessmaker Apprentice Name Role Phone Unavailable Primary Care Provider Unavailabl e Encounter Details Date Type Department Care Team (Late st Contact Info) Description 06/13/2014 9:10 AM EDT - 06/13/2014 11:59 PM EDT Hospital Encounter [facility] [address] [place] [phone] Ayesha Mejia, TELETRAY OPERATOR [address] [facility] [address] [place] [id number] Social History Tobacco Use Types Packs/Day Years Used Date Smoking Tobacco: Never Assessed Comments Unknown Sex and Gender Information Value Date Recorded Sex Assigned at Not on file Legal Sex Female 1:44 PM EDT Gender Identity Not on file Sexual Orientation Not on file documented as of this encounter Plan of Treatment Not on file documented as of this encounter Procedures Procedure Name Priority Date/Time Associated Diagnosis Comments GLUCOSE, POST 50 GM GLUCOLA Routine 06/13/2014 9:13 AM EDT documented in this encounter Results * Glucose, Post 50 gm Glucola (06/13/2014 9:13 AM EDT) Glucose, GTT - 1 Hour 118 65 - 139 mg/dL [facility] Blood specimen (specimen) 06/13/2014 9:13 AM EDT Narrative [facility] - 06/13/2014 9:55 AM EDT Specimen Type: Blood Ayesha Mejia TELETRAY OPERATOR LAB BLOOD ORDERABLES Final Result Performing Organization Address City/State/[facility] Co de Phone Number [facility] [address] [place] [address], documented in this encounter Visit Diagnoses Not on filedocumented in this encounter
--- OUTSIDE RECORDS SUMMARY | 2024-09-05 22:15 | XMS_ITS | Encounter Summary ---
Author Organization [facility] yste Address [address] [place] [address] Care Team Providers Care Dentofacial Orthopedics Dentist Name Role Phone Provider, No Known Primary Care Provider Unavail able Reason for Visit * Reason Comments Initial Visit Encounter Details Date Type Department Care Team (Late st Contact Info) Description 03/22/2018 3:00 PM EDT Initial [facility] [address] [facility] [address] [place] [address] Fabian Farrell MD [address] [facility] [address] [place] [address] GA: 24w5d Social History Tobacco Use Types Packs/Day Years Used Date Smoking Tobacco: Never Smokeless Tobacco: Never Alcohol Use Standard Drinks/Week [...] Sign Reading Time Taken Comments Blood Pressure 116/70 03/22/2018 3:59 PM EDT Pulse - - Temperature - - Respiratory Rate - - Oxygen Saturation - - Inhaled Oxygen Concentration - - Weight 68 kg (150 lb) 03/22/2018 3:59 PM EDT Height 167.6 cm (5' 6 ) 03/22/2018 4:04 PM EDT Body Mass Index 24.21 03/22/2018 3:59 PM EDT documented in this encounter Progress Notes * Fabian Farrell MD - 03/22/2018 3:00 PM EDTAddended by: FABIAN FARRELL on: 03/22/2018 04:24 PM Modules accepted: Level of Service * Fabian Farrell MD - 03/22/2018 3:00 PM EDT Chief Complaint Patient presents with ??? Initial Visit HPI: Merle is a currently at 24w5d who today reports the following: Contractions - No; Leaking - No; Vaginal bleeding - No; Heartburn - YES.Tums help - discussed ROS: GI: Nausea - No ; Constipation - improved as compared to the prior visit; Diarrhea - No Neuro: Headache - improved as compared to the prior visit ; Visual change - No some dizziness occasionally - fluids help EXAM: Vitals: See flowsheet Abdomen: See flowsheet Urine glucose/protein: See flowsheet Pelvic: See flowsheet Lab Results Component Value Date ABORH O Rh Negative 08/23/2014 ABO O 12/22/2017 RH Negative 12/22/2017 ABSCRN Normal 12/22/2017 MDM: Impression: 1. Supervision of high risk 2. Previous C/S with planned 3. GERD in 4. History of ASCUS Pap 2017 5. History of depression self discontinued Viibryd with Tests done today: 1. none Topics discussed: 1. Continue with PNV's 2. labs reviewed 3. none - she had no major complaints,questions or concerns 4. info and will need to sign permit 5. May need to consider ultrasound at 37 weeks although upon review of old records estimated weight was 7 lbs. 3 oz. and a weight 88. Maternal weight was 8 lbs. 11 oz. Tests scheduled today for her next visit: GCT HgB documented in this encounter Plan of Treatment Not on file documented as of this encounter Procedures Procedure Name Priority Date/Time Associated Diagnosis Comments CHLAMYDIA TRACHOMATIS, NEISSERIA GONORRHOEAE, PCR Routine 12/22/2017 HIV-1/O/2 ANTIGEN/ANTIBODY Routine 12/22/2017 OBSTETRIC PANEL Routine 12/22/2017 documented in this encounter Results * Obstetric Panel (12/22/2017) External ABO Grouping O External Rh Factor Negative External Antibody Screen Normal Normal Blood [facility] Provider LAB BLOOD ORDERABLES Liana l Result * Chlamydia trachomatis, Neisseria gonorrhoeae, PCR - Swab, Vagina (12/22/2017) Chlamydia trachomatis, MAHOGANY negative Neisseria gonorrhoeae, MAHOGANY negative Swab Specimen from vagina / Unknown [facility] Provider MICROBIOLOGY - GENERAL OR DERABLES Final Result * HIV-1 / O / 2 Ag / Antibody 4th Generation (12/22/2017) HIV Screen 4th Gen w/RFX (Reference) negative Blood [facility] Provider LAB BLOOD ORDERABLES Liana l Result documented in this encounter Visit Diagnoses Diagnosis 24 weeks gestation of - Primary documented in this encounter Care Teams Dentofacial Orthopedics Dentist Relationship Specialty Start Date End Date Provider, No Known [facility] [place] [address] PCP - General 03/22/18 documented as of this encounter
--- OUTSIDE RECORDS SUMMARY | 2024-09-05 22:15 | XMS_ITS | Encounter Summary ---
[facility] [address] [place] [address] Care Team Providers Care Shearing Shed Worker Name Role Phone Unavailable Primary Care Provider Unavailabl e Encounter Details Date Type Department Care Team (Late st Contact Info) Description 08/21/2014 10:28 PM EST - 08/25/2014 2:15 PM EST Hospital Encounter [facility] [address] [place] [phone] Fabian Oglesby MD [address] [facility] [address] [place] [address] Social History Tobacco Use Types Packs/Day Years Used Date Smoking Tobacco: Never Assessed Comments Unknown Sex and Gender Information Value Date Recorded Sex Assigned at Not on file Legal Sex Female 1:44 PM EDT Gender Identity Not on file Sexual Orientation Not on file documented as of this encounter Discharge Summaries * Interface, See Report - 08/21/2014 10:28 PM EST [facility] [address] [place], [place] [address] DISCHARGE SUMMARY PATIENT NAME: MERLE LYLE ROOM NUMBER: [id number] VISIT NUMBER: [id number] DATE OF : 1990 DATE OF ADMISSION: 08/21/2014 DATE OF DISCHARGE: 08/25/2014 DISCHARGE DIAGNOSES: 1. Intrauterine at term. 2. Failure to progress/cephalopelvic disproportion. PROCEDURES PERFORMED: 1. Primary section by low transverse uterine incision. 2. Epidural anesthesia. 3. Prophylactic antibiotics. DIAGNOSTIC DATA: Admission hemoglobin and hematocrit of 13 and 37%, postoperatively 10 and 30%, platelets are 167,000. Blood type confirmed as O negative. HISTORY/HOSPITAL COURSE: The patient is a 24-year-old, 1, now para 1 whose weight was 8 pounds, 11 ounces and she was delivered by section. The estimated weight of this infant was 7 pounds 3 ounces at 38 weeks. She was induced because of the concern for large for gestational age . She was admitted on 08/21/2014 with Narayanan bulb and received Pitocin the following day. She progressed to approximately 5 cm dilation with no further dilation. Contractions were adequate by intrauterine pressure catheter. She underwent a primary section, delivered an 8- pound, 8- ounce male in left occiput transverse presentation. She received 2 grams Ancef prophylactically. Postoperatively, she did well. Her diet was advanced without difficulty and she was tolerating solid foods with normal bowel function. She was voiding well after Narayanan was removed POD #1. She remained afebrile. She was ambulating well. Her incision was healing well and bridgett were removed, Steri- Strips applied prior to discharge. She was also given flu vaccine and Tdap vaccine prior to discharge. DIET: Regular. DISCHARGE MEDICATIONS: 1. vitamins with iron once daily. 2. Percocet 5/325 to be taken 1-2 q.6 h. p.r.n. pain, #30. 3. Motrin 600 mg 1 p.o. q.i.d. p.r.n. pain, #40. DISCHARGE INSTRUCTIONS: 1. No heavy lifting for 2 weeks and gradual return to normal by 4-6 weeks. 2. Steri-Strips were to remain on 10-14 days. 3. She is to call for any problems between now and her postoperative appointment in approximately 2 to 4 weeks. Fabian Oglesby MD* JHV/rxnls Voice Rec. ID #[id number] Voice Original ID #[id number] Doc ID #[id number] Rev. #1 [No PCP on file] cc: Fabian Oglesby MD* DO NOT TEXT EDIT THIS LINE :CDS:[id number]: Authenticated and Edited by FABIAN OGLESBY M.D. On 09/13/14 9:09:43 AM documented in this encounter OR Notes * Op Note - Interface, See Report - 08/21/2014 10:28 PM EST [place] [address] OPERATIVE REPORT PATIENT NAME: MERLE LYLE ROOM NUMBER: [id number] VISIT NUMBER: [id number] DATE OF : 1990 DATE OF OPERATION: 08/22/2014 PREOPERATIVE DIAGNOSES: 1. Intrauterine at term. 2. Failure to progress/cephalopelvic disproportion. POSTOPERATIVE DIAGNOSES: 1. Intrauterine at term. 2. Failure to progress/cephalopelvic disproportion. 3. Delivery of an 8 lb, 8 oz male, left occiput transverse. ANESTHESIA: Epidural. SURGEON: Fabian Oglesby MD ESTIMATED BLOOD LOSS: 800 Ml INDICATIONS: The patient is a 24-year-old 1, now para 1 whose EDC was 08/23/2014. She had a history of weight of 8 lb, 11 oz and was delivered by section. course had also been complicated by overweight and she had been counseled regarding diet. She was mildly anemic and was placed on iron. She had an ultrasound 08/08/2014 which gave an estimated weight of 7 lb, 3 oz. She was interested in induction and was scheduled at 39+ weeks gestation. She was admitted last night and had Narayanan bulb. Water was ruptured this morning. She made slow progress. An IUPC was placed. She did not make any change despite documented adequate contractions. The decision was therefore made to proceed with primary section for failure to progress due to probable cephalopelvic disproportion. She understood the risks and complications of the planned procedure, the options in her care and was agreeable to proceed. DESCRIPTION OF PROCEDURE: The patient was taken to the operating room where labor epidural was redosed. She had a Narayanan catheter in place. She was prepped and draped. A Pfannenstiel incision was made and carried down through the adipose layer to the fascia ; which was nicked in the midline and extended in both directions manually. The rectus muscle was taken off the rectus sheath. Peritoneum was entered bluntly. A bladder flap was created. A low transverse uterine incision was made and extended manually. Clear fluid confirmed. The was left occiput transverse. There was significant molding. The vertex was delivered. The mouth and nares were suctioned on the abdomen. The body of the was delivered. The cord was doubly clamped, cut and the infant handed to the delivery team. Cord blood was obtained. The placenta was manually removed. The uterus was externalized and cleaned internally with 2 wet lap sponges. The uterine incision was closed with #1 Chromic single running locked stitch. A figure-of-8 stitch was required for hemostasis along with touch cautery. The posterior cul-de-sac was irrigated and suctioned for blood clots. The tubes and ovaries appeared normal. The uterus was internalized. The gutters were irrigated and suctioned for blood clots. Hysterotomy site was inspected and was hemostatic. With adequate subfascial hemostasis, it was closed with 0 PDS II. With adequate subcuticular hemostasis, the superior area was reapproximated with 3 interrupted chromic sutures. The skin was closed with bridgett. Sponge and needle counts were correct. The patient tolerated the procedure well and was taken to the postoperative recovery room in stable condition. Fabian Oglesby MD* JHV/rxmra Voice Rec. ID #[id number] Original Voice Rec. ID #[id number] Doc ID #[id number] Revision Count: 0 cc: Fabian Oglesby MD* <start header> [place] [address] OPERATIVE REPORT PATIENT NAME: MERLE LYLE ROOM NUMBER: [id number] VISIT NUMBER: [id number] DATE OF : 1990 <end header> DO NOT TEXT EDIT THIS LINE :EMPLOYEE WELFARE MANAGER:[id number]: Authenticated and Edited by FABIAN OGLESBY M.D. On 08/29/14 3:01:06 AM documented in this encounter Plan of Treatment Not on file documented as of this encounter Procedures Procedure Name Priority Date/Time Associated Diagnosis Comments CBC (NO DIFF) Routine 08/23/2014 6:52 AM EST RHIG EVALUATION Routine 08/23/2014 12:21 AM EST TYPE AND SCREEN Routine 08/21/2014 11:57 PM EST CBC (NO DIFF) Routine 08/21/2014 10:44 PM EST documented in this encounter Results * (ABNORMAL) CBC (No diff) (08/23/2014 6:52 AM EST) WBC 21.14(H) 3.50 - 10.80 K/[facility] RBC 3.20(L) 3.89 - 5.14 M/[facility] Hemoglobin 10.2(L) 11.5 - 15.5 g/dL [facility] Hematocrit 30.3(L) 34.5 - 44.0 % [facility] MCV 94.7 80.0 - 99.0 fL [facility] MCH 31.9(H) 27.0 - 31.0 pg [facility] MCHC 33.7 32.0 - 36.0 g/dL [facility] RDW-CV 14.1 11.3 - 14.5 % [facility] Platelets 167 150 - 450 [facility] Blood specimen (specimen) 08/23/2014 6:52 AM EST Narrative [facility] - 08/23/2014 7:21 AM EST Specimen Type: Blood us Fabian Oglesby MD LAB BLOOD ORDERABLES Final Resul t [facility] [address] [place] [address], * RhIg Evaluation (08/23/2014 12:21 AM EST) Pathologist [facility] Bleed Screen Negative [facility] Recommended Vials of RHIG One Dose of RhoGam [facility] ABORh O Rh Negative [facility] Antibody Screen Negative [facility] Blood specimen (specimen) 08/23/2014 12:21 AM EST [facility] - 08/23/2014 2:17 AM EST Specimen Type: Blood us Fabian Oglesby MD BLOOD BANK TEST ORDERABLES Final Result Performing Organization Address [facility] [place] [address], * Type and screen (08/21/2014 11:57 PM EST) [facility] ABORh O Rh Negative [facility] Antibody Screen Negative [facility] Blood specimen (specimen) 08/21/2014 11:57 PM EST [facility] - 08/22/2014 12:41 AM EST Specimen Type: Blood us Fabian Oglesby MD BLOOD BANK TEST ORDERABLES Final Result Performing Organization Address [facility] [place] [address], * (ABNORMAL) CBC (No diff) (08/21/2014 10:44 PM EST) [facility] WBC 15.30(H) 3.50 - 10.80 [facility] RBC 4.04 3.89 - 5.14 M/[facility] Hemoglobin 13.3 11.5 - 15.5 g/dL [facility] Hematocrit 37.7 34.5 - 44.0 % [facility] MCV 93.3 80.0 - 99.0 fL [facility] MCH 32.9(H) 27.0 - 31.0 pg [facility] MCHC 35.3 32.0 - 36.0 g/dL [facility] RDW-CV 13.7 11.3 - 14.5 % [facility] Platelets 198 150 - 450 K/mcL [facility] Blood specimen (specimen) 08/21/2014 10:44 PM EST Narrative [facility] - 08/22/2014 12:04 AM EST Specimen Type: Blood us Fabian Oglesby MD LAB BLOOD ORDERABLES Final Resul t [facility] [address] [place] [address], documented in this encounter Visit Diagnoses Not on filedocumented in this encounter
--- OUTSIDE RECORDS SUMMARY | 2024-09-05 22:15 | XMS_ITS | Encounter Summary ---
Author Organization Healthcare Address [address] [place] [address] Care Team Providers Care Software Developer Manager Name Role Phone Ina Gill Primary Care Provider [phone] Encounter Details Date Type Department Care Team (Latest Contact Info) Description 03/13/2022 Travel Social History Tobacco Use Types Packs/Day Years Used Date Smoking Tobacco: Every Day Cigarettes 1 15 Smokeless Tobacco: Never Comments Unknown Sex and Gender Information Value Date Recorded Sex Assigned at Not on file Legal Sex Female 6:56 PM EDT Gender Identity Not on file Sexual Orientation Not on file COVID-19 Exposure Response Date Recorded In the last 10 days, have yo u been in contact with someone who was confirmed or suspected to have Coronavirus/COVID-19? No / Unsure 03/13/2022 8:29 AM EDT documented as of this encounter Plan of Treatment Not on file documented as of this encounter Visit Diagnoses Not on filedocumented in this encounter Additional Health Concerns Assessment Noted Time A fall risk assessment has been complete d for the patient 03/13/2022 8:41 AM EDT documented as of this encounter Care Teams Software Developer Manager Relationship Specialty Start Date End Date Ina Gill PA [address] [place] [address] PCP - General 01/16/22 documented as of this encounter
--- OUTSIDE RECORDS SUMMARY | 2024-09-05 22:15 | XMS_ITS | Encounter Summary ---
Author Organization Healthcare Address [address] [place] [address] Care Team Providers Care Mobile Plant Operators Name Role Phone Ina Gill Primary Care Provider [phone] Encounter Details Date Type Department Care Team (Late st Contact Info) Description 11/04/2021 Community [facility] [address] [place] [address] Ina Gill PA [address] [place] [address] Varicose veins of both lower extremities with pain (Primary Dx) Social History Tobacco Use Types Packs/Day Years Used Date Smoking Tobacco: Never Assessed Comments Unknown Sex and Gender Information Value Date Recorded Sex Assigned at Not on file Legal Sex Female 6:56 PM EDT Gender Identity Not on file Sexual Orientation Not on file documented as of this encounter Plan of Treatment Not on file documented as of this encounter Visit Diagnoses Diagnosis Varicose veins of both lower extremities with pain- Primary documented in this encounter Care Teams Mobile Plant Operators Relationship Specialty Start Date End Date Ina Gill PA [address] [place] [address] PCP - General 01/16/22 documented as of this encounter
--- OUTSIDE RECORDS SUMMARY | 2024-09-05 22:15 | XMS_ITS | Encounter Summary ---
Author Organization [facility] Address [address] [place] [address] Care Team Providers Care Agency Sales Director Name Role Phone Provider, No Known Primary Care Provider Unavail able Reason for Visit * Reason Comments Non-stress Test Pt C/O lower abd matt n painful bump * Auth/Cert Specialty Diagnoses / Procedures Referred By Contac t Referred To Contact Diagnoses Procedures Referral ID Status Reason Start Date Expiration Date Visits Re quested Visits Authorized [id number] 1 1 Encounter Details Date Type Department Care Team (Late st Contact Info) Description 06/02/2018 6:10 PM EDT - 06/04/2018 1:30 PM EDT Hospital Encounter [facility] [address] [place] [phone] Kimo Farrell MD [address] [facility] [address] [place] [address] Sil Munoz MD [address] [facility] [address] [place] [address] section Aug 2014 FTP/CPD occiput transverse 8 lbs. 8 oz. 39 6/7 weeks (Primary Dx); Morbid obesity with BMI of 40.0-44.9, adult; 35 weeks gestation of ; Cellulitis of abdominal wall Discharge Disposition: Home or Self Care Social [...] Sign Reading Time Taken Comments Blood Pressure 133/78 06/04/2018 12:21 PM EDT Pulse 96 06/04/2018 12:21 PM EDT Temperature 36.5 ??C (97.7 ??F) 06/04/2018 8:03 AM ED T Respiratory Rate 18 06/04/2018 8:03 AM EDT Oxygen Saturation - - Inhaled Oxygen Concentration - - Weight 118 kg (260 lb) 06/02/2018 6:35 PM EDT Height 167.6 cm (5' 6 ) 06/02/2018 6:35 PM EDT Body Mass Index 41.97 06/02/2018 6:35 PM EDT documented in this encounter Discharge Summaries * Sil Munoz MD - 06/04/2018 12:19 PM EDT Jose Lyle : 1990 CSN: [id number] Discharge Summary Date of Admission: 06/02/2018 Date of Discharge: 06/07/2018 Discharge Diagnoses: 1. Abdominal wall cellulitis 2. Intrauterine at 35w2d 3. complicated by previous section 4. Polyhydramnios 5. Morbid obesity Procedures Performed: None Consults: None Brief History: Patient is a 28 y.o. who presented with a painful area of her pannus refractory to outpatient management . Hospital Course: She was admitted and evaluated by Dr. Carias. She was afebrile and had a normal white blood cell count. Given her symptom complex he gave for the presumptive diagnosis of abdominalwall cellulitis and placed her on parenteral antibiotics. She was observed through her hospital course without fever noted. Repeat CBC confirmed absent leukocytosis. She did slowly beginning to feel a bit better. The abdominal wall never showed evidence of redness or drainage. In the end I really think she only had induration and swelling of the pannus from rubbing on the mons. I did send her home on antibiotics to complete a ten-day course given that that therapy had been initiated. She also requested discharge on pain medication to help with the discomfort she experienced. I told her I would only provide a limited quantity and beyond that she have to discuss this with Ayesha Mejia or . Pending Studies: Pending tests: none Condition at discharge: gradually improving Discharge Medications: Your medication list START taking these medications Instructions Last Dose Given Next Dose Due cephalexin 500 MG capsule Commonly known as: KEFLEX Take 1 capsule by mouth 4 (Four) Times a Day for 10 days. HYDROcodone-acetaminophen 5-325 MG per tablet Commonly known as: NORCO Take 1 tablet by mouth Every 6 (Six) Hours As Needed for Moderate Pain for up to 8 days. CONTINUE taking these medications Instructions Last Dose Given Next Dose Due acetaminophen 325 MG tablet Commonly known as: TYLENOL Take 650 mg by mouth Every 6 (Six) Hours As Needed for Mild Pain . vitamin 27-0.8 27-0.8 MG tablet tablet Take 1 tablet by mouth Daily. Where to Get Your Medications These medications were sent to [address] [facility] [phone] [place] [phone] 112 [facility] [address] ?? cephalexin 500 MG capsule You can get these medications from any pharmacy Bring a paper prescription for each of these medications ?? HYDROcodone-acetaminophen 5-325 MG per tablet Discharge Disposition: home Follow-up: With Ayesha Mejia as already scheduled This note has been electronically signed. Sil Munoz MD 06/04/18 documented in this encounter Discharge Instructions * Attachments The following attachments cannot be sent through Care Everywhere. * Third Trimester of [id number] (Honduran) * Cellulitis Adult [id number] (Honduran) documented in this encounter Medications at Time of Discharge Vit-Fe Fumarate-FA ( VITAMIN 27-0.8) 27-0.8 MG tablet tablet Take 1 tablet by mouth Daily. cephalexin (KEFLEX) 500 MG capsule Take 1 capsule by mouth 4 (Four) Times a Day for 10 days. 40 capsule 06/04/2018 8 HYDROcodone-acet aminophen (NORCO) 5-325 MG per tabletIndication s:Cellulitis of abdominal wall Take 1 tablet by mouth Every 6 (Six) Hours As Needed for Moderate Pain for up to 8 days. 8 tablet 06/04/2018 8 norethindrone (MICRONOR) 0.35 MG tablet Take 1 [...] as of this encounter Progress Notes * Sil Munoz MD - 06/04/2018 12:08 PM EDT Jose Lyle : 1990 CSN: [id number] Antepartum Progress Note Subjective The abdomen is slightly less sore today. With the use of narcotic medicine she is able to sleep more at night Objective Min/max vitals past 24 hours: Temp Min: 97.7 ??F (36.5 ??C) Max: 98.4 ??F (36.9 ??C) BP Min: 112/70 Max: 148/83 Pulse Min: 96 Max: 112 Resp Min: 16 Max: 18 General: well developed; well nourished no acute distress Heart: Not performed. Lungs: breathing is unlabored Abdomen: soft, non-tender; no masses no umbilical or inginual hernias are present no hepato-splenomegaly The inferior edge of the pannus remains indurated with an orange peel appearance. There is no overlying redness or drainage FHT's: reassuring and category 1 Cervix: was not checked. Contractions: rare CBC w/ diff: Lab Results Component Value Date PLT 240 06/04/2018 HGB 10.8 (L) 06/04/2018 HCT 32.7 (L) 06/04/2018 MCV 92.6 06/04/2018 RDW 15.7 (H) 06/04/2018 WBC 11.21 (H) 06/04/2018 FSBS's: Glucose Date/Time Value Ref Range Status 06/03/2018 1925 102 70 - 130 mg/dL Final 06/03/2018 1407 128 70 - 130 mg/dL Final 06/03/2018 1001 118 70 - 130 mg/dL Final 06/03/2018 0723 92 70 - 130 mg/dL Final 06/02/2018 2135 117 70 - 130 mg/dL Final Assessment 1. IUP at 35w2d 2. Induration of abdominal pannus. No objective evidence of cellulitis (no fever, no leukocytosis for , no drainage). Anticipate this more relates to induration and swelling without an underlying infectious etiology. I do not feel abscess is likely given the clinical presentation. 3. Prior section complicating 4. Polyhydramnios with normal fingerstick blood sugars. I cannot find evidence of prior glucose challenge testing done from the records contained in [facility]. It may have been done through her care with Ayesha Mejia. Those records need to be obtained from her primary client representative and reviewed by Dr. Farrell!!! Plan 1. Discharge to home with empiric antibiotics to complete a 10 day course for cellulitis 2. Keep scheduled follow-up with Ayesha Mejia 3. Return in the presence of worsening symptoms or fever 4. Short course of narcotic pain medicine given (less than 3 days) to help with pain until she can be seen in follow-up as an outpatient Sil Munoz MD 06/04/2018 12:08 PM * Kimo Farrell MD - 06/03/2018 2:00 PM EDT Daily Progress Note Patient name: Merle Lyle Date of : 1990 Referring Provider: Kimo Farrell Admission Date: 06/02/2018 Date of Service: 06/03/2018 Merle Lyle is a 28 y.o. at 35w1d admitted on 06/02/2018 for Cellulitis Hospital day 1 Diagnoses: Patient Active Problem List Diagnosis ??? 35 weeks gestation of ??? section Aug 2014 FTP/CPD occiput transverse 8 lbs. 8 oz. 39 6/7 weeks ??? Obesity ??? Depression-on Viibryd prior to ??? Morbid obesity with BMI of 40.0-44.9, adult (CMS/HCC) ??? Polyhydramnios in third trimester ??? Cellulitis of abdominal wall Labs Lab Results Component Value Date HGB 11.6 06/02/2018 ABORH O Rh Negative 08/23/2014 ABO O 06/02/2018 RH Negative 06/02/2018 ABSCRN Negative 06/02/2018 [id number] negative 12/22/2017 [id number] 118 06/13/2014 URINECX 50,000-60,000 CFU/mL Normal Urogenital Lucy 05/23/2018 Subjective: Merle has no complaints today. Except that her abdomen remains tender particularly the touch and movement. Reports movement is normal No contractions Denies leakage of amniotic fluid. Denies vaginal bleeding Objective: Vital signs: Vital Signs Range for the last 24 hours Temperature: Temp: [97.8 ??F (36.6 ??C)-98.5 ??F (36.9 ??C)] 98.1 ??F (36.7 ??C) Temp Source: Temp src: Oral BP: BP: (112-142)/(64-80) 118/72 Pulse: Heart Rate: [102-118] 103 Respirations: Resp: [16] 16 Weight: 118 kg (260 lb) General:WDWN female HEENT: Grossly normal Resp: Unlabored breathing Abdomen: Soft, nontender Uterus: Gravid, nontender Extremities: Nontender, no pain, no edema Neurologic: Alert & oriented, no focal deficits noted Psychiatric: Speech and behavior appropriate Non-Stress Test: Heart Rate Assessment Method: HR Assessment Method: external Beats/min: HR (beats/min): 130 Baseline: Heart Baseline Rate: normal range Varibility: HR Variability: moderate (amplitude range 6 to 25 bpm) Accels: HR Accelerations: absent Decels: HR Decelerations: absent Tracing Category: Uterine Assessment Method: Method: external tocotransducer Frequency (min): Ctx Count in 10 min: Duration: Intensity: Contraction Intensity: mild by palpation Intensity by IUPC: Resting Tone: Uterine Resting Tone: soft by palpation Resting Tone by IUPC: [place] Units: Cervix: Exam by: Dilation: Effacement: Station: Medications: ceFAZolin 2 g Intravenous Q8H famotidine 20 mg Oral BID ??? acetaminophen ??? HYDROcodone-acetaminophen ??? ondansetron ??? sodium chloride Labs: Lab Results Component Value Date WBC 12.61 (H) 06/02/2018 HGB 11.6 06/02/2018 HCT 35.5 06/02/2018 MCV 93.4 06/02/2018 PLT 259 06/02/2018 URICACID 5.3 06/02/2018 AST 25 06/02/2018 ALT 17 06/02/2018 LDH 164 06/02/2018 Results from last 7 days Lab Units 06/02/181955 ABO TYPING O RH TYPING Negative ANTIBODY SCREEN Negative Assessment/Plan: Merle is a 28 y.o. at 35w1d with Cellulitis Hospital Problem List * (Principal)Cellulitis of abdominal wall 35 weeks gestation of section Aug 2014 FTP/CPD occiput transverse 8 lbs. 8 oz. 39 6/7 weeks Morbid obesity with BMI of 40.0-44.9, adult (CMS/HCC) Obesity is unchanged. Polyhydramnios in third trimester I spent 15 minutes with this patient of which greater than 50% was face to face counseling and coordination of care. All questions were answered to the best my ablity. Hopefully the antibodies will help with her pain and erythema may need to add or change in antibiotics if this persists. Discussed that there is been no predisposing incidents such as folliculitis trauma etc. to leave this cellulitis in her panniculus. Kimo Farrell MD 06/03/2018 2:00 PM documented in this encounter H&P Notes * Morgan Carias, DO - 06/02/2018 7:06 PM EDT \[facility] Obstetric History and Physical Referring Provider: Kimo Farrell MD Chief Complaint Patient presents with ??? Non-stress Test Pt C/O lower abd pain painful bump Subjective Patient is a 28 y.o. female currently at 35w0d, who presents with c/o lower abdominal pain.Patient reports having increasing lower abdominal pain and redness over the past few days. Patient denies any fever, recent trauma, leaking fluid, vaginal bleeding, regular contractions, any other associated symptoms or concerns. Patient reports normal activity. care by Dr. Farrell complicated by history of previous section, obesity, and a new diagnosis of polyhydramnios (31cm PDC), May 23. normal glucose tolerance test Past medical history significant for previous section and obesity. The following portions of the patients history [...] For Details Test Value Date Time Hgb 11.1 g/dL (L) 05/23/18 1337 Hct 33.8 % (L) 05/23/18 1337 ABO O 12/22/17 Rh Negative 12/22/17 Antibody Screen Normal 12/22/17 Glucose Fasting GTT Glucose Tolerance Test 1 [...] Lv 2 Current 1 Term 08/22/14 40w0d [id number] MICHELINE Name: DAMIAN IZQUIERDO Past Medical History: Past Medical History: Diagnosis Date ??? Anxiety ??? Depression Past Surgical History Past Surgical History: Procedure Laterality Date ??? SECTION Family History: History reviewed. No pertinent family history. Social History: reports that she has never smoked. She has never used smokeless tobacco. reports that she does not drink alcohol. reports that she does not use drugs. General ROS Negative Findings:Headaches, Visual Changes, Epigastric pain, Anorexia, Nausia/Vomiting, ROM and Vaginal Bleeding Review of Systems Constitution: Negative for chills, decreased appetite and fever. Eyes: Negative for visual disturbance. Cardiovascular: Negative for leg swelling. Gastrointestinal: Positive for abdominal pain. Negative for anorexia. Genitourinary: Negative for dysuria. Neurological: Negative for headaches. All other systems have been reviewed and are neg Objective Vital Signs Range for the last 24 hours Temperature: Temp: [97.8 ??F (36.6 ??C)] 97.8 ??F (36.6 ??C) Temp Source: Temp src: Oral BP: Pulse: Respirations: Resp: [16] 16 SPO2: O2 Amount (l/min): O2 Devices Weight: Weight: [118 kg (260 lb)] 118 kg (260 lb) Physical Examination: General: alert, appears stated age and cooperative Skin: normal HEENT: sclera clear Lungs: clear to auscultation bilaterally Heart: regular rate and rhythm, S1, S2 normal, no murmur, click, rub or gallop Abdomen: soft, gravid uterus Non tender , large abdominal pannus warm to touch orange peel appearance . No lesion identified Lower Extremeties 1+ edema, no calf tenderness Pelvis: Exam deferred. Neuro: No deficits, DTR 2+ over 4 no clonus Heart Rate Assessment Method: HR Assessment Method: external Beats/min: Baseline: Varibility: Accels: Decels: Tracing Category: NST ind abdominal pain, reactive, moderate variability, accelerations present 15 x 15, no decelerations, onset 8 offset 192 Uterine Assessment Method: Method: palpation, external tocotransducer Frequency (min): Ctx Count in 10 min: Duration: Intensity: Contraction Intensity: no contractions Intensity by IUPC: Resting Tone: Uterine Resting Tone: soft by palpation Resting Tone by IUPC: [place] Units: Laboratory Results: Lab Results (last 24 hours) No results found for the last 24 hours. Radiology Review: Imaging Results (last 24 hours) No results found for the last 24 hours. Other Studies: Assessment/Plan Active Problems: section Aug 2014 FTP/CPD occiput transverse 8 lbs. 8 oz. 39 6/7 weeks Morbid obesity with BMI of 40.0-44.9, adult ([facility]) Assessment: 1. Intrauterine at 35w0d weeks gestation with reactive status. 2. Early cellulitis abdominal pannus 3. Prev C/S 4. Polyhydramnios ( [place] 31cm 8//18 PDC) 5. ? Late onset GDM 6. Morbid obesity Plan: 1. Admit, labs, NST, IV ancef, fs blood sugar 2. Plan of care has been reviewed with patient. 3. Risks, benefits of treatment plan have been discussed. 4. All questions have been answered. 5 D/W Dr sil Lucas. Jv, 06/02/2018 7:07 PM documented in this encounter Nursing Notes * Angela Collado RN - 06/04/2018 12:21 PM EDT Pt given discharge instructions, voiced understanding. Pt states she will call the office for f/u appt on 06/06/18. * Gladys Villasenor RN - 06/03/2018 5:11 PM EDT Problem: Patient Care Overview Goal: Plan of Care Review Outcome: Ongoing (interventions implemented as appropriate) 06/03/18 1710 Coping/Psychosocial Plan of Care Reviewed With patient Plan of Care Review Progress improving Goal: Individualization and Mutuality Outcome: Ongoing (interventions implemented as appropriate) 06/03/18 1710 Individualization Patient Specific Preferences afebrile, pain tolerable Goal: Discharge Needs Assessment Outcome: Ongoing (interventions implemented as appropriate) 06/03/18 1710 Discharge Needs Assessment Concerns to be Addressed no discharge needs identified;denies needs/concerns at this time Problem: Skin and Soft Tissue Infection (Adult) Goal: Signs and Symptoms of Listed Potential Problems Will be Absent, Minimized or Managed (Skin and Soft Tissue Infection) Outcome: Ongoing (interventions implemented as appropriate) 06/03/18 1710 Goal/Outcome Evaluation Problems Assessed (Skin and Soft Tissue Infection) all Problems Present (Skin/Soft Tissue Inf) none documented in this encounter Plan of Treatment Not on file documented as of this encounter Procedures Procedure Name Priority Date/Time Associated Diagnosis Comments CBC (NO DIFF) STAT 06/04/2018 10:53 AM EDT NONSTRESS TEST Routine 06/04/2018 12:30 AM EDT POCT GLUCOSE FINGERSTICK Routine 06/03/2018 7:25 PM EDT POCT GLUCOSE FINGERSTICK Routine 06/03/2018 2:07 PM EDT POCT GLUCOSE FINGERSTICK Routine 06/03/2018 10:01 AM EDT POCT GLUCOSE FINGERSTICK Routine 06/03/2018 7:23 AM EDT NONSTRESS TEST Routine 06/03/2018 12:30 AM EDT NONSTRESS TEST Routine 06/03/2018 12:30 AM EDT POCT GLUCOSE FINGERSTICK Routine 06/02/2018 9:35 PM EDT PRE-ECLAMPSIA PANEL STAT 06/02/2018 7 :56 PM EDT CBC (NO DIFF) STAT 06/02/2018 7:56 PM EDT TYPE AND SCREEN STAT 06/02/2018 7:56 PM EDT URINALYSIS, MICROSCOPIC ONLY Routine 06/02/2018 6:53 PM EDT URINALYSIS W/ MICROSCOPIC IF INDICATED (NO CULTURE) Routine 06/02/2018 6:53 PM EDT documented in this encounter Results * (ABNORMAL) CBC (No Diff) (06/04/2018 10:53 AM EDT) WBC 11.21(H) 3.50 - 10.80 10*3/mm3 06/04/2018 11:02 AM EDT [facility] RBC 3.53(L) 3.89 - 5.14 10*6/mm3 06/04/2018 11:02 AM EDT [facility] Hemoglobin 10.8(L) 11.5 - 15.5 g/dL 06/04/2018 11:02 AM EDT [facility] Hematocrit 32.7(L) 34.5 - 44.0 % 06/04/2018 11:02 AM EDT [facility] MCV 92.6 80.0 - 99.0 fL 06/04/2018 11:02 AM EDT [facility] MCH 30.6 27.0 - 31.0 pg 06/04/2018 11:02 AM EDT [facility] MCHC 33.0 32.0 - 36.0 g/dL 06/04/2018 11:02 AM EDT [facility] RDW 15.7(H) 11.3 - 14.5 % 06/04/2018 11:02 AM EDT [facility] RDW-SD 52.7 37.0 - 54.0 fl 06/04/2018 11:02 AM EDT [facility] MPV 10.4 6.0 - 12.0 fL 06/04/2018 11:02 AM EDT [facility] Platelets 240 150 - 450 10*3/mm3 06/04/2018 11:02 AM EDT [facility] Blood Line / Unknown 06/04/2018 10 :53 AM EDT 06/04/2018 10:57 AM EDT us Sil Munoz MD LAB BLOOD ORDERABLES Final Result Performing Organization Address City/[facility]/ZIP Co de Phone Number [facility]
[address] [place] [address], * POC Glucose Once (06/03/2018 7:25 PM EDT) Glucose 102 70 - 130 mg/dL 06/03/2018 7:31 PM EDT [facility] Blood 06/03/2018 7:25 PM EDT 06/03/2018 7:31 PM EDT Narrative [facility] - 06/03/2018 7:31 PM EDT Verify with Lab Meter: [id number] Citrus Picker: [id number] Sanjuana Dominguez us Kimo Farrell MD POINT OF CARE TEST ORDERABLES Fi nal Result Performing Organization Address City/State/[facility] Co de Phone Number [facility]
[address] [place] [address], * POC Glucose Once (06/03/2018 2:07 PM EDT) Glucose 128 70 - 130 mg/dL 06/03/2018 2:09 PM EDT [facility] Blood 06/03/2018 2:07 PM EDT 06/03/2018 2:09 PM EDT [facility] - 06/03/2018 2:09 PM EDT Meter: [id number] Citrus Picker: [id number] Demetrio Hung Kimo Farrell MD POINT OF CARE TEST ORDERABLES Fi nal Result Performing Organization Address [facility] Co de Phone Number [facility]
[address] [place] [address], * POC Glucose Once (06/03/2018 10:01 AM EDT) Glucose 118 70 - 130 mg/dL 06/03/2018 10:03 AM EDT [facility] Blood 06/03/2018 10:0 1 AM EDT 06/03/2018 10:03 AM EDT [facility] - 06/03/2018 10:03 AM EDT Meter: [id number] Citrus Picker: [id number] Demetrio Hung us Kimo Farrell MD POINT OF CARE TEST ORDERABLES Fi nal Result Performing Organization Address City/[facility]/ZIP Co de Phone Number [facility]
[address] [place] [address], * POC Glucose Once (06/03/2018 7:23 AM EDT) Glucose 92 70 - 130 mg/dL 06/03/2018 7:35 AM EDT [facility] Blood 06/03/2018 7:23 AM EDT 06/03/2018 7:35 AM EDT Narrative [facility] - 06/03/2018 7:35 AM EDT Meter: [id number] Citrus Picker: [id number] Demetrio Abhilash Kimo Farrell MD POINT OF CARE TEST ORDERABLES Fi nal Result Performing Organization Address [facility] Co de Phone Number [facility]
[address] [place] [address], * POC Glucose Once (06/02/2018 9:35 PM EDT) Glucose 117 70 - 130 mg/dL 06/02/2018 9:36 PM EDT [facility] Blood 06/02/2018 9:35 PM EDT 06/02/2018 9:36 PM EDT Narrative [facility] - 06/02/2018 9:36 PM EDT Meter: [id number] Citrus Picker: [id number] Rodirguez Kimo Farrell MD POINT OF CARE TEST ORDERABLES Fi nal Result Performing Organization Address [facility] Phone Number [facility]
[address] [place] [address], * Type & Screen (06/02/2018 7:56 PM EDT) ABO Type O 06/02/2018 9:22 PM EDT [facility] RH type Negative 06/02/2018 9:22 PM EDT [facility] Antibody Screen Negative 06/02/2018 9:22 PM EDT [facility] T&S Expiration Date 06/05/2018 11:59:59 PM 06/02/2018 9:22 PM EDT [facility] Blood 06/02/2018 7:56 PM EDT 06/02/2018 8:40 PM EDT Morgan Carias DO BLOOD BANK TEST ORDERABLES Edited Result - Final Performing Organization Address [facility] de Phone Number [facility]
[address] [place] [address], * (ABNORMAL) Preeclampsia Panel (06/02/2018 7:56 PM EDT) Pathologist [facility] Alkaline Phosphatase 118(H) 25 - 100 U/L 06/02/2018 8:58 PM EDT [facility] ALT (SGPT) 17 7 - 40 U/L 06/02/2018 8:58 PM EDT [facility] AST (SGOT) 25 0 - 33 U/L 06/02/2018 8:58 PM EDT [facility] Creatinine 0.62 0.60 - 1.30 mg/dL 06/02/2018 8:58 PM EDT [facility] Total Bilirubin 0.4 0.3 - 1.2 mg/dL 06/02/2018 8:58 PM EDT [facility] LDH 164 120 - 246 U/L 06/02/2018 8:58 PM EDT [facility] Uric Acid 5.3 3.1 - 7.8 mg/dL 06/02/2018 8:58 PM EDT [facility] Blood 06/02/2018 7:56 PM EDT 06/02/2018 8:38 PM EDT Morgan Carias DO LAB BLOOD ORDERABLES Final Result Performing Organization Address [facility]/ZIP Co de Phone Number [facility]
[address] [place] [address], * (ABNORMAL) CBC (No Diff) (06/02/2018 7:56 PM EDT) Pathologist [facility] WBC 12.61(H) 3.50 - 10.80 10*3/mm3 06/02/2018 8:42 PM EDT [facility] RBC 3.80(L) 3.89 - 5.14 10*6/mm3 06/02/2018 8:42 PM EDT [facility] Hemoglobin 11.6 11.5 - 15.5 g/dL 06/02/2018 8:42 PM EDT [facility] Hematocrit 35.5 34.5 - 44.0 % 06/02/2018 8:42 PM EDT [facility] MCV 93.4 80.0 - 99.0 fL 06/02/2018 8:42 PM EDT [facility] MCH 30.5 27.0 - 31.0 pg 06/02/2018 8:42 PM EDT [facility] MCHC 32.7 32.0 - 36.0 g/dL 06/02/2018 8:42 PM EDT [facility] RDW 15.6(H) 11.3 - 14.5 % 06/02/2018 8:42 PM EDT [facility] RDW-SD 53.4 37.0 - 54.0 fl 06/02/2018 8:42 PM EDT [facility] MPV 10.6 6.0 - 12.0 fL 06/02/2018 8:42 PM EDT [facility] Platelets 259 150 - 450 10*3/mm3 06/02/2018 8:42 PM EDT [facility] Blood 06/02/2018 7:56 PM EDT 06/02/2018 8:38 PM EDT Morgan Carias DO LAB BLOOD ORDERABLES Final Result [facility]
[address] [place] [address], * (ABNORMAL) Urinalysis, Microscopic Only - Urine, Clean Catch (06/02/2018 6:53 PM EDT) RBC, UA 3-6(A) None Seen, 0-2 /HPF 06/02/2018 7:39 PM EDT [facility] WBC, UA 6-12(A) None Seen, 0-2 /HPF 06/02/2018 7:39 PM EDT [facility] Bacteria, UA 4+(A) None Seen, Trace /HPF 06/02/2018 7:39 PM EDT [facility] Squamous Epithelial Cells, UA 7-12(A) None Seen, 0-2 /HPF 06/02/2018 7:39 PM EDT [facility] Hyaline Casts, UA 0-6 0 - 6 /LPF 06/02/2018 7:39 PM EDT [facility] Calcium Oxalate Crystals, UA Moderate/2+ None Seen /HPF 06/02/2018 7:39 PM EDT [facility] Methodology Manual Light Microscopy 06/02/2018 7:39 PM EDT [facility] Urine Urine specimen collection, clean catch / Unknown Collection / Unknown 06/02/2018 6:53 PM EDT 06/02/2018 7:17 PM EDT Morgan Carias DO URINE ORDERABLES Final Resu lt [facility]
[address] [place] [address], [place] [phone] * (ABNORMAL) Urinalysis With Microscopic If Indicated (No Culture) - Urine, Clean Catch (06/02/2018 6:53 PM EDT) Color, UA Dark Yellow(A) Yellow, Straw 06/02/2018 7:37 PM EDT [facility] Appearance, UA Turbid(A) Clear 06/02/2018 7:37 PM EDT [facility] pH, UA 6.0 5.0 - 8.0 06/02/2018 7:37 PM EDT [facility] Specific [place], UA 1.025 1.001 - 1.030 06/02/2018 7:37 PM EDT [facility] Glucose, UA Negative Negative 06/02/2018 7:37 PM EDT [facility] Ketones, UA Trace(A) Negative 06/02/2018 7:37 PM EDT [facility] Bilirubin, UA Negative Negative 06/02/2018 7:37 PM EDT [facility] Blood, UA Negative Negative 06/02/2018 7:37 PM EDT [facility] Protein, UA 30 mg/dL (1+)(A) Negative 06/02/2018 7:37 PM EDT [facility] Leuk Esterase, UA Small (1+)(A) Negative 06/02/2018 7:37 PM EDT [facility] Nitrite, UA Negative Negative 06/02/2018 7:37 PM EDT [facility] Urobilinogen, UA 1.0 E.U./dL 0.2 - 1.0 E.U./dL 06/02/2018 7:37 PM EDT [facility] Urine Urine specimen collection, clean catch / Unknown Collection / Unknown 06/02/2018 6:53 PM EDT 06/02/2018 7:17 PM EDT Morgan Carias DO URINE ORDERABLES Final Resu lt [facility]
[address] [place] [address], documented in this encounter Visit Diagnoses Diagnosis Cellulitis of abdominal wall- Primary Cellulitis and abscess of unspecified site section Aug 2014 FTP/CPD occiput transverse 8 lbs. 8 oz. 39 6/7 weeks delivery, without mention of indication, delivered, with or without mention of antepartum condition Morbid obesity with BMI of 40.0-44.9, adult 35 weeks gestation of Cellulitis of abdominal wall Cellulitis and abscess of trunk section Aug 2014 FTP/CPD occiput transverse 8 lbs. 8 oz. 39 6/7 weeks delivery, without mention of indication, delivered, with or without mention of antepartum condition Morbid obesity with BMI of 40.0-44.9, adult state, incidental 35 weeks gestation of Polyhydramnios in third trimester documented in this encounter Administered Medications Inactive Administered Medications - up to 3 most recent administrations Medication Order MAR Action Action Date Dose Rate Site acetaminophen (TYLENOL) 160 MG/5ML solution 650 mg 650 mg, Oral, Every 6 Hours PRN, Mild Pain, Starting on Marina 06/02/18 at 1929, Do not exceed 4 grams of acetaminophen in a 24 hr period. If given for pain, use the following pain scale: Mild Pain = Pain Score of 1-3, CPOT 1-2 Moderate Pain = Pain Score of 4-6, CPOT 3-4 Severe Pain = Pain Score of 7-10, CPOT 5-8Indications:Cellulitis of abdominal wall ceFAZolin in dextrose (ANCEF) IVPB solution 2 g 2 g, Intravenous, Administer over 30 Minutes, Every 8 Hours, First dose on Marina 06/02/18 at 2000, For 11 doses, Caution: Look alike/sound alike drug alert, Indications: Skin and Soft Tissue InfectionIndications:Skin and Soft Tissue Infection New Bag 06/04/2018 6:45 AM EDT 2 g New Bag 06/03/2018 10:53 PM EDT 2 g New Bag 06/03/2018 2:26 PM EDT 2 g famotidine (PEPCID) tablet 20 mg 20 mg, Oral, 2 Times Daily, First dose on Wed06/03/18 at 0900 Given 06/03/2018 10:53 PM EDT 20 mg Given 06/03/2018 8:32 AM EDT 20 mg HYDROcodone-acetaminophen (NORCO) 5-325 MG per tablet 1 tablet 1 tablet, Oral, Every 6 Hours PRN, Moderate Pain, Starting on Marina 06/02/18 at 1930, For 10 days, {YIN} Do not exceed 4 grams of acetaminophen in a 24 hr period. If given for pain, use the following pain scale: Mild Pain = Pain Score of 1-3, CPOT 1-2 Moderate Pain = Pain Score of 4-6, CPOT 3-4 Severe Pain = Pain Score of 7-10, CPOT 5-8Indications:Cellulitis of abdominal wall Given 06/03/2018 10:53 PM EDT 1 tablet Given 06/03/2018 6:26 AM EDT 1 tablet ondansetron (ZOFRAN) tablet 4 mg 4 mg, Oral, Every 6 Hours PRN, Nausea, Vomiting, Starting on Marina 06/02/18 at 1929Indications:Cellulitis of abdominal wall sodium chloride 0.9 % flush 1-10 mL 1-10 mL, Intravenous, As Needed, Line Care, Starting on Marina 06/02/18 at 1903Indications: delivery delivered,Morbid obesity with BMI of 40.0- 44.9, adult,35 weeks gestation of documented in this encounter Active and Recently Administered Medications Times are shown in EDT. Scheduled Medication Order 06/02/2018 06/03/2018 06/04/2018 ceFAZolin in dextrose (ANCEF) IVPB solution 2 g 2 g, Intravenous, Administer over 30 Minutes, Every 8 Hours, First dose on Marina 06/02/18 at 2000, For 11 doses, Caution: Look alike/sound alike drug alert, Indications: Skin and Soft Tissue Infection 2137 (New Bag - Provider: Jennifer Lambert, GLENN - Comment: barcode would not scan verifed with Marlene ELIZABETH) 0626 (New Bag - Provider: Jennifer Lambert RN)1426 (New Bag - Provider: Gladys Villasenor RN)2253 (New Bag - Provider: Concetta Jones RN) 0645 (New Bag - Provider: Concetta Jones RN)1400 (Due - Provider: Andrea Delcid [facility]) famotidine (PEPCID) tablet 20 mg 20 mg, Oral, 2 Times Daily, First dose on Wed06/03/18 at 0900 0832 (Given - Provider: Gladys Villasenor RN)2253 (Given - Provider: Concetta Jones RN) 0808 (Not Given - Provider: Angela Collado RN - Reason: Patient/family refused) PRN Medication Order 06/02/2018 06/03/2018 06/04/2018 acetaminophen (TYLENOL) 160 MG/5ML solution 650 mg 650 mg, Oral, Every 6 Hours PRN, Mild Pain, Starting on Marina 06/02/18 at 1929, Do not exceed 4 grams of acetaminophen in a 24 hr period. If given for pain, use the following pain scale: Mild Pain = Pain Score of 1-3, CPOT 1-2 Moderate Pain = Pain Score of 4-6, CPOT 3-4 Severe Pain = Pain Score of 7-10, CPOT 5-8 HYDROcodone-acetaminophen (NORCO) 5-325 MG per tablet 1 tablet 1 tablet, Oral, Every 6 Hours PRN, Moderate Pain, Starting on Marina 06/02/18 at 1930, For 10 days, {YIN} Do not exceed 4 grams of acetaminophen in a 24 hr period. If given for pain, use the following pain scale: Mild Pain = Pain Score of 1-3, CPOT 1-2 Moderate Pain = Pain Score of 4-6, CPOT 3-4 Severe Pain = Pain Score of 7-10, CPOT 5-8 0626 (Given - Provider: Jennifer Lambert RN)2253 (Given - Provider: Concetta Jones RN) ondansetron (ZOFRAN) tablet 4 mg 4 mg, Oral, Every 6 Hours PRN, Nausea, Vomiting, Starting on Marina 06/02/18 at 1929 sodium chloride 0.9 % flush 1-10 mL 1-10 mL, Intravenous, As Needed, Line Care, Starting on Marina 06/02/18 at 1903 documented in this encounter Care Teams Agency Sales Director Relationship Specialty Start Date End Date Provider, [place] [address] PCP - General 03/22/18 documented as of this encounter
--- OUTSIDE RECORDS SUMMARY | 2024-09-05 22:15 | XMS_ITS | Encounter Summary ---
[facility] Address [address] [place] [address] Care Team Providers Care Restorative Care Technician Name Role Phone Unavailable Primary Care Provider Unavailabl e Encounter Details Date Type Department Care Team (Late st Contact Info) Description 07/18/2014 1:34 PM EDT - 07/18/2014 11:59 PM EDT Hospital Encounter [address] [place] [id number] Ayesha Mejia, FACILITIES CLERK [address] [facility] [address] [place], [place] [id number] Social History Tobacco Use Types Packs/Day Years [...] Name Priority Date/Time Associated Diagnosis Comments GLUCOSE, RANDOM Routine 07/18/2014 1:39 PM EDT documented in this encounter Results * Glucose, random (07/18/2014 1:39 PM EDT) Glucose 90 70 - 100 mg/dL [facility] Fasting? NO [facility] Blood specimen (specimen) 07/18/2014 1:39 PM EDT Narrative [facility] - 07/18/2014 3:05 PM EDT Specimen Type: Blood Ayesha Mejia APRN LAB BLOOD ORDERABLES Final Result Performing Organization Address City/State/[facility] Co de Phone Number [facility] [address] [place] [address], documented in this encounter Visit Diagnoses Not on filedocumented in this encounter
--- OUTSIDE RECORDS SUMMARY | 2024-09-05 22:15 | XMS_ITS | Encounter Summary ---
[facility] Address [address] [place] [address] Care Team Providers Care Skin Carver Name Role Phone Provider, No Known Primary Care Provider Unavail able Reason for Visit * Reason Comments Abdominal Pain * Auth/Cert Specialty Diagnoses / Procedures Referred By Contac t Referred To Contact Diagnoses Procedures Referral ID Status Reason Start Date Expiration Date Visits Re quested Visits Authorized [id number] 1 1 Encounter Details Date Type Department Care Team (Late st Contact Info) Description 05/23/2018 12:21 PM EDT - 05/23/2018 3:55 PM EDT Hospital Encounter [facility] [address] [place] [address] Fabian Oglesby MD [address] [facility] [address] [place] [address] Morgan Carias, [address] [facility] [address] [place] [address] Discharge Disposition: Home or Self Care Social [...] Sign Reading Time Taken Comments Blood Pressure - - Pulse - - Temperature 36.5 ??C (97.7 ??F) 05/23/2018 12:25 PM E DT Respiratory Rate 18 05/23/2018 12:25 PM EDT Oxygen Saturation - - Inhaled Oxygen Concentration - - Weight 113 kg (250 lb) 05/23/2018 12:41 PM EDT Height - - Body Mass Index 40.35 03/22/2018 4:04 PM EDT documented in this encounter Discharge Instructions * Discharge Instr - Activity* Svetlana Spivey RN - 05/23/2018 3:36 PM EDT As tolerated * Discharge Instr - Diet* Svetlana Spivey RN - 05/23/2018 3:36 PM EDT Low carb diet * Appointments* Svetlana Spivey RN - 05/23/2018 3:37 PM EDT Keep all follow up appointments and call your doctor if you have any questions or concerns. * Attachments The following attachments cannot be sent through Care Everywhere. * Blood Glucose Monitoring Adult ([place]) * Hyperglycemia ([place]) * Preventing ([place]) documented in this encounter Medications at Time of Discharge Vit-Fe Fumarate-FA ( VITAMIN 27-0.8) 27-0.8 MG tablet tablet Take 1 tablet by mouth Daily. cephalexin (KEFLEX) 500 MG capsule Take 1 capsule by mouth 4 (Four) Times a Day for 10 days. 40 capsule 06/04/2018 06/14/2018 HYDROcodone-acet aminophen (NORCO) 5-325 MG per tabletIndication s:Cellulitis of abdominal wall Take 1 tablet by mouth Every 6 (Six) Hours As Needed for Moderate Pain for up to 8 days. 8 tablet 06/04/2018 06/12/2018 acetaminophen (TYLENOL) 325 MG tablet Take 2 tablets by mouth Every 6 (Six) Hours As Needed for Mild Pain. 04/30/2023 documented as of this encounter Progress Notes * Morgan Carias DO - 05/23/2018 3:29 PM EDT Laborist PDC Scan noted LA 31cm CBC WNL, Random BS 152, UA + glucosuria + Sarika Culture pending IMP IUP 33w4d Pain most likely discomforts of LA 31cm, elevated BS, glucosuria Suspect late onset GDM PLAN D/C to home, PTL instructions, family member has glucometer, rec FBS, and 2hr PP. Bring BS diary to OB appt 05/25/18. D/W patient Low carb Diet. All questions answered documented in this encounter H&P Notes * Morgan Carias, - 05/23/2018 1:15 PM EDT \[facility] Obstetric History and Physical Referring Provider: Fabian Oglesby MD Chief Complaint Patient presents with ??? Abdominal Pain Subjective Patient is a 28 y.o. female currently at 33w4d, who presents with c/o abdominal pain. She reports mild to moderate lower abdominal pain for the past four days. Patient states pain increases with movement or activity. Patient denies any fever, vaginal bleeding, leaking of fluid, urinary clearly, recent trauma, precipitating factors, and any other symptoms or concerns. Patient reports normal activity. care by Dr. Oglesby, complicated by previous section ??1 and obesity. Her care is complicated by prior desires repeat . Her previous obstetric/gynecological history is noted for is remarkable for . The following portions of the patients history [...] For Details Test Value Date Time Hgb 10.2 g/dL (L) 08/23/14 0652 Hct 30.3 % (L) 08/23/14 0652 ABO O 12/22/17 Rh Negative 12/22/17 Antibody [...] ROM and Vaginal Bleeding Review of Systems Eyes: Negative for visual disturbance. Cardiovascular: Negative for chest pain, leg swelling and palpitations. Respiratory: Negative for cough and shortness of breath. Gastrointestinal: Positive for abdominal pain. Negative for anorexia, change in bowel habit and nausea. Genitourinary: Negative for dysuria and flank pain. All other systems have been reviewed and are neg Objective Vital Signs Range for the last 24 hours Temperature: Temp: [97.7 ??F (36.5 ??C)] 97.7 ??F (36.5 ??C) Temp Source: Temp src: Oral BP: Pulse: Respirations: Resp: [18] 18 SPO2: O2 Amount (l/min): O2 Devices Weight: Weight: [113 kg (250 lb)] 113 kg (250 lb) Physical Examination: General: alert, appears stated age and cooperative Skin: normal HEENT: sclera clear Lungs: clear to auscultation bilaterally Heart: regular rate and rhythm, S1, S2 normal, no murmur, click, rub or gallop Abdomen: soft, gravid uterus non tender , tenderness over lower panus and tenderness over round lig Lower Extremeties Tr edema, no calf tenderness. Pelvis: External genitalia: normal general appearance Uterus: enlarged Neuro: Grossly intact, DTRs 2+ over 4 no clonus Presentation: vtx Cervix: Exam by: Dilation: closed Effacement: th Station: -3 Heart Rate Assessment Method: HR Assessment Method: external Beats/min: HR (beats/min): 135 Baseline: Heart Baseline Rate: normal range Varibility: HR Variability: moderate (amplitude range 6 to 25 bpm) Accels: Decels: Tracing Category: NST ind abd pain, Reactive Uterine Assessment Method: Method: palpation, external tocotransducer Frequency (min): Ctx Count in 10 min: Duration: Intensity: Contraction Intensity: no contractions Intensity by IUPC: Resting Tone: Uterine Resting Tone: soft by palpation Resting Tone by IUPC: Mumford Units: Laboratory Results: Lab Results (last 24 hours) Procedure Component Value Units Date/Time Comprehensive Metabolic Panel [[id number]] (Abnormal) Collected: 05/23/18 1337 Specimen: Blood Updated: 05/23/18 1424 Glucose 152 (H) mg/dL BUN 8 (L) mg/dL Creatinine 0.63 mg/dL Sodium 135 mmol/L Potassium 3.9 mmol/L Chloride 108 mmol/L CO2 22.0 mmol/L Calcium 8.9 mg/dL Total Protein 5.8 g/dL Albumin 3.31 g/dL ALT (SGPT) 21 U/L AST (SGOT) 32 U/L Alkaline Phosphatase 95 U/L Total Bilirubin 0.4 mg/dL eGFR Non Amer 114 mL/min/1.73 Globulin 2.5 gm/dL A/G Ratio 1.3 (L) g/dL BUN/Creatinine Ratio 12.7 Anion Gap 5.0 mmol/L Narrative: National Kidney Foundation Guidelines Stage Description GFR 1 Normal or High 90+ 2 Mild decrease 60-89 3 Moderate decrease 30-59 4 Severe decrease 15-29 5 Kidney failure <15 CBC & Differential [[id number]] Collected: 05/23/181336 Specimen: Blood Updated: 05/23/181355 Narrative: The following orders were created for panel order CBC & Differential. Procedure Abnormality Status --------- ------ CBC Auto Differential[[id number]] Abnormal Final result Please view results for these tests on the individual orders. CBC Auto Differential [[id number]] (Abnormal) Collected: 05/23/181336 Specimen: Blood Updated: 05/23/181355 WBC 12.18 (H) 10*3/mm3 RBC 3.64 (L) 10*6/mm3 Hemoglobin 11.1 (L) g/dL Hematocrit 33.8 (L) % MCV 92.9 fL MCH 30.5 pg MCHC 32.8 g/dL RDW 15.5 (H) % RDW-SD 52.6 fl MPV 11.1 fL Platelets 216 10*3/mm3 Neutrophil % 71.6 (H) % Lymphocyte % 20.8 (L) % Monocyte % 7.1 % Eosinophil % 0.3 % Basophil % 0.2 % Immature Grans % 0.5 % Neutrophils, Absolute 8.73 (H) 10*3/mm3 Lymphocytes, Absolute 2.53 10*3/mm3 Monocytes, Absolute 0.86 10*3/mm3 Eosinophils, Absolute 0.04 10*3/mm3 Basophils, Absolute 0.02 10*3/mm3 Immature Grans, Absolute 0.06 (H) 10*3/mm3 Fibrinogen [[id number]] Collected: 05/23/18 1337 Specimen: Blood Updated: 05/23/18 1343 Urinalysis With Microscopic If Indicated (No Culture) - Urine, Clean Catch [[id number]] (Abnormal) Collected: 05/23/18 132 Specimen: Urine from Urine, Clean Catch Updated: 05/23/181338 Color, UA Yellow Appearance, UA Cloudy (A) pH, UA 7.0 Specific [place], UA 1.019 Glucose, UA >=1000 mg/dL (3+) (A) Ketones, UA 15 mg/dL (1+) (A) Bilirubin, UA Negative Blood, UA Negative Protein, UA Negative Leuk Esterase, UA Small (1+) (A) Nitrite, UA Negative Urobilinogen, UA 0.2 E.U./dL Urinalysis, Microscopic Only - Urine, Clean Catch [[id number]] (Abnormal) Collected: 05/23/181319 Specimen: Urine from Urine, Clean Catch Updated: 05/23/181338 RBC, UA 0-2 /HPF WBC, UA 21-30 (A) /HPF Bacteria, UA 3+ (A) /HPF Squamous Epithelial Cells, UA 7-12 (A) /HPF Hyaline Casts, UA 0-6 /LPF Methodology Automated Microscopy Radiology Review: Imaging Results (last 24 hours) No results found for the last 24 hours. Other Studies: Assessment/Plan Active Problems: section Aug 2014 FTP/CPD occiput transverse 8 lbs. 8 oz. 39 6/7 weeks Morbid obesity with BMI of 40.0-44.9, adult ([facility]) Assessment: 1. Intrauterine at 33w4d weeks gestation with reactive status. 2. Lower abdominal pain Without signs of labor or ROM 3. Prev 08/24 ( FTP) 4. Morbid obesity Plan: 1. OBS, labs, PDC U/S 2. Plan of care has been reviewed with patient. 3. Risks, benefits of treatment plan have been discussed. 4. All questions have been answered. 5 Morgan Carias DO 05/23/2018 2:29 PM documented in this encounter Procedure Notes * Gary Sneed MD - 05/23/2018 2:57 PM EDT MFM Ultrasound Vertex Size=Dates = 5lb 1oz LA = 31 cm S/d normal BPP 05/18 No ultrasound etiology for pain. documented in this encounter Plan of Treatment Not on file documented as of this encounter Procedures Procedure Name Priority Date/Time Associated Diagnosis Comments [facility] Routine 05/23/2018 3:13 PM EDT CBC WITH AUTO DIFFERENTIAL STAT 05/23/2018 1:37 PM EDT FIBRINOGEN STAT 05/23/2018 1:37 PM EDT CBC AND DIFFERENTIAL STAT 05/23/2018 1:37 PM EDT COMPREHENSIVE METABOLIC PANEL STAT 05/23/2018 1:37 PM EDT URINALYSIS, MICROSCOPIC ONLY Routine 05/23/2018 1:20 PM EDT URINALYSIS W/ MICROSCOPIC IF INDICATED (NO CULTURE) Routine 05/23/2018 1:20 PM EDT URINE CULTURE Routine 05/23/2018 1:20 PM EDT NONSTRESS TEST Routine 05/23/2018 1:06 PM EDT documented in this encounter Results * [facility] (05/23/2018 3:13 PM EDT) Anatomical Region Laterality Modality Ultrasound 05/23/2018 2:53 PM EDT Narrative 05/23/2018 3:22 PM EDT PAT NAME: M[facility]YSON [facility] REC#: [id number] DA: [id number] PAT GEND: F PAT TYPE: O EXAM MIRYAM: [id number] REF PHYS FABIAN OGLESBY Patient Status Inpatient Indication ======== Pain in the lower abdomen area History ====== General History Other: BMI-40 Method ====== Transabdominal ultrasound examination. View: Adequate view ========= Martell . Number of fetuses: 1. Dating ====== Method of dating: based on the external assessment GA by stated dating 33 w + 4 d SUSAN by stated dating : 07/07/2018 Ultrasound examination on: 05/23/2018 GA by U/S based upon: AC, BPD, Femur, HC GA by U/S 33 w + 4 d SUSAN by U/S: 07/07/2018 Assigned: Dating performed on 05/23/2018, based on the external assessment Assigned GA 33 w + 4 d Assigned SUSAN: 07/07/2018 Biometry Biometry BPD 80.0 mm 32w 1d ?10% OFD 110.2 mm 33w 1d ?53% HC 305.3 mm 34w 0d ?24% Cerebellum tr 49.4 mm -/- ? >99% AC 299.5 mm 33w 6d ?63% Femur 66.6 mm 34w 2d ?59% HC / AC 1.02 EFW 2,290 g 33w 4d ?50% EFW (lb) 5 lb EFW (oz) 1 oz EFW by: Hadlock ([id number]-UJ-PM-FL) Head / Face / Neck Cephalic index 0.73 ?4% Cav. septi pel. tr 7.0 mm Shake Splitter 6.1 mm CM 6.8 mm ?32% Extremities / Bony Struc FL / BPD 0.83 FL / HC 0.22 FL / AC 0.22 Other Structures MVP 9.1 cm FHR 148 bpm LA 31.1 cm General Evaluation Cardiac activity present. FHR 148 bpm. movements present. Presentation cephalic. Placenta anterior, Grade 1. Umbilical cord Cord vessels: 3 vessel cord. Cord insertion: placental insertion: normal. Amniotic fluid Amount of AF: polyhydramnios. MVP 9.1 cm. LA 31.1 cm. Q1 8.4 cm, Q2 5.3 cm, Q3 9.1 cm, Q4 8.3 cm. Anatomy Cranium: normal Cranium: Cranial vault appears intact with normal head shape. Brain: The intracranial contents appear normal including the cerebral ventricles, midline falx, choroid plexus, CSP, cisterna magna, cerebellum and posterior fossa Neck: No evidence of skin edema, increased thickness or masses seen Lips: normal Lips: appear normal Nose, eyes, maxilla and profile: appear normal 4-chamber view: normal 4-chamber view: appears normal Cardiac location and axis: appears normal Outflow tracts: left and right ventricular outflow tracts appear normal Cardiac Rhythm: regular at normal rate Diaphragm: appears intact Thorax: No evidence of masses or effusion Abdom. wall: Abdominal wall is intact, abdominal cord insertion appears normal Stomach: left sided and appears normal GI tract: liver parenchyma and bowel appears normal. No evidence of ascites Kidneys: renal parenchyma appears normal bilaterally with no evidence of renal pelvis dilation Bladder: Normal size and wall thickness Cervical spine: suboptimal Thoracic spine: suboptimal Lumbar spine: suboptimal Sacral spine: suboptimal Sacral spine: Due to position and maternal pain Rt arm: suboptimal Lt arm: suboptimal Rt leg: suboptimal Lt leg: suboptimal Lt leg: Due to late gestational age and position Gender: female Wants to know gender: yes Maternal Structures Uterus / Cervix Cervical length 27.1 mm Ovaries / Tubes / Adnexa Rt ovary D1 26.8 mm Rt ovary D2 17.8 mm Rt ovary D3 18.1 mm Rt ovary Vol 4.5 cm?? Lt ovary D1 33.1 mm Lt ovary D2 29.4 mm Lt ovary D3 24.50 mm Lt ovary Vol 12.5 cm?? Other: Uterus and adnexa appears normal Impression ========= Size consistent with dates. No anomalies were identified. Amniotic fluid volume is increased. Umbilical artery S/D ratio is normal. No ultrasound etiology for pain. Anterior uterine wall appears intact. Coding ====== Description: 95138-38 Detailed Dry Cell Battery Assembler: Pilar Ibarra RDMS Physician: Doug Sneed MD, FACOG Electronically signed by: Doug Sneed MD, FACOG at: 15:22 Procedure Note Gary Sneed MD - 05/23/2018 PAT NAME: [facility] REC#: [id number] DA: [id number] PAT GEND: F PAT TYPE: O EXAM MIRYAM: [id number] REF PHYS FABIAN OGLESBY Patient Status Inpatient Indication ======== Pain in the lower abdomen area History ====== General History Other:BMI-40 Method ====== Transabdominal ultrasound examination. View: Adequate view ========= Martell . Number of fetuses: 1. Dating ====== Method of dating:based on the external assessment GA by stated dating 33 w + 4 d SUSAN by stated dating :07/07/2018 Ultrasound examination on:05/23/2018 GA by U/S based upon:AC, BPD, Femur, HC GA by U/S33 w + 4 d SUSAN by U/S:07/07/2018 Assigned:Dating performed on 05/23/2018, based on the externalassessment Assigned GA33 w + 4 d Assigned SUSAN:07/07/2018 Biometry Biometry BPD80.0 mm 32w 1d 10% GUV952.2 mm 33w 1d 53% HC305.3 mm 34w 0d 24% Cerebellum tr49.4 mm -/- >99% AC299.5 mm 33w 6d 63% Femur66.6 mm 34w 2d 59% HC / AC1.02 EFW2,290 g 33w 4d 50% EFW (lb)5 lb EFW (oz)1 oz EFW by:Hadlock ([id number]-FL) Head / Face / Neck Cephalic index0.73 4% Cav. septi pel. tr7.0 mm Vp6.1 mm CM6.8 mm 32% Extremities / Bony Struc FL / BPD0.83 FL / HC0.22 FL / AC0.22 Other Structures MVP9.1 cm QLS569 bpm AFI31.1 cm General Evaluation Cardiac activity present. FHR 148 bpm. movements present. Presentation cephalic. Placenta anterior, Grade 1. Umbilical cord Cord vessels: 3 vessel cord. Cord insertion: placentalinsertion: normal. Amniotic fluid Amount of AF: polyhydramnios. MVP 9.1 cm. LA 31.1 cm. Q18.4 cm, Q2 5.3 cm, Q3 9.1 cm, Q4 8.3 cm. Anatomy Cranium:normal Cranium:Cranial vault appears intact with normal head shape. Brain: The intracranial contents appear normal including the cerebralventricles, midline falx, choroid plexus, CSP, cisterna magna,cerebellum and posterior fossa Neck:No evidence of skin edema, increased thickness or masses seen Lips:normal Lips:appear normal Nose, eyes, maxilla and profile: appear normal 4-chamber view:normal 4-chamber view:appears normal Cardiac location and axis: appears normal Outflow tracts: left and right ventricular outflow tracts appear normal Cardiac Rhythm: regular at normal rate Diaphragm:appears intact Thorax: No evidence of masses or effusion Abdom. wall:Abdominal wall is intact, abdominal cord insertion appearsnormal Stomach: left sided and appears normal GI tract: liver parenchyma and bowel appears normal. No evidence ofascites Kidneys: renal parenchyma appears normal bilaterally with no evidence ofrenal pelvis dilation Bladder: Normal size and wall thickness Cervical spine:suboptimal Thoracic spine:suboptimal Lumbar spine:suboptimal Sacral spine:suboptimal Sacral spine:Due to position and maternal pain Rt arm:suboptimal Lt arm:suboptimal Rt leg:suboptimal Lt leg:suboptimal Lt leg:Due to late gestational age and position Gender:female Wants to know gender:yes Maternal Structures Uterus / Cervix Cervical ftezgx94.1 mm Ovaries / Tubes / Adnexa Rt ovary D126.8 mm Rt ovary D217.8 mm Rt ovary D318.1 mm Rt ovary Vol4.5 cm?? Lt ovary D133.1 mm Lt ovary D229.4 mm Lt ovary D324.50 mm Lt ovary Vol12.5 cm?? Other:Uterus and adnexa appears normal Impression ========= Size consistent with dates. No anomalies were identified. Amniotic fluid volume is increased. Umbilical artery S/D ratio is normal. No ultrasound etiology for pain. Anterior uterine wall appears intact. Coding ====== Description:[id number] Detailed Dry Cell Battery Assembler: Pilar Ibarra RDMS Physician: Doug Sneed MD, FACOG Electronically signed by: Doug Sneed MD, FACOG at: 15:22 Morgan Carias DO IMG US ORDERABLES Final Res ult * (ABNORMAL) Fibrinogen (05/23/2018 1:37 PM EDT) Fibrinogen 575(H) 198 - 466 mg/dL 05/23/2018 2:33 PM EDT [facility] Blood 05/23/2018 1:37 PM EDT 05/23/2018 1:43 PM EDT Morgan Carias DO LAB BLOOD ORDERABLES Final Result [facility]
[address] [place] [address], * (ABNORMAL) CBC Auto Differential (05/23/2018 1:37 PM EDT) WBC 12.18(H) 3.50 - 10.80 10*3/mm3 05/23/2018 1:56 PM EDT [facility] RBC 3.64(L) 3.89 - 5.14 10*6/mm3 05/23/2018 1:56 PM EDT [facility] Hemoglobin 11.1(L) 11.5 - 15.5 g/dL 05/23/2018 1:56 PM EDT [facility] Hematocrit 33.8(L) 34.5 - 44.0 % 05/23/2018 1:56 PM EDT [facility] MCV 92.9 80.0 - 99.0 fL 05/23/2018 1:56 PM EDT [facility] MCH 30.5 27.0 - 31.0 pg 05/23/2018 1:56 PM EDT [facility] MCHC 32.8 32.0 - 36.0 g/dL 05/23/2018 1:56 PM EDT [facility] RDW 15.5(H) 11.3 - 14.5 % 05/23/2018 1:56 PM EDT [facility] RDW-SD 52.6 37.0 - 54.0 fl 05/23/2018 1:56 PM EDT [facility] MPV 11.1 6.0 - 12.0 fL 05/23/2018 1:56 PM EDT [facility] Platelets 216 150 - 450 10*3/mm3 05/23/2018 1:56 PM EDT [facility] Neutrophil % 71.6(H) 41.0 - 71.0 % 05/23/2018 1:56 PM EDT [facility] Lymphocyte % 20.8(L) 24.0 - 44.0 % 05/23/2018 1:56 PM EDT [facility] Monocyte % 7.1 0.0 - 12.0 % 05/23/2018 1:56 PM EDT [facility] Eosinophil % 0.3 0.0 - 3.0 % 05/23/2018 1:56 PM EDT [facility] Basophil % 0.2 0.0 - 1.0 % 05/23/2018 1:56 PM EDT [facility] Immature Grans % 0.5 0.0 - 0.6 % 05/23/2018 1:56 PM EDT [facility] Neutrophils, Absolute 8.73(H) 1.50 - 8.30 10*3/mm3 05/23/2018 1:56 PM EDT [facility] Lymphocytes, Absolute 2.53 0.60 - 4.80 10*3/mm3 05/23/2018 1:56 PM EDT [facility] Monocytes, Absolute 0.86 0.00 - 1.00 10*3/mm3 05/23/2018 1:56 PM EDT [facility] Eosinophils, Absolute 0.04 0.00 - 0.30 10*3/mm3 05/23/2018 1:56 PM EDT [facility] Basophils, Absolute 0.02 0.00 - 0.20 10*3/mm3 05/23/2018 1:56 PM EDT [facility] Immature Grans, Absolute 0.06(H) 0.00 - 0.03 10*3/mm3 05/23/2018 1:56 PM EDT [facility] Blood 05/23/2018 1:37 PM EDT 05/23/2018 1:43 PM EDT us Morgan Carias DO LAB BLOOD ORDERABLES Final Result [facility]
[address] [id number], * (ABNORMAL) Comprehensive Metabolic Panel (05/23/2018 1:37 PM EDT) [facility] Signature Glucose 152(H) 70 - 100 mg/dL 05/23/2018 2:24 PM EDT [facility] BUN 8(L) 9 - 23 mg/dL 05/23/2018 2:24 PM EDT [facility] Creatinine 0.63 0.60 - 1.30 mg/dL 05/23/2018 2:24 PM EDT [facility] Sodium 135 132 - 146 mmol/L 05/23/2018 2:24 PM EDT [facility] Potassium 3.9 3.5 - 5.5 mmol/L 05/23/2018 2:24 PM EDT [facility] Chloride 108 99 - 109 mmol/L 05/23/2018 2:24 PM EDT [facility] CO2 22.0 20.0 - 31.0 mmol/L 05/23/2018 2:24 PM EDT [facility] Calcium 8.9 8.7 - 10.4 mg/dL 05/23/2018 2:24 PM EDT [facility] Total Protein 5.8 5.7 - 8.2 g/dL 05/23/2018 2:24 PM EDT [facility] Albumin 3.31 3.20 - 4.80 g/dL 05/23/2018 2:24 PM EDT [facility] ALT (SGPT) 21 7 - 40 U/L 05/23/2018 2:24 PM EDT [facility] AST (SGOT) 32 0 - 33 U/L 05/23/2018 2:24 PM EDT [facility] Alkaline Phosphatase 95 25 - 100 U/L 05/23/2018 2:24 PM EDT [facility] Total Bilirubin 0.4 0.3 - 1.2 mg/dL 05/23/2018 2:24 PM EDT [facility] eGFR Non Amer 114 >60 mL/min/1.7 3 05/23/2018 2:24 PM EDT [facility] Globulin 2.5 gm/dL 05/23/2018 2:24 PM EDT [facility] A/G Ratio 1.3(L) 1.5 - 2.5 g/dL 05/23/2018 2:24 PM EDT [facility] BUN/Creatinine Ratio 12.7 7.0 - 25.0 05/23/2018 2:24 PM EDT [facility] Anion Gap 5.0 3.0 - 11.0 mmol/L 05/23/2018 2:24 PM EDT [facility] Blood 05/23/2018 1:37 PM EDT 05/23/2018 1:43 PM EDT Narrative [facility] - 05/23/2018 2:24 PM EDT National Kidney Foundation Guidelines Stage ? Description ?GFR 1 ? Normal or High ? 90+ 2 ? Mild decrease ?60-89 3 ? Moderate decrease ??30-59 4 ? Severe decrease ?15-29 5 ? Kidney failure ? <15 Morgan Carias DO LAB BLOOD ORDERABLES Final Result Performing Organization Address [facility] Co de Phone Number [facility]
[address] [place] [address], * Urine Culture - Urine, (05/23/2018 1:20 PM EDT) Urine Culture 50,000-60,000 CFU/mL Normal Urogenital Lucy SIERRA 05/25/2018 8:28 AM EDT [facility] Urine Urine specimen collection, clean catch / Unknown Collection / Unknown 05/23/2018 1:20 PM EDT 05/23/2018 1:30 PM EDT us Mrogan Carias DO MICROBIOLOGY - GENERAL ORDE RABLES Final Result Performing Organization Address [facility] Co de Phone Number [facility]
[address] [place] [address], [place] [phone] * (ABNORMAL) Urinalysis, Microscopic Only - Urine, Clean Catch (05/23/2018 1:20 PM EDT) RBC, UA 0-2 None Seen, 0-2 /HPF 05/23/2018 1:39 PM EDT [facility] WBC, UA 21-30(A) None Seen, 0-2 /HPF 05/23/2018 1:39 PM EDT [facility] Bacteria, UA 3+(A) None Seen, Trace /HPF 05/23/2018 1:39 PM EDT [facility] Squamous Epithelial Cells, UA 7-12(A) None Seen, 0-2 /HPF 05/23/2018 1:39 PM EDT [facility] Hyaline Casts, UA 0-6 0 - 6 /LPF 05/23/2018 1:39 PM EDT [facility] Methodology Automated Microscopy 05/23/2018 1:39 PM EDT [facility] Urine Urine specimen collection, clean catch / Unknown Collection / Unknown 05/23/2018 1:20 PM EDT 05/23/2018 1:30 PM EDT Morgan Carias DO URINE ORDERABLES Final Resu lt [facility]
[address] [place] [address], * (ABNORMAL) Urinalysis With Microscopic If Indicated (No Culture) - Urine, Clean Catch (05/23/2018 1:20 PM EDT) Color, UA Yellow Yellow, Straw 05/23/2018 1:39 PM EDT [facility] Appearance, UA Cloudy(A) Clear 05/23/2018 1:39 PM EDT [facility] pH, UA 7.0 5.0 - 8.0 05/23/2018 1:39 PM EDT [facility] Specific [place], UA 1.019 1.001 - 1.030 05/23/2018 1:39 PM EDT [facility] Glucose, UA >=1000 mg/dL (3+)(A) Negative 05/23/2018 1:39 PM EDT [facility] Ketones, UA 15 mg/dL (1+)(A) Negative 05/23/2018 1:39 PM EDT [facility] Bilirubin, UA Negative Negative 05/23/2018 1:39 PM EDT [facility] Blood, UA Negative Negative 05/23/2018 1:39 PM EDT [facility] Protein, UA Negative Negative 05/23/2018 1:39 PM EDT [facility] Leuk Esterase, UA Small (1+)(A) Negative 05/23/2018 1:39 PM EDT [facility] Nitrite, UA Negative Negative 05/23/2018 1:39 PM EDT [facility] Urobilinogen, UA 0.2 E.U./dL 0.2 - 1.0 E.U./dL 05/23/2018 1:39 PM EDT [facility] Urine Urine specimen collection, clean catch / Unknown Collection / Unknown 05/23/2018 1:20 PM EDT 05/23/2018 1:30 PM EDT Morgan Carias DO URINE ORDERABLES Final Resu lt [facility]
[address] [place] [address], documented in this encounter Visit Diagnoses Diagnosis state, incidental section Aug 2014 FTP/CPD occiput transverse 8 lbs. 8 oz. 39 6/7 weeks delivery, without mention of indication, delivered, with or without mention of antepartum condition Morbid obesity with BMI of 40.0-44.9, adult documented in this encounter Admitting Diagnoses Diagnosis state, incidental documented in this encounter Care Teams Skin Carver Relationship Specialty Start Date End Date Provider, [place] [address] PCP - General 03/22/18 documented as of this encounter
--- OUTSIDE RECORDS SUMMARY | 2024-09-05 22:15 | XMS_ITS | Encounter Summary ---
[facility] Address [address] [place] [address] Care Team Providers Care Language Pathologist Name Role Phone Unavailable Primary Care Provider Unavailabl e Encounter Details Date Type Department Care Team (Late st Contact Info) Description 06/06/2014 11:56 AM EDT - 06/06/2014 11:59 PM EDT Hospital Encounter [facility] DE[facility] [address] [place] [address] Ayesha Mejia, SCALP TREATMENT SPECIALIST [address] [facility] [facility] [address] [place], [place] [id number] Social History Tobacco Use Types Packs/Day Years [...] Procedure Name Priority Date/Time Associated Diagnosis Comments ANTIBODY SCREEN Routine 06/06/2014 1:24 PM EDT GLUCOSE, POST 50 GM GLUCOLA Routine 06/06/2014 12:20 PM EDT CBC (NO DIFF) Routine 06/06/2014 12:20 PM EDT documented in this encounter Results * Antibody Screen (06/06/2014 1:24 PM EDT) [facility] Antibody Screen Negative [facility] Blood specimen (specimen) 06/06/2014 1:24 PM EDT [facility] - 06/06/2014 3:15 PM EDT Specimen Type: Blood Ayesha Mejia APRN BLOOD BANK TEST ORDER ROBIN Final Result Performing Organization Address [facility] [place] [address], * (ABNORMAL) CBC (No diff) (06/06/2014 12:20 PM EDT) WBC 17.38(H) 3.50 - 10.80 K/[facility] RBC 3.94 3.89 - 5.14 /[facility] Hemoglobin 12.5 11.5 - 15.5 g/dL [facility] Hematocrit 37.0 34.5 - 44.0 % [facility] MCV 93.9 80.0 - 99.0 fL [facility] MCH 31.7(H) 27.0 - 31.0 pg [facility] MCHC 33.8 32.0 - 36.0 g/dL [facility] RDW-CV 13.3 11.3 - 14.5 % [facility] Platelets 308 150 - 450 [facility] Blood specimen (specimen) 06/06/2014 12:20 PM EDT [facility] - 06/06/2014 12:48 PM EDT Specimen Type: Blood Ayesha Mejia APRN LAB BLOOD ORDERABLES Final Result Performing Organization Address [facility]/[place] [address], * (ABNORMAL) Glucose, Post 50 gm Glucola (06/06/2014 12:20 PM EDT) Glucose, GTT - 1 Hour 148(H) 65 - 139 mg/dL [facility] Blood specimen (specimen) 06/06/2014 12:20 PM EDT Narrative [facility] - 06/06/2014 1:05 PM EDT Specimen Type: Blood Ayesha Mejia APRN LAB BLOOD ORDERABLES Final Result Performing Organization Address City/State/[employer] de Phone Number [facility] [place] [address], documented in this encounter Visit Diagnoses Not on filedocumented in this encounter
--- OUTSIDE RECORDS SUMMARY | 2024-09-05 22:15 | XMS_ITS | Encounter Summary ---
Author Organization Healthcare Address [address] [place] [address] Care Team Providers Care Decal Transferrer Name Role Phone Ina Gill Primary Care Provider [phone] Encounter Details Date Type Department Care Team (Late st Contact Info) Description 10/23/2021 Community [facility] [address] [place] [address] Joan Arango MD [address] [place] [address] Social History Tobacco Use Types Packs/Day Years [...] on filedocumented in this encounter Care Teams Decal Transferrer Relationship Specialty Start Date End Date Ina Gill PA [address] [place] [address] PCP - General 01/16/22 documented as of this encounter
--- OUTSIDE RECORDS SUMMARY | 2024-09-05 22:15 | XMS_ITS | Encounter Summary ---
Author Organization [facility] Address [address] [id number] Care Team Providers Care Threader Name Role Phone Ina Gill Primary Care Provider [phone] Reason for Visit * Reason Comments Consult * Consultation (Routine) - Closed Specialty Diagnoses / Procedures Referred By Hector rice Referred To Contact Vascular Surgery Diagnoses Varicose veins of both lower extremities with pain Ina Gill PA [address] [place] [address] Phone: tel: fax: VASCULAR SURGERY [address] [place] [address] Phone: tel: Referral ID Status Reason Start Date Expiration Date V isits Requested Visits Authorized [id number] Closed Specialty Services Required 11/04/2021 05/06/2023 1 1 Encounter Details Date Type Department Care Team ([facility] Contact Info) Description 03/13/2022 8:15 AM EDT Consult Medical Office Building General Surgery [address] [facility] [facility], [address] [place] [id number] Anna Hall PA [address] [place] [address] Symptomatic varicose veins of both lower extremities (Primary Dx); PCOS (polycystic ovarian syndrome); Class 2 obesity with body mass index (BMI) of 38.0 to 38.9 in adult, unspecified obesity type, unspecified whether serious comorbidity present; Lipoma of left lower extremity Social History Tobacco Use Types Packs/Day Years [...] AM EDT documented as of this encounter Last Filed [...] Mass Index 38.94 03/13/2022 8:40 AM EDT documented in this encounter Miscellaneous Notes * Progress Notes - Anna Hall PA - 03/13/2022 8:15 AM EDT Dear IWONA Huntley, HPI We had the pleasure of seeing your patient, Merle Lyle, in clinic today as a consult for her venous disease. She reports having bulging tissue and occasional discomfort in the left lower extremities. She complains of aching and fatigue. She rates these symptoms as mild, which do not interfere with daily activities. She has not had a previous venous stasis skin ulcer. Previous treatment includes: OTC stockings: somewhat effective analgesics: somewhat effective. Her symptoms have persisted beyond 3 months despite these efforts. I personally and independently reviewed the Vascular Lab Images from today's visit which showed: outside duplex with reflux . No acute DVT Her chronic comorbid conditions that impact our treatment planning include: Obesity - secondary to PCOS, with a last BMI of: Body mass index is 38.94 kg/m??. The following portions of the chart were reviewed this encounter and updated as appropriate: Tobacco Allergies Meds Problems Med Hx Surg Hx Fam Hx Subjective Review of Systems Constitutional: Negative. HENT: Negative. Eyes: Negative. Respiratory: Negative. Cardiovascular: Negative. Gastrointestinal: Negative. Endocrine: Negative. Genitourinary: Negative. Musculoskeletal: Negative. Skin: Negative. Allergic/Immunologic: Negative. Neurological: Negative. Hematological: Negative. Psychiatric/Behavioral: Negative. All other systems reviewed and are negative. Objective Physical Exam Constitutional: well developed, well nourished and in no acute distress Respiratory: Normal expansion. Clear to auscultation. No rales, rhonchi, or wheezing. Cardiac: Heart sounds are normal. Regular rate and rhythm without murmur, gallop or rub. Abdomen: Soft, non-tender, normal bowel sounds; no bruits, organomegaly or masses. Musculoskeletal: normal strength, tone, and muscle mass, no deformities Psychiatric: oriented to time, place and person, mood and affect are within normal limits Neurologic: normal sensation and reflexes and motor intact Skin: Svensen, warm, well perfused Venous: CEAP 1 - Telangiectasies or reticular veins Arterial: Lower Extremity Right Left Femoral Present 2+ Present 2+ Popliteal Present 2+ Present 2+ Dorsalis Pedis Present 2+ Present 2+ Posterior Tibial Present 2+ Present 2+ Capillary Refill <2 sec <2 sec Assessment/Plan In Summary: Merle Lyle is a 32 y.o. year old female who we saw today in clinic. Below is a summary of the diagnoses addressed in today's visit and any associated orders: Problem List Items Addressed This Visit Circulatory Symptomatic varicose veins of both lower extremities - Primary Relevant Orders VAS US Venous Duplex Lower Extremity Bilateral Reflux Digestive Class 2 obesity in adult Genitourinary PCOS (polycystic ovarian syndrome) Musculoskeletal Lipoma of left lower extremity LLE lateral leg- lipoma / fatty subcutaneous tissue - does not represent varicosity Recommend trial of compression garment 20-30mmhg during daily activity along with elevation, exercise, weight loss. Will return back with duplex assessing reflux disease. We will see her back for: Follow up in 3 months (on 06/13/2022). The patient was counseled on the importance of: - blood pressure monitoring - proper nutrition, exercise and maintaining a healthy weight. documented in this encounter Plan of Treatment Not on file documented as of this encounter Visit Diagnoses Diagnosis Symptomatic varicose veins of both lower extremities- Primary PCOS (polycystic ovarian syndrome) Polycystic ovaries Class 2 obesity with body mass index (BMI) of 38.0 to 38.9 in adult, unspecified obesity type, unspecified whether serious comorbidity present Lipoma of left lower extremity documented in this encounter Additional Health Concerns Assessment Noted Time A fall risk assessment has been complete d for the patient 03/13/2022 8:41 AM EDT documented as of this encounter Care Teams Threader Relationship Specialty Start Date End Date Ina Gill PA [address] [place] [address] PCP - General 01/16/22 documented as of this encounter
[2024-09-05 22:31] VITALS: BP 114/77; PULSE 95; O2SAT 97
--- NOTE | 2024-09-05 22:31 | US_ITS ---
PROCEDURE INFORMATION: Exam: US Pelvis, Transvaginal, Non-Obstetric Exam date and time: 09/05/2024 10:53 PM Age: 34 years old Clinical indication: Pelvic pain; Additional info: Vaginal bleeding, acute suprapubic abd pain TECHNIQUE: Imaging protocol: Real-time transvaginal pelvic (non-obstetric) ultrasound with image documentation. Transvaginal imaging was used for better evaluation of the endometrium, adnexa, and/or cervix. COMPARISON: US OB TRANSVAGINAL 10/07/2022 2:37 PM FINDINGS: Uterus: Uterus is unremarkable and measures 8.2 x 4.3 x 6.0 cm. Thickened endometrium measuring 1.46 cm with echogenic focus measuring 1.0 cm. Right ovary/adnexa: Measures 2.9 x 2.6 x 1.9 cm. Tiny peripheral follicles. No mass. Normal ovarian blood flow on color Doppler. Left ovary/adnexa: Measures 2.4 x 1.9 x 2.0 cm. Tiny peripheral follicles. No mass. Normal ovarian blood flow on color Doppler. Urinary bladder: Urinary bladder is limited. Intraperitoneal space: No free fluid. IMPRESSION: 1. Thickened endometrium with echogenic focus possibly representing blood clot versus polyp. Recommend off cycle follow-up to document persistence versus resolution. 2. Bilateral ovaries with tiny peripheral follicles. Although nonspecific query polycystic ovarian symptoms.
--- NOTE | 2024-09-05 22:33 | PC.NURSE ---
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
[2024-09-05] MEDS: BELLADONNA ALKALOIDS 60 ML ML PO (22:38)
[2024-09-05] MEDS: KETOROLAC 30MG/ML VIAL 15 MG IV (22:38)
[2024-09-05 22:39] LABS: Basophils # 0.2 K/mm3 (0-0.2); Basophils % 1.4 % (0.1-2.0); Eosinophils % 0.3 % (0.1-12.0); Hematocrit 44.5 % (37.0-47.0); Hemoglobin 15.2 g/dL (12.2-16.2); Lymphocytes # 1.9 K/mm3 (0.7-4.5); Lymphocytes % 15.3 % (10-50); Mean Corpuscular HGB Conc 34.2 g/dL (31.8-35.4); Mean Corpuscular Hemoglobin 30.9 pg (27.0-31.2); Mean Corpuscular Volume 90.2 fl (81-99); Mean Platelet Volume 8.7 fl (7.4-10.4); Monocytes # 0.6 K/mm3 (0.1-1.0); Neutrophils # 9.8 K/mm3 (1.8-7.8); Platelet Count 256 K/mm3 (142-424); Red Blood Count 4.93 M/mm3 (4.20-5.40); White Blood Count 12.6 K/mm3 (4.8-10.8)
[2024-09-05 22:49] LABS: Albumin Level 4.9 g/dl (3.5-5.0); Chloride 105 mmol/L (98-107); Potassium 3.5 mmoL/L (3.5-5.1); Sodium 142 mmol/L (136-145)
[2024-09-05 22:51] LABS: HCG Qualitative, Serum Negative (Negative)
[2024-09-05 22:52] LABS: Alanine Aminotransferase 24 U/L (12-78); Albumin/Globulin Ratio 1.6 (1.1-1.8); Alkaline Phosphatase 91 U/L (38-126); Anion Gap 15.5 mEq/L (5-15); Aspartate Amino Transferase 27 U/L (14-36); Bilirubin,Total 1.1 mg/dl (0.2-1.3); Blood Urea Nitrogen 15 mg/dl (7-17); Calcium 9.6 mg/dl (8.4-10.2); Carbon Dioxide 25 mmol/L (22.0-30.0); Creatinine Clearance Estimated 129 mL/min (50-200); Estimated Glomerular Filt Rate 73 ml/min (>60); GFR (African American) 88 ML/MIN (>60); Globulin 3.1 g/dL (1.3-3.2); Glucose 112 mg/dl (74-100)
--- NOTE | 2024-09-05 22:53 | PC.NURSE ---
Pt to ultrasound via wheelchair
[2024-09-05 23:09] LABS: Free T4 (Free Thyroxine) 0.91 ng/dl (0.78-2.19)
[2024-09-05 23:24] LABS: Thyroid Stimulating Hormone 0.87 uIU/mL (0.465-4.68)
[2024-09-05 23:30] VITALS: BP 110/40; PULSE 73; O2SAT 98
[2024-09-05 23:34] LABS: HIV (1&2) Antibody Rapid NONREACTIVE (NONREACTIVE)
[2024-09-06 00:27] VITALS: BP 93/52; PULSE 76; RESP 18; TEMP 36.9; O2SAT 97
[2024-09-06 01:03] LABS: Lipase 61 U/L (23-300)
[2024-09-07 05:10] LABS: HCV Ab Non Reactive (Non Reactive)
== END 2024-09-06 00:31 | disposition home or self-care (01) ==
PROVIDERS: Emergency Medicine; Emergency Provider Emergency Medicine; PCP Student in an Organized Health Care Education/Training Program
DX: N92.0 Excessive and frequent menstruation with regular cycle (principal); R10.9 Unspecified abdominal pain; R11.2 Nausea with vomiting, unspecified; R19.7 Diarrhea, unspecified; R68.83 Chills (without fever)
CPT/HCPCS: 76830; 80050; 80053; 83690; 84439; 84443; 84703; 85025; 86803; 87389; 96374; 99283; J1885

== ENCOUNTER 2024-10-12 15:02 | Outpatient (CLI) | payer OTHER, SELFPAY ==
--- NOTE | 2024-10-12 15:15 | XR_ITS ---
FINAL REPORT CLINICAL HISTORY: thoracic back pain COMPARISON: None FINDINGS: AP, lateral, and swimmer's views of the thoracic spine were obtained. There is no prior exam for comparison. There is no acute fracture or malalignment. Vertebral body height is preserved. Mild multilevel degenerative change is present. Paraspinal soft tissues are within normal limits. IMPRESSION: Mild multilevel degenerative change, with no acute osseous abnormality of the thoracic spine. Reviewed, Interpreted and Dictated by Reina Barnes MD Transcribed by Luz Elena Bartholomew Authenticated and [facility]
== END 2024-10-12 23:59 | disposition home or self-care (01) ==
PROVIDERS: PCP Student in an Organized Health Care Education/Training Program; Visit Provider Student in an Organized Health Care Education/Training Program
DX: M54.6 Pain in thoracic spine (principal); G89.29 Other chronic pain
CPT/HCPCS: 72072

== ENCOUNTER 2024-11-13 15:13 | Outpatient (CLI) | payer OTHER, SELFPAY | END 2024-11-13 23:59 | disposition home or self-care (01) | LOC: LAB.DROPOF 11-14 10:31 | PROVIDERS: PCP Student in an Organized Health Care Education/Training Program; Visit Provider Student in an Organized Health Care Education/Training Program | DX: J02.9 Acute pharyngitis, unspecified (principal) | CPT/HCPCS: 87070 ==

== ENCOUNTER 2024-11-22 13:49 | Outpatient (CLI) | payer OTHER, SELFPAY ==
--- NOTE | 2024-11-22 13:51 | US_ITS ---
PROCEDURE: US TRANSVAGINAL CLINICAL INDICATION: f/u to endometrial thickening COMPARISON: US US TRANSVAGINAL from 07/23/2022 US US TRANSVAGINAL from 09/05/2024 FINDINGS: Transvaginal sonographic images of the pelvis were obtained. UTERUS: 7.2cm x 4.1cmx 4.8 cm retroverted with a combined endometrial thickness of 9mm. The previously described polyp appearing area is no longer present. A nabothian cyst is seen within the cervix. LEFT OVARY: 2.5cmx1.9 cmx2.3cm with a volume of 5.4ml. There are multiple small peripheral follicles consistent with a polycystic ovary. RIGHT OVARY: 2.5cmx 3.0cmx2.3cm with a volume of 8.9ml. There are multiple small peripheral follicles consistent with a polycystic ovary. Both ovaries are seen and appear polycystic. Doppler flow to both ovaries are seen. There is no fluid in the cul-de-sac. IMPRESSION: 1. Retroverted uterus normal in shape and size. The endometrium is normal appearing and measures 9 mm. The previously described polypoid area within the endometrium is no longer visible. 2. Both ovaries are seen and appear polycystic. 3. No fluid in the cul-de-sac. Dictated by: Moisés Lozano MD 11/23/2024 10:56 Moisés Lozano MD in OV 11/23/2024 10:56
== END 2024-11-22 23:59 | disposition home or self-care (01) ==
LOC: RAD 13:51
PROVIDERS: PCP Nurse Practitioner Family; Visit Provider Obstetrics & Gynecology
DX: E28.2 Polycystic ovarian syndrome (principal); N92.0 Excessive and frequent menstruation with regular cycle
CPT/HCPCS: 76830

== ENCOUNTER 2025-03-07 08:35 | Outpatient (CLI) | payer OTHER, SELFPAY | END 2025-03-07 23:59 | disposition home or self-care (01) | LOC: RAD 08:35 | PROVIDERS: PCP Nurse Practitioner Family; Visit Provider Nurse Practitioner Family | DX: R69 Illness, unspecified (principal) ==

== ENCOUNTER 2025-03-27 11:14 | Outpatient (CLI) | payer OTHER, SELFPAY ==
--- OUTSIDE RECORDS SUMMARY | 2025-03-27 11:17 | XMS_ITS | Clinical Summary ---
Author Organization [facility] Address [address] [place] [address] Care Team Providers Care Reservation Sales Agent Name Role Phone Ina Gill Primary Care Provider [phone] Allergies Active Allergy Reactions Criticality Noted Date [...] [facility]-Depression Screening 1992 [facility]-/Child/Adol SDOH Screenings 1992 [facility]-IPV Vaccines (2 of 3 - 4-dose series) 03/23/1996 02/24/1996 [facility]-Varicella Vaccines (1 of 2 - 13+ 2-dose series) 02/22/2005 [facility]- SDOH Screenings 02/22/2010 [facility]-Adult SDOH Screenings 02/22/2010 HPV Vaccines (2 - 3-dose series) 06/10/2010 05/13/2010 [facility]-Hepatitis B Vaccines (1 of 3 - 19+ 3-dose series) 02/22/2011 [facility]-Pap Smear 02/22/2013 [facility]-Cervical Cancer Screening 02/22/2022 [facility]-HPV/Cotest 02/22/2022 [id number] Vaccine ( - 2023- season) 2024 [facility]-Influenza Vaccine (Season Ended) 2025 [facility]-DTaP,Tdap,and Td Vaccines (3 - Td or Tdap) 03/31/2033 03/31/2023, 02/24/1996 [facility]-Zoster Vaccines (1 of 2) 02/22/2042 [facility]-HIB Vaccines Aged Out No longer e ligible based on patient's age to complete this topic [facility]-Hepatitis A Vaccines Aged Out No longer eligible based on patient's age to complete this topic [facility]-Pneumococcal Vaccine: Pediatrics (0 to 5 Years) and At-Risk Patients (6 to 49 Years) Aged Out No longer eligible b ased on patient's age to complete this topic [facility]-Rotavirus Vaccines Aged Out No lo nger eligible based on patient's age to complete this topic Care Teams Reservation Sales Agent Relationship Specialty Start Date End Date Ina Gill PA [address] [place] [address] PCP - General 01/16/22
[2025-03-27 11:18] LABS: Anti-Centromere B Antibodies ND; Anti-DNA (DS) Ab Qn ND; Anti-Jo-1 ND; Antichromatin Antibodies ND; Antiscleroderma-70 Antibodies ND; RNP Antibodies ND; Sjogren's Anti-SS-A ND; Sjogren's Anti-SS-B ND
--- OUTSIDE RECORDS SUMMARY | 2025-03-27 11:18 | XMS_ITS | Encounter Summary ---
Author Organization Healthcare Address [address] [place] [address] Care Team Providers Care Spine Nurse Name Role Phone Ina Gill Primary Care Provider [phone] Encounter Details Date Type Department Care Team ([facility] st Contact Info) Description 11/04/2021 Community [facility] [address] [place] [address] Ina Gill PA [address] [place] [address] Varicose veins of both lower [...] Primary documented in this encounter Care Teams Spine Nurse Relationship Specialty Start Date End Date Ina Gill PA [address] [place] [address] PCP - General 01/16/22 documented as of this encounter
--- OUTSIDE RECORDS SUMMARY | 2025-03-27 11:18 | XMS_ITS | Data Portability ---
Author Organization [employer] [facility] Address [address] [place] [address] Assessment No assessment recorded. Plan of Treatment Reminders Order Date Submit Date Provider Last Modified By Organization Details Last Modified Time Details Appointments None recorded. Lab None recorded. Referral dermatologi st referral - first available appt [address] [facility], [address] [place] [address] , [address], [address], 5 11:14:14 Procedures None recorded. Surgeries None recorded. Imaging None recorded. Medication Orders hydroxyzine HCl 50 mg tablet 2024 025 [facility], [address], [address], 5 14:21:52 clobetasol 0.05 % scalp solution 2024 025 [facility], [address], [address], 5 14:23:27 Patient TargetsNo targets recorded. Patient InstructionsNo instructions recorded. 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 14:21:20 Scalp itchy 223955409 Active 2024 IWONA Wallace [address] [place] [address], [phone], [employer] 14:22:57 Tenderness of right temporomand ibular joint 1883514925537 9106 Active 2024 IWONA Wallace [address] [place] [address], [phone], [employer] 17:07:58 Problem Notes None recorded. Procedures Surgical History Date Name Laterality Status Provider Name and Address Organization Details Recorded Time section completed [employer] 02/26/2025 13:18:56 section completed [facility] [employer] 02/26/2025 13:19:02 section completed [employer] 02/26/2025 13:19:07 Imaging Results None recorded. Procedure Notes None recorded. Medical Equipment None Reported. Allergies Allergen ID Allergen Name Allergen Category Reaction Reaction Severity Criticality Documentation Date Start Date Code Code System Note Provider Name and Address Organization Details Recorded Time 20563 Product containin g penicilli n (product) medicatio n Not available Not available Not available 02/26/2025 60872 8001 SNOMED [employer] 13:13:19 11530 Bactrim medicatio n Not available Not available Not available 02/26/2025 33717 9 RxNorm [employer] 13:13:25 Medications Name Sig Start Date Stop Date Status Note LastModified by Organization Details LastModified Time ketoconazol e 2 % shampoo APPLY SHAMPOO TOPICALLY TWICE A WEEK 02/26 completed Not Available Not Available Not Available ibuprofen 800 mg tablet TAKE 1 TABLET BY MOUTH EVERY 8 HOURS 2024 active Not Available Not Available Not Avai lable fluconazole 150 mg tablet TAKE 1 TABLET BY MOUTH EVERY 3 DAYS FOR 2 DOSES 02/26 completed Not Available Not Available Not Available propranolol ER 60 mg capsule,24 hr,extended release TAKE 1 CAPSULE BY MOUTH ONCE DAILY active Not Available Not Available No t Available hydroxyzine HCl 50 mg tablet Take 1 tablet by oral route as directed for 1 day. 2024 active Not Available Not Available Not Avai lable ondansetron 8 mg disintegrat ing tablet DISSOLVE 1 TABLET IN MOUTH EVERY 8 HOURS NEEDED FOR NAUSEA AND VOMITING FOR 5 DAYS 02/26 completed Not Available Not Available Not Available meclizine 25 mg tablet TAKE 1 TABLET BY MOUTH TWICE DAILY NEEDED FOR DIZZINESS 2024 active Not Available Not Available Not Avai lable triamcinolo ne acetonide 0.025 % topical ointment APPLY OINTMENT TOPICALLY TWICE DAILY NEEDED FOR RASH ON NECK DIRECTED active Not Available Not Available No t Available omeprazole 20 mg capsule,del ayed release TAKE 1 CAPSULE BY MOUTH ONCE DAILY active Not Available Not Available No t Available metoprolol succinate ER 25 mg tablet,exte nded release 24 hr TAKE 1 TABLET BY MOUTH ONCE DAILY 02/26 completed Not Available Not Available Not Available levofloxaci n 500 mg tablet TAKE 1 TABLET BY MOUTH EVERY 24 HOURS 02/26 completed Not Available Not Available Not Available clobetasol 0.05 % scalp solution APPLY TO THE AFFECTED SCALP AREA BY TOPICAL ROUTE 2 TIMES PER DAY IN THE MORNING AND EVENING 2024 active Not Available Not Available Not Avai lable chlorhexidi ne gluconate 0.12 % mouthwash RINSE WITH 15ML FOR 30 SECONDS AND SPIT, USE TWICE DAILY active Not Available Not Available No t Available vilazodone 20 mg tablet TAKE 1 TABLET BY MOUTH ONCE DAILY WITH FOOD 02/26 completed Not Available Not Available Not Available Nurtec ODT 75 mg disintegrat ing tablet TAKE 1 TABLET BY MOUTH ONCE NEEDED FOR MIGRAINE HEADACHE active Not Available Not Available No t Available Vitals Date Recorded Body weight Body mass index (BMI) Body height Heart rate Oxygen saturation Oxygen saturation in Arterial blood by Pulse oximetry Body temperature Systolic blood pressure Diastolic blood pressure Provider Name and Address Organization Details Last Updated DateTime 5 35060.9 2 g 35.7 kg/m2 165.1 cm 92 /min 98 % 98 % 98.3 [degF] 110 mm[Hg] 70 mm[Hg] Anna Vice [place] - [employer] 13:24:58 Social History Question Answer Notes LastModified by Organizat ion Details LastModified Time Tobacco Smoking Status Former Smoker Anna mays, [employer] 02/26/2025 13:17:41 Do You Have An Advance Directive? No Information not available 02/26/2025 Is Your Home Air Conditioned? Yes Information not available 02/26/2025 Are You Blind Or Do You Have Difficulty Seeing? No Information not available 02/26/2025 What Is Your Level Of Caffeine Consumption? Occasional Information not available 02/26/2025 Are You A Caregiver? Yes Information not available 02/26/2025 Have You Been To An Area Known To Be High Risk For COVID-19? No Information not available 02/26/2025 Are You Deaf Or Do You Have Serious Difficulty Hearing? No Information not available 02/26/2025 What Type Of Diet Are You Following? REGULAR Information not available 02/26/2025 Have There Been Any Changes To Your Family Or Social Situation? No Information not available 02/26/2025 When Did You Quit Smoking? 1-5yearssincel astcigarette 2021 Stop Date Information not available 02/26/2025 Which Of Your Hands Is Dominant? Right Information not available 02/26/2025 Do You Have A Medical Power Of Design Cell Engineer? No Information not available 02/26/2025 What Was The Date Of Your Most Recent Tobacco Screening? 02/26/2025 Information not available 02/26/2025 Do You Have Any Pets? Yes Information not available 02/26/2025 What Is Your Relationship Status? Domestic Partner Information not available 02/26/2025 Do You Use Your Seat Belt Or Car Seat Routinely? Yes Information not available 02/26/2025 Are You Sexually Active? Yes Information not available 02/26/2025 Do You Have Smoke And Carbon Monoxide Detectors In Your Home? Yes Information not available 02/26/2025 At What Age Did You Start Smoking Tobacco? 18 Information not available 02/26/2025 Are You Passively Exposed To Smoke? Yes Information not available 02/26/2025 Are There Any Smokers In Your House? No Information not available 02/26/2025 How Much Tobacco Do You Smoke? No Information not available 02/26/2025 Do You Participate In Social Media? Yes Information not available 02/26/2025 Do You Use Sunscreen Routinely? Yes Information not available 02/26/2025 Has Tobacco Cessation Counseling Been Provided? No Information not available 02/26/2025 Have You Recently Traveled Abroad? No Information not available 02/26/2025 Do You Have Difficulty Walking Or Climbing Stairs? No Information not available 02/26/2025 Are You Currently In School? No Information not available 02/26/2025 Do You Have Any Dietary Restrictions? No Information not available 02/26/2025 Sex: Unknown Functional Status Question Answer Note LastModified by [employer] Details LastModified Time Do you use any illicit or recreational drugs? No Information not available 02/26/2025 Do you or have you ever used any other forms of tobacco or nicotine? No Information not available 02/26/2025 What is your level of alcohol consumption? None Information not available 02/26/2025 Are you currently employed? Yes Information not available 02/26/2025 Do you have transportation difficulties? No Information not available 02/26/2025 Are you able to walk? YESWOREST Information not available 02/26/2025 Do you have difficulty doing errands alone? No Information not available 02/26/2025 Are you able to care for yourself? Yes Information not available 02/26/2025 Do you have difficulty dressing or bathing? No Information not available 02/26/2025 Mental Status Question Answer Note LastModified by Organizat ion Details LastModified Time Do you feel stressed (tense, restless, nervous, or anxious, or unable to sleep at night)? [id number] Information not available 02/26/2025 Do you have difficulty concentrating, remembering or making decisions? No Information no t available 02/26/2025 Family History Relationship Description Onset Age of this Age Resolved Age Notes LastModified by Organization Details LastModified Time Maternal Aunt Multiple sclerosis Not available 2024 13:15:39 Mother Diabetes mellitus Not available 2024 13:15:59 Mother Hypertensive disorder Not available 2024 13:16:06 Mother Neuralgia Not available 02/26/2025 13:16:23 Medical History Condition Response Coronary Artery Disease N Other Y Gout N Blood Diseases N Kidney Stones N Hyperthyroidism N Blood Transfusion N Breast Cancer N Emergency room visit since last appointm ent. N Lung Disease N COPD N Depression Y Hypothyroidism N Dermatologic Disorders N Defects or Inherited Disease N Developmental or Behavioral Disorders N Breast Problem N Difficulty Swallowing N Anesthesia Complications N History of STI N Anxiety Disorder Y Meniere's disease N Autoimmune disease N Muscle, Joint, or Bone Problems N Vision or Eye Problems N Arthritis N Infertility N Polyps N Mental Disorder N Congenital Anomalies N Acid Reflux (GERD) N Cancer N Stroke N Neurologic/Epilepsy N Endometriosis N Bladder or Kidney Problems N High Cholesterol N Liver Disease N Organ Transplant N Psychiatric/Mental Health Condition N Dialysis N Headaches N Fibromyalgia N Schizophrenia N Kidney Disease N Allergies/Hayfever N Heart Problems N Ear or Hearing Problems N Hospitalizations N Learning Disorder N Artificial Joints N Thyroid Problems N GI Problems N Acne N ADD/ADHD N Eating Disorder N Anemia N Constipation N Mental Illness N Diabetes N Ovarian Cancer N Bedwetting N Hepatitis/Liver Disease N Tuberculosis N Eczema N Abuse/Domestic Violence N Diverticulitis N Asthma N Trauma/Violence N Substance Abuse Y Reflux/GERD N Depression/ depression N Hepatitis N Heart Disease N Pulmonary Embolism N Tourette Syndrome N Chronic Ear Infections N Pre-Eclampsia N Hypertension N Chicken Pox N Autism Spectrum Disorder (ASD) N Osteoporosis N Thrombophilias N Gynecological History Statement/Question Response Flow Moderate Date of LMP 02/12/2025 Sexually Active? Y Menses Monthly Y Date of Last Pap Smear Current Control Method None Age at Menarche 16 Most Recent Mammogram LMP Approximate Obstetrics History GPAL:G 3 P 3 0 0 3 Type Value Multiple Births 0 Full Term 3 Induced 0 Spontaneous 0 Premature 0 Living 3 Ectopics 0 Total 3 Immunizations Vaccine Type Date Status Note Provider Nam e and Address Organization Details Recorded Time DTaP, unspecified formulation 6 completed Not Available [facility] 02/26/2025 12:48:38 MMR 6 completed Not Available [facility] 02/26/2025 12:48:38 OPV 6 completed Not Available [facility] 02/26/2025 12:48:38 HPV, quadrivalent 0 completed Not Available [facility] 02/26/2025 12:48:38 MMR 8 completed Not Available [facility] 02/26/2025 12:48:38 Tdap 3 completed Not Available [facility] 02/26/2025 12:48:38 Past Encounters Encounter ID Performer Location Encounter Start Date Encounter Closed Date Diagnosis/Indication Diagnosis SNOMED-CT Code Diagnosis ICD10 Code Diagnosis Note [id number] IWONA Wallace [facility] [address] [place] [address] [place] [address] 02/26/2025 12:48:17 02/26/2025 14:08:48 Generalized anxiety disorder 16202673 F41.1 Take prior to MRI Scalp itchy 092622063 L2 9.9 Tenderness of right temporomandibular joint 2689288290 1542465 M26.621 Patient states pain improved 50% with bite guard but does not recall dentist actually checking her bitePatien t wanted 2nd opinion but can't find anyone that takes her insurance - Dr Alvarez states he would see her this afternoon and quickly check her bite to determine if that was the source of the pain or if we need to proceed with further workup Health Concerns Section Related Observation LastModified by Organization Detai ls LastModified Time None Recorded Concern Status LastModified by Organization Details LastModified Time None Recorded Advance Directives Directive N: Payers Insurance Date Sequence Insurance Name Policy Number Policy Gould Covered Member ID Gould Member ID Guarantor Name 02/26/2025 1 [employer] [facility] (MEDICAID HMO) Merle Lyle [id number] Merle Lyle Notes Date Note Type Note Provider Name and Address Organization Details Recorded Time 02/26/2025 text/html Patient presents to establish care. Has right ear pain, right jaw pain. Has seen dentist - had a filling several years ago. Recently saw dentist again - had a bite guard made. Bite guard helped with that pain but entire mouth feels like it has shifted when she is wearing it. Saw previous PCP - concerned for trigeminal neuralgia. Has MRI next week. Very nervous about having the MRI. PCP mentioned that she might have MS and she is terrified.Has an itchy scalp and would like referral to dermatology. IWONA Wallace [address] [place] [address], [phone], [facility] [employer] 02/26/2025 17:10:52 OBGyn Episode No OBEpisode recorded.
--- OUTSIDE RECORDS SUMMARY | 2025-03-27 11:18 | XMS_ITS | Encounter Summary ---
Author Organization Healthcare Address [address] [place] [address] Care Team Providers Care Lining Layer Name Role Phone Ina Gill Primary Care Provider [phone] Encounter Details Date Type Department Care Team ([facility] st Contact Info) Description 10/23/2021 Community [facility] [address] [place] [address] Joan Arango MD [address] [place] [address] [phone] Social History Tobacco Use Types Packs/Day Years [...] on filedocumented in this encounter Care Teams Lining Layer Relationship Specialty Start Date End Date Ina Gill PA [address] [place], [place] [phone] PCP - General 01/16/22 documented as of this encounter
[2025-03-27 11:41] LABS: Basophils # 0.1 K/mm3 (0-0.2); Basophils % 0.7 % (0.1-2.0); Eosinophils # 0.1 Kmm3 (0.0-0.4); Eosinophils % 1.1 % (0.1-12.0); Hematocrit 38.6 % (37.0-47.0); Hemoglobin 11.9 g/dL (12.2-16.2); Immature Granulocytes # 0.02 10^3uL; Immature Granulocytes % 0.2 %; Lymphocytes % 36.7 % (10-50); Mean Corpuscular HGB Conc 30.8 g/dL (31.8-35.4); Mean Corpuscular Hemoglobin 27.6 pg (27.0-31.2); Mean Corpuscular Volume 89.6 fl (81-99); Mean Platelet Volume 10.4 fl (7.4-10.4); Monocytes # 0.5 K/mm3 (0.1-1.0); Monocytes % 5.5 % (1.7-9.3); Neutrophils # 4.6 K/mm3 (1.8-7.8); Neutrophils % 55.8 % (37.0-80.0); Nucleated Red Blood Cells # 0 10^3/uL; Nucleated Red Blood Cells % 0 %; Platelet Count 263 K/mm3 (142-424); Red Blood Count 4.31 M/mm3 (4.20-5.40); Red Cell Distribution Width 15.1 % (11.5-17.5); Red Cell Distribution Width-SD 50.1 fL; White Blood Count 8.3 K/mm3 (4.8-10.8)
[2025-03-27 12:07] LABS: Alanine Aminotransferase 17 U/L (12-78); Albumin Level 4.3 g/dl (3.5-5.0); Albumin/Globulin Ratio 1.7 (1.1-1.8); Alkaline Phosphatase 66 U/L (38-126); Anion Gap 8.6 mEq/L (5-15); Aspartate Amino Transferase 23 U/L (14-36); Bilirubin,Total 0.7 mg/dl (0.2-1.3); Blood Urea Nitrogen 17 mg/dl (7-17); Calcium 9.8 mg/dl (8.4-10.2); Carbon Dioxide 30 mmol/L (22.0-30.0); Chloride 107 mmol/L (98-107); Chol/HDL Ratio 2.7 (1-3.5); Cholesterol 133 mg/dl (140-200); Estimated Glomerular Filt Rate 96 ml/min (>60); GFR (African American) 117 ML/MIN (>60); Globulin 2.5 g/dL (1.3-3.2); Glucose 94 mg/dl (74-100); HDL Cholesterol 50 mg/dl (40-60); Potassium 4.6 mmoL/L (3.5-5.1); Sodium 141 mmol/L (136-145); Total Protein,Serum 6.8 g/dl (6.3-8.2); Triglycerides 76 mg/dl (30-150); VLDL Cholesterol 15 mg/dL (0-40)
[2025-03-27 12:18] LABS: C-Reactive Protein 3.6 mg/L (0-4); Direct LDL Cholesterol 57.07 mg/dL (100-129)
[2025-03-27 12:25] LABS: 25-OH Vitamin D, Total 47.3 ng/mL (30-100)
[2025-03-27 12:27] LABS: Hemoglobin A1C 5.3 % (4.0-6.0)
[2025-03-27 12:37] LABS: Thyroid Stimulating Hormone 0.66 uIU/mL (0.465-4.68)
[2025-03-27 12:41] LABS: Ferritin 7.31 ng/ml (6.24-137)
[2025-03-27 12:56] LABS: Vitamin B12 458 pg/mL (239-931)
[2025-03-28 10:11] LABS: Estradiol 37.3 pg/mL (.); FSH 4.6 mIU/mL (.); LH 9.8 mIU/mL (.)
[2025-03-28 12:14] LABS: Triiodothyronine (T3) Free 3.1 pg/mL (2.0-4.4)
[2025-03-28 14:28] LABS: Antinuclear Antibodies (ANA) Negative (Negative)
[2025-03-28 16:13] LABS: EBV Ab VCA, IgM <36.0 U/mL (0.0-35.9); EBV Nuclear Antigen Ab, IgG <18.0 U/mL (0.0-17.9)
== END 2025-03-27 23:59 | disposition home or self-care (01) ==
LOC: LAB 11:15
PROVIDERS: PCP Physician Assistant; Visit Provider Nurse Practitioner Family
DX: D64.9 Anemia, unspecified (principal); E28.2 Polycystic ovarian syndrome; I95.9 Hypotension, unspecified; H92.01 Otalgia, right ear; R73.03 Prediabetes; R51.9 Headache, unspecified
CPT/HCPCS: 36415; 80053; 80061; 82306; 82533; 82607; 82670; 82728; 83001; 83002; 83036; 83735; 84402; 84403; 84443; 84481; 85025; 86140; 86340; 86664; 86665

== ENCOUNTER 2025-08-07 20:40 | Emergency (ER) | payer OTHER, SELFPAY ==
[2025-08-07 20:48] VITALS: BP 135/87; PULSE 81; RESP 20; TEMP 36.5; O2SAT 100; BMI 37.5
--- OUTSIDE RECORDS SUMMARY | 2025-08-07 20:56 | XMS_ITS | Data Portability ---
Author Organization [employer] [place] [facility] Address [address] [place] [address] Assessment No assessment recorded. Plan of Treatment Reminders Order Date Submit Date Provider Last Modified By Organization Details Last Modified Time Details Appointments FOLLOW UP 30 2024 10:00A M Ina Gill PA-C Not available Not available Not available Lab None recorded. Referral dermatolo gist referral 2024 025 ora Knowles MD, [address] [place] [address], [address], 08/02/2025 14:08:20 dermatolo gist referral - first available appt 2024 025 [email or web address] [facility], [address] [place] [address] , [address], [address], 06/27/2025 15:36:14 Procedures None recorded. Surgeries None recorded. Imaging None recorded. Medication Orders triamcino lone acetonide 0.1 % dental paste [address] [facility], [address] [place], [address], 07/20/2025 05:01:07 Orabase (benzocai ne) 20 % mucosal paste [address] [facility], [address] [place], [address], 07/20/2025 05:01:07 Xyzal 5 mg tablet [address] [facility], [address], [address], 07/03/2025 09:05:30 famotidin e 40 mg tablet [address] [facility], [address], [address], 07/03/2025 09:05:30 dexametha sone sodium phosphate 4 mg/mL injection solution [address] [facility], [address], [address], 07/03/2025 14:31:10 Depo-Medr ol 80 mg/mL suspensio n for injection [address] [facility], [address], [address], 07/03/2025 14:31:10 clobetaso l 0.05 % scalp solution [address] [facility], [address], [address], 07/03/2025 09:05:53 hydroxyzi ne HCl 50 mg tablet [address] [facility], [address], [address], 07/03/2025 08:39:35 clobetaso l 0.05 % scalp solution [address] [facility], [address], [address], 02/26/2025 14:23:27 Patient TargetsNo targets recorded. 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 Problems Name Problem SNOMED Code Status Onset Date Resolution Date Notes Provider Name and Address Organization Details Recorded Time Generalized anxiety disorder 73239641 Active 2024 IWONA Wallace [address] [place] [address], [phone], [employer] 14:21:20 Scalp itchy 720144372 Active 2024 IWONA Wallace [address] [place] [address], [phone] 8, [employer] 14:22:57 Tenderness of right temporomand ibular joint 1966725083909 9106 Active 2024 IWONA Wallace [address] [place] [address], [address], [employer] 5 17:07:58 Viral disease 31721410 Active 2024 IWONA Wallace [address] [place] [address], [address] 8, [employer] 5 10:22:28 Contact dermatitis caused by urushiol from [facility]h 941778752 Active 2024 IWONA Wallace [address] [place] [address], [address] 8, [employer] 5 12:03:39 Psoriasis of scalp 842645136 Active 2024 IWONA Wallace [address] [place] [address], [address] 8, [employer] 5 09:03:21 Aphthous ulcer of mouth 880090081 Active 2024 IWONA Wallace [address] [place] [address], [address], [employer] 09:04:35 Migraine 46342042 Active 2024 IWONA Wallace [address] [place] [address], [address] 8, [employer] 5 12:42:18 Gastroesoph ageal reflux disease without esophagitis 424118349 Active 2024 IWONA Wallace [address] [place] [address], [address], [employer] 12:42:32 Problem Notes None recorded. Procedures Surgical History Date Name Laterality Status Provider Name and Address Organization Details Recorded Time Date of Last Pap Smear completed [employer] 03/29/2025 13:35:11 section completed [employer] 02/26/2025 13:18:56 section completed [employer] 02/26/2025 13:19:02 section completed [employer] 02/26/2025 13:19:07 Imaging Results None recorded. Procedure Notes None recorded. Medical Equipment None Reported. Allergies Allergen ID Allergen Name Allergen Category Reaction Reaction Severity Criticality Documentation Date Start Date Code Code System Note Provider Name and Address Organization Details Recorded Time 40103 Product containin g penicilli n (product) medicatio n Not available Not available Not available 02/26/2025 40696 8001 SNOMED [employer], [employer] 13:13:19 89204 Bactrim medicatio n Not available Not available Not available 02/26/2025 77661 9 RxNorm [employer], [employer] 13:13:25 Medications Name Sig Start Date Stop Date Status Note LastModified by Organization Details LastModified Time ketoconazol e 2 % shampoo APPLY SHAMPOO TOPICALLY TWICE A WEEK 02/26 completed Not Available Not Available Not Available ibuprofen 800 mg tablet TAKE 1 TABLET BY MOUTH EVERY 8 HOURS NEEDED active Not Available Not Available No t Available fluconazole 150 mg tablet TAKE 1 TABLET BY MOUTH EVERY 3 DAYS FOR 2 DOSES 02/26 completed Not Available Not Available Not Available famotidine 40 mg tablet Take 1 tablet every day by oral route for 90 days. 2024 active Not Available Not Available Not Avai lable Medrol (Hansel) 4 mg tablets in a dose pack Take 1 dose pk by oral route as directed for 6 days. 07/12 completed Not Available Not Available Not Available propranolol ER 60 mg capsule,24 hr,extended release TAKE 1 CAPSULE BY MOUTH ONCE DAILY active Not Available Not Available No t Available hydroxyzine HCl 50 mg tablet Take 1 tablet by oral route as directed for 1 day. 07/03 completed Not Available Not Available Not Available triamcinolo ne acetonide 0.1 % topical cream APPLY CREAM EXTERNALL Y TO AFFECTED AREA TWICE DAILY APPLY A THIN LAYER active Not Available Not Available No t Available ondansetron 8 mg disintegrat ing tablet Place 1 tablet 3 times a day by transling ual route as needed for 10 days, for nausea/vo miting. 07/02 completed Not Available Not Available Not Available Depo-Medrol 80 mg/mL suspension for injection Take 1 mL by injection route. 2024 active Not Available Not Available Not Avai lable triamcinolo ne acetonide 0.1 % dental paste Take 1 applicati on 4 times a day by dental route as needed for 10 days. 07/20 completed Not Available Not Available Not Available meclizine 25 mg tablet TAKE 1 TABLET BY MOUTH TWICE DAILY NEEDED FOR DIZZINESS 2024 active Not Available Not Available Not Avai lable triamcinolo ne acetonide 0.025 % topical ointment APPLY OINTMENT TOPICALLY TWICE DAILY NEEDED FOR RASH ON NECK DIRECTED 07/03 completed Not Available Not Available Not Available omeprazole 20 mg capsule,del ayed release Take 1 capsule every day by oral route for 30 days. 2024 active Not Available Not Available Not Avai lable montelukast 10 mg tablet TAKE 1 TABLET BY MOUTH ONCE DAILY 07/03 completed Not Available Not Available Not Available metoprolol succinate ER 25 mg tablet,exte nded release 24 hr TAKE 1 TABLET BY MOUTH ONCE DAILY 02/26 completed Not Available Not Available Not Available dexamethaso ne sodium phosphate 4 mg/mL injection solution Inject 1 mL by intramusc ular route. 2024 active Not Available Not Available Not Avai lable levofloxaci n 500 mg tablet TAKE 1 TABLET BY MOUTH EVERY 24 HOURS 02/26 completed Not Available Not Available Not Available clobetasol 0.05 % scalp solution APPLY TO THE AFFECTED SCALP AREA BY TOPICAL ROUTE 2 TIMES PER DAY IN THE MORNING AND EVENING 2024 active Not Available Not Available Not Avai lable fluticasone propionate 50 mcg/actuati on nasal spray,suspe nsion USE 1 SPRAY(S) IN EACH NOSTRIL TWICE DAILY active Not Available Not Available No t Available chlorhexidi ne gluconate 0.12 % mouthwash RINSE WITH 15ML FOR 30 SECONDS AND SPIT, USE TWICE DAILY 07/03 completed Not Available Not Available Not Available Xyzal 5 mg tablet Take 1 tablet every day by oral route for 90 days. 2024 active Not Available Not Available Not Avai lable vilazodone 20 mg tablet TAKE 1 TABLET BY MOUTH ONCE DAILY WITH FOOD 02/26 completed Not Available Not Available Not Available Orabase (benzocaine ) 20 % mucosal paste Take 1 applicati on 4 times a day by mucous route for 10 days. 07/20 completed Not Available Not Available Not Available [facility] ODT 75 mg disintegrat ing tablet DISSOLVE 1 TABLET BY MOUTH NEEDED FOR MIGRAINE HEADACHE 2024 active Not Available Not Available Not Avai lable Vitals Date Recorded Body weight Body mass index (BMI) Body height Heart rate Oxygen saturation Oxygen saturation in Arterial blood by Pulse oximetry Body temperature Systolic And Diastolic Provider Name and Address Organization Details Last Updated DateTime 5 67952.9 2 g 35.7 kg/m2 165.1 cm 92 /min 98 % 98 % 98.3 [degF] 110/70 mm[Hg] [facility] [employer], [facility]. 5 13:24:58 Date Recorded Body height Body mass index (BMI) Body weight Oxygen saturation Oxygen saturation in Arterial blood by Pulse oximetry Heart rate Body temperature Systolic And Diastolic Provider Name and Address Organization Details Last Updated DateTime 165.1 cm 37.2 kg/m2 043621. 25 g 98 % 98 % 86 /min 98.1 [degF] 112/72 mm[Hg] Anna Watson [employer] 08:45:15 Social History Question Answer Notes LastModified by Organizat ion Details LastModified Time Tobacco Smoking Status Former Smoker Anna Watson [employer], [employer] 02/26/2025 13:17:41 Do You Have An [...] 02/26/2025 When Did You Quit Smoking? 1-5yearssincel nanigardesean 2021 Stop Date Information not available 02/26/2025 Which Of Your Hands Is Dominant? Right Information not available 02/26/2025 Do You Have A Medical Power Of Child Nurse? No Information not available 02/26/2025 What Was The Date Of Your Most Recent Tobacco Screening? 07/03/2025 Information not available 07/03/2025 Do You Have Any Pets? Yes Information [...] Functional Status Question Answer Note LastModified by Organizat ion Details LastModified Time Do you use [...] not available 02/26/2025 Are you able to walk independently without assistance or assistive devices? YESWOREST Information not available 02/26/2025 Do you have difficulty doing errands alone? No Information not available 02/26/2025 Are you able to care for yourself independently? Yes Information not available 02/26/2025 Do you have difficulty dressing, bathing, grooming, or toileting? No Information not available 02/26/2025 Mental Status Question Answer Note LastModified by Organizat ion Details LastModified Time Do you feel stressed (tense, restless, nervous, or anxious, or unable to sleep at night)? [id number] Information not available 02/26/2025 Do you have [...] Lung Disease N COPD N Depression Y Dermatologic Disorders N Hypothyroidism N Defects or Inherited Disease N Developmental [...] Statement/Question Response Flow Moderate Date of LMP 06/04/2025 Sexually Active? Y Menses Monthly Y Date of Last Pap Smear 10/27/2024 Current Control Method None Age at Menarche [...] DTaP, unspecified formulation 6 completed Not Available [facility] 07/03/2025 08:31:32 MMR 6 completed Not Available [facility] 07/03/2025 08:31:32 OPV, trivalent 6 completed Not Available [facility] 07/03/2025 08:31:32 HPV, quadrivalent 0 completed Not Available [facility] 07/03/2025 08:31:32 MMR 8 completed Not Available [facility] 07/03/2025 08:31:32 Tdap 3 completed Not Available [facility] 07/03/2025 08:31:32 Past Encounters Encounter ID Performer Location Encounter Start Date Encounter Closed Date Diagnosis/Indication Diagnosis SNOMED-CT Code Diagnosis ICD10 Code Diagnosis IMO Codes Diagnosis Note [id number] IWONA Wallace [facility] [address] [place] [phone] 02/26/2025 12:48:17 02/26/2025 14:08:48 Generalized anxiety disorder 80154861 F41.1 25926 Take prior to MRI Scalp itchy 926057257 L2 9.9 767765 Tenderness of right temporomandibular joint 4550592375 4878036 M26.621 9736498039 Patient states pain improved 50% with bite guard but does not recall dentist actually checking her bitePatien t wanted 2nd opinion but can't find anyone that takes her insurance - Dr Alvarez states he would see her this afternoon and quickly check her bite to determine if that was the source of the pain or if we need to proceed with further workup [id number] IWONA Wallace [facility] [address] [place] [phone] 07/03/2025 08:31:06 07/03/2025 09:27:22 Psoriasis of scalp 161433808 L40.9 253529 Contact de rmatitis caused by urushiol from [facility] 633064132 L23.7 7390770 Scalp itchy 551373723 L2 9.9 Aphthous u lcer of mouth 543887733 K12.0 8045 Health Concerns Section Related Observation LastModified by Organization Detai ls LastModified Time None Recorded Concern Status LastModified by Organization Details LastModified Time None Recorded Advance Directives Directive N: Payers Insurance Date Sequence Insurance Name Policy Number Policy Gould Covered Member ID Gould Member ID Guarantor Name 07/10/2025 1 [facility] (MEDICAID HMO) Merle Lyle [id number] Merle Lyle Notes Date Note Type Note Provider Name and Address Organization Details Recorded Time 02/26/2025 text/html ROS as noted in the HPI Patient presents to establish care. Has right [...] would like referral to dermatology. IWONA Wallace [address] [place] [address], [address], [employer] 02/26/2025 17:10:52 07/03/2025 text/html ROS as noted in the HPI Patient has poison ish all over. Got a steroid shot last week but it is spreading. Has not taken oral steroids because they make her very mean.Needs new dermatology referral. Psoriasis in scalp. Can't drive to [place].Has a canker sore. IWONA Wallace [address] [place], [address], [employer] 07/03/2025 14:32:02 OBGyn Episode No OBEpisode recorded.
--- OUTSIDE RECORDS SUMMARY | 2025-08-07 20:56 | XMS_ITS | Encounter Summary ---
Author Organization Healthcare Address [address] [place] [address] Care Team Providers Care Upper And Bottom Lacer Hand Name Role Phone Ina Gill Primary Care Provider [phone] Encounter Details Date Type Department Care Team ([facility] st Contact Info) Description 10/23/2021 [facility] [address] [place] [address] Joan Arango MD [address] [place] [address] [phone] Social History Tobacco Use Types Packs/Day Years [...] on filedocumented in this encounter Care Teams Upper And Bottom Lacer Hand Relationship Specialty Start Date End Date Ina Gill PA [address] [place], [place] [phone] PCP - General 01/16/22 documented as of this encounter
--- OUTSIDE RECORDS SUMMARY | 2025-08-07 20:56 | XMS_ITS | Encounter Summary ---
Author Organization Healthcare Address [address] [place] [address] Care Team Providers Care Swatcher Name Role Phone Ina Gill Primary Care Provider [phone] Encounter Details Date Type Department Care Team ([facility] st Contact Info) Description 11/04/2021 Community [facility] [address] [place] [address] Ina Gill PA [address] [place] [address] Varicose veins of both lower [...] Primary documented in this encounter Care Teams Swatcher Relationship Specialty Start Date End Date Ina Gill PA [address] [place] [address] PCP - General 01/16/22 documented as of this encounter
--- OUTSIDE RECORDS SUMMARY | 2025-08-07 20:56 | XMS_ITS | Clinical Summary ---
[facility] [address] [place] [address] Care Team Providers Care Sanitary Engineer Name Role Phone Provider, No Known Primary [...] trimester 03/22/2018 06/21/2018 Obesity 03/22/2018 07/07/2018 Immunizations Immunization Administration Dates Next Due Fluzone (or Fluarix [...] things needed for daily living? No 04/28/2023 Huron Depression Scale Answer Date Recorded Huron Depression Scale Total 7 04/30/2023 The thought of harming myself has occurred to me . Unrecognized value 04/30/2023 Abuse Screen Answer Date Recorded Unsafe [...] 86 04/30/2023 11:52 AM EDT Temperature 36.3 C (97.3 F) 04/30/2023 11:52 AM EDT Respiratory Rate 18 04/30/2023 11:52 AM EDT [...] Pelvic an d Breast Exam 03/15/2019 03/14/2018 INFLUENZA VACCINE 05/11/2025 Pneumococcal Vaccine 0-49 Aged Out No longer eligible based on patient's age to complete this topic Procedures Procedure Name Priority Date/Time Associated Diagnosis Comments SCANNED - PAP SMEAR 03/14/2018 from Last 3 Months or Most Recently Relevant to Health Maintenance Results * SCANNED - PAP SMEAR (03/14/2018) us Kimo Farrell MD CHART REVIEW TABS Final Resul t from Last 3 Months or Most Recently Relevant to Health Maintenance Advance Directives * CPR (Attempt to Resuscitate) [...] Of Support Discussed With: Patient Care Teams Sanitary Engineer Relationship Specialty Start Date End Date Provider, [place] [address] PCP - General 03/22/18
--- OUTSIDE RECORDS SUMMARY | 2025-08-07 20:56 | XMS_ITS | Continuity of Care Document ---
Author Organization ID - [facility], [facility] Address [address] [place] [address] Assessment No assessment recorded. Plan of Treatment Reminders Order Date Submit Date Provider Last Modified By Organization Details Last Modified Time Details Appointments FOLLOW UP 30 2024 10:00A M Ina Gill PA-C Not available Not available Not available Lab None recorded. Referral dermatolo gist referral 2024 025 ora Knowles MD, [address] [place] [address], [id number], 08/02/2025 14:08:20 Procedures None recorded. Surgeries None recorded. Imaging None recorded. Medication Orders triamcino lone acetonide 0.1 % dental paste 2024 025 [facility], [address], [address], 07/20/2025 05:01:07 Orabase (benzocai ne) 20 % mucosal paste 2024 025 [facility], [address] [place], [address], 07/20/2025 05:01:07 Xyzal 5 mg tablet [id number] [facility], [address] [place], [address], 07/03/2025 09:05:30 famotidin e 40 mg tablet 2024 025 [facility], [address], [address], 07/03/2025 09:05:30 dexametha sone sodium phosphate 4 mg/mL injection solution [address] [facility], [address], [address], 07/03/2025 14:31:10 Depo-Medr ol 80 mg/mL suspensio n for injection [id number] [facility], [address], [address], 07/03/2025 14:31:10 clobetaso l 0.05 % scalp solution 2024 025 [facility], [address], [address], 07/03/2025 09:05:53 Patient TargetsNo targets recorded. 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 14:21:20 Scalp itchy 692452891 Active 2024 IWONA Wallace [address] [place] [address], [address], [employer] 14:22:57 Tenderness of right temporomand ibular joint 0118278030033 9106 Active 2024 IWONA Wallace [address] [place] [address], [address], [employer] 17:07:58 Viral disease 23446441 Active 2024 IWONA Wallace [address] [place] [address], [address] 8, [employer] 10:22:28 Contact dermatitis caused by urushiol from [facility] ish 093965733 Active 2024 Ina Gill [address], [address], [employer] 12:03:39 Psoriasis of scalp 450632554 Active 2024 IWONA Wallace [address] [place] [address], [address] 8, [employer] 09:03:21 Aphthous ulcer of mouth 881471100 Active 2024 Ina Gill [address], [address], [employer] 09:04:35 Migraine 43628899 Active 2024 IWONA Wallace [address] [place] [address], [address] 8, [employer] 12:42:18 Gastroesoph ageal reflux disease without esophagitis 007355156 Active 2024 Ina Gill [address], [address], [employer] 12:42:32 Problem Notes None recorded. Procedures Surgical History Date Name Laterality Status Provider Name and Address Organization Details Recorded Time Date of Last Pap Smear completed [employer] 03/29/2025 13:35:11 section completed [employer] 02/26/2025 13:18:56 section completed [employer] 02/26/2025 13:19:02 section completed [employer] 02/26/2025 13:19:07 Imaging Results None recorded. Procedure Notes None recorded. Medical Equipment None Reported. Allergies Allergen ID Allergen Name Allergen Category Reaction Reaction Severity Criticality Documentation Date Start Date Code Code System Note Provider Name and Address Organization Details Recorded Time 74506 Product containin g penicilli n (product) medicatio n Not available Not available Not available 02/26/2025 30159 8001 SNOMED [employer] 13:13:19 02994 Bactrim medicatio n Not available Not available Not available 02/26/2025 28592 9 RxNorm [employer], [employer] 13:13:25 Medications Name Sig Start Date [...] completed Not Available Not Available Not Available Nurte ODT 75 mg disintegrat ing tablet DISSOLVE 1 TABLET BY MOUTH NEEDED FOR MIGRAINE HEADACHE 2024 active Not Available Not Available Not Avai lable Vitals Date Recorded Body height Body mass index (BMI) Body weight Oxygen saturation Oxygen saturation in Arterial blood by Pulse oximetry Heart rate Body temperature Systolic And Diastolic Provider Name and Address Organization Details Last Updated DateTime 165.1 cm 37.2 kg/m2 288788. 25 g 98 % 98 % 86 /min 98.1 [degF] 112/72 mm[Hg] Anna Watson [employer] 08:45:15 Social History Question Answer Notes LastModified by Organizat ion Details LastModified Time Tobacco Smoking Status Former Smoker Anna Watson [employer] 02/26/2025 13:17:41 Do You Have An Advance [...] 02/26/2025 When Did You Quit Smoking? 1-5yearssincel genny 2021 Stop Date Information not available 02/26/2025 Which Of Your Hands Is Dominant? Right Information not available 02/26/2025 Do You Have A Medical Power Of Service Delivery Analyst? No Information not available 02/26/2025 What Was [...] anxious, or unable to sleep at night)? [id number] Information not available 02/26/2025 Do you have [...] Artery Disease N Other Y Gout N Kidney Stones N Blood Diseases N Hyperthyroidism N Blood Transfusion N Breast Cancer N Emergency room visit since last appointm ent. N COPD N Depression Y Dermatologic Disorders N Hypothyroidism N Lung Disease N Developmental or Behavioral Disorders N Defects or Inherited Disease N Breast Problem N Difficulty Swallowing N Anesthesia Complications N History of STI N Meniere's disease N Anxiety Disorder Y Muscle, Joint, or Bone Problems N Autoimmune disease N Vision or Eye Problems N Arthritis N Polyps N Infertility N Mental Disorder N Congenital Anomalies N Acid Reflux (GERD) N Cancer N Stroke N Neurologic/Epilepsy N Endometriosis N Bladder or Kidney Problems N High Cholesterol N Liver Disease N Organ Transplant N Psychiatric/Mental Health Condition N Fibromyalgia N Dialysis N Schizophrenia N Headaches N Kidney Disease N Allergies/Hayfever N Heart Problems N Ear or Hearing Problems N Hospitalizations N Learning Disorder N Artificial Joints N Thyroid Problems N GI Problems N Acne N ADD/ADHD N Eating Disorder N Anemia N Constipation N Mental Illness N Ovarian Cancer N Diabetes N Bedwetting N Hepatitis/Liver Disease N Tuberculosis N Eczema N Diverticulitis N Abuse/Domestic Violence N Asthma N Trauma/Violence N Substance Abuse [...] DTaP, unspecified formulation 6 completed Not Available [facility] 07/03/2025 08:31:32 MMR 6 completed Not Available [facility] 07/03/2025 08:31:32 OPV, trivalent 6 completed Not Available [facility] 07/03/2025 08:31:32 HPV, quadrivalent 0 completed Not Available [facility] 07/03/2025 08:31:32 MMR 8 completed Not Available [facility] 07/03/2025 08:31:32 Tdap 3 completed Not Available [facility] 07/03/2025 08:31:32 Past Encounters Encounter ID Performer Location Encounter Start Date Encounter Closed Date Diagnosis/Indication Diagnosis SNOMED-CT Code Diagnosis ICD10 Code Diagnosis IMO Codes Diagnosis Note [id number] IWONA Wallace [facility] [address] [place] [address] 07/03/2025 08:31:06 07/03/2025 09:27:22 Psoriasis of scalp 973057111 L40.9 901943 Contact de rmatitis caused by urushiol from [facility] 504993687 L23.7 0126867 Scalp itchy 389512291 L2 9.9 Aphthous u lcer of mouth 987527981 K12.0 8045 Health Concerns Section Related Observation LastModified by Organization Detai ls LastModified Time None Recorded Concern Status LastModified by Organization Details LastModified Time None Recorded Payers Encounter Date Sequence Insurance Name Policy Number Policy Gould Covered Member ID Gould Member ID Guarantor Name 07/03/2025 1 [employer] [facility] (MEDICAID HMO) Merle Lyle [id number] Merle Lyle Notes Date Note Type Note Provider Name and Address Organization Details Recorded Time 07/03/2025 text/html ROS as noted in the HPI Patient has poison ish all over. Got a steroid shot last week but it is spreading. Has not taken oral steroids because they make her very mean.Needs new dermatology referral. Psoriasis in scalp. Can't drive to [place].Has a canker sore. IWONA Wallace [address] [place] [address], [place], [address], [facility] [employer] 07/03/2025 14:32:02 OBGyn Episode No OBEpisode recorded.
--- OUTSIDE RECORDS SUMMARY | 2025-08-07 20:57 | XMS_ITS | Clinical Summary ---
Author Organization [facility] Address [address] [place] [address] Care Team Providers Care Substance Abuse Technician Name Role Phone Ina Gill Primary Care Provider [phone] Allergies Active Allergy Reactions Criticality Noted Date [...] extremity 03/13/2022 Glucose tolerance test abnormal 06/06/2018 delivery delivered 03/22/2018 Depression 03/22/2018 Resolved Problems Problem Noted Date Diagnosed Date Resolved Date Cellulitis 06/03/2018 07/01/2025 Social History Tobacco Use Types Packs/Day Years [...] 02/22/2013 [facility]-Cervical Cancer Screening 02/22/2022 [facility]-HPV/Cotest 02/22/2022 [id number] Vaccine ( - season) 2025 [facility]-Influenza Vaccine (#1) 2025 [facility]-DTaP,Tdap,and Td Vaccines (3 - Td [...] age to complete this topic Care Teams Substance Abuse Technician Relationship Specialty Start Date End Date Ina Gill PA [address] [place] [address] PCP - General 01/16/22
--- OUTSIDE RECORDS SUMMARY | 2025-08-07 20:57 | XMS_ITS | Patient Health Record ---
Author Organization [facility] Address [address] [address] [place] [address] Care Team Providers Care Firebreak Cutter Name Role Phone Anali Guidry Unavailable [phone] Allergies Allergen (clinical drug ingredient) Drug/Non Drug Allergy documented on EMR Reaction Allergy Type Onset Date Status sulfamethoxazole / trimethoprim Bactrim Unknown Drug Allergy Active Penicillin Unknown Drug Allergy Active Reason For Referral No Information Medications Medication SIG (Take, Route, Frequency, Duration) Notes Start Date End Date Status Labetalol HCl 200 MG Tablet Oral; Duration: 5 Days Activ e Vitamin Act bianca oxyCODONE HCl 5 MG Tablet Oral; Duration: 5 Days Active Ibuprofen 600 MG Tablet Oral; Duration: 15 Days Active Stool Softener 100 MG Capsule Oral; Duration: 30 Days Acti ve Labetalol HCl 200 MG Tablet 1 tablet Orally Twice a day; Duration: 90 days 05/05/2023 Active Social History Tobacco Use: Social History Observation Description Date Details (start date - stop date) Never Smoker NA - NA Social History Drugs/Alcohol: Social Info Question Answer Notes Drugs Have you used drugs other than those for medical reasons in the past 12 months? No Alcohol Screen Did you have a drink containing alcohol in the past year? No Points 0 Interpretation Negative Tobacco Use: Social Info Question Answer Notes Tobacco Use/Smoking Are you a nonsmoker Additional Findings: Tobacco Non-User Current no n-smoker Problems Problem Type SNOMED Code ICD Code Onset Dates Problem Status W/U Status Risk Notes Problem Missed period (09906491) Missed period (N92.6) Active confirmed Plan Of Treatment No Information Insurance Providers Payer Name Payer Address Payer Phone Subscriber Number Group Number Insured Name Patient Relationship to Insured Coverage Start Date Coverage End Date [place] [address] [address] [place] [address] [phone] [id number] Merle Lyle Self - patient is the insured 3 Medical (General) History Surgical History Surgery Date(Month/Year) c/s x2 Hospitalization History Reason Date(Month/Year) L&D Primary L&D Primary
[2025-08-07 21:39] VITALS: BP 118/73; PULSE 77; RESP 16; TEMP 37; O2SAT 97
--- NOTE | 2025-08-07 21:39 | HMH.EDGENADL ---
Discharge Plan Disposition Patient Disposition: Home, Self-Care Prescriptions Prescriptions: New clindamycin HCl 150 mg capsule 450 mg PO Q8H 7 Days Qty: 63 0RF No Action Nurtec ODT 75 mg tablet,disintegrating 75 mg PO Q OTHER DAY PRN (Reason: migraine headache) Qty: 14 0RF montelukast [Singulair] 10 mg tablet 10 mg PO DAILY Qty: 30 3RF fluticasone propionate [Flonase Allergy Relief] 50 mcg/actuation spray,suspension 1 spray intranasal BID Qty: 16 3RF Rx Instructions: administer into each nostril propranolol 60 mg tablet 60 mg PO BID PRN omeprazole 20 mg capsule,delayed release(DR/EC) See Rx Instructions .ROUTE .COMPLEX Qty: 90 0RF Dose Instruction: Take 1 capsule by mouth once daily Rx Instructions: Take 1 capsule by mouth once daily Referrals Follow up/Referrals: Kedar Cabral MD [Physician, Ear, Nose, Throat] - See instructions Ina Gill PA [Primary Care Provider, Medical] - See instructions Activity Restrictions/Add. Instructions Additional Instructions/Restrictions: You had a very small 1 cm submandibular localized tender lymph node. As discussed this is not concerning from a big picture standpoint and if you have lymph nodes are greater than 2 cm have lasted beyond 6 weeks have other symptoms associated with them such as night sweats fevers fatigue weight loss itching etc. I would recommend you follow-up to have it biopsied but this is very low likelihood to be a concern. You may follow-up with ENT with any concerns. Clinical Impressions Clinical Impression: Acute cervical lymphadenitis Print Language Print Language: Mosotho Discharge ED Provider: Cesario Urrutia General Adult HPI General Chief complaint: PAIN Stated complaint: neck pain,having trouble with throat Time Seen by Provider: 08/07/25 21:17 Mode of Arrival: Ambulatory Source of Information: Patient Description of Symptoms (Recalled from ER Triage Doc. 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 Pt states that her left lymph node has been swollen for a few months, and her right lymph node just recently in the past week started swelling. Pt c/o pain when moving her neck and swallowing. History of Present Illness HPI narrative: 35-year-old who presents today with discomfort in the left sided anterior aspect of her submandibular/neck space. No difficulty with swallowing no fevers or chills. She has a family history of non-Hodgkin's lymphoma and has worked herself up over the last several weeks making herself concerned that she has swollen lymph nodes as she has felt 1 on the left side of her neck which is now tender. No growth to this no night sweats no fatigue no fevers. Related Data Home Medications ?Medication ?Instructions ?Recorded ?Confirmed propranolol 60 mg tablet 60 mg PO BID PRN 10/27/24 06/29/25 Previous Rx's ?Medication ?Instructions ?Recorded rimegepant 75 mg disintegrating 75 mg PO Q OTHER DAY PRN migraine 10/23/24 tablet (Nurtec ODT) headache #14 tabs fluticasone propionate 50 1 spray intranasal BID #16 grams 03/27/25 mcg/actuation nasal spray,suspension (Flonase Allergy Relief) montelukast 10 mg tablet 10 mg PO DAILY #30 tabs 03/27/25 (Singulair) omeprazole 20 mg capsule,delayed See Rx Instructions .Route 04/06/25 release .COMPLEX #90 caps clindamycin HCl 150 mg capsule 450 mg (3 x 150 mg) PO Q8H 7 days 08/07/25 #63 caps Allergies Allergy/AdvReac Type Severity Reaction Status Date / Time penicillin V (PENICILLIN V) Allergy Intermediate Rash Verified 06/29/25 18:37 Penicillins (PENICILLINS) Allergy Intermediate Rash Verified 06/29/25 18:37 sulfamethoxazole Allergy Intermediate Rash Verified 06/29/25 18:37 (SULFAMETHOXAZOLE) trimethoprim (TRIMETHOPRIM) Allergy Intermediate Rash Verified 06/29/25 18:37 metformin AdvReac Intermediate GI upset Verified 06/29/25 18:37 [facility] Disclaimer: The information contained in this section may have been updated after the patient was seen, as this information can be updated by other users. Medical History Tympanosclerosis TMJ (dislocation of temporomandibular joint) Rash and nonspecific skin eruption Tympanosclerosis of both ears Vertigo Abdominal pain affecting bleeding Vaginal bleeding Hypomagnesemia Pre-eclampsia Cough Headache Gastroenteritis Hirsutism Anxiety and depression PTSD (post-traumatic stress disorder) Depression PMDD (premenstrual dysphoric disorder) PCOS (polycystic ovarian syndrome) Pre-diabetes Gastroesophageal reflux disease Persistent dyspnea after COVID-19 Varicose vein of leg Surgical History History of section Family History Other No significant family history Social History Smoking Status: Never smoker smoking status stop date: 08/25/2022 how long ago did patient quit smokin08/25/2022 second hand exposure: Yes alcohol intake: former substance use type: denies use, former substance user and painkillers 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 Travel in the last 8 weeks?: None household members: spouse and children housing: house lives independently: No marital status: single number of children: 3 Have you lived/traveled outside [place] in past 30 days?: No Contact w/someone who lives/traveled outside US past 30 days?: No Exposure to someone with infectious disease in past 14 days?: No Do you have a fever (greater than 100.4 F or 38 C)?: No Have you tested positive for COVID-19?: No Exposed to someone with COVID-19 in past 14 days?: No Do you have a sore throat?: No Do you have a cough?: No Do you have any weakness?: No Do you have any diarrhea?: No Are you experiencing any unusual bleeding?: No Do you have any muscle aches/pain?: No Do you have any abdominal pain?: No Are you experiencing loss of taste or smell?: No Other Medical History Have you received the Flu Vaccine for this season: No Have you received the Pneumonia Vaccine: No ROS Obtained: Yes All systems reviewed & no additional complaints except as documented Physical Exam General General appearance: alert and in no apparent distress ENT ENT exam: Present other (No palpable lymphadenopathy posterior oropharynx is normal soft tissue's are normal breathing comfortably nose trismus or any inability to tolerate secretions) Neck Neck exam: Absent lymphadenopathy Respiratory Respiratory exam: Present normal lung sounds bilaterally Cardiovascular Cardiovascular exam: Present regular rate Neurological Exam Neurological exam: Present alert and oriented X3 Medical Decision Making Medical Records Screening: Per USPSTF and CDC recommendations, given the prevalence of disease in our region, it is our hospital?s policy to screen for HIV and viral Hepatitis for all patients aged 18 and over and those with ongoing risk factors. Darian Inquiry Pt receiving controlled substance: No Vital Signs: 08/07/25 20:48 Temperature 97.7 F Temperature Source Temporal Artery Scan Pulse Rate [Right] 81 Respiratory Rate 20 Blood Pressure [Right Arm] 135/87 Blood Pressure Mean [Right Arm] 103 Blood Pressure Source [Right Arm] Automatic Cuff Blood Pressure Position [Right Arm] Sitting 02 Sat by Pulse Oximetry 100 Oxygen Delivery Method Room Air Orders (Tests/Meds): ORDERS Category Date Time Status POCUS Point of Care (ER Only) Stat Exams 08/07/25 21:25 Ordered Medical Decision Narrative: Patient with above history and physical essentially normal from an exam standpoint however she was very concerned about lymphoma just from historic standpoint I did a bedside ultrasound and there is in fact 1 small lymph node that is focally tender that is less than 1 cm that she is only noticed over the last several weeks which is not acutely concerning specifically not concerning for malignancy at this point. With unilateral cervical lymphadenitis we will treat this as a possible staph or strep infection. She has a penicillin allergy therefore have prescribed clindamycin. Patient was reassured she was given ENT follow-up if she is still concerned about this and if is not getting better after 6 weeks or if she has other B type symptoms. Ultimately patient was discharged in a stable condition. Procedures Miscellaneous Procedure Procedure Performed: Limited soft tissue ultrasound Indication: Submandibular pain Identified structures: Location: Submandibular space Findings: 1 cm localized lymph node that is tender located in the point of discomfort no large mass is noted specifically no lymph nodes noted greater than 2 cm Impression: Single localized submandibular lymph node that is locally tender with the ultrasound probe consistent with unilateral cervical lymphadenitis Images were saved to permanent archive The study was technically adequate Soft Tissue CPT Codes: CPT Neck: 03852-26 CPT Upper extremity: 17400-62 CPT Axilla: 79299-58 CPT Chest wall: 65605-98 CPT Breast: 70474-35-RC/LT (complete), 86336-07-GD/LT (limited), CPT Upper Back: 94067-13 CPT Lower Back: 14632-49 CPT Abdominal Wall: 73507-72 CPT Pelvic Wall: 63470-79 CPT Lower Extremity: 89228-45 CPT Other Soft Tissue: 17211-04 This study was performed by me, and I personally interpreted all images/videos. Based on my clinical judgement, these images were adequate and did not necessitate further imaging. Critical Care Critical Care Time Critical Care Time: No
== END 2025-08-07 21:42 | disposition home or self-care (01) ==
PROVIDERS: Emergency Provider Student in an Organized Health Care Education/Training Program; PCP Physician Assistant
DX: L04.0 Acute lymphadenitis of face, head and neck (principal); M54.2 Cervicalgia
CPT/HCPCS: 99283

== ENCOUNTER 2025-08-11 01:47 | Emergency (ER) | payer OTHER, SELFPAY ==
--- NOTE | 2025-08-11 02:06 | XR_ITS ---
PROCEDURE INFORMATION: Exam: XR Left Hand Exam date and time: 08/11/2025 2:19 AM Age: 35 years old Clinical indication: Other: Atraumatic posterior hand pain TECHNIQUE: Imaging protocol: Radiologic exam of the left hand. Views: 1 or 2 views. COMPARISON: No relevant prior studies available. FINDINGS: Bones/joints: Normal. Soft tissues: Normal. IMPRESSION: No acute findings.
[2025-08-11 02:10] VITALS: BP 145/98; PULSE 108; RESP 20; TEMP 36.6; O2SAT 98; BMI 37.5
--- OUTSIDE RECORDS SUMMARY | 2025-08-11 02:10 | XMS_ITS | Encounter Summary ---
Author Organization Healthcare Address [address] [place] [address] Care Team Providers Care Rail Assembler Name Role Phone Ina Gill Primary Care Provider [phone] Encounter Details Date Type Department Care Team ([facility] st Contact Info) Description 10/23/2021 Community [facility] [address] [place] [address] Joan Arango MD [address] [place] [address] [id number] Social History Tobacco Use Types Packs/Day Years [...] on filedocumented in this encounter Care Teams Rail Assembler Relationship Specialty Start Date End Date Ina Gill PA [address] [place], [place] [id number] PCP - General 01/16/22 documented as of this encounter
--- OUTSIDE RECORDS SUMMARY | 2025-08-11 02:10 | XMS_ITS | Continuity of Care Document ---
Author Organization [place] - [employer], [facility] Address [address] [place] [address] Assessment No assessment recorded. Plan of Treatment Reminders Order Date Submit Date Provider Last Modified By Organization Details Last Modified Time Details Appointments None recorded. Lab None recorded. Referral dermatologi st referral 2024 025 [facility] Miguel Knowles MD, [address] [place] [address], [address], 14:08:20 Procedures None recorded. Surgeries None recorded. Imaging None recorded. Medication Orders triamcinolo ne acetonide 0.1 % dental paste 2024 025 [facility] 591, [address], [address], 5 05:01:07 Orabase (benzocaine ) 20 % mucosal paste 2024 025 [facility] 591, [address], [address], 5 05:01:07 Xyzal 5 mg tablet [email or web address] [facility], [address], [address], 5 09:05:30 famotidine 40 mg tablet [email or web address] [facility], [address], [address], 5 09:05:30 dexamethaso ne sodium phosphate 4 mg/mL injection solution [email or web address] [facility], [address], [address], 5 14:31:10 Depo-Medrol 80 mg/mL suspension for injection 2024 025 [facility] 591, [address], [address], 5 14:31:10 clobetasol 0.05 % scalp solution 2024 025 [facility] [address], [address], 09:05:53 Patient TargetsNo targets recorded. 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 14:21:20 Scalp itchy 623772320 Active 2024 IWONA Wallace [address] [place] [address], [address] 8, [employer] 14:22:57 Tenderness of right temporomand ibular joint 1790941901307 9106 Active 2024 IWONA Wallace [address] [place] [address], [address] 8, [employer] 17:07:58 Viral disease 57954369 Active 2024 IWONA Wallace [address] [place] [address], [address] 8, [employer] 5 10:22:28 Contact dermatitis caused by urushiol from [facility] ish 006323481 Active 2024 IWONA Wallace [address] [place] [address], [address] 8, [employer] 12:03:39 Psoriasis of scalp 507366689 Active 2024 IWONA Wallace [address] [place] [address], [address] 8, [employer] 09:03:21 Aphthous ulcer of mouth 897983025 Active 2024 IWONA Wallace [address] [place] [address], [address] 8, [employer] 09:04:35 Migraine 00880090 Active 2024 IWONA Wallace [address] [place] [address], [address] 8, [employer] 12:42:18 Gastroesoph ageal reflux disease without esophagitis 332417190 Active 2024 IWONA Wallace [address] [place] [address], [address] 8, [employer] 12:42:32 Problem Notes None recorded. Procedures Surgical History Date Name Laterality Status Provider Name and Address Organization Details Recorded Time Date of Last Pap Smear completed [employer] 03/29/2025 13:35:11 section completed [employer] 02/26/2025 13:18:56 section completed [employer] 02/26/2025 13:19:02 section completed [employer] 02/26/2025 13:19:07 Imaging Results None recorded. Procedure Notes None recorded. Medical Equipment None Reported. Allergies Allergen ID Allergen Name Allergen Category Reaction Reaction Severity Criticality Documentation Date Start Date Code Code System Note Provider Name and Address Organization Details Recorded Time 71883 Product containin g penicilli n (product) medicatio n Not available Not available Not available 02/26/2025 69845 8001 SNOMED [employer] 13:13:19 06512 Bactrim medicatio n Not available Not available Not available 02/26/2025 02406 9 [facility] [employer], [employer] 13:13:25 Medications Name Sig Start Date Stop [...] Not Available Not Available No t Available clindamycin HCl 150 mg capsule TAKE 3 CAPSULES BY MOUTH EVERY 8 HOURS FOR 7 DAYS active Not Available Not Available No t [...] Not Available Not Available No t Available montelukast 10 mg tablet TAKE 1 TABLET [...] Nurtec ODT 75 mg disintegrat ing tablet DISSOLVE 1 TABLET BY MOUTH NEEDED FOR MIGRAINE HEADACHE active Not Available Not Available No t Available Vitals Date Recorded Body height Body mass index (BMI) Body weight Oxygen saturation Oxygen saturation in Arterial blood by Pulse oximetry Heart rate Body temperature Systolic And Diastolic Provider Name and Address Organization Details Last Updated DateTime 165.1 cm 37.2 kg/m2 202311. 25 g 98 % 98 % 86 /min 98.1 [degF] 112/72 mm[Hg] [employer] 08:45:15 Social History Question Answer Notes LastModified by Organizat ion Details LastModified Time Tobacco Smoking Status Former Smoker [employer] 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 [id number] Information not available 02/26/2025 Do you have [...] Stones N Blood Diseases N Hyperthyroidism N Breast Cancer N Blood Transfusion N Emergency room visit since last appointm ent. N Hypothyroidism N Lung Disease N COPD N Dermatologic Disorders N Depression Y Defects or Inherited Disease N Developmental or [...] N High Cholesterol N Liver Disease N Psychiatric/Mental Health Condition N Organ Transplant N Dialysis N Fibromyalgia N Schizophrenia N Headaches N Kidney Disease [...] N Pulmonary Embolism N Tourette Syndrome N Pre-Eclampsia N Hypertension N Chronic Ear Infections N Osteoporosis N Chicken Pox N Autism Spectrum Disorder (ASD) N Thrombophilias N Gynecological History Statement/Question Response [...] DTaP, unspecified formulation 6 completed Not Available [facility] 07/03/2025 08:31:32 MMR 6 completed Not Available [facility] 07/03/2025 08:31:32 OPV, trivalent 6 completed Not Available [facility] 07/03/2025 08:31:32 HPV, quadrivalent 0 completed Not Available [facility] 07/03/2025 08:31:32 MMR 8 completed Not Available [facility] 07/03/2025 08:31:32 Tdap 3 completed Not Available [facility] 07/03/2025 08:31:32 Past Encounters Encounter ID Performer Location Encounter Start Date Encounter Closed Date Diagnosis/Indication Diagnosis SNOMED-CT Code Diagnosis ICD10 Code Diagnosis IMO Codes Diagnosis Note [id number] IWONA Wallace [facility] [address] [place] [address] 07/03/2025 08:31:06 07/03/2025 09:27:22 Psoriasis of scalp 702135322 L40.9 983900 Contact de rmatitis caused by urushiol from [facility] ish 384846410 L23.7 5337835 Scalp itchy 344550540 L2 9.9 Aphthous u lcer of mouth 297838284 K12.0 8045 Health Concerns Section Related Observation LastModified by Organization Detai ls LastModified Time None Recorded Concern Status LastModified by Organization Details LastModified Time None Recorded Payers Encounter Date Sequence Insurance Name Policy Number Policy Gould Covered Member ID Gould Member ID Guarantor Name 07/03/2025 1 [employer] [facility] (MEDICAID HMO) Merle Lyle [id number] Merle Lyle Notes Date Note Type Note Provider Name and Address Organization Details Recorded Time 07/03/2025 text/html ROS as noted in the HPI Patient has poison ish all over. Got a steroid shot last week but it is spreading. Has not taken oral steroids because they make her very mean.Needs new dermatology referral. Psoriasis in scalp. Can't drive to [place].Has a canker sore. IWONA Wallace [address] [place] [address], [place], [address], [facility] [employer] [employer] 07/03/2025 14:32:02 OBGyn Episode No OBEpisode recorded.
--- OUTSIDE RECORDS SUMMARY | 2025-08-11 02:10 | XMS_ITS | Encounter Summary ---
Author Organization Healthcare Address [address] [place] [address] Care Team Providers Care Direct Marketing Executive Name Role Phone Ina Gill Primary Care Provider [phone] Encounter Details Date Type Department Care Team ([facility] st Contact Info) Description 11/04/2021 Community [facility] [address] [place] [address] Ina Gill PA [address] [place] [address] Varicose veins of both lower [...] Primary documented in this encounter Care Teams Direct Marketing Executive Relationship Specialty Start Date End Date Ina Gill PA [address] [place] [address] PCP - General 01/16/22 documented as of this encounter
--- OUTSIDE RECORDS SUMMARY | 2025-08-11 02:10 | XMS_ITS | Clinical Summary ---
Author Organization [facility] Address [address] [place] [address] Care Team Providers Care Obgyn Specialist Name Role Phone Ina Gill Primary Care Provider [phone] Allergies Active Allergy Reactions Criticality Noted Date [...] 02/22/2013 [facility]-Cervical Cancer Screening 02/22/2022 [facility]-HPV/Cotest 02/22/2022 [id number]-40 Vaccine ( - season) 2025 [facility]-Influenza Vaccine [...] age to complete this topic Care Teams Obgyn Specialist Relationship Specialty Start Date End Date Ina Gill PA [address] [place] [address] PCP - General 01/16/22
--- OUTSIDE RECORDS SUMMARY | 2025-08-11 02:10 | XMS_ITS | Clinical Summary ---
[facility] Organization [facility] Address [address] [place] [address] Care Team Providers Care Dermatology Physician Assistant Name Role Phone Provider, No Known [...] things needed for daily living? No 04/28/2023 [place] Depression Scale Answer Date Recorded [place] Depression Scale Total 7 04/30/2023 The thought [...] Of Support Discussed With: Patient Care Teams Dermatology Physician Assistant Relationship Specialty Start Date End Date Provider, [place] [address] PCP - General 03/22/18
--- OUTSIDE RECORDS SUMMARY | 2025-08-11 02:10 | XMS_ITS | Patient Health Record ---
Author Organization [facility] Address [address] [facility] [address] [place] [address] Care Team Providers Care Strike Planning Applications Name Role Phone Anali Guidry Unavailable [phone] Allergies Allergen (clinical drug ingredient) Drug/Non Drug [...] W/U Status Risk Notes Problem Missed period (27868762) Missed period (N92.6) Active confirmed Plan Of Treatment No Information Insurance Providers Payer Name Payer Address Payer Phone Subscriber Number Group Number Insured Name Patient Relationship to Insured Coverage Start Date Coverage End Date Marcelline Medicaid MD [address] [address] [place] [address] [phone] [id number] Merle Lyle Self - patient is the insured 3 Medical (General) History Surgical History Surgery Date(Month/Year) c/s x2 Hospitalization History Reason Date(Month/Year) L&D Primary L&D Primary
--- OUTSIDE RECORDS SUMMARY | 2025-08-11 02:10 | XMS_ITS | Data Portability ---
Author Organization [employer] [place] [facility] Address [address] [place] [address] Assessment No assessment recorded. Plan of Treatment Reminders Order Date Submit Date Provider Last Modified By Organization Details Last Modified Time Details Appointments None recorded. Lab None recorded. Referral dermatologi st referral 2024 025 ora Knowles MD, [address] [place] [address], [address], [address] 14:08:[address] referral - first available appt 2024 025 [email or web address], [address] [place] [address] , [address], [address], 5 15:36:14 Procedures None recorded. Surgeries None recorded. Imaging None recorded. Medication Orders triamcinolo ne acetonide 0.1 % dental paste 2024 025 [facility] 591, [address], [address], 5 05:01:07 Orabase (benzocaine ) 20 % mucosal paste 2024 025 [facility] 591, [address], [address], 5 05:01:07 Xyzal 5 mg tablet [email or web address] [facility]91, [address], [address], 5 09:05:30 famotidine 40 mg tablet [address] 591, [address] [place], [address], 5 09:05:30 dexamethaso ne sodium phosphate 4 mg/mL injection solution [address] 591, [address], [address], 5 14:31:10 Depo-Medrol 80 mg/mL suspension for injection [address] 591, [address], [address], 5 14:31:10 clobetasol 0.05 % scalp solution 2024 025 [facility] 591, [address], [address], 5 09:05:53 hydroxyzine HCl 50 mg tablet 2024 025 [facility] 591, [address], [address], 5 08:39:35 clobetasol 0.05 % scalp solution 2024 025 [facility] 591, [address], [address], 5 14:23:27 Patient TargetsNo targets recorded. 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 Problems Name Problem SNOMED Code Status Onset Date Resolution Date Notes Provider Name and Address Organization Details Recorded Time Generalized anxiety disorder 32066406 Active 2024 IWONA Wallace [address] [place] [address], [address], [employer] 14:21:20 Scalp itchy 120141750 Active 2024 IWONA Wallace [address] [place] [address], [address], [employer] 5 14:22:57 Tenderness of right temporomand ibular joint 5767682978531 9106 Active 2024 IWONA Wallace [address] [place] [address], [address], [employer] 5 17:07:58 Viral disease 38986134 Active 2024 IWONA Wallace [address] [place] [address], [address], [employer] 10:22:28 Contact dermatitis caused by urushiol from [facility] ish 296710360 Active 2024 IWONA Wallace [address] [place] [address], [address], [employer] 5 12:03:39 Psoriasis of scalp 980393656 Active 2024 IWONA Wallace [address] [place] [address], [address], [employer] 5 09:03:21 Aphthous ulcer of mouth 463119154 Active 2024 IWONA Wallace [address] [place] [address], [address], [employer] 5 09:04:35 Migraine 41591240 Active 2024 IWONA Wallace [address] [place] [address], [address], [employer] 5 12:42:18 Gastroesoph ageal reflux disease without esophagitis 473617832 Active 2024 IWONA Wallace [address] [place] [address], [address], [employer] 5 12:42:32 Problem Notes None recorded. Procedures Surgical History Date Name Laterality Status Provider Name and Address Organization Details Recorded Time Date of Last Pap Smear completed [employer] 03/29/2025 13:35:11 section completed [employer] 02/26/2025 13:18:56 section completed [employer] 02/26/2025 13:19:02 section completed [employer] 02/26/2025 13:19:07 Imaging Results None recorded. Procedure Notes None recorded. Medical Equipment None Reported. Allergies Allergen ID Allergen Name Allergen Category Reaction Reaction Severity Criticality Documentation Date Start Date Code Code System Note Provider Name and Address Organization Details Recorded Time 43300 Product containin g penicilli n (product) medicatio n Not available Not available Not available 02/26/2025 15105 8001 SNOMED [employer] 13:13:19 10434 Bactrim medicatio n Not available Not available Not available 02/26/2025 86948 9 RxNorm [employer] 13:13:25 Medications Name Sig Start Date [...] completed Not Available Not Available Not Available [facility] ODT 75 mg disintegrat ing tablet DISSOLVE 1 TABLET BY MOUTH NEEDED FOR MIGRAINE HEADACHE active Not Available Not Available No t Available Vitals Date Recorded Body weight Body mass index (BMI) Body height Heart rate Oxygen saturation Oxygen saturation in Arterial blood by Pulse oximetry Body temperature Systolic And Diastolic Provider Name and Address Organization Details Last Updated DateTime 5 57473.9 2 g 35.7 kg/m2 165.1 cm 92 /min 98 % 98 % 98.3 [degF] 110/70 mm[Hg] [facility] [employer] 5 13:24:58 Date Recorded Body height Body mass index (BMI) Body weight Oxygen saturation Oxygen saturation in Arterial blood by Pulse oximetry Heart rate Body temperature Systolic And Diastolic Provider Name and Address Organization Details Last Updated DateTime 165.1 cm 37.2 kg/m2 207245. 25 g 98 % 98 % 86 /min 98.1 [degF] 112/72 mm[Hg] Anna Watson [employer] 08:45:15 Social History Question Answer Notes LastModified by Organizat ion Details LastModified Time Tobacco Smoking Status Former Smoker Anna Watson davon, [employer] 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 No Information not available 02/26/2025 What [...] anxious, or unable to sleep at night)? [id number] Information not available 02/26/2025 Do you have [...] 07/03/2025 08:31:32 MMR 8 completed Not Available [facility] 07/03/2025 08:31:32 Tdap 3 completed Not Available [facility] 07/03/2025 08:31:32 Past Encounters Encounter ID Performer Location Encounter Start Date Encounter Closed Date Diagnosis/Indication Diagnosis SNOMED-CT Code Diagnosis ICD10 Code Diagnosis IMO Codes Diagnosis Note [id number] IWONA Wallace [facility] [address] [place] [address] 02/26/2025 12:48:17 02/26/2025 14:08:48 Generalized anxiety disorder 60320692 F41.1 77287 Take prior to MRI Scalp itchy 310375540 L2 9.9 114220 Tenderness of right temporomandibular joint 5899006825 1836152 M26.621 2894990743 Patient states pain improved 50% with bite guard but does not recall dentist actually checking her bitePatien t wanted 2nd opinion but can't find anyone that takes her insurance - Dr Alvarez states he would see her this afternoon and quickly check her bite to determine if that was the source of the pain or if we need to proceed with further workup [id number] IWONA Wallace [facility] [address] [place] [address] 07/03/2025 08:31:06 07/03/2025 09:27:22 Psoriasis of scalp 425052710 L40.9 343174 Contact de rmatitis caused by urushiol from [facility] 464134804 L23.7 9261950 Scalp itchy 611844907 L2 9.9 Aphthous u lcer of mouth 461721222 K12.0 8045 Health Concerns Section Related Observation LastModified by Organization Detai ls LastModified Time None Recorded Concern Status LastModified by Organization Details LastModified Time None Recorded Advance Directives Directive N: Payers Insurance Date Sequence Insurance Name Policy Number Policy Gould Covered Member ID Gould Member ID Guarantor Name 08/08/2025 1 [employer] [facility] (MEDICAID HMO) Merle Lyle [id number] Merle Lyle Notes Date Note Type Note [...] would like referral to dermatology. IWONA Wallace [address] [place] [address], [address], [employer] 02/26/2025 17:10:52 07/03/2025 text/html ROS as noted in the HPI Patient has poison ish all over. Got a steroid shot last week but it is spreading. Has not taken oral steroids because they make her very mean.Needs new dermatology referral. Psoriasis in scalp. Can't drive to [place].Has a canker sore. IWONA Wallace [address] [place], [address], [employer] 07/03/2025 14:32:02 OBGyn Episode No OBEpisode recorded.
--- NOTE | 2025-08-11 02:42 | ED_ITS ---
Discharge Plan Disposition Patient Disposition: Home, Self-Care Condition: Good Prescriptions Prescriptions: No Action Nurtec ODT 75 mg tablet,disintegrating 75 mg PO Q OTHER DAY PRN (Reason: migraine headache) Qty: 14 0RF montelukast [Singulair] 10 mg tablet 10 mg PO DAILY Qty: 30 3RF fluticasone propionate [Flonase Allergy Relief] 50 mcg/actuation spray,suspension 1 spray intranasal BID Qty: 16 3RF Rx Instructions: administer into each nostril propranolol 60 mg tablet 60 mg PO BID PRN omeprazole 20 mg capsule,delayed release(DR/EC) See Rx Instructions .ROUTE .COMPLEX Qty: 90 0RF Dose Instruction: Take 1 capsule by mouth once daily Rx Instructions: Take 1 capsule by mouth once daily clindamycin HCl 150 mg capsule 450 mg PO Q8H 7 Days Qty: 63 0RF Referrals Follow up/Referrals: Ina Gill PA [Primary Care Provider, Medical] - See instructions Activity Restrictions/Add. Instructions Additional Instructions/Restrictions: You were evaluated in the ER and are believed to be appropriate for discharge at this time. Take Tylenol ibuprofen at home if needed for pain, do not exceed the recommended dose on the bottle. Drink water and eat a small snack each time you take these medications to avoid side effects. Wear the brace for stability and support. Avoid using the left hand until your pain is resolved. Make an appointment with your primary care doctor for reevaluation in 2 to 3 days. Return to the ER with any new, worsening, or otherwise concerning symptoms including but not limited to uncontrollable pain or infectious symptoms as discussed. Clinical Impressions Clinical Impression: Tenosynovitis of hand Instructions Patient Instructions: SAUNDRA for [place] Tenosynovitis Print Language Print Language: Georgian Discharge ED Provider: Jaquelin Vidal General Adult HPI General Chief complaint: Extremity Injury, Upper Stated complaint: L hand pain, unable to move, bump on wrist Time Seen by Provider: 08/11/25 01:57 Mode of Arrival: Ambulatory Source of Information: Patient Description of Symptoms (Recalled from ER Triage Doc. by RN): Pt reports at approx 18:00 on 08-10-2025 she began to have severe 10/10 left hand pain. Pt denies injury. History of Present Illness HPI narrative: 35-year-old female with a history of PCOS, PTSD, recent lymphadenitis for which she is currently on clindamycin presents to the ER for left posterior hand pain. Patient reports around 6 PM she started noticing pain in the back of her left hand. She tried to ignore it but it got progressively worse. Tonight it was keeping her awake. 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 She denies any known specific injury. She states she did not fall onto or strike the hand knowingly. Denies any bug bites or stings. Patient reports the pain is 10 out of 10 and was tearful on arrival. She states she has taken Tylenol and ibuprofen without resolution of symptoms. She states she tried applying ice without improvement. She attempted putting on a wrist and thumb brace that she had at home which made her symptoms worse. Even though the pain is on the back of the hand, she has more pain when flexing the hand than when extending it. She states it feels like a pulling/stretching sensation across the back of the hand when she flexes down and it causes pain. She has no numbness, tingling, or weakness. No history of arthritis. No fevers, chills, redness, or heat. No wounds. No other complaints or concerns. Related Data Home Medications ?Medication ?Instructions ?Recorded ?Confirmed propranolol 60 mg tablet 60 mg PO BID PRN 10/27/24 Previous Rx's ?Medication ?Instructions ?Recorded rimegepant 75 mg disintegrating 75 mg PO Q OTHER DAY P RN migraine 10/23/24 tablet (Nurtec ODT) headache #14 tabs fluticasone propionate 50 1 spray intranasal BID #16 g alpesh 03/27/25 mcg/actuation nasal spray,suspension (Flonase Allergy Relief) montelukast 10 mg tablet 10 mg PO DAILY #30 tabs 03/11 05/04 (Singulair) omeprazole 20 mg capsule,delayed See Rx Instructions . Route 04/06/25 release .COMPLEX #90 caps clindamycin HCl 150 mg capsule 450 mg (3 x 150 mg) PO Q8H 7 days 08/07/25 #63 caps Allergies Allergy/AdvReac Type Severity Reaction Status Date / Time penicillin V (PENICILLIN V) Allergy Intermediate Rash Verified 06/29/25 18:37 Penicillins (PENICILLINS) Allergy Intermediate Rash Verified 06/29/25 18:37 sulfamethoxazole Allergy Intermediate Rash Verified 06/29/25 18:37 (SULFAMETHOXAZOLE) trimethoprim (TRIMETHOPRIM) Allergy Intermediate Rash Verified 06/29/25 18:37 metformin AdvReac Intermediate GI upset Verified 06/29/25 18:37 [facility] Disclaimer: The information contained in this section may have been updated after the patient was seen, as this information can be updated by other users. Medical History Tympanosclerosis TMJ (dislocation of temporomandibular joint) Rash and nonspecific skin eruption Tympanosclerosis of both ears Vertigo Abdominal pain affecting bleeding Vaginal bleeding Hypomagnesemia Pre-eclampsia Cough Headache Gastroenteritis Hirsutism Anxiety and depression PTSD (post-traumatic stress disorder) Depression PMDD (premenstrual dysphoric disorder) PCOS (polycystic ovarian syndrome) Pre-diabetes Gastroesophageal reflux disease Persistent dyspnea after COVID-19 Varicose vein of leg Surgical History History of section Family History Other No significant family history Social History Smoking Status: Former smoker tobacco type: cigarettes packs per day: 1 smoking status stop date: 08/25/2022 how long ago did patient quit smokin08/25/2022 second hand exposure: Yes alcohol intake: former substance use type: denies use, former substance user and painkillers 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 Travel in the last 8 weeks?: None household members: spouse and children housing: house lives independently: No marital status: single number of children: 3 Have you lived/traveled outside [place] in past 30 days?: No Contact w/someone who lives/traveled outside [place] past 30 days?: No Exposure to someone with infectious disease in past 14 days?: No Do you have a fever (greater than 100.4 F or 38 C)?: No Have you tested positive for COVID-19?: No Exposed to someone with COVID-19 in past 14 days?: No Do you have a sore throat?: No Do you have a cough?: No Do you have any weakness?: No Do you have any diarrhea?: No Are you experiencing any unusual bleeding?: No Do you have any muscle aches/pain?: No Do you have any abdominal pain?: No Are you experiencing loss of taste or smell?: No Other Medical History Have you received the Flu Vaccine for this season: No Have you received the Pneumonia Vaccine: No ROS Obtained: Yes Systems reviewed as appropriate & no additional complaints except as documented per HPI Physical Exam General General appearance: alert Comment: Tearful from pain but nontoxic Head Head exam: atraumatic and normocephalic Eye Eye exam: Present PERRL and EOMI ENT ENT exam: Present mucous membranes moist Neck Neck exam: Present normal inspection and full ROM Chest Chest inspection: Present symmetric chest wall rise Respiratory Respiratory exam: Absent respiratory distress or stridor Cardiovascular Cardiovascular exam: Present regular rate and normal rhythm Extremities Exam Extremities exam: Present full ROM and tenderness; Absent normal capillary refill Expanded Upper Extremity Exam Left: Hand exam: Present full ROM (Range of motion is full but patient has pain with flexion at the wrist), tenderness and swelling (Trace soft swelling on the posterior aspect of the left hand); Absent abrasion, laceration, ecchymosis, deformity, crepitus, dislocation or erythema Hand L/R back image: 2 1. Localized swelling and tenderness with no erythema or induration, no wound, no bug bite appreciated, no foreign body, no crepitus or deformity, no bruising, neurovascularly intact distally Comment: Range of motion of all fingers intact, strength intact, thumb opposition intact Neurological Exam Neurological exam: Present alert and oriented X3; Absent motor sensory deficit Psychiatric Psychiatric exam: Present normal affect and normal mood Skin Skin exam: Present warm and dry Medical Decision Making Medical Records Medical records reviewed: Yes I reviewed the patient's medical records. Screening: Per USPSTF and CDC recommendations, given the prevalence of disease in our region, it is our hospital?s policy to screen for HIV and viral Hepatitis for all patients aged 18 and over and those with ongoing risk factors. Darian Inquiry Pt receiving controlled substance: No Vital Signs: 08/11/25 02:10 Temperature 97.8 F Temperature Source Oral Pulse Rate [Left] 108 H Respiratory Rate 20 Blood Pressure [Right Arm] 145/98 H Blood Pressure Mean [Right Arm] 113 Blood Pressure Source [Right Arm] Automatic Cuff Blood Pressure Position [Right Arm] Sitting 02 Sat by Pulse Oximetry 98 Oxygen Delivery Method Room Air Orders (Tests/Meds): ED MEDICATIONS Discontinued Medications Generic Name Dose Route Start Last Admin Trade Name Sylvia PRN Reason Stop Dose Admin Dexamethasone Sodium Phosphate 8 mg 08/11/25 02:33 Dexamethasone 4mg/Ml 1ml Vial IM 08/11/25 02:34 ONCE ONE Diphenhydramine HCl 25 mg 08/11/25 02:06 08/11/25 02:23 Diphenhydramine 25mg Capsule PO 08/11/25 02:07 25 mg ONCE ONE Administration ORDERS Category Date Time Status Hand XR left 2 views [XR hand LT 2V] Stat Exams 08/11/25 02:06 Completed POCUS Point of Care (ER Only) Stat Exams 08/11/25 02:06 Ordered Medical Decision Narrative: In summary, this 35-year-old female with comorbidities described in the HPI presents to the emergency department today with left hand pain. On initial evaluation patient is hemodynamically stable, afebrile. She initially would not let me touch the hand and was tearful and anxious but I explained that I had to be able to examine it and have a conversation with her about what was going on. She was able to allow me to do this. Physical exam notable for small area of localized swelling over the posterior aspect of the left hand just distal to the wrist with slight tenderness but no erythema, heat, induration, fluctuance, wound, deformity, crepitus, bruising, or other evidence of injury. Neurovascularly intact, full range of motion, full strength. Differential diagnosis includes but is not limited to tenosynovitis, sprain, strain, I considered the possibility of infectious etiology but have extremely low suspicion for this since patient has no redness, heat, induration, fevers, wounds. No history of IV drug use. I considered acute osseous injury but have much lower suspicion for this since patient does not recall an acute traumatic event. Based on these concerns, I ordered x-ray and perform [id number] ultrasound. Since patient was having pain with range of motion of the wrist and I had considered the possibility of bug bite or sting I offered her Benadryl and I also offered Valium as a muscle relaxer, patient declined both of these. I do not believe labs are indicated since patient has no signs of systemic illness or evidence of infection and is already on clindamycin which should cover the majority of soft tissue infections. [id number] ultrasound personally performed and interpreted demonstrates fluid collection within the tendon sheaths in the area of localized swelling consistent with tenosynovitis. I do not appreciate disruption of any of the tendons. X-ray personally interpreted does not demonstrate acute osseous injury or degenerative changes, see radiology read for final interpretation. Workup is most consistent with tendinitis/tenosynovitis. Likely related to overuse injury. Patient is much more calm and able to tolerate her pain on reassessment. After further discussion with the patient, she is not interested in other pain medications but I did discuss the possibility of steroids offering some anti- inflammatory benefit and pain relief. Patient reports she does better with steroid injections than oral pills. I administered dexamethasone. Removable left wrist splint was applied for support and to limit use and range of motion temporarily. Patient was given instructions on symptomatic management, follow up instructions, and return precautions for the emergency department including but not limited to the development of any infectious symptoms. Patient indicated understanding and was discharged in stable condition. Critical Care Critical Care Time Critical Care Time: No
[2025-08-11 02:44] VITALS: BP 145/98; PULSE 108; RESP 20; TEMP 36.6; O2SAT 98
[2025-08-11] MEDS: DEXAMETHASONE 4MG/ML 1ML VIAL 8 MG IM (02:44)
== END 2025-08-11 02:52 | disposition home or self-care (01) ==
PROVIDERS: Emergency Provider Emergency Medicine; PCP Physician Assistant
DX: M65.942 Unspecified synovitis and tenosynovitis, left hand (principal); M79.642 Pain in left hand
CPT/HCPCS: 73120; 96372; 99283; J1100